=== PATIENT | female | born 1940 | race Caucasian/White ===

== ENCOUNTER → 2024-01-29 15:19 | Outpatient (REF) | payer MEDICARE, SELFPAY | LOC: HWRAD 15:19 | PROVIDERS: ATTENDING PHYSICIAN Anesthesiology; FAMILY PHYSICIAN Internal Medicine Geriatric Medicine | DX: M54.16 Radiculopathy, lumbar region (principal) | CPT/HCPCS: 70450 ==

== ENCOUNTER 2024-08-30 11:01 | Inpatient (IN) | payer MEDICARE, SELFPAY ==
[2024-08-30] VITALS (10 sets, daily range): BP systolic 101–123; BP diastolic 50–87; BMI 29.8
--- NOTE | 2024-08-30 07:22 | ED.GENMED ---
History of Present Illness
General
Chief Complaint: Musculo-Skeletal Complaint
Source: patient
Exam Limitations: none
Time Seen by Provider: 08/30/24 07:06
Nursing documentation reviewed up to this point in time: agreed with
History of Present Illness
History of Present Illness:
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
reactive airway disease presents to the ER for leg spasms. Patient reports she has chronic leg spasms for years however has not had a diagnosis and normally takes baclofen. Last night she forgot to take baclofen and woke up this morning had
severe leg spasms in her bilateral thighs. She reports she has vomited from the pain and even passed out before because the pain. This morning she called EMS because she had difficulty standing up and when she got to the bathroom she did vomit.
Patient reports EMS noted that emesis was very dark. She reports pain has subsided she only feels mildly sore in her thighs. This is the same type of pain that she has had for years. She denies any trauma fever chills redness. She does feel
mildly nauseous still.
Patient has complained of reflux over the past several days and has taken Pepcid and Pepto-Bismol. She also has had several days of dark stool.
She is not on blood thinners.
Review of Systems
Review of Systems
Allergies reviewed?: Yes
All Other Systems: ROS reviewed and negative except as documented in HPI and ROS
Constitutional: Reports no symptoms; Denies fever, fatigue or chills
EENT: Reports no symptoms
Respiratory: Reports no symptoms
Cardiac: Reports no symptoms
ABD/GI: Reports nausea, vomiting, black stools and other (dark stools ); Denies abdominal pain
: Reports no symptoms
Musculoskeletal: Reports other (leg cramps )
Skin: Reports no symptoms
Neurological: Reports no symptoms
Psychiatric: Reports no symptoms
Phy Exam
General Physical Exam
General Presentation: no apparent distress
General age: appears stated age
General Skin: warm and dry
General Habitus: normal
General Mental: alert
General Hydration: appears well hydrated
Cardiovascular Exam
Cardiovascular Exam: regular rate/rhythm, no murmur and normal peripheral pulses
Pulmonary Exam
Pulmonary Exam: lungs clear and no respiratory distress
Gastrointestinal Exam
Gastrointestinal Exam: soft and other (abd soft heme positive brown stools )
Neurological Exam
Neurological Exam: alert and oriented x3
Musculoskeletal Exam
Musculoskeletal Exam: full ROM
Skin Exam
Skin Exam: normal color and warm/dry
Psychiatric Exam
Psychiatric Exam: normal mood/affect
Course
Orders/Labs/Results
Orders:
Orders
08/30/24 07:23
IV Insert/Care/Rem.- Treatment PRN
0.9% Sodium Chloride 1000 ml [Nss] 1,000 ml IV BOLUS
Ondansetron Injectable [Zofran] 4 mg IV NOW STA
08/30/24 08:16
Complete Blood Count/With Diff Urgent
Comprehensive Metabolic Panel Urgent
08/30/24 10:04
Pantoprazole [Protonix IV] 80 mg IV NOW STA
08/30/24 10:15
Pantoprazole 80 mg/100 ml Nss [Protonix] 80 mg in 100 ml IV Q10H
08/30/24 10:35
Admit/Transfer Patient As Directed
Co-Sign Provider:
Level of Care: Inpatient admission
Assign to:: Medical/Surgical
Physician / Group: Hospitalist
Diagnosis: GI bleeding
Reason for Hospitalization: .
Expected length of stay greater than two midnights?: Yes
ELOS- Estimated Length of Stay in days: 3
I certify the patient meets the requirements for IP care: Yes
08/30/24 10:36
PRN Pain Medication Management As Directed
May give lesser potent ordered pain med per pt: Yes
preference::
Protocol:: Medication orders for pain may be administered in a
manner that supports deferring to patient preference
when the pt is:
- Requesting an ordered lesser potent pain medication.
Least to most potent pain medications are defined
as: acetaminophen < NSAID < tramadol < opioids
(morphine, oxycodone, hydromorphone).
- Requesting a lesser dose of the same medication IF
ORDERED.
- Requesting a less intrusive route of administration
if both routes are prescribed by the provider (PO <
IV).
Abnormal Lab Results
08/30/24
08:16
RBC 3.51 L 10^6/uL
(4.20-5.40)
Hgb 10.2 L g/dL
(12.0-16.0)
Hct 30.2 L %
(37.0-47.0)
Absolute Lymphs (auto) 0.5 L 10^3/uL
(1.2-3.4)
Neutrophils % 81.9 H %
(42.2-75.2)
Lymphocytes % 9.0 L %
(20.5-51.1)
BUN 38 H mg/dl
(7-17)
Glucose 140 H mg/dl
(70-99)
Total Protein 5.7 L g/dl
(6.3-8.2)
08/30/24 08:16
08/30/24 08:16
Vital Signs
Initial and Last Documented VS:
Initial Vital Signs
Temp Pulse Resp BP Pulse Ox
98.5 F 99 18 119/80 98
08/30/24 07:02 08/30/24 07:02 08/30/24 07:02 08/30/24 07:02 08/30/24 07:02
Last Documented Vital Signs
Temp Pulse Resp BP Pulse Ox
98.5 F 99 18 117/61 96
08/30/24 07:02 08/30/24 07:02 08/30/24 07:02 08/30/24 10:00 08/30/24 10:45
Garment Patternmaker consulted with Physician
Garment Patternmaker consulted with physician?: Yes
Name of Physician Consulted: DR Moreno
MDM/Problems Addressed
Differential Diagnosis Includes:
Not limited to chronic muscle spasms, dehydration, electrolyte abnormality, anemia, GI bleed
MDM/Problems Addressed:
Patient is an 83-year-old female who presented for chronic muscle spasms worse today patient did vomit because of the pain and muscle spasms. EMS noted that vomit was dark in color. She reports she has had reflux for the past several days and has
been attempting Pepto-Bismol. Patient reports that she has had black stools recently. On exam there is no active bleeding her stools are brown in color but heme positive. Hemoglobin is 10.2 with no prior comparison. BUN is also elevated at 38.
Given the history of dark emesis with black stools and heme positive stools with hemoglobin of 10.2 and a BUN of 38 will met for possible GI bleed. Case discussed with ED physician. IV protonix ordered.
*Critical Care Note
Total Time (30-74mins, 75-104mins- exclusive of procedures): Not Applicable
ED Attending Note
-
Portions of this chart may have been created with voice recognition software.� Occasional wrong word or��sound alike� substitutions may have occurred due to the inherent limitations of voice recognition software.
Discharge Plan
Departure
Patient Disposition: Admit
Date of Disposition: 08/30/24
Time of Disposition: 10:04
Admit to: Med/Surg
Admit to doctor: hospitaist
Presentation/result/management discussed w/ accepting MD/DO: Hospitalist
Patient with high blood pressure during this ER visit?: No
Condition: Fair
Covid-19: Not Applicable
Discharge Problem:
possible gi bleed, Muscle spasm
Interventions
Interventions:
*Risk Screen - Suicide Last Done: 08/30/24 07:02
*General Assessment Last Done: 08/30/24 07:02
*Neglect/Abuse Screening Last Done: 08/30/24 07:02
ED- Fall Risk Assessment Last Done: 08/30/24 07:02
*ED COVID-19 Vaccine History Last Done: 08/30/24 07:02
ED-Musculoskeletal Assessment Last Done: 08/30/24 07:02
[2024-08-30] MEDS: NSS 1000 IV (08:19)
[2024-08-30] MEDS: ZOFRAN 4 MG IV ×3 (08:20→20:15)
[2024-08-30 08:34] LABS: % Basophils 0.6 % (0-2); % Eosinophils 1.6 % (0-6); % Immature Granulocytes 0.2 % (0-0.5); % Monocytes 6.7 % (1.7-9.3); % Neutrophils 81.9 % (42.2-75.2); Absolute Eosinophils 0.1 10^3/uL (0-0.7); Absolute Lymphocytes 0.5 10^3/uL (1.2-3.4); Absolute Monocytes 0.3 10^3/uL (0.1-0.6); Absolute Neutrophils 4.2 10^3/uL (1.4-6.5); Hematocrit 30.2 % (37.0-47.0); Hemoglobin 10.2 g/dL (12.0-16.0); Mean Corp Hgb Conc. 33.8 g/dL (33.0-37.0); Mean Corpuscular Hgb 29.1 pg (27.0-31.0); Mean Platelet Volume 10.2 fL (7.4-10.4); Nucleated Red Blood Cells % 0 %; Platelet Count 195 10^3/uL (130-400); Red Blood Cell Count 3.51 10^6/uL (4.20-5.40); Red Cell Dist. Width 14.5 % (11.5-14.5); White Blood Cell Count 5.1 10^3/uL (4.8-10.8)
[2024-08-30 08:43] LABS: ALT (SGPT) 18 U/L (0-35); AST (SGOT) 24 U/L (14-36); Albumin 3.5 g/dl (3.5-5.0); Alkaline Phosphatase 46 U/L (38-126); Blood Urea Nitrogen 38 mg/dl (7-17); Calcium 8.8 mg/dl (8.4-10.2); Carbon Dioxide 24 mmol/L (22-30); Chloride 105 mmol/L (98-107); Estimated Creatinine Clearance 50 ml/min; Glucose 140 mg/dl (70-99); Potassium 4.7 mmol/L (3.5-5.1); Sodium 137 mmol/L (135-145); Total Bilirubin 0.9 mg/dl (0.2-1.3); Total Protein 5.7 g/dl (6.3-8.2); eGFR > 60.00
--- NOTE | 2024-08-30 10:34 | HPS.HSE ---
Family Physician
-
Family Physician: Shreya Murguia
Chief Complaint
-
One-time vomiting with syncopal episode
History of Present Illness
83 years old female who lives in independent living at [facility] presented after passing out. Patient has a chronic muscle spasm that she suffers from for many years. She has had evaluation at different facilities and seen by multiple
neurologists over the years. She was given baclofen for muscle spasm. Possibly related to cervical spine stenosis. Patient gets the spasms they can happen in her upper or lower extremity and sometimes painful that she passes out. Per family, son
at the bedside it is not unusual for her to pass out. Sometimes she throws up because of the painful episode. She reported dark vomitus but denies nausea or previous vomiting. Per son, she was noted to have some indigestion/gastric discomfort in
the last 2 months. She has had colonoscopy with Dr. Gordon in the last 2 years and was told normal. She tested positive for heme in the ER
Medical History
Past Medical History
Past Medical History: Reports Other (Muscle spasm, history of right lower lobe cancer status post lobectomy, history of stage I ovarian cancer s/p surgery, density on the left lower lung under surveillance)
Past Surgical History: Reports Other (No recent major surgery)
Social History
Tobacco: Non-smoker
Alcohol: Occasional
Drug: None
Personal:
Living: Assisted Living
Employment: Retired
Family History
Family History: Other (History of multiple cancers in the family including GI/lung cancer)
Allergies / Home Medications
Allergies reflects when Allergies were last updated in [employer].
Home Medications with original date entered in [employer]
Allergy/Medication List:
Allergies
Allergy/AdvReac Type Severity Reaction Status Date / Time
covid vaccine Allergy Unknown Uncoded 08/30/24 07:14
Medications on admission
Baclofen 20 mg at night oral
Review of Systems
-
History Source: Patient
A 12 point ROS was completed and negative except as noted: Yes
Constitutional: Denies Fever or Chills
EENT: Denies Sore Throat
Respiratory: Denies Cough
Cardiac: Denies Chest Pain
Abdomen/GI: Denies Abdominal Pain, Nausea, Vomiting, Diarrhea or Bloody Stools
: Denies Dysuria
Musculoskeletal: Reports Other (Muscle spasm at times); Denies Joint Pain
Skin: Denies Itching
Neurological: Denies Dizzy, Headache or Numbness
Endocrine: Denies Temp Intolerance
Hematologic/Lymphatic: Denies Bruising
Psych: Denies Panic Disorder
Physical Exam
Vital Signs
Vital Signs
Temp Pulse Resp BP Pulse Ox
98.5 F 99 18 119/80 98
08/30/24 07:02 08/30/24 07:02 08/30/24 07:02 08/30/24 07:02 08/30/24 07:02
Physical Exam
General: No Apparent Distress, Comfortable and Conversant
HEENT: Moist mucous membranes and Atraumatic
Respiratory: Clear
Cardiac: S1/S2 and Murmur
GI: Soft, Non Tender and Non Distended
Genito-urinary: No Pringle
Musculoskeletal: No Clubbing, No Cyanosis and No Edema
Skin: Warm; No Jaundice
Neuro: AO x 3
Psych: Calm and Intact Judgment/Insight
Laboratory Results
-
08/30/24 08:16
08/30/24 08:16
Laboratory Results
Total Bilirubin 0.9 mg/dl (0.2-1.3) 08/30/24 08:16
AST 24 U/L (14-36) 08/30/24 08:16
ALT 18 U/L (0-35) 08/30/24 08:16
Alkaline Phosphatase 46 U/L (38-126) 08/30/24 08:16
Impression/Plan
-
83 years old female presented after an episode with spasm associated with syncopal episode and vomiting, tested positive for Hemoccult in the ER
#History of vomiting. Hemoccult positive test in the ER
Patient denies history of chronic nausea or vomiting. No melena. She reports last colonoscopy in last [address] Gordon, was told normal.
No abdominal pain or tenderness
She has history of vomiting at times with her muscle spasm
Hemoglobin on admission 10.2
Patient and her son reported history of indigestion that she was taking Prevacid from her son and magnesium pills in the last 2 months. She denies regular intake of nonsteroidal anti-inflammatory drugs or aspirin.
Consulted gastroenterology. Appreciate input
Continue with IV PPI and changed to oral
Monitor hemoglobin.
# Chronic muscle spasm. According to the patient and her son, possibly related to cervical pathology. Patient has had these muscle spasms described as short interval and infrequent could be every few weeks or months. Painful spasm and sometimes
associated with passing out/vomiting due to severe pain. No confusion.
Patient was evaluated by multiple neurologist over the years. She takes baclofen at night.
Will add as needed IV lorazepam for muscle spasm
No history of sensory loss. No history of confusion or altered mentation or seizure activities.
# history of stage I ovarian cancer, history of right pleural lung cancer s/p resection. Currently cancer free. Has density on the left lower lung and under surveillance/monitoring by her doctors at [place].
No shortness of breath. No cough. No hypoxia.
Total time spent to see the patient, examine the patient, review data and lab results, discuss treatment plan with patient, her son, GI doctor, ER doctor and nursing staff around 75 minutes
[2024-08-30] MEDS: PROTONIX 100 IV (11:08)
[2024-08-30] MEDS: PROTONIX IV 80 MG IV (11:08)
--- NOTE | 2024-08-30 13:33 | CON.GI ---
Consultation
-
Date/Time Consultation Requested: 08/30/2024, 11:50
Date/Time Consultation Performed: 08/30/2024, 1:33 PM
Requesting Provider: Dr. Mariela Robertson
Performing Provider: Dr. Jesse Gutierrez
Reason for Consultation: GI Bleeding
Medical History
Chief Complaint / HPI
Chief Complaint: One-time vomiting with syncopal episode
History of Present Illness:
Ms Hoover is a 83 y.o female with past medical history of stage I ovarian cancer (dx in 2013, s/p LITO/BSO), R lung cancer, cervical lumbar stenosis, hx of TIA, Sheriff's palsy, CKD, and chronic muscle spasms who initially presented to the ED due to
concern for leg spasms. Concern for an episode of dark emesis and heme (+) stool along with a Hgb 10s for which GI has been consulted for further evaluation and management.
Patient reports worsening dyspepsia over the past week along with darker black stools as well during this time. She suffers from chronic muscle spasms for which she takes baclofen but denies any NSAIDs. She didn't know at first what to make of her
darker black stools and denies any oral iron supplementation. She did take some stool softeners at her independent living facility ([facility]) but is unable to recall. Regardless, while using the bathroom last evening she had an episode of dark
lack vomit. Her nursing aid also reported some concern for possible blood. She denies any prior similar symptoms or prior episodes of GI bleeding in the past. Notes a prior EGD several (> 10 ) years ago and notes a previous dilation in the past (no
records of this). She does note following closely with [facility] as she has a personal history of colon polyps (with Dr. Gordon) where her last colonoscopy was performed about 2-3 years ago and only notable for one small colon polyp. Otherwise, she denies
any changes in bowel habits, constipation/diarrhea or bloody stools. She does endorse chronic reflux as well and was previously supposed to be on Omeprazole in the past but stopped as she felt this made her muscle spasms worse. No other dysphagia,
odynophagia, globus or other upper GI symptoms. No other abdominal pain or discomfort. No other significant alcohol use. She does note an unintentional 10-12 lb weight loss as well. She follows closely with her Oncologist for surveillance of her
lung cancer and has upcoming imaging in the next 1-2 weeks at [facility] where she is followed closely for all of her care. Given her nausea and coffee ground emesis, she came to the ED for further evaluation.
In the ED, patient was afebrile and HD-stable. Labs notable for BUN 38 and Electromechanical Assembly Technician 0.8. LFTs wnl. CBC with Hgb 10.2 with MCV 86.0 and plts 195. Heme (+) brown stool in the ED and started on IV PPI.
Past Medical History
Past Medical History: Other (Muscle spasm, history of right lower lobe cancer status post lobectomy, history of stage I ovarian cancer s/p surgery, density on the left lower lung under surveillance)
Past Surgical History: Other (No recent major surgery)
Social History
Tobacco: Non-Smoker
Alcohol: Occasional
Drug: None
Family History
Family History: Other (Family history of colon polyps and CRC along with lung cancer)
Allergies / Home Medications
Allergy/AdvReac Type Severity Reaction Status Date / Time
covid vaccine Allergy Unknown Uncoded 08/30/24 07:14
Review of Systems
-
All other systems: A 12 pt ROS was Negative except as stated above in HPI
Vital Signs
Temp Pulse Resp BP Pulse Ox
98.4 F 90 18 109/54 99
08/30/24 12:00 08/30/24 12:00 08/30/24 12:00 08/30/24 12:00 08/30/24 12:00
Physical Exam
Exam
General: Well Developed, Well Nourished, No Apparent Distress and Comfortable
HEENT: Anicteric and Moist Mucous Membranes
Respiratory: Clear
Cardiac: Other (RR on tele)
GI: Soft, Non Tender and Non Distended
Skin: Warm
Neuro: AO x 3 and Nonfocal/Grossly Intact
Psych: Calm
Results
WBC 5.1 10^3/uL (4.8-10.8) 08/30/24 08:16
Hgb 10.2 g/dL (12.0-16.0) L 08/30/24 08:16
Hct 30.2 % (37.0-47.0) L 08/30/24 08:16
MCV 86.0 fL (81.0-99.0) 08/30/24 08:16
Plt Count 195 10^3/uL (130-400) 08/30/24 08:16
Absolute Neuts (auto) 4.2 10^3/uL (1.4-6.5) 08/30/24 08:16
Sodium 137 mmol/L (135-145) 08/30/24 08:16
Potassium 4.7 mmol/L (3.5-5.1) 08/30/24 08:16
Chloride 105 mmol/L (98-107) 08/30/24 08:16
Carbon Dioxide 24 mmol/L (22-30) 08/30/24 08:16
BUN 38 mg/dl (7-17) H 08/30/24 08:16
Creatinine 0.8 mg/dL (0.6-1.0) 08/30/24 08:16
Calcium 8.8 mg/dl (8.4-10.2) 08/30/24 08:16
Total Bilirubin 0.9 mg/dl (0.2-1.3) 08/30/24 08:16
AST 24 U/L (14-36) 08/30/24 08:16
ALT 18 U/L (0-35) 08/30/24 08:16
Alkaline Phosphatase 46 U/L (38-126) 08/30/24 08:16
Diagnostic Image Results:
Prior GI Procedures: No prior endoscopic records available for review. Last EGD reportedly > 10 years ago (previous dilations in past ?), last colonoscopy 2-3 years ago notable for one small polyp
Assessment / Plan
-
Ms Hoover is a 83 y.o female with past medical history of stage I ovarian cancer (dx in 2013, s/p LITO/BSO), R lung cancer, cervical lumbar stenosis, hx of TIA, Sheriff's palsy, CKD, and chronic muscle spasms who initially presented to the ED due to
concern for leg spasms. Concern for an episode of dark emesis and heme (+) stool along with a Hgb 10s for which GI has been consulted for further evaluation and management.
#Coffee Ground Emesis
#Heme (+) Stools c/f #Prior Melena
#Normocytic Anemia
#Dyspepsia
#Chronic GERD
#Hx of Colon Polyps
#Unintentional Weight Loss (10-12 lbs)
#Hx of Ovarian/Lung Cancer (reportedly in remission, in active surveillance at [facility])
Impression: Patient presenting from home with an episode of coffee ground emesis along with darker stools (concerning for melena) and worsening dyspepsia for one week duration found to have a Hgb 10s along with an elevated BUN:Electromechanical Assembly Technician ratio concerning
for an UGIB. Denies any NSAIDs or prior history of GI bleeding in the past. Last EGD > 10 yrs ago (notes prior dilations due to chronic GERD, possibly prior peptic stricture ?) and colonoscopy 2-3 years ago only notable for one small polyp at [facility].
No other Aspirin or other antiplatelets/anticoagulants. Etiology suspicious for erosive esophagitis (given her longstanding history of chronic GERD and self-discontinued her prior PPI) versus gastroduodenal erosions versus PUD. Doubt brisk UGIB
based on her hemodynamics and overall symptomatology. Would benefit from an EGD this admission.
Recommendations:
- Okay for CLD
- Trend Hgb with serial CBC, transfuse as needed
- Send anemia w/u: iron studies, folate, B12, and ferritin
- IV PPI 40 mg BiD
- Plan for EGD next week on 09/01/2024. Will consider sooner EGD if indicated pending clinical course
- If EGD is unremarkable, would consider CT Abd/pelvis given her upper abdominal discomfort which seems most consistent with dyspepsia but concern for unintentional weight loss reported by both patient and patient's family at bedside
- IV anti-emetics PRN
- Strict avoidance of all NSAIDs
- Rest of care per primary team
Discussed with patient's [id number] (Margy) as well at bedside.
GI will continue to follow while inpatient. Discussed with primary internal medicine team.
Data Reviewed
-
Radiology: Report Reviewed by me
-
-
Thank you for consultation and allowing me to participate in the patient's care. Please call the combination welder GI physician during the after hours with any questions or concerns.
--- NOTE | 2024-08-30 15:00 | PTCARENOTE ---
Received patient from ED in wheelchair, stood and pivoted to bed. AAOX3 able to make needs known. Pt ordered Full liquid diet, tolerating it well. Standby assist going to and from bathroom. Family at bedside, oriented to room and use of call dutton.
[2024-08-30 20:08] LABS: Hemoglobin 8.3 g/dL (12.0-16.0)
[2024-08-30] MEDS: LIORESAL 20 MG PO (21:13)
[2024-08-30 22:23] LABS: Glucose - Point of Care 141 mg/dl (70-99)
[2024-08-30 22:45] LABS: % Basophils 0.5 % (0-2); % Eosinophils 2.2 % (0-6); % Immature Granulocytes 0.6 % (0-0.5); % Lymphocytes 31.8 % (20.5-51.1); % Monocytes 7.6 % (1.7-9.3); % Neutrophils 57.3 % (42.2-75.2); Absolute Basophils 0.1 10^3/uL (0-0.2); Absolute Eosinophils 0.2 10^3/uL (0-0.7); Absolute Immature Granulocytes 0.1 10^3/uL (0-0.05); Absolute Lymphocytes 3.4 10^3/uL (1.2-3.4); Absolute Monocytes 0.8 10^3/uL (0.1-0.6); Absolute Neutrophils 6.2 10^3/uL (1.4-6.5); Hematocrit 27.1 % (37.0-47.0); Mean Corp Hgb Conc. 33.2 g/dL (33.0-37.0); Mean Corpuscular Hgb 28.8 pg (27.0-31.0); Mean Corpuscular Volume 86.6 fL (81.0-99.0); Mean Platelet Volume 10.2 fL (7.4-10.4); Nucleated Red Blood Cells % 0.2 %; Platelet Count 256 10^3/uL (130-400); Red Blood Cell Count 3.13 10^6/uL (4.20-5.40); Red Cell Dist. Width 14.8 % (11.5-14.5); White Blood Cell Count 10.8 10^3/uL (4.8-10.8)
[2024-08-30 22:52] LABS: ALT (SGPT) 16 U/L (0-35); AST (SGOT) 21 U/L (14-36); Albumin 3.3 g/dl (3.5-5.0); Alkaline Phosphatase 50 U/L (38-126); Blood Urea Nitrogen 39 mg/dl (7-17); Calcium 8.7 mg/dl (8.4-10.2); Carbon Dioxide 19 mmol/L (22-30); Chloride 107 mmol/L (98-107); Estimated Creatinine Clearance 40 ml/min; Glucose 125 mg/dl (70-99); Potassium 4.4 mmol/L (3.5-5.1); Sodium 137 mmol/L (135-145); Total Bilirubin 0.8 mg/dl (0.2-1.3); Total Protein 5.5 g/dl (6.3-8.2); eGFR 55.21
[2024-08-30] MEDS: LIDOCAINE 4% PATCH 1 PATCH TOPICAL (22:52)
[2024-08-30] MEDS: OFIRMEV 100 IV (22:59)
[2024-08-30 23:04] LABS: Troponin I < 0.012 ng/ml
--- NOTE | 2024-08-30 23:14 | W.PN.UPDATE ---
Update Note
Progress Note Update
2229 SHOW CARD WRITER for post syncopal episode in bathroom
Pt ambulated to bathroom unassisted. Moaning was heard by nurses and pt was found sitting sideways on toilet. Nurses able to get pt into a chair and safely get her back to bed. Vitals signs stable. Pt slightly forgetful (thinks she is at [facility]). Complaining of back pain. Restless and cannot get comfortable. Hard to deceiver if this is her normal back spasms or not. Will add lidocaine patch and one dose ofirmev iv as pt was also nauseous.
[2024-08-31] VITALS (10 sets, daily range): BP systolic 99–125; BP diastolic 44–62
--- NOTE | 2024-08-31 00:18 | RR ---
A Rapid Response was called on this patient, please see Rapid Response form.
This RN heard grunting noises from nurses station. Entered room where patient was found in the bathroom, passed out, laying across the toilet. A rapid response was called. Patient was placed in chair by staff and placed into bed. VSS. Patient with
no recollection of event. Bed alarm placed. Patient with c/o back pain. See MAR for administration.
[2024-08-31 02:48] LABS: Hematocrit 28.4 % (37.0-47.0); Hemoglobin 9.4 g/dL (12.0-16.0)
--- NOTE | 2024-08-31 06:19 | W.PN.GI.CBS2 ---
Today's Communication / Plan
-
F/u post-transfusion CBC, transfuse as needed. Monitor for signs of overt GI blood loss while inpatient. Plan for EGD tomorrow, 09/01/2024. Keep NPO at PR. See rest of care as outlined below.
Assessment / Plan
-
Ms Hoover is a 83 y.o female with past medical history of stage I ovarian cancer (dx in 2013, s/p LITO/BSO), R lung cancer, cervical lumbar stenosis, hx of TIA, Sheriff's palsy, CKD, and chronic muscle spasms who initially presented to the ED due to
concern for leg spasms. Concern for an episode of dark emesis and heme (+) stool along with a Hgb 10s for which GI has been consulted for further evaluation and management.
#Coffee Ground Emesis #C/f UGIB
#Heme (+) Stools #Prior Melena
#Dyspepsia
#Acute Blood Loss Anemia
#Normocytic Anemia
#Chronic GERD
#Hx of Colon Polyps
#Unintentional Weight Loss (10-12 lbs)
#Hx of Ovarian/Lung Cancer (reportedly in remission, in active surveillance at [place])
Impression: Patient presenting from home with an episode of coffee ground emesis along with darker stools (concerning for melena) and worsening dyspepsia for one week duration found to have a Hgb 10s along with an elevated BUN:Instrument Sterilizer ratio concerning
for an UGIB. Denies any NSAIDs or prior history of GI bleeding in the past. Last EGD > 10 yrs ago (notes prior dilations due to chronic GERD, possibly prior peptic stricture ?) and colonoscopy 2-3 years ago only notable for one small polyp at [facility].
No other Aspirin or other antiplatelets/anticoagulants. Etiology suspicious for erosive esophagitis (given her longstanding history of chronic GERD and self-discontinued her prior PPI) versus gastroduodenal erosions versus PUD. Doubt brisk UGIB
based on her hemodynamics and overall symptomatology. Would benefit from an EGD this admission.
Hgb 10.2 -> 9.0 -> 7.6 and with BUN 38 -> 39 concerning for UGIB. Still without any melena or maroon colored stools, however given recent CLAM SHOVEL OPERATOR and drop in Hgb would benefit from 1 uPRBC.
Recommendations:
- CLD only, keep NPO at MN
- Ordered 1 uPRBC this AM, f/u post-transfusion CBC
- Trend Hgb with CBC q 12 hrs, transfuse as needed
- Anemia w/u: Folate 4.0, B12 267, iron sat 14% and ferritin 73.8
- Would benefit from IV iron as well, start IV iron
- IV PPI 40 mg BiD
- Plan for EGD tomorrow, 09/01/2024, for further evaluation of prior melena, coffee ground emesis and acute blood loss anemia
- Discussed risks and benefits of EGD with patient this AM, amenable to proceeding with procedure
- IV anti-emetics PRN
- Strict avoidance of all NSAIDs
- Rest of care per primary team
GI will continue to follow while inpatient. Discussed with primary internal medicine team this AM.
Subjective
Subjective
Date of Service: August 31, 2024
- CLAM SHOVEL OPERATOR called overnight for post-syncopal episode in bathroom, no reported melena or bloody stools
- Complaining of back pain and nausea
- Hgb 10.2 -> 9.0 -> 7.6 and with BUN 38 -> 39
Resting comfortably, still without any recent bowel movement since admission. No abdominal pain/discomfort, nausea/vomiting or further episodes of coffee ground emesis since admission. Discussed risks and benefits with patient this AM about pursuing
EGD, amenable to pursuing her procedure tomorrow. Discussed with patient's family as well yesterday in ED.
Objective
Data Reviewed
Laboratory Data:
Laboratory Results
08/30/24 22:36
Laboratory Results
Total Bilirubin 0.8 mg/dl (0.2-1.3) 08/30/24 22:36
AST 21 U/L (14-36) 08/30/24 22:36
ALT 16 U/L (0-35) 08/30/24 22:36
Alkaline Phosphatase 50 U/L (38-126) 08/30/24 22:36
Vital Signs and I&O:
Vital Signs
Temp Pulse Resp BP Pulse Ox
97.5 F 84 18 114/53 97
08/31/24 03:30 08/31/24 03:30 08/31/24 03:30 08/31/24 03:30 08/31/24 03:30
I&O
08/29/24 08/30/24 08/31/24
06:59 06:59 06:59
Intake Total 780 / 780
Balance 780 / 780
Physical Exam
Physical Exam
HEENT: Anicteric and Moist mucous membranes
Pulmonary: Other (Normal WOB on room air)
GI: Soft, Distended (Protuberant) and Non Tender
Neuro: Non Focal
[2024-08-31 06:36] LABS: Iron 45 ug/dl (37-170)
[2024-08-31 06:38] LABS: Hematocrit 22.2 % (37.0-47.0); Hemoglobin 7.6 g/dL (12.0-16.0); Mean Corp Hgb Conc. 34.2 g/dL (33.0-37.0); Mean Corpuscular Hgb 29.3 pg (27.0-31.0); Mean Corpuscular Volume 85.7 fL (81.0-99.0); Mean Platelet Volume 11.1 fL (7.4-10.4); Platelet Count 164 10^3/uL (130-400); Red Blood Cell Count 2.59 10^6/uL (4.20-5.40); Red Cell Dist. Width 14.6 % (11.5-14.5); White Blood Cell Count 8.3 10^3/uL (4.8-10.8)
[2024-08-31 06:46] LABS: Percent Saturation 14 % (20-50); Total Iron Binding Capacity 310 ug/dl (265-497)
[2024-08-31 07:08] LABS: Ferritin 73.8 ng/ml (11.1-264.0)
[2024-08-31 07:40] LABS: Vitamin B12 267 pg/ml (239-931)
[2024-08-31] MEDS: PROTONIX IV 40 MG IV ×2 (08:13→20:06)
[2024-08-31] MEDS: NSS 500 IV (08:13)
[2024-08-31] MEDS: NSS (PRESERVATIVE FREE) 10 ML IV ×2 (08:14→20:06)
[2024-08-31] MEDS: OFIRMEV 100 IV (08:30)
--- NOTE | 2024-08-31 08:37 | W.PN.HOSP.TC ---
Addendum entered and electronically signed by Chanda Robertson MD 08/31/24 14:54:
Addendum
Patient is doing better, receiving blood transfusion
Discussed with patient and family at bedside. Patient had Dilaudid in the past for neck surgery without reaction. She is complaining of back pain, will try low-dose Dilaudid
End
Original Note:
Today's Communication/Plan
-
Give blood transfusion
telemetry monitoring
Assessment / Plan
Assessment / Plan
Physical Exam
General: No Apparent Distress, Comfortable and Conversant
HEENT: Moist mucous membranes and Atraumatic
Respiratory: Clear
Cardiac: S1/S2 and Murmur
GI: Soft, Non Tender and Non Distended
Genito-urinary: No Pringle
Musculoskeletal: No Clubbing, No Cyanosis and No Edema
Skin: Warm; No Jaundice
Neuro: AO x 3
Psych: Calm and Intact Judgment/Insight
83 years old female presented after an episode with spasm associated with syncopal episode and vomiting, tested positive for Hemoccult in the ER
#Acute blood loss anemia
History of Coffee Ground Emesis, dyspepsia over last few weeks, hx of GERD, unintentional weight loss. Hemoccult positive test in the ER
HGB dropped to 7.6. Hemoglobin on admission 10.2, we do not know baseline.
Will give two units of RBCs 08/31
Type and cross, consent signed Patient
She reports last colonoscopy in last 2-[address] Gordon in [place], was told normal except for polyp.
No abdominal pain or tenderness
She has history of vomiting at times with her muscle spasm. She denied regular intake of nonsteroidal anti-inflammatory drugs or aspirin.
Consulted gastroenterology. Appreciate input
Continue with IV PPI BID, plan for EGD 09/01
Monitor hemoglobin post transfusion.
# Vasovagal syncopes
Noted while passing urine?BM in hospital
Given IVF
She is getting blood transfusion, will do telemetry monitoring.
No chest pain or confusion.
# Chronic muscle spasm. According to the patient and her son, possibly related to cervical pathology/ back issues. Patient has had these muscle spasms described as short interval and infrequent could be every few weeks or months. Painful spasm
and sometimes associated with passing out/vomiting due to severe pain. No confusion.
Patient was evaluated by multiple neurologists over the years. She takes baclofen at night.
Added as needed IV lorazepam for muscle spasm
No history of sensory loss. No history of confusion or altered mentation or seizure activities.
# history of stage I ovarian cancer, history of right pleural lung cancer s/p resection. Currently cancer free. Has density on the left lower lung and under surveillance/monitoring by her doctors at [place].
No shortness of breath. No cough. No hypoxia.
Total time spent to see the patient, examine the patient, review data and lab results, discuss treatment plan with patient, GI doctor, and nursing staff around 59 minutes
Anticipated Discharge: > 48 hours
Subjective/Interval History
-
Date of Service: August 31, 2024
No chest pain or sob
Had fainting episode while on toilet
Objective Data
-
Labs:
Laboratory Results
08/30/24 08/31/24 08/31/24
22:36 02:21 05:50
WBC 10.8 8.3
Hgb 9.0 L 9.4 L 7.6 L
Hct 27.1 L 28.4 L 22.2 L
Plt Count 256 D 164 D
Sodium 137
Potassium 4.4
Chloride 107
Carbon Dioxide 19 L
BUN 39 H
Creatinine 1.0
Glucose 125 H
Calcium 8.7
Total Bilirubin 0.8
AST 21
ALT 16
Alkaline Phosphatase 50
Vital Signs:
Vital Signs
Temp Pulse Resp BP Pulse Ox
98.9 F 87 18 125/59 98
08/31/24 07:00 08/31/24 07:00 08/31/24 07:00 08/31/24 07:00 08/31/24 07:00
I&O
08/30/24 08/31/24 09/01/24
06:59 06:59 06:59
Intake Total 1020 / 1020
Balance 1020 / 1020
[2024-08-31] MEDS: FERRLECIT 110 MG IV (14:52)
[2024-08-31] MEDS: DILAUDID 0.5 MG IV (14:53)
--- NOTE | 2024-08-31 15:22 | CM ---
Initial assessment completed with pt at bedside.
Pt is an 83yr old female admitted with GI Bleed and vasovagel syncope.
At baseline, pt lives alone at [facility] in [place]. Pt is indep at baseline and drives.
Pt goes to the dining room for most of her meals, but does do some of her own meal prep.
There is no current/hx of use of VN/SNF/DME
PCP; Shreya Murguia
Pharm; [facility]
PLAN; Watch for possible needs.
--- NOTE | 2024-08-31 18:05 | PTCARENOTE ---
Received in morning report that patient was a rapid response over night after a syncopal episode on the toilet. During med rounds, Pt insisted on going to the toilet to urinate. Bedpan was offered instead, and Pt unsuccessful in voiding in bedpan.
Bedside commode brought in and Pt was a heavy assist x2 to commode. While sitting on commode Pt had a fainting episode, Dr. Robertson who was outside of Pt's room, came in and assessed patient. Pt assisted back to bed with assist x3. Vitals stable and
NSR on tele monitor. IV bolus and 2 units of PRBC ordered and administered during shift. Tolerating blood transfusion well, with vitals signs stable throughout. Pt with complaints of lower back pain since med rounds, and Ofirmev ordered and
administered with +effects. Daughter Margy at bedside during shift. Margy asked for stronger pain medication for patient's lower back, daughter stated that Codine allergy is not an anaphylaxis reaction, but because of occasional hypotensive effects.
Communicated with Livier from pharmacy and information adjusted in chart. Pt ordered Dilaudid during shift for lower back pain, administered and no adverse effects noted. Pt did have mild temporary pain relief. Purewick placed on Pt during shift.
Pt unable to void on bedpan due to back and L leg pain, unable to safely transfer Pt to bedside commode due to fainting episodes, Pt voiding with purewick in place. Continues on tele monitor, bed alarm, call dutton within reach.
[2024-08-31 20:10] LABS: Hemoglobin 9.5 g/dL (12.0-16.0)
[2024-08-31] MEDS: LIORESAL 20 MG PO (21:20)
[2024-08-31] MEDS: TYLENOL 1000 MG PO (23:49)
[2024-09-01 03:34] VITALS: BP 114/60
[2024-09-01] MEDS: ATIVAN 0.5 MG IV ×2 (04:31→13:53)
[2024-09-01] MEDS: NSS (PRESERVATIVE FREE) 0.5 ML IV ×2 (04:32→13:54)
[2024-09-01 06:50] LABS: Hematocrit 29.1 % (37.0-47.0); Hemoglobin 9.6 g/dL (12.0-16.0); Mean Corpuscular Hgb 28.2 pg (27.0-31.0); Mean Corpuscular Volume 85.3 fL (81.0-99.0); Mean Platelet Volume 10.5 fL (7.4-10.4); Platelet Count 157 10^3/uL (130-400); Red Blood Cell Count 3.41 10^6/uL (4.20-5.40); Red Cell Dist. Width 15.7 % (11.5-14.5); White Blood Cell Count 5.4 10^3/uL (4.8-10.8)
[2024-09-01 07:09] LABS: Blood Urea Nitrogen 21 mg/dl (7-17); Calcium 8.3 mg/dl (8.4-10.2); Carbon Dioxide 20 mmol/L (22-30); Chloride 110 mmol/L (98-107); Estimated Creatinine Clearance 45 ml/min; Glucose 116 mg/dl (70-99); Potassium 3.7 mmol/L (3.5-5.1); Sodium 137 mmol/L (135-145); eGFR > 60.00
[2024-09-01 07:30] VITALS: BP 146/66
--- NOTE | 2024-09-01 08:40 | W.PN.HOSP.TC ---
Today's Communication/Plan
-
see bold
Assessment / Plan
Assessment / Plan
83 years old female presented after an episode with spasm associated with syncopal episode and vomiting, tested positive for Hemoccult in the ER
#Acute tiny right upper lobe PE with minimal clot burden
Discussed with GI, okay for heparin drip, no bolus
Check echo
#Acute blood loss anemia
History of Coffee Ground Emesis, dyspepsia over last few weeks, hx of GERD, unintentional weight loss. Hemoccult positive test in the ER
Hemoglobin 9.6 today, status post 2 units packed red blood cells 08/31, hemoglobin was 7.6
Appreciate GI input, EGD deferred
Clear liquid diet, PPI IV twice daily, trend hemoglobin
#Vasovagal syncope 08/31
Noted while passing urine/stool in hospital
#Chronic muscle spasm
#Acute intractable back pain
According to the patient and her son, possibly related to cervical pathology/ back issues.
Patient has had these muscle spasms described as short interval and infrequent could be every few weeks or months.
Painful spasm and sometimes associated with passing out/vomiting due to severe pain. No confusion.
Patient was evaluated by multiple neurologists over the years. She takes baclofen at night.
Patient's back pain worsened after passing out on 08/[address] lumbar spine to rule out fracture
Increase baclofen to 20 mg 3 times daily
#Right lower lobe consolidation concerning for developing pneumonia
Start Rocephin/doxycycline day 1
#Constipation
Start laxatives
#History of stage I ovarian cancer, history of right pleural lung cancer s/p resection
Currently cancer free. Has density on the left lower lung and under surveillance/monitoring by her doctors at [place].
DVT prophylaxis�IV heparin drip
Full code
Updated son on phone and at bedside 09/01
Total time spent to see the patient on the floor, examine the patient, review data and lab results, discuss treatment plan with patient, nursing staff around 60 minutes.
Physical Exam
General: Appears to be in pain, no acute distress
HEENT: Normocephalic, Atraumatic, EOMI, MMM
Respiratory: Clear to Auscultation bilaterally
Cardiac: Normal S1/S2, Regular Rate and Rhythm
GI: Soft, Nontender, Nondistended, Normal Bowel Sounds
Extremities: No Clubbing, Cyanosis, or Edema
Neuro: Nonfocal/Grossly Intact
Anticipated Discharge: > 48 hours
Subjective/Interval History
-
Date of Service: September 01, 2024
Patient seen twice today. In the morning, she complained of severe mid lower back pain, which occurred after fainting in the bathroom yesterday. She was seen again after a rapid response was called for shortness of breath, severe back pain. She
is nauseous, no vomiting. No black or bloody stools. No fever.
Objective Data
-
Labs:
Laboratory Results
09/01/24
06:27
WBC 5.4
Hgb 9.6 L
Hct 29.1 L
Plt Count 157
Sodium 137
Potassium 3.7
Chloride 110 H
Carbon Dioxide 20 L
BUN 21 H
Creatinine 0.9
Glucose 116 H
Calcium 8.3 L
Vital Signs:
Vital Signs
Temp Pulse Resp BP Pulse Ox
97.6 F 74 18 114/60 98
09/01/24 03:34 09/01/24 03:34 09/01/24 03:34 09/01/24 03:34 09/01/24 03:34
I&O
08/31/24 09/01/24 09/02/24
06:59 06:59 06:59
Intake Total 1020 / 1020 2940 / 2940
Output Total 1100 / 1100
Balance 1020 / 1020 1840 / 1840
[2024-09-01] MEDS: NSS (PRESERVATIVE FREE) 10 ML IV ×2 (08:51→20:10)
[2024-09-01] MEDS: DILAUDID 0.25 MG IV (08:51)
[2024-09-01] MEDS: PROTONIX IV 40 MG IV ×2 (08:52→20:10)
--- NOTE | 2024-09-01 10:22 | PTCARENOTE ---
Pt c/o unrelieved 05/15 lower back pain. MD made aware, new order provided, see MAR.
[2024-09-01] MEDS: FLUSH (NSS) 1 FLUSH IV ×2 (10:23→13:28)
[2024-09-01] MEDS: DILAUDID 0.5 MG IV ×4 (10:23→20:09)
[2024-09-01 11:32] VITALS: BP 137/70
[2024-09-01] MEDS: FERRLECIT 110 MG IV (13:26)
[2024-09-01 13:35] LABS: Glucose - Point of Care 108 mg/dl (70-99)
--- NOTE | 2024-09-01 13:57 | RR ---
A Rapid Response was called on this patient, please see Rapid Response form.
Pain medication provided and IV Ferrlecit connected to IV and infusing. This RN walking out to hallway, son at bedside stated, 'She's not breathing'. Pt gasping for air, stridor audible and flailing arms in air. After approximately 30 seconds, pt
tachypneic and stated, 'Oh, my back, it hurts so bad'. Pale. Rapid response called. Rapid response team at bedside. ECG, vitals, and glucose obtained. New orders provided by . Will initiate transport for testing.
--- NOTE | 2024-09-01 16:10 | W.PN.GI.CBS2 ---
Today's Communication / Plan
-
Recent syncopal episode this afternoon and found to have a new, acute RUL PE on recent imaging. No overt GI bleeding since admission and appropriate correction after 2 uPRBCs. Will defer plans for EGD and monitor for now while starting a/c. See rest
of care as outlined below.
Assessment / Plan
-
Ms Hoover is a 83 y.o female with past medical history of stage I ovarian cancer (dx in 2013, s/p LITO/BSO), R lung cancer, cervical lumbar stenosis, hx of TIA, Sheriff's palsy, CKD, and chronic muscle spasms who initially presented to the ED due to
concern for leg spasms. Concern for an episode of dark emesis and heme (+) stool along with a Hgb 10s for which GI has been consulted for further evaluation and management.
#Coffee Ground Emesis #C/f UGIB
#Heme (+) Stools
#Dyspepsia
#New, Acute RUL PE w/out R Heart Strain
#Acute Blood Loss Anemia #Normocytic Anemia
#Chronic GERD
#Hx of Colon Polyps
#Unintentional Weight Loss (10-12 lbs)
#Hx of Ovarian/Lung Cancer (reportedly in remission, in active surveillance at [place])
Impression: Patient presenting from home with an episode of coffee ground emesis along with darker stools (concerning for melena) found to have heme (+) brown stool in ED. Notes worsening dyspepsia as well for one week duration found to have a Hgb
10s along with an elevated BUN:Inventory Worker ratio concerning for an UGIB. Denies any NSAIDs or prior history of GI bleeding in the past. Last EGD > 10 yrs ago (notes prior dilations due to chronic GERD, possibly prior peptic stricture ?) and colonoscopy 2-3
years ago only notable for one small polyp at [facility]. No other Aspirin or other antiplatelets/anticoagulants. Etiology suspicious for erosive esophagitis (given her longstanding history of chronic GERD and self-discontinued her prior PPI) versus
gastroduodenal erosions versus PUD. Doubt brisk UGIB based on her hemodynamics and overall symptomatology.
Hgb 10.2 -> 9.0 -> 7.6 and with BUN 38 -> 39. Still without any melena or maroon colored stools, only heme (+) brown stool in ED. Since admission with drop in Hgb 9s -> 7s s/p 2 upRBCs with appropriate correction without any overt GI bleeding.
Course complicated by acute SOB, severe back pain and syncopal episode on 09/01 without any bloody stools. Found to have a new, acute PE on 09/01 in the RUL.
Recommendations:
- CLD only
- Trend Hgb with serial CBC, transfuse for goal Hgb > 8.0. S/p 2 uPRBCs on 08/31
- Okay to start IV heparin gtt given stable H/h and without any melena or overt GI bleeding since admission
- Defer plans for EGD at this time as without any overt GI bleeding and heme (+) stools
- Will reconsider pending clinical course if patient has overt GI bleeding, but given recent PE prefer to hold off at this time
- No evidence of R heart strain, pending TTE as ordered by primary team
- IV PPI 40 mg BiD
- IV iron x 5 days while inpatient
- Monitor for signs of recurrent GI bleeding
- IV anti-emetics PRN
- Strict avoidance of all NSAIDs
- Rest of care per primary team
GI will continue to follow while inpatient. Discussed with primary internal medicine team this afternoon along with patient's family.
Subjective
Subjective
Date of Service: September 01, 2024
- No acute events overnight
- S/p 2 uPRBCs for Hgb 7.6 -> 9.5 -> 9.6
Resting comfortable, no signs of melena or maroon colored stools since admission. Patient's son, David, at bedside. Given her recent fall, her EGD was postponed pending repeat cross-sectional imaging. Found to have a RUL PE without right heart strain.
Objective
Data Reviewed
Laboratory Data:
Laboratory Results
09/01/24 06:27
09/01/24 06:27
Laboratory Results
Total Bilirubin 0.8 mg/dl (0.2-1.3) 08/30/24 22:36
AST 21 U/L (14-36) 08/30/24 22:36
ALT 16 U/L (0-35) 08/30/24 22:36
Alkaline Phosphatase 50 U/L (38-126) 08/30/24 22:36
Vital Signs and I&O:
Vital Signs
Temp Pulse Resp BP Pulse Ox
97.2 F 84 20 137/70 96
09/01/24 11:32 09/01/24 11:32 09/01/24 11:32 09/01/24 11:32 09/01/24 11:32
I&O
08/31/24 09/01/24 09/02/24
06:59 06:59 06:59
Intake Total 1020 / 1020 2940 / 2940 110 / 110
Output Total 1100 / 1100
Balance 1020 / 1020 1840 / 1840 110 / 110
Physical Exam
Physical Exam
HEENT: Anicteric and Moist mucous membranes
Pulmonary: Other (Normal WOB on room air)
GI: Soft, Non Distended and Non Tender
Neuro: Non Focal
[2024-09-01] MEDS: VIBRAMYCIN 100 MG PO (16:34)
[2024-09-01] MEDS: MIRALAX 17 GRAMS PO ×2 (16:34→20:13)
[2024-09-01] MEDS: STERILE WATER FOR INJECTION 10 ML IV (16:34)
[2024-09-01] MEDS: ROCEPHIN 1000 MG IV (16:34)
[2024-09-01 16:55] VITALS: BP 143/75
[2024-09-01 17:18] LABS: APTT 39.2 Sec (23.4-35.0)
[2024-09-01] MEDS: HEPARIN 25000 UNITS/250 ML IV (17:37)
[2024-09-01 20:04] VITALS: BP 160/76
[2024-09-01] MEDS: SENOKOT-S 2 TABLET PO (20:13)
[2024-09-01 23:17] LABS: Glucose - Point of Care 125 mg/dl (70-99)
--- NOTE | 2024-09-01 23:45 | RR ---
This RN was in pt's rm while tech was getting vitals, VSS. Pt anxious and stating 'what is wrong with me?' 'why does my back hurt?'. This RN pulled PRN IV ativan for pt for her back spasm. This RN walked into pt's room to administer medication, pt
yelled 'I am going to throw up'. Pt threw up a large amount of bright red blood. heparin gtt stopped. BP 127/65, HR 90, 88% RA. Pt placed on 2L, sating 98%.
A Rapid Response was called on this patient, please see Rapid Response form.
--- NOTE | 2024-09-01 23:50 | W.PN.UPDATE ---
Addendum entered and electronically signed by PIETRO Hughes 09/01/24 23:59:
called son for update. No answer. message left
Original Note:
Update Note
Progress Note Update
2345 LPN RN for vomiting bright red blood
Per nurse, pt was getting ready to be medicated for pain/anxiety when she complained about nausea and vomited bright red blood. Pt mentating good. vital signs 127/65 hr 95 88% room air o2 2 L 98% initially. BP did drop to 99/63 just prior to
transfer.
Pt was started on heparin gtt today at approx 1730 for new found PE. Heparin gtt immediately stopped. NSS bolus 500ml ordered.
GI Dr Gutierrez notified immediately via TT. Strict NPO, Stop heparin gtt (already done), protonix gtt.
STAT labs: cbc ptt, pt/inr, bmp
Transfer initiated to ICU. Brazing Machine Operator Dr dumont made aware of situation.
[2024-09-01 23:56] VITALS: BP 112/69
[2024-09-02] VITALS (22 sets, daily range): BP systolic 89–125; BP diastolic 48–72; PULSE 90–117; BMI 29.3
[2024-09-02] MEDS: NSS 500 IV
--- NOTE | 2024-09-02 | PTCARENOTE ---
pt tx to ICU s/p Rapid Response, aaox3, SR-ST HR [id number], Sat 96% on 2LNC. LA IV x 2 WNL. CHG cloths, assisted with repositioning. mouth care. care ongoing, POC discussed w/pt.
[2024-09-02] MEDS: PROTONIX IV 80 MG IV (00:36)
[2024-09-02] MEDS: NSS (PRESERVATIVE FREE) 20 ML IV (00:36)
[2024-09-02] MEDS: PROTONIX 100 IV ×2 (00:37→11:05)
[2024-09-02 00:41] LABS: Hematocrit 27.7 % (37.0-47.0); Hemoglobin 9.3 g/dL (12.0-16.0); Mean Corp Hgb Conc. 33.6 g/dL (33.0-37.0); Mean Corpuscular Hgb 28.7 pg (27.0-31.0); Mean Corpuscular Volume 85.5 fL (81.0-99.0); Mean Platelet Volume 10.4 fL (7.4-10.4); Platelet Count 168 10^3/uL (130-400); Red Blood Cell Count 3.24 10^6/uL (4.20-5.40); Red Cell Dist. Width 15.9 % (11.5-14.5); White Blood Cell Count 7.8 10^3/uL (4.8-10.8)
[2024-09-02 00:49] LABS: INR 1.31; PT 16.6 Sec (11.4-14.6)
[2024-09-02 00:56] LABS: APTT 157.1 Sec (23.4-35.0)
[2024-09-02 01:07] LABS: Blood Urea Nitrogen 18 mg/dl (7-17); Calcium 7.4 mg/dl (8.4-10.2); Carbon Dioxide 20 mmol/L (22-30); Chloride 108 mmol/L (98-107); Estimated Creatinine Clearance 50 ml/min; Glucose 150 mg/dl (70-99); Potassium 3.8 mmol/L (3.5-5.1); Sodium 135 mmol/L (135-145); eGFR > 60.00
[2024-09-02] MEDS: DILAUDID 0.5 MG IV ×2 (02:16→11:13)
[2024-09-02] MEDS: NSS IV (03:00)
[2024-09-02 05:06] LABS: Hematocrit 26.7 % (37.0-47.0); Hemoglobin 8.9 g/dL (12.0-16.0); Mean Corp Hgb Conc. 33.3 g/dL (33.0-37.0); Mean Corpuscular Hgb 28.7 pg (27.0-31.0); Mean Corpuscular Volume 86.1 fL (81.0-99.0); Mean Platelet Volume 10.9 fL (7.4-10.4); Platelet Count 185 10^3/uL (130-400); White Blood Cell Count 8.4 10^3/uL (4.8-10.8)
[2024-09-02 05:45] LABS: Blood Urea Nitrogen 22 mg/dl (7-17); Calcium 7.9 mg/dl (8.4-10.2); Carbon Dioxide 21 mmol/L (22-30); Chloride 109 mmol/L (98-107); Estimated Creatinine Clearance 50 ml/min; Glucose 133 mg/dl (70-99); Sodium 136 mmol/L (135-145); eGFR > 60.00
--- NOTE | 2024-09-02 05:51 | W.PN.GI.CBS2 ---
Today's Communication / Plan
-
Episode of hematemesis overnight while started on IV heparin gtt. Plan for EGD today, 09/02/24, for further evaluation. See rest of care as outlined below.
Assessment / Plan
-
Ms Hoover is a 83 y.o female with past medical history of stage I ovarian cancer (dx in 2013, s/p LITO/BSO), R lung cancer, cervical lumbar stenosis, hx of TIA, Sheriff's palsy, CKD, and chronic muscle spasms who initially presented to the ED due to
concern for leg spasms. Concern for an episode of dark emesis and heme (+) stool along with a Hgb 10s for which GI has been consulted for further evaluation and management.
#Hematemesis #UGIB
#Prior Coffee Ground Emesis
#Heme (+) Stools #Dyspepsia
#New, Acute RUL PE w/out R Heart Strain
#Acute Blood Loss Anemia #Normocytic Anemia
#Chronic GERD
#Hx of Colon Polyps
#Unintentional Weight Loss (10-12 lbs)
#Hx of Ovarian/Lung Cancer (reportedly in remission, in active surveillance at [place])
Impression: Patient presenting from home with an episode of coffee ground emesis along with darker stools (concerning for melena) found to have heme (+) brown stool in ED. Notes worsening dyspepsia as well for one week duration found to have a Hgb
10s along with an elevated BUN:Translational Specialist ratio concerning for an UGIB. Denies any NSAIDs or prior history of GI bleeding in the past. Last EGD > 10 yrs ago (notes prior dilations due to chronic GERD, possibly prior peptic stricture ?) and colonoscopy 2-3
years ago only notable for one small polyp at [facility]. No other Aspirin or other antiplatelets/anticoagulants. Etiology suspicious for erosive esophagitis (given her longstanding history of chronic GERD and self-discontinued her prior PPI) versus
gastroduodenal erosions versus PUD. Doubt brisk UGIB based on her hemodynamics and overall symptomatology.
Hgb 10.2 -> 9.0 -> 7.6 and with BUN 38 -> 39. Still without any melena or maroon colored stools, only heme (+) brown stool in ED. Since admission with drop in Hgb 9s -> 7s s/p 2 upRBCs with appropriate correction without any overt GI bleeding.
Course complicated by acute SOB, severe back pain and syncopal episode on 09/01 without any bloody stools. Found to have a new, acute PE on 09/01 in the RUL.
Course complicated by one episode of hematemesis around 2345 on 09/01 while on IV heparin gtt. HD-stable with slight drift in Hgb 9.6 -> 8.9 this AM. No further episodes of hematemesis or other melena/maroon colored stools.
Recommendations:
- Keep strict NPO
- Ensure two large bore IVs at all times (18 gauge)
- Trend Hgb with CBC q 8 hrs, transfuse for goal Hgb > 8.0. S/p 2 uPRBCs on 08/31
- IV PPI gtt x 72 hrs
- Plan for EGD today, 09/02/24, given recent hematemesis and acute blood loss anemia
- Hold IV heparin gtt (09/01- )
- Monitor for signs of recurrent GI bleeding while in ICU
- IV anti-emetics PRN
- Strict avoidance of all NSAIDs
- Rest of care per primary team
GI will continue to follow.
Subjective
Subjective
Date of Service: September 02, 2024
- DIESEL POWER SHOVEL OPERATOR called around 1145 on 09/01 for one episode of hematemesis while on IV heparin gtt
- Given IVF bolus, IV heparin gtt stopped, and started on IV PPI gtt. Stepped up to ICU overnight
- Hgb 9.6 -> 9.3 ->8.9
No further episodes of hematemesis this AM. No melena or maroon colored stools. Still without any BM since admission. Denies any abdominal pain but notes significant lower back pain without any lower extremity paresthesias. Found to have a subacute
L1 fracture on recent Lumbar Spine 09/01/24.
Objective
Data Reviewed
Laboratory Data:
Laboratory Results
09/02/24 04:46
09/02/24 04:46
Laboratory Results
PT 16.6 Sec (11.4-14.6) H 09/02/24 00:31
INR 1.31 09/02/24 00:31
APTT 157.1 Sec (23.4-35.0) H* 09/02/24 00:31
Total Bilirubin 0.8 mg/dl (0.2-1.3) 08/30/24 22:36
AST 21 U/L (14-36) 08/30/24 22:36
ALT 16 U/L (0-35) 08/30/24 22:36
Alkaline Phosphatase 50 U/L (38-126) 08/30/24 22:36
Vital Signs and I&O:
Vital Signs
Temp Pulse Resp BP Pulse Ox
98 F 87 12 99/57 97
09/02/24 00:00 09/02/24 03:30 09/02/24 03:30 09/02/24 03:00 09/02/24 03:30
I&O
08/31/24 09/01/24 09/02/24
06:59 06:59 06:59
Intake Total 1020 / 1020 2940 / 2940 650 / 650
Output Total 1100 / 1100 400 / 400
Balance 1020 / 1020 1840 / 1840 250 / 250
Physical Exam
Physical Exam
HEENT: Anicteric and Moist mucous membranes
Cardiology: Other (RR on tele)
Pulmonary: Other (Normal WOB on room air)
GI: Soft, Non Distended and Non Tender
Extremities: No Edema
Neuro: Non Focal
--- NOTE | 2024-09-02 06:40 | PTCARENOTE ---
bladder scanned per work list. attempted to straight cath, unable to insert due to anatomy, pt attempting to void using purewick.
--- NOTE | 2024-09-02 08:26 | CON.INTV ---
Addendum entered and electronically signed by Rachel Wheeler MD 09/02/24 13:15:
Pulmonary will follow briefly regarding decision of anticoagulation versus IVC filter
Addendum entered and electronically signed by Rachel Wheeler MD 09/02/24 12:14:
Endoscopy results noted
Plan to hold heparin and reassess for reinitiation 09/03
Check lower extremity Dopplers in the interim
Given small subsegmental clot without hypoxia, lets follow-up for 24 hours
With any worsening respiratory status, may require IVC filter
Original Note:
Consultation
Consultation Request
Date/Time Consultation Requested: 09/02
Date/Time Consultation Performed: 09/02
Reason for Consultation: Critical care
Medical History
-
History of Present Illness:
History obtained from the patient, hospital records, and also from the son. 83-year-old female with history of chronic lower extremity muscle spasms, lung cancer, ovarian cancer who presents on 08/30/2024 for possible syncopal event. According to
the patient, she got up to go to the bathroom, but had leg spasms and pain. She apparently fell down, had a syncopal event. She then developed emesis with dark vomitus. Patient apparently does see GI in the past at [place]. She was heme
positive in the ER. She had a CT chest which confirmed small right upper lobe subsegmental clot was started on heparin therapy. On 09/01 she developed episode of hematemesis, transferred to the ICU for further management with marginal blood
pressure. We are asked to help from critical care standpoint
Presently, she is without complaints. She denies shortness of breath, chest pain, abdominal pain, nausea, back pain, diarrhea
.
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
Past Medical History
Past Medical History: None (See above)
Past Surgical History: None (See above)
Social History
Tobacco: Non-smoker
Alcohol: Occasional
Drug: None
Personal: Single
Living: Assisted Living ([facility])
Employment: Retired
Family History
Family History: Other (Family history of multiple cancers including GI and lung cancer)
Allergies / Home Medications
Allergies
Allergy/AdvReac Type Severity Reaction Status Date / Time
bacitracin Allergy Mild Hives Verified 08/30/24 23:23
[From Neosporin
([id number])]
codeine Allergy Mild hypotensive Verified 08/31/24 16:31
neomycin Allergy Mild Hives Verified 08/30/24 23:23
[From Neosporin
([id number])]
nitrofurantoin Allergy Mild Hives Verified 08/30/24 23:23
[From Macrobid]
polymyxin B Allergy Mild Hives Verified 08/30/24 23:23
[From Neosporin
([id number])]
COVID-19 (SARS-CoV-2) Allergy HARVEY'S Verified 09/01/24 16:19
vaccine, ilana PALSY
Home Medications
�Medication �Instructions �Recorded �Confirmed �Last Taken �Type
baclofen 10 mg tablet 10 mg PO DAILY Neurological 08/30/24 08/30/24 Unknown History
Condition
lansoprazole 15 mg capsule,delayed 15 mg PO DAILY Gastrointestinal 08/30/24 08/30/24 Unknown History
release Issue
Review of Systems
-
All other systems: Negative unless noted
Vitals / Labs / Diagnostic Testing
Vital Signs
Temp Pulse Resp BP Pulse Ox
98.6 F 93 20 116/56 96
09/02/24 07:30 09/02/24 07:15 09/02/24 07:15 09/02/24 07:00 09/02/24 07:30
Lab Data
09/02/24 04:46
09/02/24 04:46
Laboratory Results
09/01/24 09/01/24 09/02/24
16:56 23:30 00:31
PT 16.6 H
INR 1.31
APTT 39.2 H Cancelled 157.1 H*
Diagnostic Testing:
Physical Exam
-
HEENT: Normocephalic and Anicteric
Cardiovascular: S1/S2, Regular Rhythm, Murmur (n) and Rub (n)
Respiratory: Wheeze (n), Rales (n), Rhonchi (n) and Non-Labored Respirations
GI: Soft, Non Distended and Non Tender
Neurology: Awake, Alert and No Motor Deficits (Moves all extremities)
Skin: Good Color
General: Comfortable
Assessment
-
83-year-old female with history of chronic lower extremity muscle spasms, history of ovarian cancer stage I and right lung cancer status post lobectomy/radiation, no chemotherapy with pulmonary nodule being followed at [facility], presents with
hematemesis and found to have acute right upper lobe PE. Transferred to ICU with worsening hematemesis. We are asked to help from critical care standpoint 09/02/2024
Acute hematemesis
Marginal blood pressure
Acute right upper lobe subsegmental PE
Started on heparin therapy 08/30/2024
Chronic indigestion, gastric discomfort
Syncope, fall preadmission
Anemia, requiring transfusion
Right lower lobe pneumonia, versus chronic changes from radiation
Conditions present prior to admission
History of stage I ovarian cancer status post oophorectomy
Right lower lobe lung cancer, lobectomy/radiation (no chemo)
Following left lower lobe nodules
Family history of cancer (GI/Lung)
Plan/recommendations
At this time, patient appears to be comfortable
Marginal blood pressure noted
Heparin therapy stopped
Patient with episode of hematemesis while on heparin therapy for acute PE
Echocardiogram with normal biventricular function
Moving forward
Remains off heparin therapy at this time
Patient required 2 units of blood, had recurrent hematemesis
Plan for upper endoscopy
Depending on findings, will need to determine whether patient is an appropriate candidate for IVC filter, conservative management, or reinitiation of anticoagulation
Suspect blood clot is secondary to ongoing treatment for lung cancer, nodules which are being followed by [facility])
Continue to follow hemoglobin
Remains on IV Protonix for now
Reviewed at length with critical care nursing, respiratory care, pharmacy
Updated son at bedside
Will follow
TCCT 31 min
--- NOTE | 2024-09-02 09:00 | PTCARENOTE ---
Patient laying in bed, answers all orientation questions correctly but is quite forgetful of rapid response/events overnight. RN explained to patient that she was now in the ICU, and was moved from the floor last night for bloody emesis episode
while on a heparin gtt. 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 Pt educated on tentative plan of care for the day, npo status, and medications ordered. See MAR/flowsheets for further care details.
--- NOTE | 2024-09-02 09:28 | PTCARENOTE ---
Patient transported to GI lab on 2L oxygen, tele monitor, and protonix gtt by RN and PCT
--- NOTE | 2024-09-02 10:14 | W.PN.HOSP.TC ---
Today's Communication/Plan
-
Stable for telemetry
Assessment / Plan
Assessment / Plan
83 years old female presented after an episode with spasm associated with syncopal episode and vomiting, tested positive for Hemoccult in the ER
#Acute tiny right upper lobe PE with minimal clot burden
Lower extremity Dopplers negative for DVT
Intolerant of heparin drip�she started having hematemesis
Since PE is 'tiny', recommend observing off of anticoagulation
#Acute blood loss anemia
History of Coffee Ground Emesis, dyspepsia over last few weeks, hx of GERD, unintentional weight loss. Hemoccult positive test in the ER
Hemoglobin 9.6 today, status post 2 units packed red blood cells 08/31, hemoglobin was 7.6
Appreciate GI input, EGD 09/01 negative for cause of her bleeding, does show gastritis, gastric polyps
Clear liquid diet, PPI IV twice daily, trend hemoglobin
#Vasovagal syncope 08/31
Noted while passing urine/stool in hospital
#Chronic muscle spasm
#Acute intractable back pain
#Subacute L 1 fracture
According to the patient and her son, possibly related to cervical pathology/ back issues.
Patient has had these muscle spasms described as short interval and infrequent could be every few weeks or months.
Painful spasm and sometimes associated with passing out/vomiting due to severe pain. No confusion.
Patient was evaluated by multiple neurologists over the years. She takes baclofen at night.
Patient's back pain worsened after passing out on 08/31
CT lumbar spine shows subacute lumbar fracture
Increased but home baclofen to 10 mg 3 times daily, give IV steroids x 1 today, prednisone 40 mg p.o. daily for 4 days starting tomorrow
PT/OT
#Right lower lobe consolidation concerning for developing pneumonia
Rocephin/doxycycline day 2
#Constipation
Continue laxatives
#History of stage I ovarian cancer, history of right pleural lung cancer s/p resection
Currently cancer free. Has density on the left lower lung and under surveillance/monitoring by her doctors at [facility].
DVT prophylaxis�IV heparin drip
Full code
Updated son on phone and at bedside 09/02
Total time spent to see the patient on the floor, examine the patient, review data and lab results, discuss treatment plan with patient, nursing staff around 52 minutes.
Physical Exam
General: No acute distress
HEENT: Normocephalic, Atraumatic, EOMI, MMM
Respiratory: Clear to Auscultation bilaterally
Cardiac: Normal S1/S2, Regular Rate and Rhythm
GI: Soft, Nontender, Nondistended, Normal Bowel Sounds
Extremities: No Clubbing, Cyanosis, or Edema
Neuro: Nonfocal/Grossly Intact
Anticipated Discharge: 24 - 48 hours
Subjective/Interval History
-
Date of Service: September 02, 2024
Overnight events noted. Patient had an episode of hematemesis, transferred to ICU. She had an endoscopy today, no active source of bleeding. Her back pain is improved. No fever, no vomiting.
Objective Data
-
Labs:
Laboratory Results
09/01/24 09/02/24 09/02/24
23:30 00:31 04:46
WBC 7.8 8.4
Hgb 9.3 L 8.9 L
Hct 27.7 L 26.7 L
Plt Count 168 185
PT 16.6 H
INR 1.31
APTT Cancelled 157.1 H*
Sodium 135 136
Potassium 3.8 4.0
Chloride 108 H 109 H
Carbon Dioxide 20 L 21 L
BUN 18 H 22 H
Creatinine 0.8 0.8
Glucose 150 H 133 H
Calcium 7.4 L 7.9 L
Vital Signs:
Vital Signs
Temp Pulse Resp BP Pulse Ox
98.6 F 86 22 103/60 98
09/02/24 07:30 09/02/24 08:45 09/02/24 08:45 09/02/24 08:09 09/02/24 08:45
I&O
09/01/24 09/02/24 09/03/24
06:59 06:59 06:59
Intake Total 2940 / 2940 660 / 670
Output Total 1100 / 1100 400 / 400
Balance 1840 / 1840 260 / 270
[2024-09-02] MEDS: MIRALAX PO (10:29)
[2024-09-02] MEDS: NSS (PRESERVATIVE FREE) IV (10:30)
[2024-09-02] MEDS: PROTONIX IV IV (10:31)
[2024-09-02] MEDS: SENOKOT-S PO (10:31)
[2024-09-02] MEDS: VIBRAMYCIN PO (11:07)
--- NOTE | 2024-09-02 11:10 | PTCARENOTE ---
Patient received back into ICU room from GI Lab. MD hancock and Laundry Washer updated pt's son at bedside regarding EGD findings and plan of care
[2024-09-02] MEDS: FERRLECIT 110 MG IV (13:40)
[2024-09-02] MEDS: DECADRON 6 MG IV (13:45)
--- NOTE | 2024-09-02 14:01 | PTCARENOTE ---
Patient downgraded to telemetry, protonix gtt d/c per order, pt placed on steroids and higher dose Tylenol for pain. Will need pt/ot consult for possible d/c to rehab for lumbar fx/back pain. BLE ultrasound completed at bedside
[2024-09-02] MEDS: TYLENOL 1000 MG PO ×2 (15:48→22:02)
[2024-09-02] MEDS: LIORESAL 10 MG PO ×2 (15:48→22:02)
[2024-09-02] MEDS: ROCEPHIN 1000 MG IV (16:06)
[2024-09-02] MEDS: STERILE WATER FOR INJECTION 10 ML IV (16:06)
--- NOTE | 2024-09-02 17:06 | PTCARENOTE ---
Called report to receiving 4 east nurse.
[2024-09-02] MEDS: ROXICODONE 5 MG PO (17:12)
[2024-09-02] MEDS: PROTONIX IV 40 MG IV (20:13)
[2024-09-02] MEDS: NSS (PRESERVATIVE FREE) 10 ML IV (20:15)
[2024-09-02] MEDS: SENOKOT-S 2 TABLET PO (20:16)
[2024-09-02] MEDS: VIBRAMYCIN 100 MG PO (20:16)
[2024-09-02] MEDS: MIRALAX 17 GRAMS PO (20:16)
[2024-09-03] VITALS (8 sets, daily range): BP systolic 100–146; BP diastolic 52–71; PULSE 92–107; O2SAT 99
[2024-09-03] MEDS: ROXICODONE 5 MG PO ×2 (05:46→21:02)
[2024-09-03 07:45] LABS: Hematocrit 25.1 % (37.0-47.0); Hemoglobin 8.4 g/dL (12.0-16.0); Mean Corp Hgb Conc. 33.5 g/dL (33.0-37.0); Mean Corpuscular Hgb 28.5 pg (27.0-31.0); Mean Corpuscular Volume 85.1 fL (81.0-99.0); Mean Platelet Volume 10.9 fL (7.4-10.4); Platelet Count 223 10^3/uL (130-400); Red Blood Cell Count 2.95 10^6/uL (4.20-5.40)
[2024-09-03 07:51] LABS: Blood Urea Nitrogen 26 mg/dl (7-17); Calcium 8.2 mg/dl (8.4-10.2); Carbon Dioxide 19 mmol/L (22-30); Chloride 108 mmol/L (98-107); Estimated Creatinine Clearance 50 ml/min; Glucose 129 mg/dl (70-99); Potassium 3.9 mmol/L (3.5-5.1); Sodium 137 mmol/L (135-145); eGFR > 60.00
[2024-09-03] MEDS: DELTASONE 40 MG PO (08:08)
[2024-09-03] MEDS: LIORESAL 10 MG PO ×3 (08:08→21:07)
[2024-09-03] MEDS: SENOKOT-S 2 TABLET PO ×2 (08:08→19:59)
[2024-09-03] MEDS: TYLENOL 1000 MG PO ×3 (08:08→21:07)
[2024-09-03] MEDS: MIRALAX 17 GRAMS PO ×2 (08:08→19:59)
[2024-09-03] MEDS: VIBRAMYCIN 100 MG PO ×2 (08:08→19:59)
[2024-09-03] MEDS: NSS (PRESERVATIVE FREE) 10 ML IV ×2 (08:09→19:59)
[2024-09-03] MEDS: PROTONIX IV 40 MG IV ×2 (08:09→19:58)
--- NOTE | 2024-09-03 08:25 | W.PN.HOSP.TC ---
Today's Communication/Plan
-
see bold
Assessment / Plan
Assessment / Plan
83 years old female presented after an episode with spasm associated with syncopal episode and vomiting, tested positive for Hemoccult in the ER
#Acute tiny right upper lobe PE with minimal clot burden
Lower extremity Dopplers negative for DVT
Intolerant of heparin drip�she started having hematemesis
Since PE is 'tiny', recommend observing off of anticoagulation
Seen by pulmonology, who agrees with the above
#Acute blood loss anemia
#Hematemesis exacerbated by IV heparin drip
History of Coffee Ground Emesis, dyspepsia over last few weeks, hx of GERD, unintentional weight loss. Hemoccult positive test in the ER
Hemoglobin 8.4 today, was 8.9, was 9.6, status post 2 units packed red blood cells 08/31, hemoglobin was 7.6
Appreciate GI input, EGD 09/01 negative for cause of her bleeding, does show gastritis, gastric polyps
PPI IV twice daily, trend hemoglobin
GI signed off, recommend outpatient follow-up with her usual GI team at [facility]
#Vasovagal syncope 08/31
Noted while passing urine/stool in hospital
#Chronic muscle spasm
#Acute intractable back pain
#Subacute L 1 fracture
According to the patient and her son, possibly related to cervical pathology/ back issues.
Patient has had these muscle spasms described as short interval and infrequent could be every few weeks or months.
Painful spasm and sometimes associated with passing out/vomiting due to severe pain. No confusion.
Patient was evaluated by multiple neurologists over the years. She takes baclofen at night.
Patient's back pain worsened after passing out on 08/31
CT lumbar spine shows subacute lumbar fracture
Increased home baclofen to 10 mg 3 times daily, give IV steroids on 09/02, continue prednisone 40 mg p.o. daily D1/4
PT/OT - rec SNF
#Confusion
#Cognitive impairment at baseline
Confusion likely exacerbated by opioids/benzos
Monitor for now
#Right lower lobe consolidation concerning for developing pneumonia
Rocephin/doxycycline day 3
#Constipation
Continue laxatives
#History of stage I ovarian cancer, history of right pleural lung cancer s/p resection
Currently cancer free. Has density on the left lower lung and under surveillance/monitoring by her doctors at [facility].
DVT prophylaxis�SCDs due to hematemesis
Full code
Updated son on phone and at bedside 09/02
Total time spent to see the patient on the floor, examine the patient, review data and lab results, discuss treatment plan with patient, nursing staff around 50 minutes.
Physical Exam
General: No acute distress
HEENT: Normocephalic, Atraumatic, EOMI, MMM
Respiratory: Clear to Auscultation bilaterally
Cardiac: Normal S1/S2, Regular Rate and Rhythm
GI: Soft, Nontender, Nondistended, Normal Bowel Sounds
Extremities: No Clubbing, Cyanosis, or Edema
Neuro: Nonfocal/Grossly Intact
Anticipated Discharge: 24 - 48 hours
Subjective/Interval History
-
Date of Service: September 03, 2024
Patient's back pain has improved dramatically. No more episodes of hematemesis. No fever, no vomiting. No shortness of breath.
Objective Data
-
Labs:
Laboratory Results
09/03/24
06:12
WBC 10.0
Hgb 8.4 L
Hct 25.1 L
Plt Count 223 D
Sodium 137
Potassium 3.9
Chloride 108 H
Carbon Dioxide 19 L
BUN 26 H
Creatinine 0.8
Glucose 129 H
Calcium 8.2 L
Vital Signs:
Vital Signs
Temp Pulse Resp BP Pulse Ox
97.6 F 85 18 115/60 97
09/03/24 03:17 09/03/24 03:17 09/03/24 03:17 09/03/24 03:17 09/03/24 03:17
I&O
09/02/24 09/03/24 09/04/24
06:59 06:59 06:59
Intake Total 660 / 670 850 / 850
Output Total 400 / 400
Balance 260 / 270 850 / 850
--- NOTE | 2024-09-03 09:28 | PN.CDI ---
CDI
- -
CDI:
Physician Documentation Request
Admit Date: 08/30/24 11:01
Dear Doctor Do,
Clinical Indicators:
Patient admitted syncope.
09/02 PN, 'Intolerant of heparin drip�she started having hematemesis'
Please clarify the likely relationship between the hematemesis and heparin gtt:
Yes, hematemesis is related to/associated with/exacerbated by heparin.
No, hematemesis is not related to/associated with/exacerbated by heparin but it is due to ___. (Please specify)
Unable to determine
Use of terms such as suspected, likely, concern for, or probable (associated with a specific diagnosis that is being evaluated, monitored, or treated as if it exists) are acceptable and can be coded in the inpatient setting, when documented at the
time of discharge.
Thank you,
Kala Mcclellan RN BSN
CDI Specialist
available via [employer]
Please use your independent medical judgment in providing your response.
--- NOTE | 2024-09-03 10:54 | CM ---
PT indicated need for SNF at [place]
Pt lives at [facility] .
Spoke with Tierra at [facility] .Tierra said dil and son Temo would like her to go to [facility] [place]
Referral placed for [facility] .
Will need an auth at [place].
[facility] [facility] [place]
--- NOTE | 2024-09-03 12:18 | W.PN.PUL3 ---
Today's Communication / Plan
-
Observe off heparin, this could be readdressed in the outpatient setting by oncology.
Discussed with daughter at the bedside. She is a nurse practitioner. She agreed.
No additional recommendation from the pulmonary perspective.
Sign off
Assessment
-
83-year-old female with history of chronic lower extremity muscle spasms, history of ovarian cancer stage I and right lung cancer status post lobectomy/radiation, no chemotherapy with pulmonary nodule being followed at [facility], presents with
hematemesis and found to have acute right upper lobe PE. Transferred to ICU with worsening hematemesis. We are asked to help from critical care standpoint 09/02/2024
Pulmonary following 09/03/2024
Acute hematemesis
Acute right upper lobe subsegmental PE
Started on heparin therapy 08/30/2024
Chronic indigestion, gastric discomfort
Syncope, fall preadmission
Anemia, requiring transfusion
Right lower lobe pneumonia, versus chronic changes from radiation
Conditions present prior to admission
History of stage I ovarian cancer status post oophorectomy
Right lower lobe lung cancer, lobectomy/radiation (no chemo)
Following left lower lobe nodules
Family history of cancer (GI/Lung)
Plan/recommendations
Hemodynamically stable
Denies any respiratory complaint
Heparin therapy stopped due to hematemesis.
Patient with episode of hematemesis while on heparin therapy for acute PE
Lower extremity Dopplers: Negative for DVT bilaterally.
Echocardiogram with normal biventricular function
CT chest: Tiny right upper lobe suspected pulmonary embolism. Minimal clot burden. No evidence for RV strain.
-
Remains off heparin therapy at this time
Patient required 2 units of blood, had recurrent hematemesis
EGD: Noted no findings to account for patient clinical presentation.
-
With negative lower extremity Dopplers-no indication for IVC filter at this point.
Patient burden is very small, tiny right upper lobe filling defect-conservative management probably will be advisable given this patient's clinical presentation.
If more aggressive intervention needed-GI has cleared her to start heparin in 24 hours. Would start without bolus.
I favor more conservative management with close observation after discharge, high risk of rebleeding in my opinion as well as patient already has anemia with poor reserve. Can be reevaluated in the outpatient setting for possible either repeat CT
angiogram versus symptomatic follow-up. High risk of recurrence of thromboembolic event with ongoing cancer therapy.
She has been followed at [facility].
-
Suspect blood clot is secondary to ongoing treatment for lung cancer, nodules which are being followed by [facility] ([facility])
Continue to follow hemoglobin
Remains on IV Protonix for now
Subjective Data
-
Date of Service:
Date of Service: September 03, 2024
Objective Data
Data Reviewed
Vital Signs / I&O / Oxygen:
Vital Signs
Temp Pulse Resp BP Pulse Ox
98.0 F 93 18 107/56 97
09/03/24 11:28 09/03/24 11:28 09/03/24 11:28 09/03/24 11:28 09/03/24 11:28
Intake and Output
09/02/24 09/03/24 09/04/24
06:59 06:59 06:59
Intake Total 660 / 670 850 / 850
Output Total 400 / 400
Balance 260 / 270 850 / 850
SaO2 97
Nasal Cannula flow liters per 2
minute
Labs/Micro/Reports
Lab Data
09/03/24 06:12
09/03/24 06:12
--- NOTE | 2024-09-03 12:44 | W.PN.GI.CBS2 ---
Today's Communication / Plan
-
No signs of rebleeding since off a/c without plans to restart a/c given hematemesis. Hgb remains stable. May ADAT and monitor for signs of rebleeding as no source found during prior EGD on 09/02. See rest of care as outlined below. GI will sign-off,
please recontact with any questions or concerns.
Assessment / Plan
-
Ms Hoover is a 83 y.o female with past medical history of stage I ovarian cancer (dx in 2013, s/p LITO/BSO), R lung cancer, cervical lumbar stenosis, hx of TIA, Sheriff's palsy, CKD, and chronic muscle spasms who initially presented to the ED due to
concern for leg spasms. Concern for an episode of dark emesis and heme (+) stool along with a Hgb 10s for which GI has been consulted for further evaluation and management.
#Hematemesis #UGIB
#Prior Coffee Ground Emesis
#Heme (+) Stools #Dyspepsia
#New, Acute RUL PE w/out R Heart Strain
#Acute Blood Loss Anemia #Normocytic Anemia
#Chronic GERD
#Hx of Colon Polyps
#Unintentional Weight Loss (10-12 lbs)
#Hx of Ovarian/Lung Cancer (reportedly in remission, in active surveillance at [facility])
Impression: Patient presenting from home with an episode of coffee ground emesis along with darker stools (concerning for melena) found to have heme (+) brown stool in ED. Notes worsening dyspepsia as well for one week duration found to have a Hgb
10s along with an elevated BUN:Bottler Helper ratio concerning for an UGIB. Denies any NSAIDs or prior history of GI bleeding in the past. Last EGD > 10 yrs ago (notes prior dilations due to chronic GERD, possibly prior peptic stricture ?) and colonoscopy 2-3
years ago only notable for one small polyp at [facility]. No other Aspirin or other antiplatelets/anticoagulants. Etiology suspicious for erosive esophagitis (given her longstanding history of chronic GERD and self-discontinued her prior PPI) versus
gastroduodenal erosions versus PUD. Doubt brisk UGIB based on her hemodynamics and overall symptomatology.
Hgb 10.2 -> 9.0 -> 7.6 and with BUN 38 -> 39. Still without any melena or maroon colored stools, only heme (+) brown stool in ED. Since admission with drop in Hgb 9s -> 7s s/p 2 upRBCs with appropriate correction without any overt GI bleeding.
Course complicated by acute SOB, severe back pain and syncopal episode on 09/01 without any bloody stools. Found to have a new, acute PE on 09/01 in the RUL.
Course complicated by one episode of hematemesis around 2345 on 09/01 while on IV heparin gtt. HD-stable with slight drift in Hgb 9.6 -> 8.9 this AM. No further episodes of hematemesis or other melena/maroon colored stools.
S/p EGD on 09/02 without any significant findings throughout the upper examined GI tract to explain prior episode of hematemesis. No stigmata of any potentia Dieulafoy's lesion or other stigmata of bleeding. Possible superficial Cecile-Shepherd tear
(MWT) that subsequently healed prior to EGD(?). Regardless, fortunately she is without any further episodes of overt GI bleeding since EGD and grossly stable Hgb while off a/c.
Recommendations:
- Tolerating CLD, may advance diet as tolerated
- Trend Hgb with serial CBC, transfuse as needed
- Continue IV PPI gtt x 72 hrs, then empiric PPI 40 mg BiD for 4 weeks then once daily indefinitely
- IV heparin gtt (09/01- ) remains on hold, Pulmonary favoring holding a/c given her hematemesis and small PE. Advised to f/u with Oncology as outpatient
- Monitor for signs of recurrent GI bleeding while inpatient as still without any melena or maroon colored stools
- IV anti-emetics PRN
- Strict avoidance of all NSAIDs
- Recommend close outpatient f/u with her primary Acetylene Plant Operator at [facility]
- Rest of care per primary team
Discussed with primary internal medicine team. GI will sign-off, please recontact with any questions or concerns.
Subjective
Subjective
Date of Service: September 03, 2024
- S/p EGD on 09/02 without any significant findings throughout the upper examined GI tract to explain prior episode of hematemesis
- No further episodes since off IV heparin
Resting comfortably, denies any further episodes of coffee ground emesis or hematemesis. No melena or bloody stools. Remains off of anticoagulation as of this AM. Still with ongoing lower back pain but denies any lower extremity weakness or
paresthesias.
Objective
Data Reviewed
Laboratory Data:
Laboratory Results
09/03/24 06:12
09/03/24 06:12
Laboratory Results
PT 16.6 Sec (11.4-14.6) H 09/02/24 00:31
INR 1.31 09/02/24 00:31
APTT 157.1 Sec (23.4-35.0) H* 09/02/24 00:31
Total Bilirubin 0.8 mg/dl (0.2-1.3) 08/30/24 22:36
AST 21 U/L (14-36) 08/30/24 22:36
ALT 16 U/L (0-35) 08/30/24 22:36
Alkaline Phosphatase 50 U/L (38-126) 08/30/24 22:36
Vital Signs and I&O:
Vital Signs
Temp Pulse Resp BP Pulse Ox
98.0 F 93 18 107/56 97
09/03/24 11:28 09/03/24 11:28 09/03/24 11:28 09/03/24 11:28 09/03/24 11:28
I&O
09/02/24 09/03/24 09/04/24
06:59 06:59 06:59
Intake Total 660 / 670 850 / 850
Output Total 400 / 400
Balance 260 / 270 850 / 850
Physical Exam
Physical Exam
HEENT: Anicteric and Moist mucous membranes
Pulmonary: Other (Normal WOB on room air)
GI: Soft, Non Distended and Non Tender
Extremities: No Edema
Neuro: Non Focal
[2024-09-03] MEDS: FERRLECIT 110 MG IV (13:12)
[2024-09-03] MEDS: ROCEPHIN 1000 MG IV (15:52)
[2024-09-03] MEDS: STERILE WATER FOR INJECTION 10 ML IV (15:54)
[2024-09-03] MEDS: ATIVAN 0.5 MG IV (22:13)
[2024-09-03] MEDS: NSS (PRESERVATIVE FREE) 0.5 ML IV (22:14)
[2024-09-04 03:59] VITALS: BP 127/61
[2024-09-04] MEDS: ROXICODONE 10 MG PO ×2 (04:14→20:31)
[2024-09-04] MEDS: DILAUDID 0.5 MG IV ×2 (05:00→08:30)
[2024-09-04 06:56] LABS: Hematocrit 24.9 % (37.0-47.0); Hemoglobin 8.6 g/dL (12.0-16.0); Mean Corp Hgb Conc. 34.5 g/dL (33.0-37.0); Mean Corpuscular Hgb 29.7 pg (27.0-31.0); Mean Corpuscular Volume 85.9 fL (81.0-99.0); Mean Platelet Volume 10.5 fL (7.4-10.4); Platelet Count 220 10^3/uL (130-400); Red Cell Dist. Width 16.8 % (11.5-14.5); White Blood Cell Count 10.7 10^3/uL (4.8-10.8)
[2024-09-04 06:59] VITALS: BP 144/65
[2024-09-04 07:21] LABS: Blood Urea Nitrogen 26 mg/dl (7-17); Calcium 8.5 mg/dl (8.4-10.2); Carbon Dioxide 22 mmol/L (22-30); Chloride 108 mmol/L (98-107); Estimated Creatinine Clearance 44 ml/min; Glucose 108 mg/dl (70-99); Potassium 3.9 mmol/L (3.5-5.1); Sodium 139 mmol/L (135-145); eGFR > 60.00
[2024-09-04] MEDS: NSS (PRESERVATIVE FREE) 10 ML IV (08:16)
[2024-09-04] MEDS: TYLENOL 1000 MG PO ×3 (08:17→23:00)
[2024-09-04] MEDS: PROTONIX IV 40 MG IV (08:17)
[2024-09-04] MEDS: VIBRAMYCIN 100 MG PO ×2 (08:17→20:13)
[2024-09-04] MEDS: LIORESAL 10 MG PO ×3 (08:17→20:13)
[2024-09-04] MEDS: DELTASONE 40 MG PO (08:17)
[2024-09-04] MEDS: MIRALAX 17 GRAMS PO ×2 (08:17→20:13)
[2024-09-04] MEDS: SENOKOT-S 2 TABLET PO ×2 (08:38→20:13)
--- NOTE | 2024-09-04 09:39 | W.PN.HOSP.TC ---
Today's Communication/Plan
-
Discharge tomorrow if hemoglobin continues to remain stable
Assessment / Plan
Assessment / Plan
83 years old female presented after an episode with spasm associated with syncopal episode and vomiting, tested positive for Hemoccult in the ER
#Acute tiny right upper lobe PE with minimal clot burden
Lower extremity Dopplers negative for DVT
Intolerant of heparin drip�she started having hematemesis
Since PE is 'tiny', recommend observing off of anticoagulation
Seen by pulmonology, who agrees with the above
#Acute blood loss anemia
#Hematemesis exacerbated by IV heparin drip
History of Coffee Ground Emesis, dyspepsia over last few weeks, hx of GERD, unintentional weight loss. Hemoccult positive test in the ER
Hemoglobin 8.4 today, was 8.9, was 9.6, status post 2 units packed red blood cells 08/31, hemoglobin was 7.6
Appreciate GI input, EGD 09/01 negative for cause of her bleeding, does show gastritis, gastric polyps
PPI twice daily, trend hemoglobin
GI signed off, recommend outpatient follow-up with her usual GI team at [facility]
#Vasovagal syncope 08/31
Noted while passing urine/stool in hospital
#Chronic muscle spasm
#Acute intractable back pain
#Subacute L 1 fracture
According to the patient and her son, possibly related to cervical pathology/ back issues.
Patient has had these muscle spasms described as short interval and infrequent could be every few weeks or months.
Painful spasm and sometimes associated with passing out/vomiting due to severe pain. No confusion.
Patient was evaluated by multiple neurologists over the years. She takes baclofen at night.
Patient's back pain worsened after passing out on 08/31
CT lumbar spine shows subacute lumbar fracture
Increased home baclofen to 10 mg 3 times daily, give IV steroids on 09/02, continue prednisone 40 mg p.o. daily D1/4
PT/OT - rec SNF
#Confusion
#Cognitive impairment at baseline
Confusion likely exacerbated by opioids/benzos
Monitor for now
#Right lower lobe consolidation concerning for developing pneumonia
Rocephin/doxycycline day 4
#Cognitive impairment suspicious for dementia
Confusion exacerbated while in the hospital
Check TSH/free T4
B12 low normal, start supplementation
Recommend neuropsychiatric testing outpatient
#Constipation
Continue laxatives
#History of stage I ovarian cancer, history of right pleural lung cancer s/p resection
Currently cancer free. Has density on the left lower lung and under surveillance/monitoring by her doctors at [facility].
DVT prophylaxis�SCDs due to hematemesis
Full code
Updated son on phone 09/04
Total time spent to see the patient on the floor, examine the patient, review data and lab results, discuss treatment plan with patient, nursing staff around 51 minutes.
Physical Exam
General: No acute distress
HEENT: Normocephalic, Atraumatic, EOMI, MMM
Respiratory: Clear to Auscultation bilaterally
Cardiac: Normal S1/S2, Regular Rate and Rhythm
GI: Soft, Nontender, Nondistended, Normal Bowel Sounds
Extremities: No Clubbing, Cyanosis, or Edema
Neuro: Nonfocal/Grossly Intact
Anticipated Discharge: Within 24 hours
Subjective/Interval History
-
Date of Service: September 04, 2024
No hematemesis, no black/bloody stools. No CP/SOB/palp. No fever, no vomiting.
Objective Data
-
Labs:
Laboratory Results
09/04/24
06:21
WBC 10.7
Hgb 8.6 L
Hct 24.9 L
Plt Count 220
Sodium 139
Potassium 3.9
Chloride 108 H
Carbon Dioxide 22
BUN 26 H
Creatinine 0.9
Glucose 108 H
Calcium 8.5
Vital Signs:
Vital Signs
Temp Pulse Resp BP Pulse Ox
97.5 F 84 18 144/65 99
09/04/24 06:59 09/04/24 06:59 09/04/24 06:59 09/04/24 06:59 09/04/24 06:59
I&O
09/03/24 09/04/24 09/05/24
06:59 06:59 06:59
Intake Total 850 / 850 950 / 950
Balance 850 / 850 950 / 950
[2024-09-04 11:52] VITALS: BP 112/63
[2024-09-04] MEDS: CITROMA 300 ML PO (12:37)
[2024-09-04] MEDS: FERRLECIT 110 MG IV (12:41)
[2024-09-04] MEDS: ROCEPHIN 1000 MG IV (14:58)
[2024-09-04] MEDS: STERILE WATER FOR INJECTION 10 ML IV (14:59)
[2024-09-04 15:13] VITALS: BP 137/54
--- NOTE | 2024-09-04 16:39 | CM ---
Addendum entered by Pia Epps RN 09/04/24 16:57:
MD indicated pt ready for dc tomorrow.
Spoke with Tierra at [facility]. Bed available tomorrow.
Pt will need auth (see below) and a Covid test MD notified.
Auth started see below.
LM with demetrius Ji [phone].
[facility]
report [phone]
fax [phone]
PLAN To [facility] after Covid test and auth
Original Note:
Patient accepted at the [facility]
Authorization initiated with [employer] at [phone], spoke with Bimal
Pended authorization # [id number]
clinicals faxed to [phone]
await authorization
--- NOTE | 2024-09-04 18:23 | PTCARENOTE ---
Patient with complaints of constipation today. Given Mag citrate as ordered. Patient incontinent large amount of burgandy/bloody stool. MD made aware.
[2024-09-04 19:58] VITALS: BP 120/56
[2024-09-04] MEDS: PROTONIX 40 MG PO (20:13)
[2024-09-04 23:46] VITALS: BP 118/68
[2024-09-05] VITALS (14 sets, daily range): BP systolic 84–147; BP diastolic 49–67
[2024-09-05] MEDS: ROXICODONE 10 MG PO (02:26)
[2024-09-05] MEDS: DILAUDID 0.5 MG IV ×2 (03:59→20:21)
[2024-09-05 07:35] LABS: Hematocrit 26.1 % (37.0-47.0); Hemoglobin 8.7 g/dL (12.0-16.0); Mean Corp Hgb Conc. 33.3 g/dL (33.0-37.0); Mean Corpuscular Hgb 28.9 pg (27.0-31.0); Mean Corpuscular Volume 86.7 fL (81.0-99.0); Mean Platelet Volume 10.5 fL (7.4-10.4); Platelet Count 222 10^3/uL (130-400); Red Blood Cell Count 3.01 10^6/uL (4.20-5.40); Red Cell Dist. Width 17.4 % (11.5-14.5); White Blood Cell Count 10.5 10^3/uL (4.8-10.8)
[2024-09-05 07:57] LABS: Blood Urea Nitrogen 25 mg/dl (7-17); Calcium 8.3 mg/dl (8.4-10.2); Carbon Dioxide 24 mmol/L (22-30); Chloride 105 mmol/L (98-107); Estimated Creatinine Clearance 50 ml/min; Glucose 93 mg/dl (70-99); Sodium 137 mmol/L (135-145); eGFR > 60.00
--- NOTE | 2024-09-05 08:40 | W.PN.HOSP.TC ---
Today's Communication/Plan
-
see bold
Assessment / Plan
Assessment / Plan
83 years old female presented after an episode with spasm associated with syncopal episode and vomiting, tested positive for Hemoccult in the ER
#Acute tiny right upper lobe PE with minimal clot burden
Lower extremity Dopplers negative for DVT
Intolerant of heparin drip�she started having hematemesis
Since PE is 'tiny', recommend observing off of anticoagulation
Seen by pulmonology, who agrees with the above
#Acute blood loss anemia
#Hematemesis exacerbated by IV heparin drip
History of Coffee Ground Emesis, dyspepsia over last few weeks, hx of GERD, unintentional weight loss. Hemoccult positive test in the ER
Hemoglobin 8.2 today, was 8.7, 8.9, was 9.6, status post 2 units packed red blood cells 08/31, hemoglobin was 7.6
Appreciate GI input, EGD 09/01 negative for cause of her bleeding, does show gastritis, gastric polyps
09/05 -recurrence of hematemesis with maroon-colored stool and vasovagal syncope while on the commode
GI reconsulted, IV Protonix twice daily resumed, clear liq diet
#Vasovagal syncope x 2 on 08/31, 09/05
Noted while passing urine/stool in hospital
#Chronic muscle spasm
#Acute intractable back pain
#Subacute L 1 fracture
According to the patient and her son, possibly related to cervical pathology/ back issues.
Patient has had these muscle spasms described as short interval and infrequent could be every few weeks or months.
Painful spasm and sometimes associated with passing out/vomiting due to severe pain. No confusion.
Patient was evaluated by multiple neurologists over the years. She takes baclofen at night.
Patient's back pain worsened after passing out on 08/31
CT lumbar spine shows subacute lumbar fracture
Increased home baclofen to 10 mg 3 times daily, give IV steroids on 09/02, continue prednisone 40 mg p.o. daily D3/4
PT/OT - rec SNF
#Confusion
#Cognitive impairment at baseline
Confusion likely exacerbated by opioids/benzos
Monitor for now
#Right lower lobe consolidation concerning for developing pneumonia
Rocephin/doxycycline day 5
#Cognitive impairment suspicious for dementia
Confusion exacerbated while in the hospital
TSH normal, B12 low normal, start supplementation
Recommend neuropsychiatric testing outpatient
#Constipation
Continue laxatives
#History of stage I ovarian cancer, history of right pleural lung cancer s/p resection
Currently cancer free. Has density on the left lower lung and under surveillance/monitoring by her doctors at [facility].
DVT prophylaxis�SCDs due to hematemesis
Full code
Updated son on phone 09/05
Total time spent to see the patient on the floor, examine the patient, review data and lab results, discuss treatment plan with patient, nursing staff around 55 minutes.
Physical Exam
General: No acute distress
HEENT: Normocephalic, Atraumatic, EOMI, MMM
Respiratory: Clear to Auscultation bilaterally
Cardiac: Normal S1/S2, Regular Rate and Rhythm
GI: Soft, Nontender, Nondistended, Normal Bowel Sounds
Extremities: No Clubbing, Cyanosis, or Edema
Neuro: Nonfocal/Grossly Intact
Anticipated Discharge: 24 - 48 hours
Subjective/Interval History
-
Date of Service: September 05, 2024
Patient seen and examined twice. She had a rapid response for hematemesis and maroon stools. She also had a vasovagal episode while on the toilet. Continues to have back pain.
Objective Data
-
Labs:
Laboratory Results
09/05/24
06:31
WBC 10.5
Hgb 8.7 L
Hct 26.1 L
Plt Count 222
Sodium 137
Potassium 4.0
Chloride 105
Carbon Dioxide 24
BUN 25 H
Creatinine 0.8
Glucose 93
Calcium 8.3 L
Vital Signs:
Vital Signs
Temp Pulse Resp BP Pulse Ox
97.3 F 79 18 128/66 98
09/05/24 07:21 09/05/24 07:21 09/05/24 07:21 09/05/24 07:21 09/05/24 07:21
I&O
09/04/24 09/05/24 09/06/24
06:59 06:59 06:59
Intake Total 950 / 950 840 / 840
Balance 950 / 950 840 / 840
[2024-09-05] MEDS: TYLENOL 1000 MG PO ×3 (09:10→21:53)
[2024-09-05] MEDS: DELTASONE 40 MG PO (09:10)
[2024-09-05] MEDS: LIORESAL 10 MG PO ×3 (09:10→21:53)
[2024-09-05] MEDS: VIBRAMYCIN 100 MG PO ×2 (09:10→20:16)
[2024-09-05] MEDS: PROTONIX 40 MG PO (09:10)
[2024-09-05] MEDS: MIRALAX PO (09:10)
[2024-09-05] MEDS: SENOKOT-S PO ×2 (09:11→21:53)
[2024-09-05 09:17] LABS: COVID-19 Antigen Negative (Negative)
--- NOTE | 2024-09-05 10:23 | CM ---
Addendum entered by Pia Epps RN 09/05/24 11:47:
Reviewed auth information with Tierra at [facility] .
Covid negative.
Spoke with Temo [phone] he agrees with [facility] and dc.
Son requested ambulance [facility] form completed.
[facility]
report [phone]
fax [phone]
PLAN To [facility] today
Original Note:
Patient accepted at the [facility]
TC from [facility], spoke with Lesly
Authorization # [id number]
Approved 09/05/24 with [employer] 09/09/23
Updates to Queta Acosta at faxed to [phone]
--- NOTE | 2024-09-05 11:15 | PN.CDI ---
CDI
- -
CDI:
Physician Documentation Request
Admit Date: 08/30/24 11:01
Dear Doctor Do,
Clinical Indicators:
Patient admitted syncope.
Ativan 0.5 mg IV x 3 doses.
09/03 PN, 'Cognitive impairment at baseline Confusion likely exacerbated by opioids/benzos'
09/04 PN, 'Confusion exacerbated while in the hospital'
Based on the above, which, if any of the following, is the most likely etiology of the confusion/altered mental status.
Acute delirium, multifactorial, due to opioids/benzodiazepines/hospitalization
Confusion only
Other
Use of terms such as suspected, likely, concern for, or probable (associated with a specific diagnosis that is being evaluated, monitored, or treated as if it exists) are acceptable and can be coded in the inpatient setting, when documented at the
time of discharge.
Thank you,
Kala Mcclellan RN BSN
CDI Specialist
available via tiger text
Please use your independent medical judgment in providing your response.
[2024-09-05 12:29] LABS: Glucose - Point of Care 221 mg/dl (70-99)
--- NOTE | 2024-09-05 12:34 | W.PN.GI.CBS2 ---
Addendum entered and electronically signed by Saray Bowen DO 09/05/24 20:01:
Patient seen and examined independently of [employer]. I agree with her note with my additions below
After discussion with the patient and family at bedside and review of the chart it appears Ghislaine has a history of stage I ovarian cancer s/p resection, right lung cancer, history of TIAs, dementia, GERD on PPI and prior esophageal dilations who came
to the emergency room on 08/30/2024 with complaints of muscle spasm which eventually led to some imaging then concern for a small pulmonary embolus placed on IV heparin then had an episode of dark emesis with a mild drop in hemoglobin. Her hemoglobin
went as low as 7.6 and she was given 2 units of blood with good response. She underwent an endoscopy on September 02 with no significant findings and no explanation for any GI bleeding. GI signed off but then was called back today on the .
Patient apparently was eating then went to the bathroom had a vasovagal episode while on the toilet with vomitus with specks of blood and maroon stools. She had not had a bowel movement in days and we were giving her a bowel regimen. She was
mildly hypotensive during the episode around noon today and her blood pressures now are back to normotensive. She has not had any further bleeding from her mouth or rectum. She is currently eating a clear liquid diet with mostly reds.
Her daughter and granddaughter are at the bedside and her history is somewhat limited from her dementia. It sounds like for the past 6 months she has had postprandial nausea and vomiting intermittently. Takes rare NSAIDs. Generally takes a PPI
but stopped it about a week ago after thinking it was contributing to her muscle cramps. Denies any significant constipation or diarrhea at home.
I reviewed her labs throughout the hospitalization as well as her CT scan that was done on 09/01/2024 without IV contrast moderate fecal material throughout the colon, moderate right lower lobe consolidation of the lung otherwise no significant
findings.
Currently on exam she has good bowel sounds, no significant tenderness with palpation and she is hemodynamically stable
PLAN:
-- ppi, NON red clear diet, monitor hgb q8 or more frequently if has any clinical signs of bleeding (tachycardia, hypotension, vasovagal symptoms or overt bleeding)
-- discussed with family at bedside
Addendum entered and electronically signed by PIETRO Mccauley 09/05/24 17:19:
updated family -- hbg 8.7 then 8.2 and repeat later today --reviewed events occasional NSAID use
noted with decline with memory recently and new small PE
also orthostatic with OOB last few days
hx colon 2-3 years ago at [facility]
stable last few hours
will allow clear diet no reds
bedrest til am
if recurrent bleeding will need to review with family again with memory issue if want to proceed with further testing with colon or capsule
noted lung lesion being follow OP by oncology
Addendum entered and electronically signed by PIETRO Mccauley 09/05/24 15:33:
I decreased bowel regiment to Miralax in Am and senna 1 tab at HS
Original Note:
Today's Communication / Plan
-
noted with recurrent episode with vomiting and dark burgundy stool
reviewed with nursing Pt has been given laxative with Miralax and senna BID for several day and finally stools today-- may be rebleed vs old blood but noted with syncope/hypotension
monitor for any further stools
if recurrent bleeding consider repeat EGD with enteroscopy vs need for colonoscopy
bedrest for today
await labs for repeat hbg and BUN
cont PPI BID
change to NPO for now if signs of further bleeding consider change back to gtt
agree with IVF as appears dry
cont off anticoagulation
- Strict avoidance of all NSAIDs
- Recommend close outpatient f/u with her primary Linux Vmware Administrator at [facility]
Assessment / Plan
-
Ms Hoover is a 83 y.o female with past medical history of stage I ovarian cancer (dx in 2014, s/p LITO/BSO), R lung cancer, cervical lumbar stenosis, hx of TIA, Sheriff's palsy, CKD, and chronic muscle spasms, prior esophageal dilations, GERD, who
initially presented to the ED due to concern for leg spasms. Concern for an episode of dark emesis and heme (+) stool after IV heparin along with a Hgb 10s for which GI has been consulted for further evaluation and management. s/p completed EGD
09/02 without finding for UGI bleeding ? MW tear vs other and pt was improved. GI signed off but asked to see 09/05 with syncopal episode with vomiting some food and ? blood and large burgundy stool. hx colonoscopy 2-3 years ago only notable for one
small polyp at [facility].
EGD on 09/02 without any significant findings throughout the upper examined GI tract to explain prior episode of hematemesis. No stigmata of any potentia Dieulafoy's lesion or other stigmata of bleeding. Possible superficial Cecile-Shepherd tear (MWT)
that subsequently healed prior to EGD(?)
#Hematemesis #UGIB with prior CGE and recurrent bleeding during admission
#melena/burgundy stool
#Dyspepsia
#New, Acute RUL PE w/out R Heart Strain anticoagulation now off
#Acute Blood Loss Anemia #Normocytic Anemia
#Chronic GERD
#Hx of Colon Polyps
#Unintentional Weight Loss (10-12 lbs)
# prior esophageal dilatation in past
-hx colon polyps
#Hx of Ovarian/Lung Cancer (reportedly in remission, in active surveillance at [facility])
Recommendations:
noted with recurrent episode with vomiting and dark burgundy stool
reviewed with nursing Pt has been given laxative with Miralax and senna BID for several day and finally stools today-- may be rebleed vs old blood but noted with syncope/hypotension
monitor for any further stools
if recurrent bleeding consider repeat EGD with enteroscopy vs need for colonoscopy
bedrest for today
await labs for repeat hbg and BUN
cont PPI BID
change to NPO for now if signs of further bleeding consider change back to gtt
agree with IVF as appears dry
cont off anticoagulation
- Strict avoidance of all NSAIDs
- Recommend close outpatient f/u with her primary Linux Vmware Administrator at [facility])
Subjective
Subjective
Date of Service: September 05, 2024
09/05 black/burgundy stool, on regular diet
Objective
Data Reviewed
Laboratory Data:
Laboratory Results
09/05/24 06:31
09/05/24 06:31
Laboratory Results
PT 16.6 Sec (11.4-14.6) H 09/02/24 00:31
INR 1.31 09/02/24 00:31
APTT 157.1 Sec (23.4-35.0) H* 09/02/24 00:31
Total Bilirubin 0.8 mg/dl (0.2-1.3) 08/30/24 22:36
AST 21 U/L (14-36) 08/30/24 22:36
ALT 16 U/L (0-35) 08/30/24 22:36
Alkaline Phosphatase 50 U/L (38-126) 08/30/24 22:36
Vital Signs and I&O:
Vital Signs
Temp Pulse Resp BP Pulse Ox
98.1 F 84 16 111/50 96
09/05/24 11:15 09/05/24 11:15 09/05/24 11:15 09/05/24 11:15 09/05/24 11:15
I&O
09/04/24 09/05/24 09/06/24
06:59 06:59 06:59
Intake Total 950 / 950 840 / 840
Balance 950 / 950 840 / 840
Physical Exam
Physical Exam
HEENT: Anicteric and Moist mucous membranes
Cardiology: Normal Sinus Rhythm
Pulmonary: Clear
GI: Soft, Non Distended and Non Tender
Rectal: Other (large burbundy stool per nursing staff emesis with food and some red ? blood )
Extremities: No Edema
Neuro: Other (forgetful)
[2024-09-05] MEDS: NSS 1000 IV ×2 (12:43→21:54)
[2024-09-05] MEDS: FLUSH (NSS) 1 FLUSH IV (12:44)
[2024-09-05] MEDS: PROTONIX IV 80 MG IV (12:44)
[2024-09-05] MEDS: NSS (PRESERVATIVE FREE) 20 ML IV (12:44)
[2024-09-05 13:04] LABS: INR 1.14; PT 14.9 Sec (11.4-14.6)
[2024-09-05 13:06] LABS: ALT (SGPT) 20 U/L (0-35); AST (SGOT) 28 U/L (14-36); Albumin 2.9 g/dl (3.5-5.0); Alkaline Phosphatase 59 U/L (38-126); Blood Urea Nitrogen 28 mg/dl (7-17); Calcium 7.7 mg/dl (8.4-10.2); Carbon Dioxide 23 mmol/L (22-30); Chloride 103 mmol/L (98-107); Estimated Creatinine Clearance 44 ml/min; Glucose 205 mg/dl (70-99); Hematocrit 25.1 % (37.0-47.0); Hemoglobin 8.2 g/dL (12.0-16.0); Mean Corp Hgb Conc. 32.7 g/dL (33.0-37.0); Mean Corpuscular Hgb 29.1 pg (27.0-31.0); Mean Platelet Volume 10.3 fL (7.4-10.4); Platelet Count 290 10^3/uL (130-400); Red Blood Cell Count 2.82 10^6/uL (4.20-5.40); Sodium 135 mmol/L (135-145); Total Bilirubin 0.7 mg/dl (0.2-1.3); White Blood Cell Count 12.7 10^3/uL (4.8-10.8); eGFR > 60.00
[2024-09-05 13:18] LABS: Troponin I < 0.012 ng/ml
--- NOTE | 2024-09-05 13:21 | CM ---
Dc cancelled for today.
MD notified son.
Tierra at [facility] aware of dc cancelled . Pt can return this weekend if medically stable Call Tierra.
Acute care ambulance aware dc cancelled.
PLAn To [facility] when medically ready . Check auth
--- NOTE | 2024-09-05 14:30 | PTCARENOTE ---
Addendum entered by Princess Coombs RN 09/05/24 14:36:
Of note, patient with constipation and was given laxatives yesterday.
Original Note:
Patient stated that she needed to go to the bathroom. Patient care techs assisted patient [facility]. Patient vomited undigested food upon initial transfer to [facility]. Patient then vomited again with food and some maroon colored liquid. Patient stated that
she felt like she was going to pass out and she was diaphoretic/pale. Patient's BP at that time was 84/50. Patient with maroon colored liquid stool - 900 mls. Patient assisted back to bed but remained hypotensive with diaphoresis/paleness. Rapid
response called as patient kept closing eyes and was near syncopal in addition to large volume of stool. IVF started - NSS at 100 mls/hour. Protonix IV given as ordered. Patient's BP up to 119/60. Patient's color returned. NPO. Bedrest. Awaiting IMU
bed as per hospitalist.
[2024-09-05] MEDS: STERILE WATER FOR INJECTION 10 ML IV (16:45)
[2024-09-05] MEDS: ROCEPHIN 1000 MG IV (16:45)
[2024-09-05] MEDS: ROXICODONE 5 MG PO (17:48)
--- NOTE | 2024-09-05 17:54 | PTCARENOTE ---
Patient transferred to IMU room 3341.
--- NOTE | 2024-09-05 18:18 | PTCARENOTE ---
Received patient on bed from 4th floor. Patient confused, complaining of middle back pain upon arrival, moderate level. Ice applied, Oxycodone 5mg administered. Patient complained of dizziness when turning side to side in bed. Family at bedside.
[2024-09-05 20:16] LABS: Hematocrit 24.2 % (37.0-47.0); Hemoglobin 8.1 g/dL (12.0-16.0)
[2024-09-05] MEDS: PROTONIX IV 40 MG IV (20:17)
[2024-09-05] MEDS: NSS (PRESERVATIVE FREE) 10 ML IV (20:18)
[2024-09-05] MEDS: FLUSH (NSS) 2 FLUSH IV (20:21)
[2024-09-05] MEDS: FOLTX 1 TABLET PO (21:53)
[2024-09-06] VITALS (10 sets, daily range): BP systolic 101–153; BP diastolic 47–119
--- NOTE | 2024-09-06 00:12 | PTCARENOTE ---
Pt received at beginning of shift resting in bed. Family at bedside. AAOx3. Confused forgetful anxious at times. Family helps pt with recall. Denies any pain or discomfort to abdomen. No BM/bleeding since arriving to IMU as transfer. VSS. Afebrile.
SR/PVC/Bigeminy on CM rate 84-104. Occasional dizziness when turning in bed. Bedrest. Grossly incontinent urine. Changed and cleansed. IVF's infusing as ordered. Skin slightly diaphoretic on face at beginning of shift better as night progressed.
Admits 10/10 pain to 'center of back.' Pain described as 'sharp.' Received one dose prn Dilaudid as ordered with good relief. Clear liquid dinner at bedside with reds on tray, removed from room. 1999 Hgb 8.1. Will obtained am labs at 0400.
Maintained on Q2hr turns. Rest of assessment as documented. Call dutton within reach and using appropriately.
[2024-09-06] MEDS: DILAUDID 0.5 MG IV ×2 (02:09→14:01)
[2024-09-06 04:52] LABS: Hematocrit 22.7 % (37.0-47.0); Hemoglobin 7.8 g/dL (12.0-16.0); Mean Corp Hgb Conc. 34.4 g/dL (33.0-37.0); Mean Corpuscular Volume 87.3 fL (81.0-99.0); Mean Platelet Volume 10.3 fL (7.4-10.4); Platelet Count 239 10^3/uL (130-400); Red Cell Dist. Width 18.2 % (11.5-14.5); White Blood Cell Count 12.7 10^3/uL (4.8-10.8)
[2024-09-06 05:12] LABS: Blood Urea Nitrogen 30 mg/dl (7-17); Calcium 7.8 mg/dl (8.4-10.2); Carbon Dioxide 21 mmol/L (22-30); Chloride 107 mmol/L (98-107); Estimated Creatinine Clearance 57 ml/min; Glucose 125 mg/dl (70-99); Sodium 136 mmol/L (135-145); eGFR > 60.00
[2024-09-06] MEDS: PROTONIX IV 40 MG IV ×2 (07:36→20:32)
[2024-09-06] MEDS: NSS (PRESERVATIVE FREE) 10 ML IV ×2 (07:37→20:32)
[2024-09-06] MEDS: MIRALAX 17 GRAMS PO (07:37)
[2024-09-06] MEDS: TYLENOL 1000 MG PO ×3 (07:38→20:31)
[2024-09-06] MEDS: VIBRAMYCIN 100 MG PO (07:38)
[2024-09-06] MEDS: LIORESAL 10 MG PO ×3 (07:38→20:31)
[2024-09-06] MEDS: FOLTX 1 TABLET PO (07:38)
[2024-09-06] MEDS: DELTASONE 40 MG PO (07:39)
[2024-09-06] MEDS: ROXICODONE 5 MG PO ×2 (07:43→20:31)
--- NOTE | 2024-09-06 08:04 | W.PN.GI.CBS2 ---
Addendum entered and electronically signed by Saray Bowen DO 09/06/24 09:02:
1 conversation with her son, Temo over the phone. I updated him on our plan and he is agreeable. I also asked him to see if he could find a baseline hemoglobin from the primary care and he will reach out
Addendum entered and electronically signed by Saray Bowen DO 09/06/24 08:53:
Just got off the phone with the hospitalist and got more of an update of how her admission has gone:
-- Apparently she came in with hematemesis/dark vomitus and syncopal episode--> required transfusion on 08/31--> significant back pain led to imaging which found a compression fracture and eventually a small PE and since she had no further bleeding
was placed on IV heparin without a bolus --> then had another episode of dark emesis and underwent an EGD with no findings on 09/02/2024. Then because of opiates was constipated and had no bowel movements. The first bowel movement she had yesterday
after eating she had vomit with a small amount of blood and burgundy/dark stools which potentially was old blood.
She has been off heparin for days. Her hemoglobin is slowly trending down.
She has not had a bowel movement since yesterday and is getting MiraLAX
She has had chronic issues with postprandial syncope abdominal pain and vomiting but the blood is new
I would like to get a CT enterography to look at her small bowel. Depending on those results highly consider a push enteroscopy on Sunday
Patient will not be able to tolerate an MR enterography because of her back pain and the length of that image study
Highly appreciate the communication with Dr. Velarde
Original Note:
Today's Communication / Plan
-
Advance diet
Assessment / Plan
-
Ms Hoover is a 83 y.o female with past medical history of stage I ovarian cancer (dx in 2013, s/p LITO/BSO), R lung cancer, cervical lumbar stenosis, hx of TIA, Sheriff's palsy, CKD, and chronic muscle spasms, prior esophageal dilations, GERD, who
initially presented to the ED due to concern for leg spasms. Concern for an episode of dark emesis and heme (+) stool after IV heparin along with a Hgb 10s for which GI has been consulted for further evaluation and management. s/p completed EGD
09/02 without finding for UGI bleeding ? MW tear vs other and pt was improved. GI signed off but asked to see 09/05 with syncopal episode with vomiting some food and ? blood and large burgundy stool. hx colonoscopy 2-3 years ago only notable for one
small polyp at [facility].
EGD on 09/02 without any significant findings throughout the upper examined GI tract to explain prior episode of hematemesis. No stigmata of any potentia Dieulafoy's lesion or other stigmata of bleeding. Possible superficial Cecile-Shepherd tear (MWT)
that subsequently healed prior to EGD(?)
#Hematemesis #UGIB with prior CGE and recurrent bleeding during admission
#melena/burgundy stool
#Dyspepsia
#New, Acute RUL PE w/out R Heart Strain anticoagulation now off
#Acute Blood Loss Anemia #Normocytic Anemia
#Chronic GERD
#Hx of Colon Polyps
#Unintentional Weight Loss (10-12 lbs)
# prior esophageal dilatation in past
-hx colon polyps
#Hx of Ovarian/Lung Cancer (reportedly in remission, in active surveillance at [facility] [place])
Recommendations:
noted with recurrent episode with vomiting and dark burgundy stool -the vomiting has been an issue for months now but the bleeding is new last episode was on 09/05/2024
reviewed with nursing Pt has been given laxative with Miralax and senna BID for several day and finally stools today-- may be rebleed vs old blood but noted with syncope/hypotension
monitor for any further stools
if recurrent bleeding consider repeat EGD with enteroscopy vs need for colonoscopy
BUN around 30 with normal creatinine, hemoglobin 7.8 roughly stable. Normal platelet count
cont PPI BID
1 more day of scheduled bowel regimen, then go back to as needed
cont off anticoagulation
- Strict avoidance of all NSAIDs
- Recommend close outpatient f/u with her primary Medication Administration Professional at [facility] ([facility]) -known to Dr. Gordon -patient has had chronic intermittent postprandial abdominal pain and vomiting with no etiology based on her
inpatient workup with CT without oral contrast and EGD without biopsies
Today, 09/06/2024: Advance diet as tolerated, last day of scheduled bowel regimen, no need to check hemoglobin today unless she has a clinical episode of bleeding or hypotension
Subjective
Subjective
Date of Service: September 06, 2024
Complains only of back pain. No nausea vomiting. According to the RN no overt bleeding and no nausea vomiting
Objective
Data Reviewed
Laboratory Data:
Laboratory Results
09/06/24 04:27
09/06/24 04:27
Laboratory Results
PT 14.9 Sec (11.4-14.6) H 09/05/24 12:41
INR 1.14 09/05/24 12:41
APTT 157.1 Sec (23.4-35.0) H* 09/02/24 00:31
Total Bilirubin 0.7 mg/dl (0.2-1.3) 09/05/24 12:37
AST 28 U/L (14-36) 09/05/24 12:37
ALT 20 U/L (0-35) 09/05/24 12:37
Alkaline Phosphatase 59 U/L (38-126) 09/05/24 12:37
Vital Signs and I&O:
Vital Signs
Temp Pulse Resp BP Pulse Ox
98.0 F 80 11 101/52 96
09/06/24 03:06 09/06/24 06:00 09/06/24 06:00 09/06/24 06:00 09/06/24 06:00
I&O
09/05/24 09/06/24 09/07/24
06:59 06:59 06:59
Intake Total 840 / 840 2740 / 2740
Output Total 1700 / 1700
Balance 840 / 840 1040 / 1040
Physical Exam
Physical Exam
HEENT: Anicteric
GI: Soft, Non Distended and Non Tender
[2024-09-06] MEDS: NSS 1000 IV (08:05)
--- NOTE | 2024-09-06 08:43 | W.PN.HOSP.TC ---
Today's Communication/Plan
-
stable for tele
Assessment / Plan
Assessment / Plan
83 years old female presented after an episode with spasm associated with syncopal episode and vomiting, tested positive for Hemoccult in the ER
#Acute tiny right upper lobe PE with minimal clot burden
Lower extremity Dopplers negative for DVT
Intolerant of heparin drip�she started having hematemesis
Since PE is 'tiny', recommend observing off of anticoagulation
Seen by pulmonology, who agrees with the above
#Acute blood loss anemia
#Hematemesis exacerbated by IV heparin drip
History of Coffee Ground Emesis, dyspepsia over last few weeks, hx of GERD, unintentional weight loss. Hemoccult positive test in the ER
Hemoglobin 7.8, was 8.7, 8.9, was 9.6, status post 2 units packed red blood cells 08/31, hemoglobin was 7.6
Appreciate GI input, EGD 09/01 negative for cause of her bleeding, does show gastritis, gastric polyps
09/05 -recurrence of hematemesis with maroon-colored stool and vasovagal syncope while on the commode
GI reconsulted, IV Protonix twice daily resumed, GI recommends CT enterography possible push enteroscopy on Sunday
Trend hemoglobin
#Vasovagal syncope x 2 on 08/31, 09/05
Noted while passing urine/stool in hospital
#Chronic muscle spasm
#Acute intractable back pain
#Subacute L 1 fracture
According to the patient and her son, possibly related to cervical pathology/ back issues.
Patient has had these muscle spasms described as short interval and infrequent could be every few weeks or months.
Painful spasm and sometimes associated with passing out/vomiting due to severe pain. No confusion.
Patient was evaluated by multiple neurologists over the years. She takes baclofen at night.
Patient's back pain worsened after passing out on 08/31
CT lumbar spine shows subacute lumbar fracture
Increased home baclofen to 10 mg 3 times daily, give IV steroids on 09/02, continue prednisone 40 mg p.o. daily D4/6
PT/OT - rec SNF
#Right lower lobe consolidation concerning for developing pneumonia
Rocephin/doxycycline x 5 days, will stop
#Cognitive impairment suspicious for dementia
Confusion exacerbated while in the hospital
TSH normal, B12 low normal, started supplementation 09/05
Recommend neuropsychiatric testing outpatient
#Constipation
Continue laxatives
#History of stage I ovarian cancer, history of right pleural lung cancer s/p resection
Currently cancer free. Has density on the left lower lung and under surveillance/monitoring by her doctors at [place].
DVT prophylaxis�SCDs due to hematemesis
Full code
Updated son on phone 09/05
Total time spent to see the patient on the floor, examine the patient, review data and lab results, discuss treatment plan with patient, nursing staff around 50 minutes.
Physical Exam
General: No acute distress
HEENT: Normocephalic, Atraumatic, EOMI, MMM
Respiratory: Clear to Auscultation bilaterally
Cardiac: Normal S1/S2, Regular Rate and Rhythm
GI: Soft, Nontender, Nondistended, Normal Bowel Sounds
Extremities: No Clubbing, Cyanosis, or Edema
Neuro: Nonfocal/Grossly Intact
Anticipated Discharge: > 48 hours
Subjective/Interval History
-
Date of Service: September 06, 2024
Patient continues to complain of back pain. No more hematemesis, no more black or bloody stools. No fever, no vomiting.
Objective Data
-
Labs:
Laboratory Results
09/06/24
04:27
WBC 12.7 H
Hgb 7.8 L
Hct 22.7 L
Plt Count 239
Sodium 136
Potassium 4.0
Chloride 107
Carbon Dioxide 21 L
BUN 30 H
Creatinine 0.7
Glucose 125 H
Calcium 7.8 L
Vital Signs:
Vital Signs
Temp Pulse Resp BP Pulse Ox
97.8 F 80 11 101/52 96
09/06/24 07:05 09/06/24 06:00 09/06/24 06:00 09/06/24 06:00 09/06/24 06:00
I&O
09/05/24 09/06/24 09/07/24
06:59 06:59 06:59
Intake Total 840 / 840 2740 / 2740
Output Total 1700 / 1700
Balance 840 / 840 1040 / 1040
[2024-09-06] MEDS: STERILE WATER FOR INJECTION IV (15:39)
[2024-09-06] MEDS: SENOKOT-S PO (20:32)
[2024-09-07] VITALS (10 sets, daily range): BP systolic 91–132; BP diastolic 40–79
[2024-09-07] MEDS: ROXICODONE 10 MG PO (02:09)
[2024-09-07 07:33] LABS: Hematocrit 19.7 % (37.0-47.0); Hemoglobin 6.8 g/dL (12.0-16.0); Mean Corp Hgb Conc. 34.5 g/dL (33.0-37.0); Mean Corpuscular Hgb 30.9 pg (27.0-31.0); Mean Corpuscular Volume 89.5 fL (81.0-99.0); Mean Platelet Volume 10.6 fL (7.4-10.4); Platelet Count 262 10^3/uL (130-400); Red Cell Dist. Width 19.2 % (11.5-14.5); White Blood Cell Count 12.4 10^3/uL (4.8-10.8)
[2024-09-07 07:49] LABS: Blood Urea Nitrogen 33 mg/dl (7-17); Carbon Dioxide 21 mmol/L (22-30); Chloride 106 mmol/L (98-107); Estimated Creatinine Clearance 50 ml/min; Glucose 111 mg/dl (70-99); Potassium 4.1 mmol/L (3.5-5.1); Sodium 135 mmol/L (135-145); eGFR > 60.00
--- NOTE | 2024-09-07 08:17 | W.PN.HOSP.TC ---
Today's Communication/Plan
-
see bold
Assessment / Plan
Assessment / Plan
83 years old female presented after an episode with spasm associated with syncopal episode and vomiting, tested positive for Hemoccult in the ER
#Acute tiny right upper lobe PE with minimal clot burden
Lower extremity Dopplers negative for DVT
Intolerant of heparin drip�she started having hematemesis
Since PE is 'tiny', recommend observing off of anticoagulation
Seen by pulmonology, who agrees with the above
#Acute blood loss anemia
#Hematemesis exacerbated by IV heparin drip
History of Coffee Ground Emesis, dyspepsia over last few weeks, hx of GERD, unintentional weight loss. Hemoccult positive test in the ER
Appreciate GI input, EGD 09/01 negative for cause of her bleeding, does show gastritis, gastric polyps
09/05 -recurrence of hematemesis with maroon-colored stool and vasovagal syncope while on the commode
GI reconsulted, IV Protonix twice daily resumed, GI recommends CT enterography possible push enteroscopy on Sunday
Hemoglobin 6.8, was 7.8, was 8.7, 8.9, was 9.6, status post 2 units packed red blood cells 08/31, hemoglobin was 7.6
Transfuse another unit of packed red blood cells today, trend hemoglobin
#Vasovagal syncope x 2 on 08/31, 09/05
Noted while passing urine/stool in hospital
#Chronic muscle spasm
#Acute intractable back pain
#Subacute L 1 fracture
According to the patient and her son, possibly related to cervical pathology/ back issues.
Patient has had these muscle spasms described as short interval and infrequent could be every few weeks or months.
Painful spasm and sometimes associated with passing out/vomiting due to severe pain. No confusion.
Patient was evaluated by multiple neurologists over the years. She takes baclofen at night.
Patient's back pain worsened after passing out on 08/31
CT lumbar spine shows subacute lumbar fracture
Increased home baclofen to 10 mg 3 times daily, give IV steroids on 09/02, continue prednisone 40 mg p.o. daily D5/6
PT/OT - rec SNF
#Right lower lobe consolidation concerning for developing pneumonia
Status post Rocephin/doxycycline x 5 days
#Cognitive impairment suspicious for dementia (Drug-induced encephalopathy ruled out)
Confusion exacerbated while in the hospital
TSH normal, B12 low normal, started supplementation 09/05
Recommend neuropsychiatric testing outpatient
#Constipation
Continue laxatives
#History of stage I ovarian cancer, history of right pleural lung cancer s/p resection
Currently cancer free. Has density on the left lower lung and under surveillance/monitoring by her doctors at [place].
DVT prophylaxis�SCDs due to hematemesis
Full code
Updated son on phone 09/05
Total time spent to see the patient on the floor, examine the patient, review data and lab results, discuss treatment plan with patient, nursing staff around 40 minutes.
Physical Exam
General: No acute distress
HEENT: Normocephalic, Atraumatic, EOMI, MMM
Respiratory: Clear to Auscultation bilaterally
Cardiac: Normal S1/S2, Regular Rate and Rhythm
GI: Soft, Nontender, Nondistended, Normal Bowel Sounds
Extremities: No Clubbing, Cyanosis, or Edema
Neuro: Nonfocal/Grossly Intact
Anticipated Discharge: 24 - 48 hours
Subjective/Interval History
-
Date of Service: September 06, 2024
No black or bloody stools. No hematemesis. Patient complains of black pain. No fever, no vomiting.
Objective Data
-
Labs:
Laboratory Results
09/06/24
04:27
WBC 12.7 H
Hgb 7.8 L
Hct 22.7 L
Plt Count 239
Sodium 136
Potassium 4.0
Chloride 107
Carbon Dioxide 21 L
BUN 30 H
Creatinine 0.7
Glucose 125 H
Calcium 7.8 L
Vital Signs:
Vital Signs
Temp Pulse Resp BP Pulse Ox
98.2 F 97 16 153/86 97
09/06/24 14:30 09/06/24 14:30 09/06/24 14:30 09/06/24 14:30 09/06/24 14:30
I&O
09/05/24 09/06/24 09/07/24
06:59 06:59 06:59
Intake Total 840 / 840 2740 / 2740
Output Total 1700 / 1700
Balance 840 / 840 1040 / 1040
[2024-09-07] MEDS: LIORESAL 10 MG PO ×3 (08:25→21:30)
[2024-09-07] MEDS: FOLTX 1 TABLET PO (08:25)
[2024-09-07] MEDS: TYLENOL 1000 MG PO ×3 (08:26→21:30)
[2024-09-07] MEDS: ROXICODONE 5 MG PO ×2 (08:26→15:11)
[2024-09-07] MEDS: DELTASONE 40 MG PO (08:26)
[2024-09-07] MEDS: NSS (PRESERVATIVE FREE) 10 ML IV ×2 (08:28→21:29)
[2024-09-07] MEDS: PROTONIX IV 40 MG IV ×2 (08:28→21:29)
[2024-09-07] MEDS: MIRALAX 17 GRAMS PO (08:29)
--- NOTE | 2024-09-07 10:18 | PTCARENOTE ---
Pt is prepping for a CT study. She is ordered a unit of PRBC for a hgb of 6.8. She is tolerating the prep well.
--- NOTE | 2024-09-07 12:30 | W.PN.GI.CBS2 ---
Today's Communication / Plan
-
-- CTE today and 1 U of blood
Assessment / Plan
-
Ms Hoover is a 83 y.o female with past medical history of stage I ovarian cancer (dx in 2014, s/p LITO/BSO), R lung cancer, cervical lumbar stenosis, hx of TIA, Sheriff's palsy, CKD, and chronic muscle spasms, prior esophageal dilations, GERD, who
initially presented to the ED due to concern for leg spasms. Concern for an episode of dark emesis and heme (+) stool after IV heparin along with a Hgb 10s for which GI has been consulted for further evaluation and management. s/p completed EGD
09/02 without finding for UGI bleeding ? MW tear vs other and pt was improved. GI signed off but asked to see 09/05 with syncopal episode with vomiting some food and ? blood and large burgundy stool. hx colonoscopy 2-3 years ago only notable for one
small polyp at [facility].
EGD on 09/02 without any significant findings throughout the upper examined GI tract to explain prior episode of hematemesis. No stigmata of any potentia Dieulafoy's lesion or other stigmata of bleeding. Possible superficial Cecile-Shepherd tear (MWT)
that subsequently healed prior to EGD(?)
#Hematemesis #UGIB with prior CGE and recurrent bleeding during admission
#melena/burgundy stool
#Dyspepsia
#New, Acute RUL PE w/out R Heart Strain anticoagulation now off
#Acute Blood Loss Anemia #Normocytic Anemia
#Chronic GERD
#Hx of Colon Polyps
#Unintentional Weight Loss (10-12 lbs)
# prior esophageal dilatation in past
-hx colon polyps
#Hx of Ovarian/Lung Cancer (reportedly in remission, in active surveillance at [facility])
Recommendations:
noted with recurrent episode with vomiting and dark burgundy stool -the vomiting has been an issue for months now but the bleeding is new last episode was on 09/05/2024
reviewed with nursing Pt has been given laxative with Miralax and senna BID for several day and finally stools today-- may be rebleed vs old blood but noted with syncope/hypotension
monitor for any further stools
- Recommend close outpatient f/u with her primary Geology Faculty Member at [facility] ([facility]) -known to Dr. Gordon -patient has had chronic intermittent postprandial abdominal pain and vomiting with no etiology based on her
inpatient workup with CT without oral contrast and EGD without biopsies
, 09/06/2024: Advance diet as tolerated, last day of scheduled bowel regimen, no need to check hemoglobin today unless she has a clinical episode of bleeding or hypotension
My conversation with Dr. Velarde on 09/06: -- Apparently she came in with hematemesis/dark vomitus and syncopal episode--> required transfusion on 08/31--> significant back pain led to imaging which found a compression fracture and eventually a small PE and
since she had no further bleeding was placed on IV heparin without a bolus --> then had another episode of dark emesis and underwent an EGD with no findings on 09/02/2024. Then because of opiates was constipated and had no bowel movements. The
first bowel movement she had yesterday after eating she had vomit with a small amount of blood and burgundy/dark stools which potentially was old blood.
She has been off heparin for days. Her hemoglobin is slowly trending down.
She has not had a bowel movement since yesterday and is getting MiraLAX
She has had chronic issues with postprandial syncope abdominal pain and vomiting but the blood is new
09/07/24: no overt bleeding despite drop in hgb from 7.8--> 6.8
-- getting 1 U today and going for CTenterography now
-- likely push enteroscopy tomorrow
-- diet pending imaging results
-- discussed with RN, Dr. Velarde
Subjective
Subjective
Date of Service: September 07, 2024
Patient denies any symptoms and according to nursing had no overt bleeding overnight despite drop in hemoglobin. Tolerated her increased diet yesterday with no problem. No nausea or vomiting. Going for CT enterography this morning
Objective
Data Reviewed
Laboratory Data:
Laboratory Results
09/07/24 06:32
09/07/24 06:32
Laboratory Results
PT 14.9 Sec (11.4-14.6) H 09/05/24 12:41
INR 1.14 09/05/24 12:41
APTT 157.1 Sec (23.4-35.0) H* 09/02/24 00:31
Total Bilirubin 0.7 mg/dl (0.2-1.3) 09/05/24 12:37
AST 28 U/L (14-36) 09/05/24 12:37
ALT 20 U/L (0-35) 09/05/24 12:37
Alkaline Phosphatase 59 U/L (38-126) 09/05/24 12:37
Vital Signs and I&O:
Vital Signs
Temp Pulse Resp BP Pulse Ox
97.8 F 87 20 109/64 98
09/07/24 11:55 09/07/24 11:55 09/07/24 11:55 09/07/24 11:55 09/07/24 11:55
I&O
09/06/24 09/07/24 09/08/24
06:59 06:59 06:59
Intake Total 2740 / 2740
Output Total 1700 / 1700
Balance 1040 / 1040
Physical Exam
Physical Exam
HEENT: Anicteric
Pulmonary: Clear
GI: Soft, Non Distended and Non Tender
Neuro: Other (History is not reliable but she is alert and oriented)
[2024-09-07] MEDS: STERILE WATER FOR INJECTION IV (15:17)
[2024-09-07] MEDS: SENOKOT-S 1 TABLET PO (21:30)
[2024-09-08] MEDS: ROXICODONE 5 MG PO ×2 (00:22→06:09)
[2024-09-08 03:30] VITALS: BP 139/74
[2024-09-08 07:27] LABS: Hematocrit 22.8 % (37.0-47.0); Hemoglobin 7.6 g/dL (12.0-16.0); Mean Corp Hgb Conc. 33.3 g/dL (33.0-37.0); Mean Corpuscular Volume 90.1 fL (81.0-99.0); Platelet Count 234 10^3/uL (130-400); Red Blood Cell Count 2.53 10^6/uL (4.20-5.40); Red Cell Dist. Width 19.5 % (11.5-14.5); White Blood Cell Count 9.3 10^3/uL (4.8-10.8)
[2024-09-08 07:40] VITALS: BP 111/58
[2024-09-08 07:49] LABS: Blood Urea Nitrogen 24 mg/dl (7-17); Calcium 8.1 mg/dl (8.4-10.2); Carbon Dioxide 22 mmol/L (22-30); Chloride 106 mmol/L (98-107); Estimated Creatinine Clearance 50 ml/min; Glucose 102 mg/dl (70-99); Potassium 3.9 mmol/L (3.5-5.1); Sodium 134 mmol/L (135-145); eGFR > 60.00
[2024-09-08] MEDS: TYLENOL 1000 MG PO ×3 (07:52→21:23)
[2024-09-08] MEDS: MIRALAX 17 GRAMS PO (07:52)
[2024-09-08] MEDS: FOLTX 1 TABLET PO (07:53)
[2024-09-08] MEDS: NSS (PRESERVATIVE FREE) 10 ML IV ×2 (07:53→19:42)
[2024-09-08] MEDS: DELTASONE 40 MG PO (07:53)
[2024-09-08] MEDS: PROTONIX IV 40 MG IV ×2 (07:53→19:42)
[2024-09-08] MEDS: LIORESAL 10 MG PO ×3 (07:53→19:43)
--- NOTE | 2024-09-08 10:01 | W.PN.HOSP.TC ---
Addendum entered and electronically signed by Chanda Robertson MD 09/08/24 13:52:
Hyponatremia, mild
Original Note:
Today's Communication/Plan
-
f/w GI recommendations
Assessment / Plan
Assessment / Plan
83 years old female presented after an episode with spasm associated with syncopal episode and vomiting, tested positive for Hemoccult in the ER
#Acute tiny right upper lobe PE with minimal clot burden
Lower extremity Dopplers negative for DVT
Intolerant of heparin drip�she started having hematemesis
Since PE is 'tiny', recommend observing off of anticoagulation
Seen by pulmonology, who agrees with the above
#Acute blood loss anemia
#Hematemesis exacerbated by IV heparin drip
History of Coffee Ground Emesis, dyspepsia over last few weeks, hx of GERD, unintentional weight loss. Hemoccult positive test in the ER
Appreciate GI input, EGD 09/01 negative for cause of her bleeding, does show gastritis, gastric polyps
09/05 -recurrence of hematemesis with maroon-colored stool and vasovagal syncope while on the commode
GI reconsulted, IV Protonix twice daily resumed, GI recommends CT enterography possible push enteroscopy on Sunday
Hemoglobin 6.8, was 7.8, was 8.7, 8.9, was 9.6, status post 2 units packed red blood cells 08/31, hemoglobin was 7.6
s/p 3 units as total.
#Vasovagal syncope x 2 on 08/31, 09/05
Noted while passing urine/stool in hospital
#Chronic muscle spasm
#Acute intractable back pain
#Subacute L 1 fracture
According to the patient and her son, possibly related to cervical pathology/ back issues.
Patient has had these muscle spasms described as short interval and infrequent could be every few weeks or months.
Painful spasm and sometimes associated with passing out/vomiting due to severe pain. No confusion.
Patient was evaluated by multiple neurologists over the years. She takes baclofen at night.
Patient's back pain worsened after passing out on 08/31
CT lumbar spine shows subacute lumbar fracture
Increased home baclofen to 10 mg 3 times daily, given IV steroids on 09/02, s/p prednisone
PT/OT - rec SNF
#Right lower lobe consolidation concerning for developing pneumonia
Status post Rocephin/doxycycline x 5 days
#Cognitive impairment suspicious for dementia (Drug-induced encephalopathy ruled out)
Confusion exacerbated while in the hospital
TSH normal, B12 low normal, started supplementation 09/05
Recommend neuropsychiatric testing outpatient
#Constipation
Continue laxatives
#History of stage I ovarian cancer, history of right pleural lung cancer s/p resection
Currently cancer free. Has density on the left lower lung and under surveillance/monitoring by her doctors at [place].
DVT prophylaxis�SCDs due to hematemesis
Full code
Updated son on phone 09/05
Total time spent to see the patient on the floor, examine the patient, review data and lab results, discuss treatment plan with patient, nursing staff around 55 minutes.
Physical Exam
General: No acute distress
HEENT: Normocephalic, Atraumatic, EOMI, MMM
Respiratory: Clear to Auscultation bilaterally
Cardiac: Normal S1/S2, Regular Rate and Rhythm
GI: Soft, Nontender, Nondistended, Normal Bowel Sounds
Extremities: No Clubbing, Cyanosis, or Edema
Neuro: Nonfocal/Grossly Intact, she gets confused at times
Psych: calm.
Anticipated Discharge: 24 - 48 hours
Subjective/Interval History
-
Date of Service: September 08, 2024
No chest pain
No abdominal pain
Objective Data
-
Labs:
Laboratory Results
09/08/24
07:13
WBC 9.3
Hgb 7.6 L
Hct 22.8 L
Plt Count 234
Sodium 134 L
Potassium 3.9
Chloride 106
Carbon Dioxide 22
BUN 24 H
Creatinine 0.8
Glucose 102 H
Calcium 8.1 L
Vital Signs:
Vital Signs
Temp Pulse Resp BP Pulse Ox
97.6 F 79 20 111/58 96
09/08/24 07:40 09/08/24 07:40 09/08/24 07:40 09/08/24 07:40 09/08/24 07:45
I&O
09/07/24 09/08/24 09/09/24
06:59 06:59 06:59
Intake Total 490 / 490
Balance 490 / 490
--- NOTE | 2024-09-08 11:03 | W.PN.GI.CBS2 ---
Addendum entered and electronically signed by Saray Bowen DO 09/08/24 17:05:
Patient seen and examined independently of PIETRO. I agree with her note with my additions below
Ghislaine has no complaints. According to nursing and her son she has had no bowel movements, no nausea or vomiting and no complaints.
The plan was for her to get her enteroscopy today but unfortunately due to multiple more emergent procedures she is getting bumped until tomorrow. Her hemoglobin has been stable since her unit of blood yesterday. Yesterday she was 6.9 and today
7.6. Her BUN remains elevated with a normal creatinine.
Her CT enterography was done yesterday and read today. She has some mild distention of the small bowel and colon and significant right-sided stool but otherwise no significant pathology that would explain intermittent postprandial vomiting or
intermittent obstructing lesion.
I did speak with the daughter in law at length sunday, Son at length on Sunday with the plan. I unfortunately didn't receive any messages from [employer] that he was trying to get in touch with me on Sunday. Sounds like the voicemails were sent to
the office clinical line and not to me.
Regardless, I spoke to both the patient and the son at bedside.
According to the son patient's baseline hemoglobin is 13.
Her admission summary:
-- Apparently she came in with hematemesis/dark vomitus and syncopal episode--> required transfusion on 08/31--> significant back pain led to imaging which found a compression fracture and eventually a small PE and since she had no further bleeding
was placed on IV heparin without a bolus --> then had another episode of dark emesis and underwent an EGD with no findings on 09/02/2024. Then because of opiates was constipated and had no bowel movements. The first bowel movement she had yesterday
after eating she had vomit with a small amount of blood and burgundy/dark stools which potentially was old blood.
She has been off heparin for days. Her hemoglobin is slowly trending down requiring a total of 3U during admission.
She has not had a bowel movement since yesterday and is getting MiraLAX
She has had chronic issues with postprandial syncope abdominal pain and vomiting but the blood is new
Plan: ok for low residue tonight and NPO after midnight for EGD/Enteroscopy
Addendum entered and electronically signed by PIETRO Mccauley 09/08/24 11:39:
updated son on CTE imaging. Plan for enteroscopy today-- reviewed with son there is possibility may get moved to tomorrow with other emergent cases but cont NPO for now in case can complete later today.
Addendum entered and electronically signed by PIETRO Mccauley 09/08/24 11:12:
09/07/24 CTE
Small likely loculated right pleural effusion with accompanying right lower lobe subsegmental atelectasis and/or pneumonia without significant change in comparison to recent prior study.
1.4 cm nonspecific hyperenhancing left lobe hepatic lesion possibly a small hemangioma.
Tiny left pleural effusion, decreased.
Findings suggesting small left-sided splenorenal shunt.
No intestinal obstruction or free air. Fluid-filled loops of small bowel seen correlating with enterography technique without gross findings to suggest obstructing lesion. Large volume stool in the right colon. Cannot exclude some subtle overall
intestinal ileus.
CTE as noted large volume stool right colon -- will review with Dr. Bowen
Original Note:
Today's Communication / Plan
-
await CTE results as unable to Do MRE
for possible enteroscopy later today
NPO
cont to follow up hbg total 3 units transfused during admission hbg 7.6 today
cont PPI
cont miralax daily and senna BID
son upset with need for update and unable reach Dr. Bowen over weekend-- I updated as waiting for CTE and will review plan with Dr. Bowen if proceeding with enteroscopy
also discussed capsule-- usually OP testing and need to ensure no obstructive issue prior to proceeding
reviewed with nursing
outpatient f/u with her primary Washery Engineer at [facility] ([facility]) -known to Dr. Gordon
Assessment / Plan
-
Ms Hoover is a 83 y.o female with past medical history of stage I ovarian cancer (dx in 2013, s/p LITO/BSO), R lung cancer, cervical lumbar stenosis, hx of TIA, Sheriff's palsy, CKD, and chronic muscle spasms, prior esophageal dilations, GERD, who
initially presented to the ED due to concern for leg spasms. Concern for an episode of dark emesis and heme (+) stool after IV heparin along with a Hgb 10s for which GI has been consulted for further evaluation and management. s/p completed EGD
09/02 without finding for UGI bleeding ? MW tear vs other and pt was improved. GI signed off but asked to see 09/05 with syncopal episode with vomiting some food and ? blood and large burgundy stool. hx colonoscopy 2-3 years ago only notable for one
small polyp at [facility].
EGD on 09/02 without any significant findings throughout the upper examined GI tract to explain prior episode of hematemesis. No stigmata of any potentia Dieulafoy's lesion or other stigmata of bleeding. Possible superficial Cecile-Shepherd tear (MWT)
that subsequently healed prior to EGD(?)
#Hematemesis #UGIB with prior CGE and recurrent bleeding during admission
# issues with post prandial symptoms vomiting for months prior to admission
#melena/burgundy stool
#Dyspepsia
#New, Acute RUL PE w/out R Heart Strain anticoagulation now off
#Acute Blood Loss Anemia #Normocytic Anemia requiring transfusion
#Chronic GERD
#Hx of Colon Polyps
#Unintentional Weight Loss (10-12 lbs)
# prior esophageal dilatation in past
#Hx of Ovarian/Lung Cancer (reportedly in remission, in active surveillance at [facility])
Recommendations:
await CTE results as unable to Do MRE
for possible enteroscopy later today
NPO
cont to follow up hbg total 3 units transfused during admission hbg 7.6 today
cont PPI
cont miralax daily and senna BID
son upset with need for update and unable reach Dr. Bowen over weekend-- I updated as waiting for CTE and will review plan with Dr. Bowen if proceeding with enteroscopy
also discussed capsule-- usually OP testing and need to ensure no obstructive issue prior to proceeding
reviewed with nursing
outpatient f/u with her primary Washery Engineer at [facility] ([facility]) -known to Dr. Gordon
Subjective
Subjective
Date of Service: September 08, 2024
NPO 2/2 brown stool
Objective
Data Reviewed
Laboratory Data:
Laboratory Results
09/08/24 07:13
09/08/24 07:13
Laboratory Results
PT 14.9 Sec (11.4-14.6) H 09/05/24 12:41
INR 1.14 09/05/24 12:41
APTT 157.1 Sec (23.4-35.0) H* 09/02/24 00:31
Total Bilirubin 0.7 mg/dl (0.2-1.3) 09/05/24 12:37
AST 28 U/L (14-36) 09/05/24 12:37
ALT 20 U/L (0-35) 09/05/24 12:37
Alkaline Phosphatase 59 U/L (38-126) 09/05/24 12:37
Vital Signs and I&O:
Vital Signs
Temp Pulse Resp BP Pulse Ox
97.6 F 79 20 111/58 96
09/08/24 07:40 09/08/24 07:40 09/08/24 07:40 09/08/24 07:40 09/08/24 07:45
I&O
09/07/24 09/08/24 09/09/24
06:59 06:59 06:59
Intake Total 490 / 490
Balance 490 / 490
Physical Exam
Physical Exam
HEENT: Anicteric and Moist mucous membranes
Cardiology: Normal Sinus Rhythm
Pulmonary: Clear
GI: Soft, Non Distended and Non Tender
Extremities: No Edema
Neuro: Other (forgetful )
[2024-09-08 11:20] VITALS: BP 143/89
[2024-09-08 12:14] VITALS: BMI 29.3
[2024-09-08 15:30] VITALS: BP 119/60
--- NOTE | 2024-09-08 15:57 | CM ---
CM reviewed chart- not ready for dc
Will need PT/OT orders due to IMU transfer
Dr Robertson aware
Anticipate plan for [facility] pending bed availability
Will need new auth as prior auth no longer valid
Discharge Disposition- [facility] pending auth
[2024-09-08] MEDS: STERILE WATER FOR INJECTION IV (17:10)
[2024-09-08] MEDS: SENOKOT-S 1 TABLET PO (19:42)
[2024-09-08 19:44] VITALS: BP 103/51
[2024-09-08 23:56] VITALS: BP 97/51
[2024-09-09] VITALS (15 sets, daily range): BP systolic 12–143; BP diastolic 41–90
--- NOTE | 2024-09-09 00:14 | PTCARENOTE ---
pt with BP of 97/51, HR of 89. no complaints of SOB, chest pain, or dizziness at rest. SPONGE BUFFER made aware, no new orders at this time. will continue to encourage PO intake, keep pt in bed, and monitor closely.
[2024-09-09] MEDS: ROXICODONE 5 MG PO (02:44)
--- NOTE | 2024-09-09 06:28 | PTCARENOTE ---
pt hall monitor showing ventricular bigeminy, review confirms this. pt asymptomatic. strip placed in chart, will continue to monitor.
[2024-09-09] MEDS: FOLTX 1 TABLET PO (07:16)
[2024-09-09] MEDS: PROTONIX IV 40 MG IV ×2 (07:16→20:37)
[2024-09-09] MEDS: TYLENOL 1000 MG PO ×3 (07:16→20:38)
[2024-09-09] MEDS: MIRALAX 17 GRAMS PO (07:16)
[2024-09-09] MEDS: LIORESAL 10 MG PO ×4 (07:20→22:40)
[2024-09-09] MEDS: NSS (PRESERVATIVE FREE) 10 ML IV ×2 (07:20→20:37)
[2024-09-09 07:47] LABS: Hematocrit 21.1 % (37.0-47.0); Hemoglobin 6.9 g/dL (12.0-16.0); Mean Corp Hgb Conc. 32.7 g/dL (33.0-37.0); Mean Corpuscular Hgb 30.5 pg (27.0-31.0); Mean Corpuscular Volume 93.4 fL (81.0-99.0); Mean Platelet Volume 9.9 fL (7.4-10.4); Platelet Count 233 10^3/uL (130-400); Red Blood Cell Count 2.26 10^6/uL (4.20-5.40); Red Cell Dist. Width 20.3 % (11.5-14.5)
--- NOTE | 2024-09-09 09:24 | PTCARENOTE ---
Addendum entered by Princess Coombs RN 09/09/24 14:13:
One unit of packed red blood cells transfused without incident.
Addendum entered by Princess Coombs RN 09/09/24 11:21:
Vital signs stable. Packed RBCs hung. No signs/symptoms of reaction noted. Patient with complaints of continued dizziness. Patient transported via stretcher to GI lab accompanied by RN. Son at bedside.
Original Note:
Patient awaiting enteroscopy today. Hgb 6.9. Hospitalist and GI team made aware. Patient to be transfused prior to procedure. Type and screen redrawn as per blood bank guidelines. Awaiting blood products. Son and patient aware.
--- NOTE | 2024-09-09 12:11 | W.PN.HOSP.TC ---
Today's Communication/Plan
-
2 units of blood transfusion today. Monitor closely.
Started antifungal treatment for esophagitis
Follow-up with GI recommendations
Assessment / Plan
Assessment / Plan
83 years old female presented after an episode with spasm associated with syncopal episode and vomiting, tested positive for Hemoccult in the ER
#Acute tiny right upper lobe PE with minimal clot burden
Lower extremity Dopplers negative for DVT
Intolerant of heparin drip�she started having hematemesis
Since PE is 'tiny', recommend observing off of anticoagulation
Seen by pulmonology, who agrees with the above
#Acute blood loss anemia
#Hematemesis exacerbated by IV heparin drip
History of Coffee Ground Emesis, dyspepsia over last few weeks, hx of GERD, unintentional weight loss. Hemoccult positive test in the ER
Appreciate GI input, EGD 09/01 negative for cause of her bleeding, does show gastritis, gastric polyps
09/05 -recurrence of hematemesis with maroon-colored stool and vasovagal syncope while on the commode
GI reconsulted, IV Protonix twice daily resumed, GI recommends CT enterography possible push enteroscopy on Sunday
s/p EGD/Enteroscopy on 09/09 that showed white nummular lesions in esophageal mucosa. Mild Schatzki ring. Multiple gastric polyps. Blood in the second portion of the duodenum, though no obvious source or recurrent bleeding after irrigation and
extensive observation. 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
s/p 3 units as total. Will give another two units on 09/09
# Yvonne esophagitis, started on antifungal treatment.
#Vasovagal syncope x 2 on 08/31, 09/05
Noted while passing urine/stool in hospital
#Chronic muscle spasm
#Acute intractable back pain
#Subacute L 1 fracture
According to the patient and her son, possibly related to cervical pathology/ back issues.
Patient has had these muscle spasms described as short interval and infrequent could be every few weeks or months.
Painful spasm and sometimes associated with passing out/vomiting due to severe pain. No confusion.
Patient was evaluated by multiple neurologists over the years. She takes baclofen at night.
Patient's back pain worsened after passing out on 08/31
CT lumbar spine shows subacute lumbar fracture
Increased home baclofen to 10 mg 3 times daily, given IV steroids on 09/02, s/p prednisone
PT/OT - rec SNF
#Right lower lobe consolidation concerning for developing pneumonia
Status post Rocephin/doxycycline x 5 days
#Cognitive impairment suspicious for dementia (Drug-induced encephalopathy ruled out)
Confusion exacerbated while in the hospital
TSH normal, B12 low normal, started supplementation 09/05
#Constipation
Continue laxatives
#History of stage I ovarian cancer, history of right pleural lung cancer s/p resection
Currently cancer free. Has density on the left lower lung and under surveillance/monitoring by her doctors at [facility].
DVT prophylaxis�SCDs due to hematemesis
Full code
d/w son at bed side 09/09
Total time spent to see the patient on the floor, examine the patient, review data and lab results, discuss treatment plan with patient, nursing staff around 55 minutes.
Physical Exam
General: No acute distress
HEENT: Normocephalic, Atraumatic, EOMI, MMM
Respiratory: Clear to Auscultation bilaterally
Cardiac: Normal S1/S2, Regular Rate and Rhythm
GI: Soft, Nontender, Nondistended, Normal Bowel Sounds
Extremities: No Clubbing, Cyanosis, or Edema
Neuro: Nonfocal/Grossly Intact, she gets confused at times
Psych: calm.
Anticipated Discharge: 24 - 48 hours
Subjective/Interval History
-
Date of Service: September 09, 2024
No chest pain
No abd pain
No sob
Objective Data
-
Labs:
Laboratory Results
09/09/24 09/09/24 09/09/24
06:31 12:00 20:00
WBC 8.0 Pending Pending
Hgb 6.9 L* Pending Pending
Hct 21.1 L Pending Pending
Plt Count 233 Pending Pending
Vital Signs:
Vital Signs
Temp Pulse Resp BP Pulse Ox
98.0 F 86 18 128/50 99
09/09/24 10:51 09/09/24 10:51 09/09/24 10:51 09/09/24 10:51 09/09/24 07:40
I&O
09/08/24 09/09/24 09/10/24
06:59 06:59 06:59
Intake Total 490 / 490 480 / 480 0 / 0
Balance 490 / 490 480 / 480 0 / 0
[2024-09-09] MEDS: MYCOSTATIN ORAL SUSPENSION 5 ML PO ×3 (14:17→20:37)
--- NOTE | 2024-09-09 14:44 | PTCARENOTE ---
Addendum entered by Princess Coombs RN 09/09/24 19:14:
Second unit of packed RBCs completed without incident. CBC to be drawn at 1999.
Original Note:
Second unit of packed RBCs started. Vital signs stable. Denies signs/symptoms of transfusion reaction at this time. Patient educated and understands to ring [facility] for any symptom of reaction.
[2024-09-09] MEDS: STERILE WATER FOR INJECTION IV (17:36)
[2024-09-09] MEDS: SENOKOT-S 1 TABLET PO (20:38)
[2024-09-09 21:29] LABS: Hematocrit 30.2 % (37.0-47.0); Mean Corp Hgb Conc. 33.1 g/dL (33.0-37.0); Mean Corpuscular Hgb 31.2 pg (27.0-31.0); Mean Corpuscular Volume 94.1 fL (81.0-99.0); Mean Platelet Volume 9.7 fL (7.4-10.4); Platelet Count 198 10^3/uL (130-400); Red Blood Cell Count 3.21 10^6/uL (4.20-5.40); Red Cell Dist. Width 18.9 % (11.5-14.5); White Blood Cell Count 6.7 10^3/uL (4.8-10.8)
[2024-09-10 03:24] VITALS: BP 112/64
--- NOTE | 2024-09-10 06:43 | W.PN.GI.CBS2 ---
Today's Communication / Plan
-
Please see assessment and plan for details.
Assessment / Plan
-
1. 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 Her hemoglobin responded appropriately, no
bowel movements overnight, no signs of further active bleeding. At this point will await morning hemoglobin. If stable and still no bleeding then will advance diet and continue observation.
Subjective
Subjective
Date of Service: September 10, 2024
Patient feeling okay, no bowel movements overnight, tolerated liquids without difficulty. Responded more than appropriately to transfusion yesterday.
Objective
Data Reviewed
Laboratory Data:
Laboratory Results
PT 14.9 Sec (11.4-14.6) H 09/05/24 12:41
INR 1.14 09/05/24 12:41
APTT 157.1 Sec (23.4-35.0) H* 09/02/24 00:31
Total Bilirubin 0.7 mg/dl (0.2-1.3) 09/05/24 12:37
AST 28 U/L (14-36) 09/05/24 12:37
ALT 20 U/L (0-35) 09/05/24 12:37
Alkaline Phosphatase 59 U/L (38-126) 09/05/24 12:37
Vital Signs and I&O:
Vital Signs
Temp Pulse Resp BP Pulse Ox
97.6 F 85 20 112/64 97
09/10/24 03:24 09/10/24 03:24 09/10/24 03:24 09/10/24 03:24 09/10/24 03:24
I&O
09/08/24 09/09/24 09/10/24
06:59 06:59 06:59
Intake Total 490 / 490 480 / 480 1959
Balance 490 / 490 480 / 480 1959
Physical Exam
Physical Exam
General: NAD
Abdomen: normal bowel sounds, soft, no tenderness, no masses or bruits, no ascites
[2024-09-10 07:33] LABS: Hematocrit 30.1 % (37.0-47.0); Hemoglobin 10.2 g/dL (12.0-16.0); Mean Corp Hgb Conc. 33.9 g/dL (33.0-37.0); Mean Corpuscular Hgb 31.1 pg (27.0-31.0); Mean Corpuscular Volume 91.8 fL (81.0-99.0); Mean Platelet Volume 9.7 fL (7.4-10.4); Platelet Count 192 10^3/uL (130-400); Red Blood Cell Count 3.28 10^6/uL (4.20-5.40); Red Cell Dist. Width 19.1 % (11.5-14.5); White Blood Cell Count 5.8 10^3/uL (4.8-10.8)
[2024-09-10 07:40] VITALS: BP 119/66
[2024-09-10 07:58] LABS: Blood Urea Nitrogen 15 mg/dl (7-17); Calcium 7.8 mg/dl (8.4-10.2); Carbon Dioxide 23 mmol/L (22-30); Chloride 108 mmol/L (98-107); Estimated Creatinine Clearance 50 ml/min; Glucose 91 mg/dl (70-99); Potassium 3.6 mmol/L (3.5-5.1); Sodium 136 mmol/L (135-145); eGFR > 60.00
[2024-09-10] MEDS: FOLTX 1 TABLET PO (08:57)
[2024-09-10] MEDS: MEPHYTON 2.5 MG PO (08:57)
[2024-09-10] MEDS: LIORESAL 10 MG PO ×3 (08:57→20:34)
[2024-09-10] MEDS: TYLENOL 1000 MG PO ×3 (08:57→20:19)
[2024-09-10] MEDS: MIRALAX 17 GRAMS PO (08:58)
[2024-09-10] MEDS: MYCOSTATIN ORAL SUSPENSION 5 ML PO ×4 (08:58→20:34)
[2024-09-10] MEDS: PROTONIX IV 40 MG IV ×2 (08:59→20:19)
[2024-09-10] MEDS: NSS (PRESERVATIVE FREE) 10 ML IV ×2 (08:59→20:21)
--- NOTE | 2024-09-10 09:26 | W.PN.HOSP.TC ---
Today's Communication/Plan
-
Trial to advance diet
c/w anti-fungal [place]
One dose Vitamin K
Assessment / Plan
Assessment / Plan
83 years old female presented after an episode with spasm associated with syncopal episode and vomiting, tested positive for Hemoccult in the ER
#Acute tiny right upper lobe PE with minimal clot burden
Lower extremity Dopplers negative for DVT
Intolerant of heparin drip�she started having hematemesis
Since PE is 'tiny', recommend observing off of anticoagulation
Seen by pulmonology, who agrees with the above
#Acute blood loss anemia
#Hematemesis exacerbated by IV heparin drip
History of Coffee Ground Emesis, dyspepsia over last few weeks, hx of GERD, unintentional weight loss. Hemoccult positive test in the ER
EGD 09/01 negative for cause of her bleeding, does show gastritis, gastric polyps
09/05 -recurrence of hematemesis with maroon-colored stool and vasovagal syncope while on the commode
IV Protonix twice daily resumed, GI recommended CT enterography done on 09/08, showed no obstruction, + large volume stool in right colon.
s/p EGD/Enteroscopy on 09/09 that showed white nummular lesions in esophageal mucosa. Mild Schatzki ring. Multiple gastric polyps. Blood in the second portion of the duodenum, though no obvious source or recurrent bleeding after irrigation and
extensive observation. 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
s/p 5 units as total.
Given one dose oral vitamin K. '
Appreciate GI input
# Yvonne esophagitis, started on antifungal treatment.
#Vasovagal syncope x 2 on 08/31, 09/05
Noted while passing urine/stool in hospital
#Chronic muscle spasm
#Acute intractable back pain
#Subacute L 1 fracture
According to the patient and her son, possibly related to cervical pathology/ back issues.
Patient has had these muscle spasms described as short interval and infrequent could be every few weeks or months.
Painful spasm and sometimes associated with passing out/vomiting due to severe pain. No confusion.
Patient was evaluated by multiple neurologists over the years. She takes baclofen at night.
Patient's back pain worsened after passing out on 08/31
CT lumbar spine shows subacute lumbar fracture
Increased home baclofen to 10 mg 3 times daily, given IV steroids on 09/02, s/p prednisone
PT/OT - rec SNF
#Right lower lobe consolidation concerning for developing pneumonia
Status post Rocephin/doxycycline x 5 days
#Cognitive impairment suspicious for dementia (Drug-induced encephalopathy ruled out)
Confusion exacerbated while in the hospital
TSH normal, B12 low normal, started supplementation 09/05
# Chronic muscle spasm. According to the patient and her son, possibly related to cervical pathology/ back issues. Patient has had these muscle spasms described as short interval and infrequent could be every few weeks or months. Painful spasm
and sometimes associated with passing out/vomiting due to severe pain. No confusion.
Patient was evaluated by multiple neurologists over the years. She takes baclofen at night.
Added as needed IV lorazepam for muscle spasm
No history of sensory loss. No history of confusion or altered mentation or seizure activities.
#Constipation
Continue laxatives
#History of stage I ovarian cancer, history of right pleural lung cancer s/p resection
Currently cancer free. Has density on the left lower lung and under surveillance/monitoring by her doctors at [facility].
DVT prophylaxis�SCDs due to hematemesis
Full code
Total time spent to see the patient on the floor, examine the patient, review data and lab results, discuss treatment plan with patient, nursing staff around 57 minutes.
Physical Exam
General: No acute distress
HEENT: Normocephalic, Atraumatic, EOMI, MMM
Respiratory: Clear to Auscultation bilaterally
Cardiac: Normal S1/S2, Regular Rate and Rhythm
GI: Soft, Nontender, Nondistended, Normal Bowel Sounds
Extremities: No Clubbing, Cyanosis, or Edema
Neuro: Nonfocal/Grossly Intact, she gets confused at times
Psych: calm.
Anticipated Discharge: Within 24 hours
Subjective/Interval History
-
Date of Service: September 10, 2024
No chest pain
No sob
NO fevers
No rectal bleeding or vomiting
Objective Data
-
Labs:
Laboratory Results
09/09/24 09/09/24 09/10/24
12:00 21:12 06:56
WBC Cancelled 6.7
Hgb Cancelled 10.0 L D
Hct Cancelled 30.2 L
Plt Count Cancelled 198
Sodium 136
Potassium 3.6
Chloride 108 H
Carbon Dioxide 23
BUN 15
Creatinine 0.8
Glucose 91
Calcium 7.8 L
09/10/24
06:57
WBC 5.8
Hgb 10.2 L
Hct 30.1 L
Plt Count 192
Sodium
Potassium
Chloride
Carbon Dioxide
BUN
Creatinine
Glucose
Calcium
Vital Signs:
Vital Signs
Temp Pulse Resp BP Pulse Ox
98.4 F 80 18 119/66 98
09/10/24 07:40 09/10/24 07:40 09/10/24 07:40 09/10/24 07:40 09/10/24 07:40
I&O
09/09/24 09/10/24 09/11/24
06:59 06:59 06:59
Intake Total 480 / 480 1959 / 1959 480 / 480
Balance 480 / 480 1959 / 1959 480 / 480
[2024-09-10 11:41] VITALS: BP 97/58
[2024-09-10 15:46] VITALS: BP 130/53
[2024-09-10 19:44] VITALS: BP 107/51
[2024-09-10] MEDS: SENOKOT-S 1 TABLET PO (20:34)
[2024-09-10 23:39] VITALS: BP 104/56
[2024-09-11] VITALS (10 sets, daily range): BP systolic 83–130; BP diastolic 50–71
[2024-09-11 05:50] LABS: Hemoglobin 9.7 g/dL (12.0-16.0); Mean Corp Hgb Conc. 33.4 g/dL (33.0-37.0); Mean Corpuscular Hgb 31.2 pg (27.0-31.0); Mean Corpuscular Volume 93.2 fL (81.0-99.0); Mean Platelet Volume 9.9 fL (7.4-10.4); Platelet Count 181 10^3/uL (130-400); Red Blood Cell Count 3.11 10^6/uL (4.20-5.40); Red Cell Dist. Width 18.9 % (11.5-14.5); White Blood Cell Count 5.3 10^3/uL (4.8-10.8)
--- NOTE | 2024-09-11 06:08 | W.PN.GI.CBS2 ---
Today's Communication / Plan
-
Please see assessment and plan for details.
Assessment / Plan
-
1. 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 Her hemoglobin responded appropriately,
and has remained stable. No gross signs of bleeding, tolerating diet without difficulty. Her morning hemoglobin is also stable. At this point she is okay to DC from GI standpoint. Will trend CBC and observation per PCP. Will discuss with son
later today.
Subjective
Subjective
Date of Service: September 11, 2024
Patient doing okay, denies any pain. No vomiting, bowel movements per nursing, tolerating diet without difficulty.
Objective
Data Reviewed
Laboratory Data:
Laboratory Results
09/11/24 05:33
09/10/24 06:56
Laboratory Results
PT 14.9 Sec (11.4-14.6) H 09/05/24 12:41
INR 1.14 09/05/24 12:41
APTT 157.1 Sec (23.4-35.0) H* 09/02/24 00:31
Total Bilirubin 0.7 mg/dl (0.2-1.3) 09/05/24 12:37
AST 28 U/L (14-36) 09/05/24 12:37
ALT 20 U/L (0-35) 09/05/24 12:37
Alkaline Phosphatase 59 U/L (38-126) 09/05/24 12:37
Vital Signs and I&O:
Vital Signs
Temp Pulse Resp BP Pulse Ox
98.4 F 80 16 115/70 98
09/11/24 03:50 09/11/24 03:50 09/11/24 03:50 09/11/24 03:50 09/11/24 03:50
I&O
0209/10/24 09/11/24
06:59 06:59 06:59
Intake Total 480 / 480 1959 1140 / 1140
Balance 480 / 480 1959 1140 / 1140
Physical Exam
Physical Exam
General: NAD
Abdomen: normal bowel sounds, soft, no tenderness, no masses or bruits, no ascites
[2024-09-11] MEDS: TYLENOL 1000 MG PO ×3 (08:47→22:27)
[2024-09-11] MEDS: FOLTX 1 TABLET PO (08:47)
[2024-09-11] MEDS: MYCOSTATIN ORAL SUSPENSION 5 ML PO ×4 (08:47→22:27)
[2024-09-11] MEDS: NSS (PRESERVATIVE FREE) 10 ML IV ×2 (08:47→20:49)
[2024-09-11] MEDS: PROTONIX IV 40 MG IV ×2 (08:48→20:49)
[2024-09-11] MEDS: LIORESAL 10 MG PO ×3 (08:48→22:27)
[2024-09-11] MEDS: MIRALAX 17 GRAMS PO (08:48)
--- NOTE | 2024-09-11 09:09 | W.PN.HOSP.TC ---
Addendum entered and electronically signed by Chanda Robertson MD 09/11/24 14:41:
Addendum
Patient had a black bowel movement. Patient has not had bowel movement since 2 days ago and was given laxatives. Could be from previous GI bleed. Will recheck hemoglobin. Will check vital signs. Will reach out to GI if further recommendations
are needed, discussed with nursing staff
End
Original Note:
Today's Communication/Plan
-
dc planning
Assessment / Plan
Assessment / Plan
83 years old female presented after an episode with spasm associated with syncopal episode and vomiting, tested positive for Hemoccult in the ER
#Acute tiny right upper lobe PE with minimal clot burden
Lower extremity Dopplers negative for DVT
Intolerant of heparin drip�she started having hematemesis
Since PE is 'tiny', recommend observing off of anticoagulation
Seen by pulmonology, who agrees with the above
#Acute blood loss anemia
#Hematemesis exacerbated by IV heparin drip
History of Coffee Ground Emesis, dyspepsia over last few weeks, hx of GERD, unintentional weight loss. Hemoccult positive test in the ER
EGD 09/01 negative for cause of her bleeding, does show gastritis, gastric polyps
09/05 -recurrence of hematemesis with maroon-colored stool and vasovagal syncope while on the commode
IV Protonix twice daily resumed, GI recommended CT enterography done on 09/08, showed no obstruction, + large volume stool in right colon.
s/p EGD/Enteroscopy on 09/09 that showed white nummular lesions in esophageal mucosa. Mild Schatzki ring. Multiple gastric polyps. Blood in the second portion of the duodenum, though no obvious source or recurrent bleeding after irrigation and
extensive observation. 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
s/p 5 units as total.
Given one dose oral vitamin K. '
Appreciate GI input
# Yvonne esophagitis, started on antifungal treatment.
#Vasovagal syncope x 2 on 08/31, 09/05
Noted while passing urine/stool in hospital
#Chronic muscle spasm
#Acute intractable back pain
#Subacute L 1 fracture
According to the patient and her son, possibly related to cervical pathology/ back issues.
Patient has had these muscle spasms described as short interval and infrequent could be every few weeks or months.
Painful spasm and sometimes associated with passing out/vomiting due to severe pain. No confusion.
Patient was evaluated by multiple neurologists over the years. She takes baclofen at night.
Patient's back pain worsened after passing out on 08/31
CT lumbar spine shows subacute lumbar fracture
Increased home baclofen to 10 mg 3 times daily, given IV steroids on 09/02, s/p prednisone
PT/OT - rec SNF
#Right lower lobe consolidation concerning for developing pneumonia
Status post Rocephin/doxycycline x 5 days
#Cognitive impairment suspicious for dementia (Drug-induced encephalopathy ruled out)
Confusion exacerbated while in the hospital
TSH normal, B12 low normal, started supplementation 09/05
# Chronic muscle spasm. According to the patient and her son, possibly related to cervical pathology/ back issues. Patient has had these muscle spasms described as short interval and infrequent could be every few weeks or months. Painful spasm
and sometimes associated with passing out/vomiting due to severe pain. No confusion.
Patient was evaluated by multiple neurologists over the years. She takes baclofen at night.
Added as needed IV lorazepam for muscle spasm
No history of sensory loss. No history of confusion or altered mentation or seizure activities.
#Constipation
Continue laxatives
#History of stage I ovarian cancer, history of right pleural lung cancer s/p resection
Currently cancer free. Has density on the left lower lung and under surveillance/monitoring by her doctors at [place].
DVT prophylaxis�SCDs due to hematemesis
Full code
Total time spent to see the patient on the floor, examine the patient, review data and lab results, discuss treatment plan with patient, nursing staff around 57 minutes.
Physical Exam
General: No acute distress
HEENT: Normocephalic, Atraumatic, EOMI, MMM
Respiratory: Clear to Auscultation bilaterally
Cardiac: Normal S1/S2, Regular Rate and Rhythm
GI: Soft, Nontender, Nondistended, Normal Bowel Sounds
Extremities: No Clubbing, Cyanosis, or Edema
Neuro: Nonfocal/Grossly Intact, she gets confused at times
Psych: calm.
Anticipated Discharge: Within 24 hours
Subjective/Interval History
-
Date of Service: September 11, 2024
Objective Data
-
Labs:
Laboratory Results
09/11/24
05:33
WBC 5.3
Hgb 9.7 L
Hct 29.0 L
Plt Count 181
Vital Signs:
Vital Signs
Temp Pulse Resp BP Pulse Ox
98.5 F 80 12 125/64 98
09/11/24 07:40 09/11/24 07:40 09/11/24 07:40 09/11/24 07:40 09/11/24 07:40
I&O
09/10/24 09/11/24 09/12/24
06:59 06:59 06:59
Intake Total 1959 1140 / 1140 240 / 240
Balance 1959 1140 / 1140 240 / 240
[2024-09-11 14:40] LABS: Hemoglobin 10.3 g/dL (12.0-16.0)
[2024-09-11] MEDS: NSS 500 IV (15:00)
--- NOTE | 2024-09-11 15:05 | W.PN.UPDATE ---
Update Note
Progress Note Update
Events noted, patient with large melenic stool, with relative hypotension and tachycardia. Will decrease to clear liquid diet, plan repeat EGD tomorrow as did have site of active bleeding in the duodenum without obvious source. I discussed with
the patient's son at length.
[2024-09-11] MEDS: SENOKOT-S 1 TABLET PO (22:27)
[2024-09-12] VITALS (13 sets, daily range): BP systolic 20–158; BP diastolic 59–78; PULSE 79–89; O2SAT 98
[2024-09-12 07:30] LABS: Hematocrit 33.5 % (37.0-47.0); Hemoglobin 11.6 g/dL (12.0-16.0); Mean Corp Hgb Conc. 34.6 g/dL (33.0-37.0); Mean Corpuscular Hgb 31.7 pg (27.0-31.0); Mean Corpuscular Volume 91.5 fL (81.0-99.0); Mean Platelet Volume 9.8 fL (7.4-10.4); Platelet Count 158 10^3/uL (130-400); Red Blood Cell Count 3.66 10^6/uL (4.20-5.40); Red Cell Dist. Width 18.6 % (11.5-14.5); White Blood Cell Count 4.8 10^3/uL (4.8-10.8)
[2024-09-12] MEDS: NSS (PRESERVATIVE FREE) 10 ML IV (08:30)
[2024-09-12] MEDS: FLUSH (NSS) 2 FLUSH IV (08:30)
[2024-09-12] MEDS: PROTONIX IV 40 MG IV (08:30)
--- NOTE | 2024-09-12 08:50 | PTCARENOTE ---
Report provided to GI lab. Pt transported at this time to GI lab, dentures removed prior to transport.
--- NOTE | 2024-09-12 09:28 | W.PN.HOSP.TC ---
Today's Communication/Plan
-
f/w GI recommendations
Assessment / Plan
Assessment / Plan
83 years old female presented after an episode with spasm associated with syncopal episode and vomiting, tested positive for Hemoccult in the ER
#Acute tiny right upper lobe PE with minimal clot burden
Lower extremity Dopplers negative for DVT
Intolerant of heparin drip�she started having hematemesis
Since PE is 'tiny', recommend observing off of anticoagulation
Seen by pulmonology, who agrees with the above
#Acute blood loss anemia
#Hematemesis exacerbated by IV heparin drip
History of Coffee Ground Emesis, dyspepsia over last few weeks, hx of GERD, unintentional weight loss. Hemoccult positive test in the ER
EGD 09/01 negative for cause of her bleeding, does show gastritis, gastric polyps
09/05 -recurrence of hematemesis with maroon-colored stool and vasovagal syncope while on the commode
IV Protonix twice daily resumed, GI recommended CT enterography done on 09/08, showed no obstruction, + large volume stool in right colon.
s/p EGD/Enteroscopy on 09/09 that showed white nummular lesions in esophageal mucosa. Mild Schatzki ring. Multiple gastric polyps. Blood in the second portion of the duodenum, though no obvious source or recurrent bleeding after irrigation and
extensive observation. 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
She had large black stool on 09/11 with hypotension/tachycardia, d/w GI, plan for repeat EGD today 09/12
s/p 6 units as total.
Given one dose oral vitamin K.
Appreciate GI input
# Yvonne esophagitis, started on antifungal treatment.
#Vasovagal syncope x 2 on 08/31, 09/05
Noted while passing urine/stool in hospital
#Chronic muscle spasm
#Acute intractable back pain
#Subacute L 1 fracture
According to the patient and her son, possibly related to cervical pathology/ back issues.
Patient has had these muscle spasms described as short interval and infrequent could be every few weeks or months.
Painful spasm and sometimes associated with passing out/vomiting due to severe pain. No confusion.
Patient was evaluated by multiple neurologists over the years. She takes baclofen at night.
Patient's back pain worsened after passing out on 08/31
CT lumbar spine shows subacute lumbar fracture
Increased home baclofen to 10 mg 3 times daily, given IV steroids on 09/02, s/p prednisone
PT/OT - rec SNF
#Right lower lobe consolidation concerning for developing pneumonia
Status post Rocephin/doxycycline x 5 days
#Cognitive impairment suspicious for dementia (Drug-induced encephalopathy ruled out)
Confusion exacerbated while in the hospital
TSH normal, B12 low normal, started supplementation 09/05
# Chronic muscle spasm. According to the patient and her son, possibly related to cervical pathology/ back issues. Patient has had these muscle spasms described as short interval and infrequent could be every few weeks or months. Painful spasm
and sometimes associated with passing out/vomiting due to severe pain. No confusion.
Patient was evaluated by multiple neurologists over the years. She takes baclofen at night.
Added as needed IV lorazepam for muscle spasm
No history of sensory loss. No history of confusion or altered mentation or seizure activities.
#Constipation
Continue laxatives
#History of stage I ovarian cancer, history of right pleural lung cancer s/p resection
Currently cancer free. Has density on the left lower lung and under surveillance/monitoring by her doctors at [place].
DVT prophylaxis�SCDs due to hematemesis
Full code
Total time spent to see the patient on the floor, examine the patient, review data and lab results, discuss treatment plan with patient, nursing staff around 57 minutes.
Physical Exam
General: No acute distress
HEENT: Normocephalic, Atraumatic, EOMI, MMM
Respiratory: Clear to Auscultation bilaterally
Cardiac: Normal S1/S2, Regular Rate and Rhythm
GI: Soft, Nontender, Nondistended, Normal Bowel Sounds
Extremities: No Clubbing, Cyanosis, or Edema
Neuro: Nonfocal/Grossly Intact, she gets confused at times
Psych: calm.
Anticipated Discharge: Within 24 hours
Subjective/Interval History
-
Date of Service: September 12, 2024
No chest pain
No abd pain
Objective Data
-
Labs:
Laboratory Results
09/12/24
07:11
WBC 4.8
Hgb 11.6 L
Hct 33.5 L
Plt Count 158
Vital Signs:
Vital Signs
Temp Pulse Resp BP Pulse Ox
97.9 F 75 18 142/76 97
09/12/24 07:00 09/12/24 07:00 09/12/24 07:00 09/12/24 07:00 09/12/24 07:00
I&O
09/11/24 09/12/24 09/13/24
06:59 06:59 06:59
Intake Total 1140 / 1140 730 / 730
Balance 1140 / 1140 730 / 730
--- NOTE | 2024-09-12 09:48 | W.PN.UPDATE ---
Update Note
Progress Note Update
EGD with possible very small dieulafoy seen but not bleeding, injected with epinephrine and regressed
would
- monitor hgb, clinically
- change PPI bid to ggt for at least 24 hours
--- NOTE | 2024-09-12 10:10 | PTCARENOTE ---
Addendum entered by Vy Peres 09/12/24 15:24:
Pt has no pain of abdomen after Tylenol. Pt tolerating low residue diet without difficulty. Pt up to the chair for 2 hours. Physical therapy got pt up to the chair, no hypotension noted. Slight noted dizziness with standing, gone once sitting in
chair.
Original Note:
Received report from [facility] in PACU. Pt arrived back to rm [id number] at this time. Pt AAOx3, lungs are CTA but diminished. No SOB. Pt stating that she has some discomfort of right lower quadrant that pt is unable to rate on pain scale. Administered
ordered scheduled Tylenol 1,000mg po. Pt denying any nausea. Discussed abdominal pain with Dr. Gonsalves, no change in orders. Will continue to monitor pain. Low residue diet being ordered.
[2024-09-12] MEDS: PROTONIX 100 IV ×2 (10:34→20:11)
[2024-09-12] MEDS: TYLENOL 1000 MG PO ×3 (10:34→22:07)
[2024-09-12] MEDS: LIORESAL 10 MG PO ×3 (10:34→22:07)
[2024-09-12] MEDS: MYCOSTATIN ORAL SUSPENSION 5 ML PO ×4 (10:34→22:08)
[2024-09-12] MEDS: FOLTX 1 TABLET PO (10:34)
[2024-09-12] MEDS: MIRALAX PO (11:31)
--- NOTE | 2024-09-12 11:42 | CM ---
CM following for discharge to [facility]. Request for authorization faxed to [facility] for SNF approval.
Plan: CM to coordinate transfer to [facility] pending insurance authorization.
[2024-09-12] MEDS: SENOKOT-S 1 TABLET PO (22:08)
[2024-09-13] VITALS (7 sets, daily range): BP systolic 123–174; BP diastolic 51–87
[2024-09-13] MEDS: ROXICODONE 5 MG PO (03:13)
[2024-09-13] MEDS: PROTONIX 100 IV (04:10)
[2024-09-13 07:56] LABS: Hematocrit 33.6 % (37.0-47.0); Mean Corp Hgb Conc. 32.7 g/dL (33.0-37.0); Mean Corpuscular Hgb 31.5 pg (27.0-31.0); Mean Corpuscular Volume 96.3 fL (81.0-99.0); Mean Platelet Volume 9.9 fL (7.4-10.4); Platelet Count 160 10^3/uL (130-400); Red Blood Cell Count 3.49 10^6/uL (4.20-5.40)
[2024-09-13 08:08] LABS: Blood Urea Nitrogen 11 mg/dl (7-17); Calcium 8.2 mg/dl (8.4-10.2); Carbon Dioxide 26 mmol/L (22-30); Chloride 107 mmol/L (98-107); Estimated Creatinine Clearance 44 ml/min; Glucose 98 mg/dl (70-99); Potassium 4.2 mmol/L (3.5-5.1); Sodium 135 mmol/L (135-145); eGFR > 60.00
[2024-09-13] MEDS: TYLENOL 1000 MG PO ×3 (08:50→21:52)
[2024-09-13] MEDS: FOLTX 1 TABLET PO (08:50)
[2024-09-13] MEDS: MYCOSTATIN ORAL SUSPENSION 5 ML PO ×4 (08:50→21:52)
[2024-09-13] MEDS: MIRALAX PO (08:50)
[2024-09-13] MEDS: LIORESAL 10 MG PO ×3 (08:50→21:52)
--- NOTE | 2024-09-13 09:11 | W.PN.HOSP.TC ---
Today's Communication/Plan
-
dc planning
Assessment / Plan
Assessment / Plan
83 years old female presented after an episode with spasm associated with syncopal episode and vomiting, tested positive for Hemoccult in the ER
#Acute tiny right upper lobe PE with minimal clot burden
Lower extremity Dopplers negative for DVT
Intolerant of heparin drip�she started having hematemesis
Since PE is 'tiny', recommend observing off of anticoagulation
Seen by pulmonology, who agrees with the above
#Acute blood loss anemia
#Hematemesis exacerbated by IV heparin drip
History of Coffee Ground Emesis, dyspepsia over last few weeks, hx of GERD, unintentional weight loss. Hemoccult positive test in the ER
EGD 09/01 negative for cause of her bleeding, does show gastritis, gastric polyps
09/05 -recurrence of hematemesis with maroon-colored stool and vasovagal syncope while on the commode
IV Protonix twice daily resumed, GI recommended CT enterography done on 09/08, showed no obstruction, + large volume stool in right colon.
s/p EGD/Enteroscopy on 09/09 that showed white nummular lesions in esophageal mucosa. Mild Schatzki ring. Multiple gastric polyps. Blood in the second portion of the duodenum, though no obvious source or recurrent bleeding after irrigation and
extensive observation. 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
She had large black stool on 09/11 with hypotension/tachycardia, repeat EGD 09/12 showed possible very small Dieulafoy seen but not bleeding, injected with epinephrine and regressed, changed PPI bid to gtt for at least 24 hours
s/p 6 units as total.
Given one dose oral vitamin K.
Appreciate GI input
# Yvonne esophagitis, started on antifungal treatment.
#Vasovagal syncope x 2 on 08/31, 09/05
Noted while passing urine/stool in hospital
#Chronic muscle spasm
#Acute intractable back pain
#Subacute L 1 fracture
According to the patient and her son, possibly related to cervical pathology/ back issues.
Patient has had these muscle spasms described as short interval and infrequent could be every few weeks or months.
Painful spasm and sometimes associated with passing out/vomiting due to severe pain. No confusion.
Patient was evaluated by multiple neurologists over the years. She takes baclofen at night.
Patient's back pain worsened after passing out on 08/31
CT lumbar spine shows subacute lumbar fracture
Increased home baclofen to 10 mg 3 times daily, given IV steroids on 09/02, s/p prednisone
PT/OT - rec SNF
#Right lower lobe consolidation concerning for developing pneumonia
Status post Rocephin/doxycycline x 5 days
#Cognitive impairment suspicious for dementia (Drug-induced encephalopathy ruled out)
Confusion exacerbated while in the hospital
TSH normal, B12 low normal, started supplementation 09/05
# Chronic muscle spasm. According to the patient and her son, possibly related to cervical pathology/ back issues. Patient has had these muscle spasms described as short interval and infrequent could be every few weeks or months. Painful spasm
and sometimes associated with passing out/vomiting due to severe pain. No confusion.
Patient was evaluated by multiple neurologists over the years. She takes baclofen at night.
Added as needed IV lorazepam for muscle spasm
No history of sensory loss. No history of confusion or altered mentation or seizure activities.
#Constipation
Continue laxatives
#History of stage I ovarian cancer, history of right pleural lung cancer s/p resection
Currently cancer free. Has density on the left lower lung and under surveillance/monitoring by her doctors at [place].
DVT prophylaxis�SCDs due to hematemesis
Full code
Total time spent to see the patient on the floor, examine the patient, review data and lab results, discuss treatment plan with patient, nursing staff around 57 minutes.
Physical Exam
General: No acute distress
HEENT: Normocephalic, Atraumatic, EOMI, MMM
Respiratory: Clear to Auscultation bilaterally
Cardiac: Normal S1/S2, Regular Rate and Rhythm
GI: Soft, Nontender, Nondistended, Normal Bowel Sounds
Extremities: No Clubbing, Cyanosis, or Edema
Neuro: Nonfocal/Grossly Intact, she gets confused at times
Psych: calm.
Anticipated Discharge: Within 24 hours
Subjective/Interval History
-
Date of Service: September 13, 2024
Objective Data
-
Labs:
Laboratory Results
09/13/24
07:20
WBC 5.0
Hgb 11.0 L
Hct 33.6 L
Plt Count 160
Sodium 135
Potassium 4.2
Chloride 107
Carbon Dioxide 26
BUN 11
Creatinine 0.9
Glucose 98
Calcium 8.2 L
Vital Signs:
Vital Signs
Temp Pulse Resp BP Pulse Ox
97.9 F 76 18 138/71 98
09/13/24 07:05 09/13/24 07:05 09/13/24 07:05 09/13/24 07:05 09/13/24 07:05
I&O
09/12/24 09/13/24 09/14/24
06:59 06:59 06:59
Intake Total 730 / 730 930 / 930
Balance 730 / 730 930 / 930
--- NOTE | 2024-09-13 09:36 | CM ---
Patient with Dx pulmonary embolus, anemia, concern for PNA. Room air. Receiving IV Fe Na Gluconate. PT/OT recommend skilled rehab.
Received phone call from [facility] (ph [phone] option 5); the case is pended and requires a Peer to Peer review, which needs to be completed by 09/15 at 12noon. Reference # [id number]. He clarified that the case is not denied, just pended.
He did not provide clinical reason why case is pended, he only stated that their [employer] wants to discuss further with our MD. Informed him Physician Advisor would be available/informed on 09/15. Phone # for P2P [phone] [address]
Message to Dr Robertson; informed MD that SNF auth is pended until P2P is done, she agrees with Physician Advisor doing P2P call on 09/15.
Spoke with Kala, [facility]; provided update that auth is pended until Sunday.
Spoke with patient's son Temo; provided update that decision by [facility] is pended until our MD does P2P on Sunday. Son says he is comfortable with that so that patient's anemia can be observed further over the weekend.
PLAN CONTACT PHYSICIAN ADVISOR EARLY 09/15 WITH P2P REQUEST.
Plan [facility] once insurance approves.
--- NOTE | 2024-09-13 11:26 | W.PN.GI.CBS2 ---
Today's Communication / Plan
-
ppi bid
Assessment / Plan
-
Pt s/p UGIB ?small dieulafoy, treated yesterday
- ok for PPI bid
- ok to continue po
will sign off call with questions
Subjective
Subjective
Date of Service: September 13, 2024
Pt w/o any bleeding or vomiting. tolerated po per nurse
Objective
Data Reviewed
Laboratory Data:
Laboratory Results
09/13/24 07:20
09/13/24 07:20
Laboratory Results
PT 14.9 Sec (11.4-14.6) H 09/05/24 12:41
INR 1.14 09/05/24 12:41
APTT 157.1 Sec (23.4-35.0) H* 09/02/24 00:31
Total Bilirubin 0.7 mg/dl (0.2-1.3) 09/05/24 12:37
AST 28 U/L (14-36) 09/05/24 12:37
ALT 20 U/L (0-35) 09/05/24 12:37
Alkaline Phosphatase 59 U/L (38-126) 09/05/24 12:37
Vital Signs and I&O:
Vital Signs
Temp Pulse Resp BP Pulse Ox
97.9 F 76 18 138/71 98
09/13/24 07:05 09/13/24 07:05 09/13/24 07:05 09/13/24 07:05 09/13/24 08:50
I&O
09/12/24 09/13/24 09/14/24
06:59 06:59 06:59
Intake Total 730 / 730 930 / 930 750 / 750
Balance 730 / 730 930 / 930 750 / 750
Physical Exam
Physical Exam
GI: Soft, Non Distended and Non Tender
[2024-09-13] MEDS: FERRLECIT 110 MG IV (12:38)
[2024-09-13] MEDS: NSS (PRESERVATIVE FREE) 10 ML IV (16:26)
[2024-09-13] MEDS: PROTONIX IV 40 MG IV (16:26)
[2024-09-13 19:40] LABS: Glucose - Point of Care 251 mg/dl (70-99)
--- NOTE | 2024-09-13 19:40 | RR ---
1940: Pt noted with R eye droop and R facial droop. BP 156/78 HR 70-80s 96 RA. NIH completed, stroke alert called.
A Rapid Response was called on this patient, please see Rapid Response form.
--- NOTE | 2024-09-13 20:30 | W.PN.UPDATE ---
Update Note
Progress Note Update
Rapid response called due to patient presentation of right facial droop. Stroke alert called. Able to ROSARIO, is NIH of 2. 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 BP 170s systolic but is gradually dropping back down
to her baseline. Reviewed with nursing and neurologist Dr. Rothman. CT head done showing no acute findings. Her bps do fluctuate between 90s systolic to 170s. Hx of orthostasis noted.
[2024-09-13] MEDS: SENOKOT-S 1 TABLET PO (21:52)
[2024-09-14] MEDS: NSS (PRESERVATIVE FREE) 10 ML IV ×2 (05:03→17:13)
[2024-09-14] MEDS: PROTONIX IV 40 MG IV ×2 (05:03→17:13)
[2024-09-14 07:25] LABS: Hemoglobin 11.3 g/dL (12.0-16.0); Mean Corp Hgb Conc. 34.2 g/dL (33.0-37.0); Mean Corpuscular Hgb 31.7 pg (27.0-31.0); Mean Corpuscular Volume 92.4 fL (81.0-99.0); Mean Platelet Volume 10.1 fL (7.4-10.4); Platelet Count 166 10^3/uL (130-400); Red Blood Cell Count 3.57 10^6/uL (4.20-5.40); Red Cell Dist. Width 18.2 % (11.5-14.5); White Blood Cell Count 4.8 10^3/uL (4.8-10.8)
[2024-09-14 08:57] VITALS: BP 125/64
[2024-09-14] MEDS: TYLENOL 1000 MG PO ×3 (09:01→23:04)
[2024-09-14] MEDS: FOLTX 1 TABLET PO (09:01)
[2024-09-14] MEDS: MYCOSTATIN ORAL SUSPENSION 5 ML PO ×4 (09:02→23:05)
[2024-09-14] MEDS: MIRALAX 17 GRAMS PO (09:02)
[2024-09-14] MEDS: LIORESAL 10 MG PO ×3 (09:02→23:04)
--- NOTE | 2024-09-14 09:14 | CON.NEURO ---
Neuro Assessment/Plan
Assessment
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
Plan
Supportive care
Not clear patient would benefit from initiation of antiplatelet agents as the diagnosis of possible TIA is unlikely
No clear indication for additional neuroimaging at this time
Concern regarding the patient's new candidiasis and reported unexplained weight loss may require further evaluation as outpatient
Obtain old records regarding the patient's muscle spasm history, continue baclofen
Will follow as needed
Consultation
Order
Date of Consultation: 09/14/24
Requesting Provider: Hospitalist
Reason for Consult: Right-sided facial weakness
Subjective/Objective
Subjective Data
Date of Service: September 14, 2024
Patient presented to this [facility]'s emergency department on August 30, 2024 with an episode of syncope.
By medical records, the patient has a longstanding history of muscle spasms leading to syncope for which she has had numerous evaluations.
Following the patient's presentation, she was found to have a pulmonary embolus for which heparin IV was initiated. This is unfortunately followed by hematemesis leading to discontinuance of heparin IV. The patient redeveloped hematemesis while
off the heparin and had a recurrent event of vasovagal syncope while hospitalized. EGD was performed due to her upper GI bleed which was suggestive of possible angioectasia. On September 11 the patient had significant hypotension. Patient was also
found to have Yvonne esophagitis
Also while hospitalized, the patient was described as having increasing confusion leading to discovery of B12 deficiency for which replacement was initiated.
Yesterday evening, the patient was in her usual state of health until development of a right facial droop leading to a stroke alert initiation. The patient does have a prior distant history of Harvey's palsy involving that side.
Objective Data
Vital Signs
Temp Pulse Resp BP Pulse Ox
36.6 C 80 16 125/64 96
09/14/24 08:57 09/14/24 08:57 09/14/24 08:57 09/14/24 08:57 09/14/24 08:57
Lab Results
09/14/24 06:41
09/13/24 07:20
PT 14.9 Sec (11.4-14.6) H 09/05/24 12:41
INR 1.14 09/05/24 12:41
APTT 157.1 Sec (23.4-35.0) H* 09/02/24 00:31
Sodium 135 mmol/L (135-145) 09/13/24 07:20
Potassium 4.2 mmol/L (3.5-5.1) 09/13/24 07:20
BUN 11 mg/dl (7-17) 09/13/24 07:20
Glucose 98 mg/dl (70-99) 09/13/24 07:20
Calcium 8.2 mg/dl (8.4-10.2) L 09/13/24 07:20
Vitamin B12 267 pg/ml (239-931) 08/31/24 05:50
Patient Allergies
bacitracin [From Neosporin ([id number])] Allergy (Verified 09/05/24 15:35)
Hives
codeine Allergy (Verified 09/05/24 15:35)
hypotensive
COVID-19 (SARS-CoV-2) vaccine, ilana Allergy (Verified 09/01/24 16:19)
HARVEY'S PALSY
neomycin [From Neosporin ([id number])] Allergy (Verified 09/05/24 15:35)
Hives
nitrofurantoin [From Macrobid] Allergy (Verified 09/05/24 15:35)
Hives
polymyxin B [From Neosporin ([id number])] Allergy (Verified 09/05/24 15:35)
Hives
Review of Systems
-
Unable to obtain full review of systems at this time due to: Dementia
History Source: Patient
All other systems: Reviewed and negative
Musculoskeletal: Negative Back Pain or Neck Pain
Neuro: Negative Dizzy or Headache
Physical Exam
-
General: No Apparent Distress and Appears Stated Age
Eyes: OU Absent Papilledema, Round OU, [place] Conjunctivae and No Ptosis
HEENT: Anicteric and Moist Mucous Membranes
Neck: Full Range of Motion
Respiratory: No Dyspnea
Cardiac: No JVD
GI: Non-distended
Skin: Unremarkable
Extremities: No Clubbing, No Cyanosis and No Edema
Psych: Negative Intact Judgement/Insight
Extended Neurological Exam
Mood & Affect: Mood Unremarkable and Affect Unremarkable
Attention Span & Concentration: Awake, Alert, Interactive and Mild Difficulty with 2 Step Request
Memory: Reduced (for month, year, location) and Unable to Recall Personal History; Negative Recalls Short Term
Tremor: Hand Tremor Absent and Head Tremor Absent
Speech: Quality Unremarkable and Quantity Unremarkable
Cranial Nerve II: Left Eye: Pupillary Reactivity Unremarkable, Pupillary Size Unremarkable and Visual Castañeda Intact
Cranial Nerve II: Right Eye: Pupillary Reactivity Unremarkable, Pupillary Size Unremarkable and Visual Castañeda Intact
Cranial Nerves III, IV, : Extraocular Movement: Extraocular Movement Full in all Directions
Cranial Nerve VII: Facial Symmetry: Reduced (on the right with forehead relatively spared)
Cranial Nerve VIII: Hearing: Unremarkable Hearing to Normal Conversational Volume
Cranial Nerves IX, X: Palate Movement: Palate Elevation Symmetric
Cranial Nerve XI: Shoulder Shrug: Unremarkable
Cranial Nerve XII: Tongue Protusion: Midline
Muscle Strength, Overall: Full Throughout
Muscle Bulk & Tone: Bulk Unremarkable and Tone Unremarkable
Pronator Drift: No Drift in Upper Extremities
Deep Tendon Reflexes: Trace Throughout
Touch Sensation: Unremarkable
Coordination: [id number] Testing Unremarkable
Babinski Sign: Absent Bilaterally
Data Reviewed
-
CT Head: Report Reviewed
Labs: Report Reviewed
Reviewed with: Nurse Practioner and Patient
Old Records: Summarized
Medications
-
Active Medications
Generic Name Dose Route Start Last Admin
Trade Name Freq PRN Reason Stop Dose Admin
Acetaminophen 1,000 mg 09/02/24 16:00 09/14/24 09:01
Acetaminophen 500 Mg Tablet PO 09/30/24 15:59 1,000 mg
TID APRYL Administration
Baclofen 10 mg 09/02/24 16:00 09/14/24 09:02
Baclofen 10 Mg Tablet PO 09/30/24 15:59 10 mg
TID APRYL Administration
Folic Acid 1 tablet 09/05/24 18:00 09/14/24 09:01
Folbic (Same As Foltx) PO 10/03/24 17:59 1 tablet
DAILY APRYL Administration
Hydromorphone HCl 0.5 mg 09/02/24 13:50 09/06/24 14:01
Hydromorphone 0.5 Mg/0.5 Ml Syringe IV 09/15/24 10:15 0.5 mg
Q3HPRN PRN Administration
breakthrough pain
Ferric Sodium Gluconate 110 mls @ 110 mls/hr 09/13/24 14:00 09/13/24 12:38
Complex 125 mg/ Sodium IV 09/17/24 14:59 110 mls
Chloride DAILY@1400 APRYL Administration
Lorazepam 0.5 mg 08/30/24 22:37 09/03/24 22:13
Lorazepam 2 Mg/Ml Vial IV 09/27/24 12:29 0.5 mg
Q8HPRN PRN Administration
Muscle spasm
Nystatin 5 ml 09/09/24 13:00 09/14/24 09:02
Nystatin Oral Suspension 500,000 Units/5 Ml PO 10/07/24 12:59 5 ml
QID APRYL Administration
Ondansetron HCl 4 mg 08/30/24 12:30 08/30/24 20:15
Ondansetron 4 Mg/2 Ml Vial IV 09/27/24 12:29 4 mg
Q6HPRN PRN Administration
NAUSEA/VOMITING
Oxycodone HCl 5 mg 09/02/24 13:49 09/13/24 03:13
Oxycodone 5 Mg Regular Release Tablet PO 09/16/24 13:48 5 mg
Q4HPRN PRN Administration
moderate pain
Oxycodone HCl 10 mg 09/02/24 13:49 09/07/24 02:09
Oxycodone 10 Mg Regular Release Tablet PO 09/16/24 13:48 10 mg
Q4HPRN PRN Administration
severe pain
Pantoprazole Sodium 40 mg 09/13/24 18:00 09/14/24 05:03
Pantoprazole Sodium 40 Mg/10 Ml Vial IV 10/11/24 17:59 40 mg
BID@0600,1800 APRYL Administration
Polyethylene Glycol 17 grams 09/06/24 08:00 09/14/24 09:02
Polyethylene Glycol Powder 17 Grams Packet PO 10/04/24 07:59 17 grams
DAILY APRYL Administration
Senna/Docusate Sodium 1 tablet 09/05/24 22:00 09/13/24 21:52
Docusate W/Senna (Jess-Colace) Tablet PO 10/03/24 21:59 1 tablet
HS APRYL Administration
Sodium Chloride 0 flush 08/30/24 13:00 09/12/24 08:30
Sodium Chloride 0.9% (Flush) Syringe IV 09/27/24 12:59 2 flush
PER PROTOCOL APRYL Administration
Sodium Chloride 0.5 ml 08/30/24 12:40 09/03/24 22:14
Nss (Pf) 10 Ml Vial For Ativan 1 Mg Dose IV 09/27/24 12:39 0.5 ml
Q8HPRN PRN Administration
DILUTION
Sodium Chloride 10 ml 09/13/24 18:00 09/14/24 05:03
Sodium Chloride 0.9% (Preservative Free) 10 Ml Vial IV 10/11/24 17:59 10 ml
BID@0600,1800 APRYL Administration
Home Medications
�Medication �Instructions �Recorded
baclofen 10 mg tablet 10 mg PO DAILY Neurological 08/30/24
Condition
lansoprazole 15 mg capsule,delayed 15 mg PO DAILY Gastrointestinal 08/30/24
release Issue
Past History
Past History
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
ED Past Surgical History: Other (Reviewed and noncontributory)
Social History
Tobacco: Non-smoker
Alcohol: Occasional
Drug: None
Personal:
Living: assisted living
Employment: Retired
Family History
Family History: Other (Reviewed and noncontributory)
--- NOTE | 2024-09-14 10:39 | W.PN.HOSP.TC ---
Today's Communication/Plan
-
dc planning
Assessment / Plan
Assessment / Plan
83 years old female presented after an episode with spasm associated with syncopal episode and vomiting, tested positive for Hemoccult in the ER
# Code stroke over night, reportedly right facial droop
Prior distant history of Sheriff's palsy involving that side.
No new neurological deficits from previous deficits that patient has had over prolonged duration and noted in hospital including facial changes.
Known declining cognitive decline, exacerbated by hospitalization ( see below)
She is at baseline this morning
D/w nursing staff ( see below about muscle spasms)
d/w neurology.
#Acute tiny right upper lobe PE with minimal clot burden
Lower extremity Dopplers negative for DVT
Intolerant of heparin drip�she started having hematemesis
Since PE is 'tiny', recommend observing off of anticoagulation
Seen by pulmonology, who agrees with the above
#Acute blood loss anemia
#Hematemesis exacerbated by IV heparin drip
History of Coffee [place] Emesis, dyspepsia over last few weeks, hx of GERD, unintentional weight loss. Hemoccult positive test in the ER
EGD 09/01 negative for cause of her bleeding, does show gastritis, gastric polyps
09/05 -recurrence of hematemesis with maroon-colored stool and vasovagal syncope while on the commode
IV Protonix twice daily resumed, GI recommended CT enterography done on 09/08, showed no obstruction, + large volume stool in right colon.
s/p EGD/Enteroscopy on 09/09 that showed white nummular lesions in esophageal mucosa. Mild Schatzki ring. Multiple gastric polyps. Blood in the second portion of the duodenum, though no obvious source or recurrent bleeding after irrigation and
extensive observation. 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
She had large black stool on 09/11 with hypotension/tachycardia, repeat EGD 09/12 showed possible very small Dieulafoy seen but not bleeding, injected with epinephrine and regressed, changed PPI bid to gtt for at least 24 hours
s/p 6 units as total.
Given one dose oral vitamin K.
Appreciate GI input
# Yvonne esophagitis, started on antifungal treatment.
#Vasovagal syncope x 2 on 08/31, 09/05
Noted while passing urine/stool in hospital
#Chronic muscle spasm > 20 years
#Acute intractable back pain at times
#Subacute L 1 fracture
According to the patient and her son, possibly related to cervical pathology/ back issues.
Patient has had these muscle spasms described as short interval and infrequent could be every few weeks or months.
Painful spasm and sometimes associated with passing out/vomiting due to severe pain. No confusion.
Patient was evaluated by multiple neurologists over the years. She takes baclofen at night.
CT lumbar spine showed subacute lumbar fracture
Increased home baclofen to 10 mg 3 times daily, given IV steroids on 09/02, s/p prednisone
PT/OT - rec SNF
#Right lower lobe consolidation concerning for developing pneumonia
Status post Rocephin/doxycycline x 5 days
#Cognitive impairment suspicious for dementia (Drug-induced encephalopathy ruled out)
Confusion exacerbated while in the hospital
TSH normal, B12 low normal, started supplementation 09/05
#Constipation
Continue laxatives
#History of stage I ovarian cancer, history of right pleural lung cancer s/p resection
Currently cancer free. Has density on the left lower lung and under surveillance/monitoring by her doctors at [facility].
DVT prophylaxis�SCDs due to hematemesis
Full code
Total time spent to see the patient on the floor, examine the patient, review data and lab results, discuss treatment plan with patient, nursing staff around 55 minutes.
Physical Exam
General: No acute distress
HEENT: Normocephalic, Atraumatic, EOMI, MMM
Respiratory: Clear to Auscultation bilaterally
Cardiac: Normal S1/S2, Regular Rate and Rhythm
GI: Soft, Nontender, Nondistended, Normal Bowel Sounds
Extremities: No Clubbing, Cyanosis, or Edema
Neuro: Nonfocal/Grossly Intact, confusion, forgetful.
Psych: calm, apparent dementia.
Anticipated Discharge: Today
Subjective/Interval History
-
Date of Service: September 14, 2024
No chest pain
No abdominal pain
Objective Data
-
Labs:
Laboratory Results
09/14/24
06:41
WBC 4.8
Hgb 11.3 L
Hct 33.0 L
Plt Count 166
Vital Signs:
Vital Signs
Temp Pulse Resp BP Pulse Ox
97.9 F 80 16 125/64 96
09/14/24 08:57 09/14/24 08:57 09/14/24 08:57 09/14/24 08:57 09/14/24 08:57
I&O
09/13/24 09/14/24 09/15/24
06:59 06:59 06:59
Intake Total 930 / 930 1550 / 1550
Balance 930 / 930 1550 / 1550
[2024-09-14] MEDS: FERRLECIT 110 MG IV (13:30)
[2024-09-14 15:35] VITALS: BP 95/59
[2024-09-14] MEDS: SENOKOT-S 1 TABLET PO (23:04)
[2024-09-14 23:32] VITALS: BP 135/74
[2024-09-15] MEDS: PROTONIX IV 40 MG IV ×2 (05:52→17:22)
[2024-09-15] MEDS: NSS (PRESERVATIVE FREE) 10 ML IV ×2 (05:52→17:22)
[2024-09-15 05:57] VITALS: BP 139/75; BP 150/75; PULSE 67; PULSE 85
[2024-09-15 06:57] VITALS: BP 141/66
[2024-09-15 08:01] LABS: Hematocrit 34.2 % (37.0-47.0); Hemoglobin 11.2 g/dL (12.0-16.0); Mean Corp Hgb Conc. 32.7 g/dL (33.0-37.0); Mean Corpuscular Hgb 31.1 pg (27.0-31.0); Mean Platelet Volume 10.2 fL (7.4-10.4); Platelet Count 176 10^3/uL (130-400); Red Cell Dist. Width 18.4 % (11.5-14.5); White Blood Cell Count 4.6 10^3/uL (4.8-10.8)
[2024-09-15] MEDS: LIORESAL 10 MG PO ×3 (08:11→20:56)
[2024-09-15] MEDS: TYLENOL 1000 MG PO ×3 (08:11→20:57)
[2024-09-15] MEDS: MYCOSTATIN ORAL SUSPENSION 5 ML PO ×4 (08:11→20:56)
[2024-09-15] MEDS: FOLTX 1 TABLET PO (08:12)
[2024-09-15] MEDS: MIRALAX 17 GRAMS PO (08:12)
[2024-09-15 08:34] LABS: Blood Urea Nitrogen 12 mg/dl (7-17); Calcium 8.3 mg/dl (8.4-10.2); Carbon Dioxide 26 mmol/L (22-30); Chloride 109 mmol/L (98-107); Estimated Creatinine Clearance 44 ml/min; Glucose 112 mg/dl (70-99); Potassium 3.6 mmol/L (3.5-5.1); Sodium 138 mmol/L (135-145); eGFR > 60.00
--- NOTE | 2024-09-15 08:35 | W.PN.HOSP.TC ---
Today's Communication/Plan
-
Discharge to short-term rehab when bed available
Assessment / Plan
Assessment / Plan
83 years old female presented after an episode with spasm associated with syncopal episode and vomiting, tested positive for Hemoccult in the ER
# Code stroke over night, reportedly right facial droop
No new neurological deficits from previous deficits that patient has had over prolonged duration and noted in hospital including facial changes
Known declining cognitive decline, exacerbated by hospitalization ( see below)
Appreciate neurology input, not likely to be a stroke or TIA as patient has a history of Sheriff's palsy involving that side
Patient is at baseline, monitor
#Acute tiny right upper lobe PE with minimal clot burden
Lower extremity Dopplers negative for DVT
Intolerant of heparin drip�she started having hematemesis
Since PE is 'tiny', recommend observing off of anticoagulation
Seen by pulmonology, who agrees with the above
#Acute blood loss anemia
#Hematemesis exacerbated by IV heparin drip
History of Coffee Ground Emesis, dyspepsia over last few weeks, hx of GERD, unintentional weight loss. Hemoccult positive test in the ER
EGD 09/01 negative for cause of her bleeding, does show gastritis, gastric polyps
09/05 -recurrence of hematemesis with maroon-colored stool and vasovagal syncope while on the commode
IV Protonix twice daily resumed, GI recommended CT enterography done on 09/08, showed no obstruction, + large volume stool in right colon.
S/p EGD/Enteroscopy on 09/09 that showed white nummular lesions in esophageal mucosa. Mild Schatzki ring. Multiple gastric polyps. Blood in the second portion of the duodenum, though no obvious source or recurrent bleeding after irrigation and
extensive observation. 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
She had large black stool on 09/11 with hypotension/tachycardia, repeat EGD 09/12 showed possible very small Dieulafoy seen but not bleeding, injected with epinephrine and regressed, changed PPI bid to gtt for at least 24 hours
S/p 6 units as total.
Given one dose oral vitamin K.
Appreciate GI input
# Yvonne esophagitis
Continue on antifungal treatment.
#Vasovagal syncope x 2 on 08/31, 09/05
Noted while passing urine/stool in hospital
#Chronic muscle spasm > 20 years
#Acute intractable back pain at times
#Subacute L 1 fracture
According to the patient and her son, possibly related to cervical pathology/ back issues.
Patient has had these muscle spasms described as short interval and infrequent could be every few weeks or months.
Painful spasm and sometimes associated with passing out/vomiting due to severe pain. No confusion.
Patient was evaluated by multiple neurologists over the years. She takes baclofen at night.
CT lumbar spine showed subacute lumbar fracture
Increased home baclofen to 10 mg 3 times daily, given IV steroids on 09/02, s/p prednisone
PT/OT - rec SNF
#Right lower lobe consolidation concerning for developing pneumonia
Status post Rocephin/doxycycline x 5 days
#Cognitive impairment suspicious for dementia (Drug-induced encephalopathy ruled out)
Confusion exacerbated while in the hospital
TSH normal, B12 low normal, started supplementation 09/05
#Constipation
Continue laxatives
#History of stage I ovarian cancer, history of right pleural lung cancer s/p resection
Currently cancer free. Has density on the left lower lung and under surveillance/monitoring by her doctors at [facility].
DVT prophylaxis�SCDs due to hematemesis
Full code
Total time spent to see the patient on the floor, examine the patient, review data and lab results, discuss treatment plan with patient, nursing staff around 45 minutes.
Physical Exam
General: No acute distress
HEENT: Normocephalic, Atraumatic, EOMI, MMM
Respiratory: Clear to Auscultation bilaterally
Cardiac: Normal S1/S2, Regular Rate and Rhythm
GI: Soft, Nontender, Nondistended, Normal Bowel Sounds
Extremities: No Clubbing, Cyanosis, or Edema
Neuro: Nonfocal/Grossly Intact, confusion, forgetful.
Psych: calm, apparent dementia.
Anticipated Discharge: Within 24 hours
Subjective/Interval History
-
Date of Service: September 15, 2024
No acute events. No back pain. No fever, no vomiting.
Objective Data
-
Labs:
Laboratory Results
09/15/24
07:32
WBC 4.6 L
Hgb 11.2 L
Hct 34.2 L
Plt Count 176
Sodium 138
Potassium 3.6
Chloride 109 H
Carbon Dioxide 26
BUN 12
Creatinine 0.9
Glucose 112 H
Calcium 8.3 L
Vital Signs:
Vital Signs
Temp Pulse Resp BP Pulse Ox
98.5 F 89 18 135/74 97
09/14/24 23:32 09/14/24 23:32 09/14/24 23:32 09/14/24 23:32 09/14/24 23:32
I&O
09/14/24 09/15/24 09/16/24
06:59 06:59 06:59
Intake Total 1550 / 1550 950 / 950
Output Total 400 / 400
Balance 1550 / 1550 550 / 550
--- NOTE | 2024-09-15 09:27 | CM ---
TT sent to Dr. Laura re: need for Peer 2 Peer with [facility] Materials Coordinator by noon today for transfer to SNF. PT notes need to be updated for this review. CM requested updated PT notes for today to support need for SNF.
CM will continue to follow for transfer to SNF pending approval of same.
[2024-09-15 11:29] VITALS: BP 135/65; BP 137/71; BP 138/68; BP 146/73; PULSE 76; PULSE 83; PULSE 91; O2SAT 98
[2024-09-15 11:30] VITALS: BP 135/65; BP 137/71; BP 146/73; PULSE 85; O2SAT 97
[2024-09-15 12:15] LABS: COVID-19 Antigen Negative (Negative)
[2024-09-15] MEDS: FERRLECIT 110 MG IV (13:02)
[2024-09-15] MEDS: DESENEX/MITRAZOL/ZEASORB 1 APPLIC TOPICAL ×2 (14:20→20:56)
[2024-09-15 15:54] VITALS: BP 102/63
[2024-09-15] MEDS: SENOKOT-S 1 TABLET PO (20:57)
[2024-09-15 23:00] VITALS: BP 119/63
[2024-09-16] MEDS: NSS (PRESERVATIVE FREE) 10 ML IV (06:05)
[2024-09-16] MEDS: PROTONIX IV 40 MG IV (06:05)
--- NOTE | 2024-09-16 07:43 | W.PN.HOSP.TC ---
Today's Communication/Plan
-
Discharge to short-term rehab today
Assessment / Plan
Assessment / Plan
83 years old female presented after an episode with spasm associated with syncopal episode and vomiting, tested positive for Hemoccult in the ER
# Code stroke over night, reportedly right facial droop
No new neurological deficits from previous deficits that patient has had over prolonged duration and noted in hospital including facial changes
Known declining cognitive decline, exacerbated by hospitalization ( see below)
Appreciate neurology input, not likely to be a stroke or TIA as patient has a history of Sheriff's palsy involving that side
Patient is at baseline, monitor
#Acute tiny right upper lobe PE with minimal clot burden
Lower extremity Dopplers negative for DVT
Intolerant of heparin drip�she started having hematemesis
Since PE is 'tiny', recommend observing off of anticoagulation
Seen by pulmonology, who agrees with the above
#Acute blood loss anemia
#Hematemesis exacerbated by IV heparin drip
History of Coffee Ground Emesis, dyspepsia over last few weeks, hx of GERD, unintentional weight loss. Hemoccult positive test in the ER
EGD 09/01 negative for cause of her bleeding, does show gastritis, gastric polyps
09/05 -recurrence of hematemesis with maroon-colored stool and vasovagal syncope while on the commode
IV Protonix twice daily resumed, GI recommended CT enterography done on 09/08, showed no obstruction, + large volume stool in right colon.
S/p EGD/Enteroscopy on 09/09 that showed white nummular lesions in esophageal mucosa. Mild Schatzki ring. Multiple gastric polyps. Blood in the second portion of the duodenum, though no obvious source or recurrent bleeding after irrigation and
extensive observation. 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
She had large black stool on 09/11 with hypotension/tachycardia, repeat EGD 09/12 showed possible very small Dieulafoy seen but not bleeding, injected with epinephrine and regressed, changed PPI bid to gtt for at least 24 hours
S/p 6 units as total. Given one dose oral vitamin K.
Appreciate GI input, will discharge on Protonix 40 mg twice daily
#Yvonne esophagitis
Continue on antifungal treatment.
#Vasovagal syncope x 2 on 08/31, 09/05
Noted while passing urine/stool in hospital
#Chronic muscle spasm > 20 years
#Acute intractable back pain at times
#Subacute L 1 fracture
According to the patient and her son, possibly related to cervical pathology/ back issues.
Patient has had these muscle spasms described as short interval and infrequent could be every few weeks or months.
Painful spasm and sometimes associated with passing out/vomiting due to severe pain. No confusion.
Patient was evaluated by multiple neurologists over the years. She takes baclofen at night.
CT lumbar spine showed subacute lumbar fracture
Resolved status post IV steroids on 09/02, s/p prednisone
PT/OT - rec SNF
Continue home baclofen
#Right lower lobe consolidation concerning for developing pneumonia
Status post Rocephin/doxycycline x 5 days
#Cognitive impairment suspicious for dementia (Drug-induced encephalopathy ruled out)
Confusion exacerbated while in the hospital
TSH normal, B12 low normal, started supplementation 09/05
#Constipation
Continue laxatives
#History of stage I ovarian cancer, history of right pleural lung cancer s/p resection
Currently cancer free. Has density on the left lower lung and under surveillance/monitoring by her doctors at [facility].
DVT prophylaxis�SCDs due to hematemesis
Full code
Physical Exam
General: No acute distress
HEENT: Normocephalic, Atraumatic, EOMI, MMM
Respiratory: Clear to Auscultation bilaterally
Cardiac: Normal S1/S2, Regular Rate and Rhythm
GI: Soft, Nontender, Nondistended, Normal Bowel Sounds
Extremities: No Clubbing, Cyanosis, or Edema
Neuro: Nonfocal/Grossly Intact, confusion, forgetful.
Psych: calm, apparent dementia.
Anticipated Discharge: Today
Subjective/Interval History
-
Date of Service: September 16, 2024
No hematemesis. No fever. Denies back pain.
Objective Data
-
Vital Signs:
Vital Signs
Temp Pulse Resp BP Pulse Ox
97.8 F 77 18 119/63 97
09/15/24 23:00 09/15/24 23:00 09/15/24 23:00 09/15/24 23:00 09/15/24 23:00
I&O
09/15/24 09/16/24 09/17/24
06:59 06:59 06:59
Intake Total 950 / 950 330 / 330
Output Total 400 / 400
Balance 550 / 550 330 / 330
[2024-09-16 07:55] VITALS: BP 124/58
[2024-09-16] MEDS: MYCOSTATIN ORAL SUSPENSION 5 ML PO (08:26)
[2024-09-16] MEDS: TYLENOL 1000 MG PO (08:26)
[2024-09-16] MEDS: LIORESAL 10 MG PO (08:26)
[2024-09-16] MEDS: FOLTX 1 TABLET PO (08:26)
[2024-09-16] MEDS: MIRALAX 17 GRAMS PO (08:26)
[2024-09-16] MEDS: DESENEX/MITRAZOL/ZEASORB 1 APPLIC TOPICAL (08:32)
--- NOTE | 2024-09-16 10:36 | W.DCSUMMARY ---
Discharge Summary
Discharge Data
Date of Admission: 08/30/24
Date of Discharge: 09/16/24
-
Pending Results: No
Hospital Course
Discharge diagnosis:
Hematemesis exacerbated by intravenous heparin drip
Acute blood loss anemia
Possible very small Dieulafoy lesion
Candidal esophagitis
Vasovagal syncope
Acute tiny right upper lobe pulmonary embolism with minimal clot burden
Chronic muscle spasm
Acute intractable back pain
Subacute lumbar compression fracture
Mild transient right facial droop
Right lower lobe consolidation concerning for developing pneumonia
Spiculated right upper lobe nodule
Severe cognitive impairment suspicious for dementia
Constipation
History of stage I ovarian cancer
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
Consults: GI, pulmonology, neurology
Chest CT:
Tiny right upper lobe pulmonary embolus. Minimal clot burden. No evidence of right heart strain.
Moderate left upper lobe and right lower lobe, consolidation concerning for developing pneumonia versus atelectasis. Clinical laboratory correlation recommended.
Small bilateral pleural effusions, right larger left.
Mild bibasilar consolidation probably atelectasis.
Spiculated right upper lobe pulmonary nodule. PET imaging recommended.
09/12/24 EGD
Impression: - Benign-appearing esophageal stenosis.
- Multiple gastric polyps.
- Friable duodenal mucosa when scope touched mucosa
but no baseline inflammation.
- A single spot ? small dieulafoy with no bleeding in
the duodenum. Injected.
- No specimens collected.
09/09/24 EGD
Impression: - White nummular lesions in esophageal mucosa.
- Mild Schatzki ring.
- Multiple gastric polyps.
- Blood in the second portion of the duodenum, though
no obvious source or recurrent bleeding after
irrigation and extensive observation. Likely
angioectasia.
- No specimens collected.
09/02/24 EGD
Impression: - Extrinsic compression in the proximal esophagus at
20 cms.
- Normal mid esophagus, distal esophagus and
gastroesophageal junction.
- Z-line regular, 40 cm from the incisors.
- Multiple, benign appearing gastric polyps. Left
intact as not to obscure clinical picture given
concern for bleeding.
- Minimal amount of erythematous mucosa in the antrum.
- Otherwise, normal stomach on direct and retroflexion
views.
- Scant amount of dark bile versus old blood found in
the third and fourth portion of the duodenum. No AVMs
or vascular lesions were visualized within the small
bowel.
- The exam was otherwise without abnormality. No
significant findings throughout the examined upper GI
tract to account for patient's presentation. There was
no significant old or fresh blood, ulcerations,
vascular lesions/AVMs, esophagitis, or other potential
bleeding lesions during a careful exam.
- No specimens collected.
Hospital course:
83-year-old female with a past medical history of chronic back muscle spasm, right lower lobe lung cancer status post lobectomy, ovarian cancer status post surgery, and gastroesophageal reflux disease was admitted for hematemesis. Patient was seen
in conjunction with GI. She was treated with IV Protonix. She had multiple endoscopies. First endoscopy was unrevealing for the cause of her hematemesis. Her hematemesis resolved.
Patient's hospital course was complicated by several episodes of vasovagal syncope. She then had acute back pain. CT of the lumbar spine shows a subacute lumbar compression fracture. She was treated with IV steroids, then transitioned to
prednisone to complete a 7-day course.
She complained of shortness of breath as well. CT of the chest does show acute tiny right upper lobe pulmonary embolism with minimal clot burden. GI cleared her to start IV heparin. She then had recurrence of her hematemesis. Her IV heparin was
discontinued. 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 She was treated with nystatin ointment for her
candidal esophagitis.
Patient's chest CT also showed possible developing pneumonia. She received a 5-day course of IV Rocephin and doxycycline. Her shortness of breath resolved.
Patient's chest CT showed spiculated right upper lobe nodule. She was seen in conjunction with pulmonology, who recommends outpatient PET scan.
Patient had acute blood loss anemia, and received a total of 6 units of packed red blood cells. She also received IV iron. Her hemoglobin improved, was stable.
Patient was noted to be severely confused in the hospital. She likely has undiagnosed dementia. Recommend neuropsychiatric testing outpatient.
Patient also had transient right facial droop. She was seen in conjunction with neurology. 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 Head CT was negative. Neurology recommends
supportive care. She would not be able to tolerate aspirin and Plavix secondary to her recurrent hematemesis.
Patient had another recurrence of hematemesis. The third endoscopy shows friable duodenal mucosa, with a single lesion that could be a small dieulafoy with no bleeding in the duodenum. This was injected and treated with epinephrine. Patient was
monitored for several more days. She did not have any recurrence of hematemesis. She has been cleared by GI for discharge on Protonix 40 mg twice a day.
Patient has multiple medical conditions have been optimized. She is discharged to short-term rehab. She needs to follow-up with her primary care doctor 1 week after she leaves rehab, and GI/pulmonology in the office in 2-3 weeks.
Disposition: Short-term rehab
Discharge planning: Required 55 minutes
Discharge Plan
-
Patient Disposition: Alf/SNF
Discharge Diagnosis/Procedures: Hematemesis, acute blood loss anemia, subacute lumbar fracture, back pain, cognitive impairment suspicious for dementia, right upper lobe lung nodule
Condition: Fair
Diet: Low Fat and Low Cholesterol
Activity: As tolerated
Activity Restrictions/Additional Instructions:
Please follow-up with Dr. Epifanio Haywood for neuropsychiatric testing for dementia.
Please follow-up with pulmonology in the office for right upper lobe lung nodule.
Referrals:
Epifanio Haywood PSY [Specified Professional Personl] - in two to three weeks
Richard Foley MD [Active] - in two to three weeks
Shreya Murguia MD [Family Provider] - in one week
Jesse Gutierrez DO [Active] - in two to three weeks
Prescriptions:
New
miconazole nitrate [Miconazorb AF] 2 % Powder
1 applic topical BID Qty: 0 0RF
WesTab Max 2.5-25-2 mg Tablet
1 tab PO DAILY Qty: 0 0RF
polyethylene glycol 3350 17 gram Powder In Packet
17 g PO DAILY Qty: 0 0RF
nystatin 100,000 unit/mL Suspension
5 ml PO QID 7 Days Qty: 0 0RF
acetaminophen [Tylenol Extra Strength] 500 mg Tablet
1,000 mg PO TID PRN (Reason: fever or pain) Qty: 180 0RF
sennosides-docusate sodium 8.6-50 mg Tablet
2 tab PO HS Qty: 0 0RF
pantoprazole 40 mg tablet,delayed release (DR/EC)
40 mg PO BID Qty: 60 0RF
Continued
baclofen 10 mg Tablet
10 mg PO DAILY
Discontinued
lansoprazole [Prevacid] 15 mg Capsule,Delayed Release(Dr/Ec)
15 mg PO DAILY
Discharge Orders:
Discharge Patient (As Directed); Ordered 09/16/24
Ordered By: Pradeep Velarde
Discharge Date and Time
Discharge Date/Time: 09/16/24 12:55
Print Language: BANGLADESHI
--- NOTE | 2024-09-16 11:19 | CM ---
Ghislaine is cleared for discharge today to the [facility] at [facility]. 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 Pt notified of same. IMM reviewed and signed; pt provided with copy. Signed form placed on chart.
Tierra at [facility] aware of transport time.
[facility]
Report: [phone]
[2024-09-16 11:30] VITALS: BP 115/56
== END 2024-09-16 12:55 | DRG 377 ==
LOC: 4 EAST ACU 11:01
PROVIDERS: Internal Medicine; Internal Medicine Gastroenterology; Nurse Practitioner; Nurse Practitioner Adult Health; Nurse Practitioner Family; ADMITTING PHYSICIAN Internal Medicine; ATTENDING PHYSICIAN Family Medicine; CONSULT PHYSICIAN Internal Medicine Critical Care Medicine; CONSULT PHYSICIAN Student in an Organized Health Care Education/Training Program; EMERGENCY PHYSICIAN Emergency Medicine; FAMILY PHYSICIAN Internal Medicine Geriatric Medicine; OTHER PHYSICIAN Psychiatry & Neurology Neurology
PROC: 30233N1 Transfusion of Nonautologous Red Blood Cells into Peripheral Vein, Percutaneous Approach (ICD-10-PCS; 2024-08-31)
PROC: 0DJ08ZZ Inspection of Upper Intestinal Tract, Via Natural or Artificial Opening Endoscopic (ICD-10-PCS; 2024-09-02)
DX: K31.82 Dieulafoy lesion (hemorrhagic) of stomach and duodenum (principal); I26.93 Single subsegmental thrombotic pulmonary embolism without acute cor pulmonale; J18.9 Pneumonia, unspecified organism; K92.0 Hematemesis; K92.1 Melena; D62 Acute posthemorrhagic anemia; E87.1 Hypo-osmolality and hyponatremia; B37.81 Candidal esophagitis; D68.32 Hemorrhagic disorder due to extrinsic circulating anticoagulants; M48.56XA Collapsed vertebra, not elsewhere classified, lumbar region, initial encounter for fracture; J98.11 Atelectasis; M62.838 Other muscle spasm; N18.2 Chronic kidney disease, stage 2 (mild); M48.061 Spinal stenosis, lumbar region without neurogenic claudication; J45.909 Unspecified asthma, uncomplicated; R63.4 Abnormal weight loss; K30 Functional dyspepsia; K21.9 Gastro-esophageal reflux disease without esophagitis; K22.2 Esophageal obstruction; K59.00 Constipation, unspecified; R41.89 Other symptoms and signs involving cognitive functions and awareness; K31.7 Polyp of stomach and duodenum; K31.89 Other diseases of stomach and duodenum; K22.89 Other specified disease of esophagus; G51.0 Bell's palsy; R55 Syncope and collapse; R41.0 Disorientation, unspecified; M54.9 Dorsalgia, unspecified; E53.8 Deficiency of other specified B group vitamins; Z85.43 Personal history of malignant neoplasm of ovary; Z86.73 Personal history of transient ischemic attack (TIA), and cerebral infarction without residual deficits; Z90.710 Acquired absence of both cervix and uterus; Z90.722 Acquired absence of ovaries, bilateral; Z85.118 Personal history of other malignant neoplasm of bronchus and lung; Z80.1 Family history of malignant neoplasm of trachea, bronchus and lung; Z80.0 Family history of malignant neoplasm of digestive organs; Z88.7 Allergy status to serum and vaccine; Z86.0100 Personal history of colon polyps, unspecified; Z11.52 Encounter for screening for COVID-19; Z88.5 Allergy status to narcotic agent; Z88.1 Allergy status to other antibiotic agents; Z88.3 Allergy status to other anti-infective agents; Z83.719 Family history of colon polyps, unspecified
CPT/HCPCS: 70450; 71046; 71275; 72131; 74176; 74177; 80048; 80053; 82607; 82728; 82746; 82962; 83540; 83550; 84443; 84484; 85014; 85018; 85025; 85027; 85610; 85730; 86850; 86900; 86901; 86920; 87811; 93005; 93306; 93970; 96361; 96374; 96375; 97110; 97129; 97163; 97164; 97167; 97168; 97530; 97535; 99285; J2916; P9016; Q9967

== ENCOUNTER 2024-12-05 20:38 | Emergency (ER) | payer MEDICARE, SELFPAY ==
[2024-12-05 20:44] VITALS: BP 161/97
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
[2024-12-06] MEDS: ZOFRAN ODT (ORALLY DISINTEGRATING) 4 MG PO (00:08)
== END 2024-12-06 00:28 | disposition home or self-care (01) ==
LOC: EMR 20:38
PROVIDERS: EMERGENCY PHYSICIAN Emergency Medicine; FAMILY PHYSICIAN Internal Medicine Geriatric Medicine
DX: S09.90XA Unspecified injury of head, initial encounter (principal); W19.XXXA Unspecified fall, initial encounter; E53.8 Deficiency of other specified B group vitamins; M62.838 Other muscle spasm; G51.0 Bell's palsy; Z85.43 Personal history of malignant neoplasm of ovary
CPT/HCPCS: 99284; 70450; 72125

== ENCOUNTER 2025-05-14 07:37 | Inpatient (IN) | payer MEDICARE, SELFPAY ==
[2025-05-14] VITALS (9 sets, daily range): BP systolic 102–157; BP diastolic 43–90; BMI 29.3; BMI 28.2
[2025-05-14 04:30] LABS: Hematocrit 43.7 % (37.0-47.0); Hemoglobin 14.7 g/dL (12.0-16.0); Mean Corp Hgb Conc. 33.6 g/dL (33.0-37.0); Mean Corpuscular Volume 86.4 fL (81.0-99.0); Nucleated Red Blood Cells % 0 %; Platelet Count 232 10^3/uL (130-400); Red Cell Dist. Width 13.2 % (11.5-14.5)
[2025-05-14 04:51] LABS: ALT (SGPT) 24 U/L (0-35); AST (SGOT) 39 U/L (14-36); Albumin 4.6 g/dl (3.5-5.0); Alkaline Phosphatase 59 U/L (38-126); Blood Urea Nitrogen 20 mg/dl (7-17); Calcium 10.3 mg/dl (8.4-10.2); Carbon Dioxide 28 mmol/L (22-30); Chloride 101 mmol/L (98-107); Estimated Creatinine Clearance 42 ml/min; Glucose 169 mg/dl (70-99); Lipase 130 U/L (23-300); Potassium 4.0 mmol/L (3.5-5.1); Sodium 137 mmol/L (135-145); Total Protein 7.3 g/dl (6.3-8.2); eGFR > 60.00
[2025-05-14] MEDS: TORADOL 15 MG IV (05:37)
[2025-05-14] MEDS: ZOFRAN 4 MG IV ×3 (05:38→15:35)
--- NOTE | 2025-05-14 06:19 | ED.GENMED ---
History of Present Illness
<PAMELA Taylor Jr. Last Filed: 05/14/25 06:22>
General
Chief Complaint: Abdominal Symptoms
Source: patient
Exam Limitations: none
Time Seen by Provider: 05/14/25 04:17
Nursing documentation reviewed up to this point in time: agreed with
History of Present Illness
History of Present Illness:
84-year-old female past ministry of previous lung cancer presenting to the emergency department today with concerns of mainly upper abdominal pain with associated nausea and vomiting over the past few hours. Denies changes in bowel movements no
fevers
Past History
<PAMELA Taylor Jr. Last Filed: 05/14/25 06:22>
Past History
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
ED Past Surgical History: Other (Reviewed and noncontributory)
Social History
Tobacco: Non-smoker
Alcohol: Occasional
Drug: None
Personal:
Living: assisted living
Employment: Retired
Family History
Family History: Other (Reviewed and noncontributory)
Review of Systems
<PAMELA Taylor Jr. Last Filed: 05/14/25 06:22>
Review of Systems
Allergies reviewed?: Yes
All Other Systems: ROS reviewed and negative except as documented in HPI and ROS
Phy Exam
<PAMELA Taylor Jr. Last Filed: 05/14/25 06:22>
Physical Exam
Physical Exam:
GENERAL: Alert , in no apparent distress
EYE: pupils equal and reactive
NECK: Supple, no significant adenopathy.
ENT: o/p clr, mmm.
CARDIAC: Regular rate and rhythm .
LUNGS: Clear breath sounds bilaterally, no acute respiratory distress, no wheezes/rales/rhonchi
ABDOMEN: Vague diffuse abdominal pain
NEUROLOGICAL: Alert and oriented, no focal neuro deficits
SKIN: Warm and dry, skin intact.
MUSCULOSKELETAL: No edema, well perfused.
PSYCH: Normal and appropriate interaction.
Course
<Lyle Lerma Jr., PAMELA - Last Filed: 05/14/25 06:22>
Orders/Labs/Results
Orders:
Orders
05/14/25 04:18
Complete Blood Count/With Diff Urgent
Comprehensive Metabolic Panel Urgent
Lipase Urgent
Comment: ADD ON
05/14/25 04:29
Add On- LAB Urgent
Tests Added?: lipase
05/14/25 05:14
CT Abd/Pel (IV only)-DH only Urgent
Comment:
Reason For Exam: diffuse abd pain, vomiting
Urinalysis Reflex To Culture Urgent
05/14/25 05:21
Ondansetron Injectable [Zofran] 4 mg .ROUTE .STK-MED ONE
05/14/25 05:29
Ketorolac [Toradol] 15 mg IV NOW STA
05/14/25 05:37
Ondansetron Injectable [Zofran] 4 mg IV NOW STA
05/14/25 06:20
0.9% Sodium Chloride 500 ml [Nss] 500 ml IV BOLUS
Abnormal Lab Results
05/14/25
04:18
Absolute Neuts (auto) 6.7 H 10^3/uL
(1.4-6.5)
Absolute Lymphs (auto) 0.7 L 10^3/uL
(1.2-3.4)
Neutrophils % 85.3 H %
(42.2-75.2)
Lymphocytes % 8.3 L %
(20.5-51.1)
BUN 20 H mg/dl
(7-17)
Glucose 169 H mg/dl
(70-99)
Calcium 10.3 H mg/dl
(8.4-10.2)
Total Bilirubin 2.2 H mg/dl
(0.2-1.3)
AST 39 H U/L
(14-36)
05/14/25 04:18
05/14/25 04:18
Vital Signs
Initial and Last Documented VS:
Initial Vital Signs
Temp Pulse Resp BP Pulse Ox
36.4 C 91 24 156/78 96
05/14/25 03:57 05/14/25 03:57 05/14/25 03:57 05/14/25 03:57 05/14/25 03:57
Last Documented Vital Signs
Temp Pulse Resp BP Pulse Ox
36.4 C 85 17 141/72 96
05/14/25 03:57 05/14/25 05:36 05/14/25 05:36 05/14/25 05:00 05/14/25 06:20
<Ej Moreno, - Last Filed: 05/14/25 06:30>
Orders/Labs/Results
Orders:
Orders
05/14/25 04:18
Complete Blood Count/With Diff Urgent
Comprehensive Metabolic Panel Urgent
Lipase Urgent
Comment: ADD ON
05/14/25 04:29
Add On- LAB Urgent
Tests Added?: lipase
05/14/25 05:14
CT Abd/Pel (IV only)-DH only Urgent
Comment:
Reason For Exam: diffuse abd pain, vomiting
Urinalysis Reflex To Culture Urgent
05/14/25 05:21
Ondansetron Injectable [Zofran] 4 mg .ROUTE .STK-MED ONE
05/14/25 05:29
Ketorolac [Toradol] 15 mg IV NOW STA
05/14/25 05:37
Ondansetron Injectable [Zofran] 4 mg IV NOW STA
05/14/25 06:20
0.9% Sodium Chloride 500 ml [Nss] 500 ml IV BOLUS
Abnormal Lab Results
05/14/25
04:18
Absolute Neuts (auto) 6.7 H 10^3/uL
(1.4-6.5)
Absolute Lymphs (auto) 0.7 L 10^3/uL
(1.2-3.4)
Neutrophils % 85.3 H %
(42.2-75.2)
Lymphocytes % 8.3 L %
(20.5-51.1)
BUN 20 H mg/dl
(7-17)
Glucose 169 H mg/dl
(70-99)
Calcium 10.3 H mg/dl
(8.4-10.2)
Total Bilirubin 2.2 H mg/dl
(0.2-1.3)
AST 39 H U/L
(14-36)
05/14/25 04:18
05/14/25 04:18
Vital Signs
Initial and Last Documented VS:
Initial Vital Signs
Temp Pulse Resp BP Pulse Ox
36.4 C 91 24 156/78 96
05/14/25 03:57 05/14/25 03:57 05/14/25 03:57 05/14/25 03:57 05/14/25 03:57
Last Documented Vital Signs
Temp Pulse Resp BP Pulse Ox
36.4 C 85 17 141/72 96
05/14/25 03:57 05/14/25 05:36 05/14/25 05:36 05/14/25 05:00 05/14/25 06:20
<Lyle Lerma Jr., PAMELA - Last Filed: 05/14/25 06:22>
MDM/Problems Addressed
MDM/Problems Addressed:
84-year-old female presenting to the emergency department with concerns of vague diffuse abdominal pain nausea vomiting over the past few hours. On arrival mildly hypertensive otherwise vital signs are normal. Labs unremarkable. CT scan showing
closed-loop bowel obstruction. Case discussed with general surgery who will come see the patient otherwise admitted to medicine for further monitoring and treatment.
<Lyle Lerma Jr., PA-C - Last Filed: 05/14/25 06:22>
*Pulse Oximetry
SaO2: 96
Oxygen Mode of Delivery: Room air
Patient hypoxic: no (99)
*Critical Care Note
Total Time (30-74mins, 75-104mins- exclusive of procedures): Not Applicable
ED Attending Note
<Lyle Lerma Jr., PA-C - Last Filed: 05/14/25 06:22>
-
Portions of this chart may have been created with voice recognition software.� Occasional wrong word or��sound alike� substitutions may have occurred due to the inherent limitations of voice recognition software.
<Ej Moreno DO - Last Filed: 05/14/25 06:30>
ED Attending Note
Patient seen and examined by attending physician: Yes
I performed the substantive portion of visit, reviewed & personally made and approve the management plan that is documented in note by myself or STEVEN.: Yes
ED Attending Note:
I evaluated patient at bedside. White count normal, total bili newly elevated 2.2 but otherwise normal LFTs, evidence of SBO on CT abdomen. General surgery has been notified. The patient does not have any current nausea or vomiting but still has
some milder symptoms.
Discharge Plan
Departure
Patient Disposition: Admit
Date of Disposition: 05/14/25
Time of Disposition: 06:22
Admit to: Med/Surg
Admit to doctor: Lacy
Presentation/result/management discussed w/ accepting MD/DO: Hospitalist
Patient with high blood pressure during this ER visit?: No
Condition: Fair
Covid-19: Not Applicable
Discharge Problem:
SBO (small bowel obstruction)
Prescriptions:
No Action
baclofen 10 mg Tablet
10 mg PO DAILY
miconazole nitrate [Miconazorb AF] 2 % Powder
1 applic topical BID Qty: 0 0RF
WesTab Max 2.5-25-2 mg Tablet
1 tab PO DAILY Qty: 0 0RF
polyethylene glycol 3350 17 gram Powder In Packet
17 g PO DAILY Qty: 0 0RF
nystatin 100,000 unit/mL Suspension
5 ml PO QID 7 Days Qty: 0 0RF
acetaminophen [Tylenol Extra Strength] 500 mg Tablet
1,000 mg PO TID PRN (Reason: fever or pain) Qty: 180 0RF
sennosides-docusate sodium 8.6-50 mg Tablet
2 tab PO HS Qty: 0 0RF
pantoprazole 40 mg tablet,delayed release (DR/EC)
40 mg PO BID Qty: 60 0RF
Referrals:
Shreya Murguia MD [Family Provider, Internal Medicine]
Interventions
Interventions:
*Risk Screen - Suicide Last Done: 05/14/25 03:57
*General Assessment Last Done: 05/14/25 03:57
*Neglect/Abuse Screening Last Done: 05/14/25 03:57
*ED- Fall Risk Assessment Last Done: 05/14/25 04:09
*ED COVID-19 Vaccine History Last Done: 05/14/25 04:09
*ED Influenza Vaccine History Last Done: 05/14/25 04:09
XC-Hhjmcn-Jjdlizjeqy Assessment Last Done: 05/14/25 04:09
Discharge Date and Time
Print Language: SERBIAN
[2025-05-14] MEDS: NSS 500 IV (06:33)
--- NOTE | 2025-05-14 07:06 | HPS.HSE ---
Family Physician
-
Family Physician: Shreya Murguia
Chief Complaint
-
Abdominal pain
History of Present Illness
SIMA is a 4-year-old female with past medical history significant for ovarian cancer status post hysterectomy and oophorectomy, history history of prior TIA, GERD, lung cancer status post right lower lobe lobectomy, prior history of upper GI bleed,
CKD stage II, chronic back pain with muscle spasms presenting to the emergency department with acute episode of nausea vomiting and abdominal pain.
Patient reports onset of abdominal pain about 3 days ago. She reports periumbilical abdominal pain without any radiation. She reports that is intermittently severe. She has continued to have p.o. intake up until yesterday. She reports that she
had a last bowel movement about 2 days ago. She has not passed much gas recently. She denies any nausea vomiting or until earlier this morning when she woke up with severe vomiting. It was nonbloody and nonbilious. She called EMS and was
immediately brought to the emergency department. She has not had 4 emesis since she has been in the emergency department. She currently is without any nausea. She denies any jaundice, dysuria hematuria frequency urgency or incontinence. She
denies any fevers or chills.
In the emergency department, patient was afebrile, blood pressure was 140/70 with a pulse of 85 and satting 96% on room air. CBC was unremarkable. Electrolyte BUN/creatinine were in the normal range. She had slight elevation in total bili. 2.2
and AST to 35.
CT of the abdomen pelvis showed acute small bowel obstruction with transition point in the right quadrants awaiting appears to be a closed-loop obstruction in this area with a mildly distended stomach.
Chronic appearing right pleural effusion.
Medical History
Past Medical History
Past Medical History: Reports Other (Muscle spasm, history of right lower lobe cancer status post lobectomy, history of stage I ovarian cancer s/p surgery, density on the left lower lung under surveillance)
Past Surgical History: Reports Appendectomy, Cholecystectomy, Gynocological (Per abdominal hysterectomy) and Other
Social History
Tobacco: Non-smoker
Alcohol: Occasional
Drug: None
Personal:
Living: Assisted Living
Employment: Retired
Family History
Family History: Other (History of multiple cancers in the family including GI/lung cancer)
Allergies / Home Medications
Allergies reflects when Allergies were last updated in [facility].
Home Medications with original date entered in [facility]
Allergy/Medication List:
Allergies
Allergy/AdvReac Type Severity Reaction Status Date / Time
bacitracin (From Neosporin Allergy Hives Verified 05/14/25 03:56
([id number]))
codeine Allergy hypotensive Verified 05/14/25 03:56
COVID-19 (SARS-CoV-2) Allergy HARVEY'S Verified 05/14/25 03:56
vaccine, ilana PALSY
neomycin (From Neosporin Allergy Hives Verified 05/14/25 03:56
([id number]))
nitrofurantoin (From Allergy Hives Verified 05/14/25 03:56
Macrobid)
polymyxin B (From Neosporin Allergy Hives Verified 05/14/25 03:56
([id number]))
Home Medications
baclofen 10 mg tablet 10 mg PO DAILY Neurological Condition 08/30/24
acetaminophen 500 mg tablet (Tylenol Extra Strength) 1,000 mg (2 x 500 mg) PO TID PRN fever or pain #180 tabs 09/16/24
folic acid-vit B6-vit B12 2.5 mg-25 mg-2 mg tablet (WesTab Max) 1 tab PO DAILY #0 tabs 09/16/24
miconazole nitrate 2 % topical powder (Miconazorb AF) 1 applic topical BID #0 grams 09/16/24
nystatin 100,000 unit/mL oral suspension 5 ml PO QID 7 days #0 mL 09/16/24
pantoprazole 40 mg tablet,delayed release 40 mg PO BID #60 tabs 09/16/24
polyethylene glycol 3350 17 gram oral powder packet 17 g PO DAILY #0 ea 09/16/24
sennosides 8.6 mg-docusate sodium 50 mg tablet 2 tab PO HS #0 tabs 09/16/24
Review of Systems
-
History Source: Patient
Constitutional: Reports No Symptoms
EENT: Reports No Symptoms
Respiratory: Reports No Symptoms
Cardiac: Reports No Symptoms
Abdomen/GI: Reports Abdominal Pain, Nausea and Vomiting
: Reports No Symptoms
Musculoskeletal: Reports No Symptoms
Skin: Reports No Symptoms
Neurological: Reports No Symptoms
Endocrine: Reports No Symptoms
Hematologic/Lymphatic: Reports No Symptoms
Psych: Reports No Symptoms
Physical Exam
Vital Signs
Vital Signs
Temp Pulse Resp BP Pulse Ox
97.5 F 82 18 130/71 96
05/14/25 03:57 05/14/25 06:45 05/14/25 06:45 05/14/25 06:00 05/14/25 06:45
Physical Exam
General: No Apparent Distress, Comfortable and Conversant
HEENT: Moist mucous membranes and Atraumatic
Respiratory: Clear
Cardiac: S1/S2, Regular Rhythm and Murmur
GI: Soft, Non Distended, Normal Bowel Sounds and Tender; No Distended
Genito-urinary: No Pringle
Musculoskeletal: No Clubbing, No Cyanosis and No Edema
Skin: Warm; No Jaundice
Neuro: AO x 3
Psych: Calm and Intact Judgment/Insight
Laboratory Results
-
05/14/25 04:18
05/14/25 04:18
Laboratory Results
Total Bilirubin 2.2 mg/dl (0.2-1.3) H 05/14/25 04:18
AST 39 U/L (14-36) H 05/14/25 04:18
ALT 24 U/L (0-35) 05/14/25 04:18
Alkaline Phosphatase 59 U/L (38-126) 05/14/25 04:18
Lipase 130 U/L (23-300) 05/14/25 04:18
Data Reviewed
-
CT Scan: Report Reviewed by me
Lab Data: Labs Reviewed by me
Old Records: Reviewed
Impression/Plan
-
IMPRESSION:
84-year-old female with past medical history of ovarian cancer status post LITO/BSO, history of right lung cancer status post lobectomy, history of appendectomy, cholecystectomy presenting to the emergency department with abdominal pain nausea
vomiting and found to have small bowel obstruction with a transition point noted. No evidence of acute ischemic process. Patient is afebrile, hemodynamically stable with no leukocytosis. She is currently nontoxic appearing. She is no longer
vomiting.
PLAN:
Small bowel obstruction likely on the basis of adhesions
-Admit to [facility]
-N.p.o.
-Maintenance fluid with lactated Ringer's
-Antiemetics, pain control
- IV PPI daily for now
- NG tube as needed for uncontrolled pain, due to record of hypotension to opioids may need NG for pain control. Or vomiting as per surgical recommendation
- Surgery aware and will see patient this a.m.
DVT prophylaxis�Lovenox subcu
CODE STATUS�DNR
[2025-05-14] MEDS: NSS (PRESERVATIVE FREE) 10 ML IV (08:51)
[2025-05-14] MEDS: PROTONIX IV 40 MG IV (08:51)
[2025-05-14] MEDS: LR 1000 IV ×2 (08:52→18:00)
--- NOTE | 2025-05-14 09:15 | CON.GS ---
Addendum entered and electronically signed by Richy Mcclendon MD 05/14/25 11:45:
I was physically present and personally performed the garcia portions of the surgical evaluation and/or procedure with the resident. I discussed the findings, reviewed the resident�s note, and confirmed the medical decision-making. I provided direct
supervision as required and agree with the assessment and plan as documented with the following additions/corrections:
HPI: 84-year-old female with past abdominal surgical history notable for open appendectomy, open cholecystectomy, laparotomy for LITO/BSO which was reportedly complicated by bladder injury. Medical history notable for right lower lobe lung cancer
status post lobectomy/radiation, stage I ovarian CA, GERD, dementia.
She presents with a few day history of worsening abdominal pain/tense distention which acutely increased in severity overnight with resultant nausea and vomiting. Last recognized bowel movement 3 to 4 days ago. She is uncertain if she continues to
pass gas. She got some relief after being administered Toradol in the earlier morning but her symptoms are now returning with nausea.
AFVSS
AAO x 3 -but pleasantly confused at times; NAD but a bit uncomfortable appearing
ABD: Softly distended, generalized tenderness on palpation with voluntary guarding in the left upper quadrant.
Right paramedian vertical surgical scar, lower midline surgical scar. No detectable hernias
CT abdomen/pelvis IV contrast only. Images personally reviewed as well as radiologist report. Numerous dilated and distended fluid-filled loops of small bowel with a transition point in the right lower quadrant. There are multiple loops of small
bowel adjacent to this transition point no small bowel feces sign. No free fluid, no wall thickening, no pneumatosis no abrupt swirling of the mesentery. No portal venous or mesenteric venous gas.
Assessment: 84-year-old female presenting with probable high-grade small bowel obstruction secondary to adhesions given past abdominal surgical history including open cholecystectomy, appendectomy and ex lap LITO/BSO for ovarian CA.
Transition point seen but no immediate signs of bowel threat or compromise. Vital signs are stable. White blood cell count with neutrophil shift but no bandemia. Chemistry panel without metabolic acidosis.
Plan: Although suspecting high-grade obstruction patient appears clinically stable for initial nonoperative management but strongly recommended NG tube decompression which after discussions with the patient's son at bedside and patient she is
agreeable to.
Advised nursing and they will assist with NG tube placement
Continue n.p.o., IV fluid hydration and supportive care
Noncontrast imaging was obtained initially we will follow her clinical course to determine potential for future GI contrast imaging studies.
Original Note:
Consultation
-
Date/Time Consultation Requested: 05/14/2025 06:48
Date/Time Consultation Performed: 05/14/2025 9:30
Requesting Provider: Carlos House MD
Performing Provider: Richy Mcclendon MD; Shawna Mccarthy MD
Reason for Consultation: SBO
Medical History
-
Chief Complaint: Abdominal pain
History of Present Illness:
84 year old female with past medical history of Right lower lobe lung cancer s/p lobectomy and radiation, stage 1 ovarian cancer s/p open TAHBSO, Sheriff's Palsy, GERD; with past surgical history of open appendectomy, and open cholecystectomy
presenting with abdominal pain. 2 days prior to evaluation, the patient had abdominal pain described as mainly in the right upper quadrant, but some pain also noted in suprapubic area, described as constant and severe, associated with nausea,
anorexia and 2 episodes of vomiting She denies fever, chills, urinary symptoms, and diarrhea. She claims that she usually has regular stool output. Last bowel movement was on Sunday, not entirely sure if she's passing gas. Claims that she didn't eat
anything unusual prior to symptom onset. Denies having abdominal pain of same quality. To note, the patient has been having problems with tongue swelling and dry mouth, but says that she's been chewing her food well.
CT shows: Multiple dilated loops of small bowel are appreciated. There is decompression of the distal small bowel loops. Transition zone appears to be located in the right lower quadrant of the abdomen. No pneumatosis intestinalis or extraluminal
air. Small hiatal hernia without evidence of incarceration. Compression fracture of the L1 vertebral body.
WBC 7.9, Total Bilirubin 2.2, AST 39
Past Medical History
Past Medical History: Cancer (Sheriff's palsy) and GERD
Past Surgical History: Appendectomy, Cholecystectomy, Gynecological (Open TAHBSO, Lobectomy) and Other
Social History
Tobacco: Former Smoker
Alcohol: Occasional
Personal: Single
Living: Assisted Living ([facility])
Employment: Retired
Family History
Family History: Reviewed & Not Pertinent
Allergies / Home Medications
Allergy/AdvReac Type Severity Reaction Status Date / Time
bacitracin (From Neosporin Allergy Hives Verified 05/14/25 03:56
([id number]))
codeine Allergy hypotensive Verified 05/14/25 03:56
COVID-19 (SARS-CoV-2) Allergy SHERIFF'S Verified 05/14/25 03:56
vaccine, ilana PALSY
neomycin (From Neosporin Allergy Hives Verified 05/14/25 03:56
([id number]))
nitrofurantoin (From Allergy Hives Verified 05/14/25 03:56
Macrobid)
polymyxin B (From Neosporin Allergy Hives Verified 05/14/25 03:56
([id number]))
�Medication �Instructions �Recorded �Confirmed �Type
baclofen 10 mg tablet 10 mg PO DAILY Neurological 08/30/24 05/14/25 History
Condition
acetaminophen 500 mg tablet 1,000 mg PO TIDPRN PRN mild pain 05/14/25 05/14/25 History
(Tylenol Extra Strength)
carboxymethylcellulose 0.5 1 drp BOTH EYES BID 05/14/25 05/14/25 History
%-glycerin 0.9 % eye drops
(Refresh Optive)
lidocaine 4 % topical patch 1 patch topical DAILYPRN PRN lower 05/14/25 05/14/25 History
back pain
pantoprazole 40 mg tablet,delayed 40 mg PO DAILY 05/14/25 05/14/25 History
release
trazodone 50 mg tablet 50 mg PO HS 05/14/25 05/14/25 History
Review of Systems
-
All other systems: Negative unless noted
A 10 point review of systems was completed, and was negative except as per HPI.
Physical Exam
Vital Signs
Temp Pulse Resp BP Pulse Ox
97.7 F 86 22 139/80 99
05/14/25 08:30 05/14/25 08:30 05/14/25 08:30 05/14/25 08:01 05/14/25 08:30
05/13/25 05/14/25 05/15/25
06:59 06:59 06:59
Actual Weight 72.6 kg
Body Mass Index (BMI) 29.3
Lab Results
05/14/25 04:18
05/14/25 04:18
WBC 7.9 10^3/uL (4.8-10.8) 05/14/25 04:18
Hgb 14.7 g/dL (12.0-16.0) 05/14/25 04:18
Hct 43.7 % (37.0-47.0) 05/14/25 04:18
Plt Count 232 10^3/uL (130-400) 05/14/25 04:18
Abs Immat Gran (auto) 0.0 10^3/uL (0-0.05) 05/14/25 04:18
Neutrophils % 85.3 % (42.2-75.2) H 05/14/25 04:18
Physical Exam
General: No Apparent Distress
Respiratory: Non Labored Respirations
GI: Soft, Tender (Generalized, but mostly in the Right Upper Quadrant), Distended and Incisions
Skin: Warm
Neuro: AO x 3
Psych: Calm
Data Reviewed
-
CT Scan: Image Personally Visualized and interpreted (by attending surgeon), Report Reviewed by me (and by attending surgeon), Discussed with Patient (by attending surgeon ) and Discussed with Family (by attending surgeon)
Assessment / Plan
-
84 year old female with past medical history of multiple abdominal surgery, presenting with abdominal pain, nausea, vomiting, and anorexia. LBM sunday.
CT shows: Multiple dilated loops of small bowel are appreciated. There is decompression of the distal small bowel loops. Transition zone appears to be located in the right lower quadrant of the abdomen. No pneumatosis intestinalis or extraluminal
air. Small hiatal hernia without evidence of incarceration. Compression fracture of the L1 vertebral body.
WBC 7.9, Total Bilirubin 2.2, AST 39
#Small Bowel Obstruction
-trial of NGT decompression
-NPO and bowel rest
-on IV fluid
-PPI
-Pain management and anti-emetics
-DVT prophylaxis
-Medical management per primary team
--- NOTE | 2025-05-14 10:15 | W.PN.HOSP.TC ---
Addendum entered and electronically signed by Krystal Ya MD 05/14/25 12:10:
son also relates pt has dementia
Original Note:
Today's Communication/Plan
-
await surgery input
NPO/IVF/pain control/antiemetics
refusing NGT currently
Assessment / Plan
Assessment / Plan
pt is an 84 year old female
Small bowel obstruction-- likely due to adhesions--pt nauseous but refusing NGT at this time--NPO/IVF--await surgery input--pain control/antiemetics
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
DVT proph�Lovenox subcu
CODE STATUS�DNR
Anticipated Discharge: > 48 hours
Subjective/Interval History
-
Date of Service: May 14, 2025
pt has some pain and nausea--not amenable to NGT at this time
Objective Data
-
Labs:
Laboratory Results
05/14/25
04:18
WBC 7.9
Hgb 14.7
Hct 43.7
Plt Count 232
Sodium 137
Potassium 4.0
Chloride 101
Carbon Dioxide 28
BUN 20 H
Creatinine 0.9
Glucose 169 H
Calcium 10.3 H
Total Bilirubin 2.2 H
AST 39 H
ALT 24
Alkaline Phosphatase 59
Vital Signs:
max temp for 24 hours
05/14/25
03:57
Temp 97.5 F
Vital Signs
Temp Pulse Resp BP Pulse Ox
97.7 F 86 22 139/80 99
05/14/25 08:30 05/14/25 08:30 05/14/25 08:30 05/14/25 08:01 05/14/25 08:30
Review of Systems
-
All other systems: Reviewed and negative
EENT: Reports Other (dry lips, tongue soreness)
Abdomen/GI: Reports Abdominal Pain, Nausea and Vomiting
Physical Exam
-
General: Well Developed, Well Nourished and No Apparent Distress
HEENT: Normocephalic, Atraumatic and Other (right facial droop, swollen right side of tongue); Negative Oxygen
Respiratory: Clear to Auscultation; Negative Wheezes or Rales
Cardiac: Regular Rhythm and S1/S2; Negative Murmur
GI: Soft, Nontender and Nondistended; Negative Normal Bowel Sounds (hypoactive bowel sounds)
Musculoskeletal: No Clubbing, No Cyanosis and No Edema
Skin: Warm
Neuro: Awake
Psych: Apparent Dementia
[2025-05-14 10:40] LABS: Urine Character Clear (Clear)
[2025-05-14 10:58] LABS: Urine White Cell 0-2 /HPF (0-5)
[2025-05-14] MEDS: MORPHINE SULFATE 0.5 MG IV (11:51)
[2025-05-14] MEDS: TORADOL 10 MG IV ×2 (15:34→22:10)
--- NOTE | 2025-05-14 16:10 | PTCARENOTE ---
Patient admitted to 2N from ED into room 2129. Patient AAOX3, ambulatory in room with x1 assist, patient states independent at baseline with no assistive devices. LR infusing at 120ml/hr through L hand, NGT in R nare hooked up to low intermittent
suction, draining green output, q4hr tap water flushes per MD order. Patient nauseous, dry heaving, and c/o 10/10 abd pain on admission, medicated with PRN IV Zofran and Toradol - see OCT. Patient oriented to room and call dutton, bed and chair alarms
in place for safety.
[2025-05-14] MEDS: LIDOCAINE 4% PATCH 1 PATCH TOPICAL (17:20)
[2025-05-14] MEDS: LOVENOX 40 MG SC (17:21)
[2025-05-14] MEDS: ANESTHETIC LOZENGE 1 LOZENGE PO (17:21)
[2025-05-14] MEDS: COMPAZINE 10 MG IV (18:01)
[2025-05-14] MEDS: REMOVE LIDOCAINE PATCH 1 PATCH REMOVE (21:12)
--- NOTE | 2025-05-15 00:15 | PTCARENOTE ---
Pt w/very little NGT output. Placement verified via auscultation and flushed per order w/no return of flush contents. Suction canister changed, NGT valve changed, and tube pulled back 4 cm from R nare. Placement verified and flushed again
w/immediate return of pink clear contents (pt had red lozenge). UNDERCUTTER covering contacted w/findings and concerns, instructed to continue monitor. Mantained on LIWS. Pt appears to be resting w/eyes closed at this time. Call marija w/in reach.
[2025-05-15] MEDS: LR 1000 IV ×3 (02:09→21:54)
[2025-05-15] MEDS: ZOFRAN 4 MG IV ×2 (02:25→16:32)
[2025-05-15 07:15] VITALS: BP 138/77
[2025-05-15 07:36] LABS: Hematocrit 45.8 % (37.0-47.0); Hemoglobin 15.1 g/dL (12.0-16.0); Mean Corp Hgb Conc. 33.0 g/dL (33.0-37.0); Mean Corpuscular Volume 88.9 fL (81.0-99.0); Platelet Count 241 10^3/uL (130-400); Red Cell Dist. Width 13.4 % (11.5-14.5)
[2025-05-15 08:09] LABS: Blood Urea Nitrogen 25 mg/dl (7-17); Calcium 9.7 mg/dl (8.4-10.2); Carbon Dioxide 22 mmol/L (22-30); Chloride 104 mmol/L (98-107); Estimated Creatinine Clearance 34 ml/min; Glucose 151 mg/dl (70-99); Magnesium 1.9 mg/dl (1.6-2.3); Potassium 4.3 mmol/L (3.5-5.1); Sodium 136 mmol/L (135-145); eGFR 48.94
[2025-05-15] MEDS: LIDOCAINE 4% PATCH 1 PATCH TOPICAL (08:19)
[2025-05-15] MEDS: COMPAZINE 10 MG IV ×2 (08:19→17:58)
[2025-05-15] MEDS: PROTONIX IV 40 MG IV (08:19)
[2025-05-15] MEDS: NSS (PRESERVATIVE FREE) 10 ML IV (08:19)
--- NOTE | 2025-05-15 10:15 | CM ---
Patient seen at bedside with son present in [address] [place] [address]. Patient resting with NG tube. Patient lives in independent apartment at [facility] and has dementia per son. Patient has no DME at home and no VN or aides. Patient PCP is Dr. Shreya Forte and
uses the [facility] on [facility]. Patient son requested that he be called with updates, Physician updated. CM will continue to follow for discharge planning needs.
Plan; home with VN vs SNF pending medical treatment plan
--- NOTE | 2025-05-15 11:48 | W.PN.GS2 ---
Addendum entered and electronically signed by Jesus Alberto Gonzalez MD 05/15/25 12:58:
Patient seen and examined.
No major complaints, feels slightly improved. Less abdominal pain. No flatus or BM since admission. No nausea or vomiting. Afebrile.
Gen: NAD
HEENT: NGT with light bilious to gastric outputs, increased output over the past few hrs
Abd: soft, mild/moderate tenderness diffusely, distended, tympanitic, non-peritoneal, prior incisions well healed
Patient is a 84 yo F presenting with SBO secondary to adhesions; PSH notable for open cholecystectomy, appendectomy and ex lap LITO/BSO for ovarian CA.
AFVSS
No leukocytosis
Clinically stable with improvement in pain
NGT in place for decompression but no flatus or BM
Options for management reviewed. No clinical evidence of worsening bowel obstruction or ischemia/perforation. Given advanced age and general medical condition, plan for a trial of nonoperative management in the hopes that this will resolve without
need for surgical intervention. Plan for a SBFT today for diagnostic and potentially therapeutic purposes.
Plan:
-- SBFT study
-- Continue NGT decompression, NPO, IV fluid hydration and supportive care
-- Will continue to follow for improvement with nonoperative management at this time
-- Medical management as per primary team
Son at bedside, updated on her course of stay and questions addressed
Original Note:
Today's Communication / Plan
-
SBFT
Assessment / Plan
-
84 yo female presenting with probable high-grade small bowel obstruction secondary to adhesions given past abdominal surgical history including open cholecystectomy, appendectomy and ex lap LITO/BSO for ovarian CA.
AFVSS
No leukocytosis
Clinically stable with improvement in pain
NGT in place for decompression but no flatus/bm as of yet
Plan:
Check SBFT study
Continue NGT decompression, n.p.o., IV fluid hydration and supportive care
Will continue to follow for improvement with nonoperative management at this time
Medical management as per primary team
Son at bedside, updated on her course of stay and questions addressed
Subjective Data
-
Date of Service: May 15, 2025
Pt seen and examined at bedside with Dr. Gonzalez. Denies vomiting, some nausea overnight. Not passing flatus/stools. Discomfort in abdomen easing.
Objective Data
-
Intake and Output
05/14/25 05/15/25 05/16/25
06:59 06:59 06:59
Intake Total 1980 / 1980 230 / 230
Output Total 175 / 175 1025 / 1025
Balance 1805 / 1805 -795 / -795
Intake:
Oral fluids 120 / 120
IV fluids (Total) 1800 / 1800
Amount instilled into GI Tube ( 60 / 60 230 / 230
Total)
[place] Sump 60 / 60 230 / 230
Output:
Gastrointestinal tube output ( 175 / 175 600 / 600
Total)
[place] Sump 175 / 175 600 / 600
Straight cath output 425 / 425
Other:
Number of approximated MODERATE 1
amounts of urine
Vital Signs
Temp Pulse Resp BP Pulse Ox
98.5 F 99 16 138/77 95
05/15/25 07:15 05/15/25 07:15 05/15/25 07:15 05/15/25 07:15 05/15/25 10:00
Lab Results
05/15/25 06:46
05/15/25 06:46
Calcium 9.7 mg/dl (8.4-10.2) 05/15/25 06:46
Magnesium 1.9 mg/dl (1.6-2.3) 05/15/25 06:46
Total Bilirubin 2.2 mg/dl (0.2-1.3) H 05/14/25 04:18
AST 39 U/L (14-36) H 05/14/25 04:18
ALT 24 U/L (0-35) 05/14/25 04:18
Alkaline Phosphatase 59 U/L (38-126) 05/14/25 04:18
Total Protein 7.3 g/dl (6.3-8.2) 05/14/25 04:18
Albumin 4.6 g/dl (3.5-5.0) 05/14/25 04:18
Physical Exam
-
NAD
ABD softly distended, mild generalized tenderness, nd
Brown outputs from NGT 800ml out since marking from 0700
--- NOTE | 2025-05-15 14:20 | PTCARENOTE ---
Patient had SBRf. Per Majo Larson advised to hold suction for her NG tube until her abd cr is done later. Plan of care ongoing. Zofran administered as ordered.
--- NOTE | 2025-05-15 16:09 | W.PN.HOSP.TC ---
Today's Communication/Plan
-
Assessment / Plan
Assessment / Plan
General: No Apparent Distress, Comfortable
HEENT: NormoCephalic, NGT in place to LIWS
Respiratory: Clear and Non Labored Respirations
Cardiac: Regular rhythm, heart rate controlled
GI: Soft, mildly distended, decreased bowel sounds
Musculoskeletal: No Edema, no deformity
: NO Pringle
Neuro: Somnolent, no tremor
Psych: Calm
pt is an 84 year old female
Small bowel obstruction-- likely due to adhesions--pt nauseous initially refusing NGT --NPO/IVF--pain control/antiemetics
- Eventually allowed NGT placement which is now too low intermittent wall suction with brown output
- Continue bowel rest
- Small bowel follow-through
- Further recommendations per general surgery
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
DVT proph�Lovenox subcu
CODE STATUS�DNR
Anticipated Discharge: > 48 hours
Subjective/Interval History
-
Date of Service: May 15, 2025
Patient was seen and examined at bedside this morning. Allowed NG tube placement yesterday which is now on low intermittent wall suction with dark brown output.
Objective Data
-
Labs:
Laboratory Results
05/15/25
06:46
WBC 6.6
Hgb 15.1
Hct 45.8
Plt Count 241
Sodium 136
Potassium 4.3
Chloride 104
Carbon Dioxide 22
BUN 25 H
Creatinine 1.1 H
Glucose 151 H
Calcium 9.7
Vital Signs:
Vital Signs
Temp Pulse Resp BP Pulse Ox
98.5 F 99 16 138/77 95
05/15/25 07:15 05/15/25 07:15 05/15/25 07:15 05/15/25 07:15 05/15/25 10:00
I&O
05/14/25 05/15/25 05/16/25
06:59 06:59 06:59
Intake Total 1979 260 / 260
Output Total 175 / 175 1025 / 1025
Balance 1805 / 1805 -765 / -765
Review of Systems
-
Unable to obtain full review of systems at this time due to: Dementia
Physical Exam
-
General: No Apparent Distress
[2025-05-15] MEDS: LOVENOX SC (18:14)
--- NOTE | 2025-05-15 20:01 | PTCARENOTE ---
During shift report, PCT reports pt pulled out NGT. AAOx1 (thinks she is in her apt/[facility]). Small bowel Xray performed at bedside. NGT replaced to L nare, pt vomited large amount during procedure. Placement checked via auscultation.
Reconnected to suction, immediately filled suction canister --> brown/green contents. Pt verbalizes relief of abdominal symptoms, now complains of sore throat. PUBLIC TRANSPORTATION INSPECTOR covering house contacted w/situation. Request for restraints at this time as pt's
confusion is worse per family/assessment. Awaiting orders. Family at bedside.
[2025-05-15] MEDS: REMOVE LIDOCAINE PATCH 1 PATCH REMOVE (21:38)
[2025-05-15 23:18] VITALS: BP 171/87
[2025-05-16 03:33] LABS: Hematocrit 43.6 % (37.0-47.0); Hemoglobin 15.0 g/dL (12.0-16.0); Mean Corp Hgb Conc. 34.4 g/dL (33.0-37.0); Mean Corpuscular Volume 87.9 fL (81.0-99.0); Platelet Count 220 10^3/uL (130-400); Red Cell Dist. Width 13.4 % (11.5-14.5)
[2025-05-16 03:56] LABS: Blood Urea Nitrogen 29 mg/dl (7-17); Calcium 9.7 mg/dl (8.4-10.2); Carbon Dioxide 29 mmol/L (22-30); Chloride 102 mmol/L (98-107); Estimated Creatinine Clearance 34 ml/min; Glucose 125 mg/dl (70-99); Magnesium 2.0 mg/dl (1.6-2.3); Potassium 3.9 mmol/L (3.5-5.1); Sodium 140 mmol/L (135-145); eGFR 48.94
[2025-05-16] MEDS: LR 1000 IV ×3 (06:11→23:48)
[2025-05-16 07:30] VITALS: BP 164/90
--- NOTE | 2025-05-16 09:26 | W.PN.HOSP.TC ---
Today's Communication/Plan
-
await surgery input
Assessment / Plan
Assessment / Plan
pt is an 84 year old female
Small bowel obstruction-- likely due to adhesions--pt nauseous initially refusing NGT, subsequently agreed--pulled out overnight and replaced--restraints added (can take off while family in the room) --NPO/IVF--pain control/antiemetics--x-rays still
show obstruction--await next steps from surgery
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
DVT proph�Lovenox subcu
CODE STATUS�DNR
Anticipated Discharge: > 48 hours
Subjective/Interval History
-
Date of Service: May 16, 2025
pt pulled NGT out overnight--replaced
Objective Data
-
Labs:
Laboratory Results
05/16/25
03:15
WBC 4.0 L
Hgb 15.0
Hct 43.6
Plt Count 220
Sodium 140
Potassium 3.9
Chloride 102
Carbon Dioxide 29
BUN 29 H
Creatinine 1.1 H
Glucose 125 H
Calcium 9.7
Vital Signs:
max temp for 24 hours
05/16/25
07:30
Temp 98.3 F
Vital Signs
Temp Pulse Resp BP Pulse Ox
98.3 F 97 16 164/90 94
05/16/25 07:30 05/16/25 07:30 05/16/25 07:30 05/16/25 07:30 05/16/25 07:30
I&O
05/15/25 05/16/25 05/17/25
06:59 06:59 06:59
Intake Total 1979 / 1979 1590 / 1590
Output Total 175 / 175 3525 / 3525
Balance 1805 / 1805 -193 / -1934
Review of Systems
-
All other systems: Reviewed and negative
Abdomen/GI: Reports Abdominal Pain
Physical Exam
-
General: Well Developed, Well Nourished and No Apparent Distress
HEENT: Normocephalic, Atraumatic and Other (NGT with brown liquid)
Respiratory: Clear to Auscultation
Cardiac: Regular Rhythm and S1/S2; Negative Murmur
GI: Soft, Nondistended and Tender (lower abdomen bilaterally); Negative Normal Bowel Sounds (no bowel sounds)
Musculoskeletal: No Clubbing, No Cyanosis and No Edema
Skin: Warm
Neuro: Awake
Psych: Apparent Dementia
[2025-05-16] MEDS: LIDOCAINE 4% PATCH 1 PATCH TOPICAL (10:54)
[2025-05-16] MEDS: NSS (PRESERVATIVE FREE) 10 ML IV (10:55)
[2025-05-16] MEDS: PROTONIX IV 40 MG IV (10:56)
--- NOTE | 2025-05-16 11:52 | W.PN.GS2 ---
Today's Communication / Plan
-
Continue NGT and hydration.
Out of bed.
Possible surgery 05/18 if no improvement, sooner if she worsens.
Assessment / Plan
-
84 yo female presenting with probable high-grade small bowel obstruction secondary to adhesions given past abdominal surgical history including open cholecystectomy, appendectomy and ex lap LITO/BSO for ovarian CA (stage I).
AFVSS
No leukocytosis
Clinically stable with improvement in pain
NGT in place for decompression but no flatus/bm as of yet. Still with relatively high output (2300 bilious)
Plan:
SBFT this am with some contrast in the colon and decompressed stomach and proximal small bowel, but distention of the small bowel still persists.study
Continue NGT decompression, n.p.o., IV fluid hydration and supportive care. Creatinine the same at 1.1
Will continue to follow for improvement with nonoperative management at this time
Medical management as per primary team.
Consider surgery 05/18, sooner if needed.
[id number] at bedside, updated and all questions addressed
Subjective Data
-
Date of Service: May 16, 2025
No flatus or bowel movements. Minimal abdominal discomfort.
Objective Data
-
Intake and Output
05/15/25 05/16/25 05/17/25
06:59 06:59 06:59
Intake Total 1979 / 1979 1590 / 1590
Output Total 175 / 175 3525 / 3525
Balance 1805 / 1805 -1934 / -1934
Intake:
Oral fluids 120 / 120 0 / 0
IV fluids (Total) 1800 / 1800 1440 / 1440
Amount instilled into GI Tube ( 60 / 60 150 / 150
Total)
[place] Sump 60 / 60 150 / 150
Output:
Gastrointestinal tube output ( 175 / 175 3100 / 3100
Total)
[place] Sump 175 / 175 3100 / 3100
Straight cath output 425 / 425
Other:
Number of approximated SMALL 1
amounts of urine
Number of approximated MODERATE 1
amounts of urine
Number of immeasurable emeses? 2
Vital Signs
Temp Pulse Resp BP Pulse Ox
98.3 F 97 16 164/90 94
05/16/25 07:30 05/16/25 07:30 05/16/25 07:30 05/16/25 07:30 05/16/25 07:30
Lab Results
05/16/25 03:15
05/16/25 03:15
Calcium 9.7 mg/dl (8.4-10.2) 05/16/25 03:15
Magnesium 2.0 mg/dl (1.6-2.3) 05/16/25 03:15
Total Bilirubin 2.2 mg/dl (0.2-1.3) H 05/14/25 04:18
AST 39 U/L (14-36) H 05/14/25 04:18
ALT 24 U/L (0-35) 05/14/25 04:18
Alkaline Phosphatase 59 U/L (38-126) 05/14/25 04:18
Total Protein 7.3 g/dl (6.3-8.2) 05/14/25 04:18
Albumin 4.6 g/dl (3.5-5.0) 05/14/25 04:18
Physical Exam
-
NAD
Abd: soft, mild distention but no tympany
Patient has a maynard catheter: No
Patient has a central line: No
[2025-05-16 14:25] VITALS: BMI 28.2
[2025-05-16 15:00] VITALS: BP 166/82
[2025-05-16] MEDS: LOVENOX 40 MG SC (17:26)
[2025-05-16] MEDS: REMOVE LIDOCAINE PATCH 1 PATCH REMOVE (20:12)
[2025-05-16 22:19] VITALS: BP 161/86
[2025-05-17] VITALS (7 sets, daily range): BP systolic 152–170; BP diastolic 49–93
[2025-05-17 08:38] LABS: Hematocrit 39.9 % (37.0-47.0); Hemoglobin 13.5 g/dL (12.0-16.0); Mean Corp Hgb Conc. 33.8 g/dL (33.0-37.0); Mean Corpuscular Volume 89.1 fL (81.0-99.0); Platelet Count 187 10^3/uL (130-400); Red Cell Dist. Width 13.1 % (11.5-14.5)
[2025-05-17] MEDS: LR 1000 IV ×2 (08:54→17:45)
[2025-05-17] MEDS: LIDOCAINE 4% PATCH 1 PATCH TOPICAL (08:55)
[2025-05-17] MEDS: ANESTHETIC LOZENGE 1 LOZENGE PO (08:55)
[2025-05-17] MEDS: NSS (PRESERVATIVE FREE) 10 ML IV (08:58)
[2025-05-17] MEDS: PROTONIX IV 40 MG IV (08:58)
[2025-05-17] MEDS: FLUSH (NSS) 2 FLUSH IV ×2 (08:58→17:41)
[2025-05-17 09:05] LABS: ALT (SGPT) 18 U/L (0-35); AST (SGOT) 27 U/L (14-36); Albumin 3.8 g/dl (3.5-5.0); Alkaline Phosphatase 58 U/L (38-126); Blood Urea Nitrogen 18 mg/dl (7-17); Calcium 9.0 mg/dl (8.4-10.2); Carbon Dioxide 26 mmol/L (22-30); Chloride 102 mmol/L (98-107); Estimated Creatinine Clearance 46 ml/min; Glucose 104 mg/dl (70-99); Magnesium 1.8 mg/dl (1.6-2.3); Potassium 3.4 mmol/L (3.5-5.1); Sodium 136 mmol/L (135-145); Total Protein 6.3 g/dl (6.3-8.2); eGFR > 60.00
--- NOTE | 2025-05-17 10:35 | W.PN.HOSP.TC ---
Today's Communication/Plan
-
replete K
NPO/IVF
likely surgery tomorrow
Assessment / Plan
Assessment / Plan
pt is an 84 year old female
Small bowel obstruction-- likely due to adhesions--pt nauseous initially refusing NGT, subsequently agreed--pulled out overnight Sunday to Sunday and replaced--restraints added (can take off while family in the room) --NPO/IVF--pain
control/antiemetics--x-rays still show obstruction--likely surgery Sunday
hypokalemia--replete
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
DVT proph�Lovenox subcu
CODE STATUS�DNR
Anticipated Discharge: > 48 hours
Subjective/Interval History
-
Date of Service: May 17, 2025
pt c/o left abdominal pain
Objective Data
-
Labs:
Laboratory Results
05/17/25
08:09
WBC 6.2
Hgb 13.5
Hct 39.9
Plt Count 187
Sodium 136
Potassium 3.4 L
Chloride 102
Carbon Dioxide 26
BUN 18 H
Creatinine 0.8
Glucose 104 H
Calcium 9.0
Total Bilirubin 3.0 H
AST 27
ALT 18
Alkaline Phosphatase 58
Vital Signs:
max temp for 24 hours
05/16/25
15:00
Temp 98.4 F
Vital Signs
Temp Pulse Resp BP Pulse Ox
98.1 F 99 16 152/81 95
05/17/25 07:35 05/17/25 07:35 05/17/25 07:35 05/17/25 07:35 05/17/25 07:35
I&O
05/16/25 05/17/25 05/18/25
06:59 06:59 06:59
Intake Total 1590 / 1590 810 / 810
Output Total 3525 / 3525 1440 / 1440
Balance -1935 / -1935 -630 / -630
Review of Systems
-
All other systems: Reviewed and negative
Abdomen/GI: Reports Abdominal Pain
Physical Exam
-
General: Well Developed, Well Nourished and No Apparent Distress
HEENT: Normocephalic, Atraumatic and Other (NGT)
Respiratory: Clear to Auscultation; Negative Wheezes or Rhonchi
Cardiac: Regular Rhythm and S1/S2; Negative Murmur
GI: Soft, Nontender, Nondistended and Normal Bowel Sounds
Musculoskeletal: No Clubbing, No Cyanosis and No Edema
Neuro: Awake and Alert
[2025-05-17] MEDS: KCL 270 MEQ IV (11:07)
--- NOTE | 2025-05-17 11:35 | W.PN.GS2 ---
Today's Communication / Plan
-
NGT/NPO
Assessment / Plan
-
84 yo female presenting with probable high-grade small bowel obstruction secondary to adhesions given past abdominal surgical history including open cholecystectomy, appendectomy and ex lap LITO/BSO for ovarian CA (stage I).
AFVSS
No leukocytosis
05/15 SBFT with persistent obstruction noted with 05/16 demonstrating continued obstruction
Clinically stable with improvement in pain
NGT in place for decompression but no flatus/bm as of yet
Plan:
NGT decompression/npo with ice chips for comfort
Will continue to follow for improvement with nonoperative management, tentative OR tomorrow if no improvement
Medical management as per primary team.
son at bedside, updated and all questions addressed
Subjective Data
-
Date of Service: May 17, 2025
Pt seen and examined with Dr. Carvalho. Son present, questions addressed. Denies n/v. Not passing flatus or stools. Intermittent difficulty voiding but this is better this am. Occasional abdominal discomfort across the front of her mid abdomen.
Objective Data
-
Intake and Output
05/16/25 05/17/25 05/18/25
06:59 06:59 06:59
Intake Total 1590 / 1590 810 / 810
Output Total 3525 / 3525 1440 / 1440
Balance -1935 / -1935 -630 / -630
Intake:
Oral fluids 0 / 0 0 / 0
IV fluids (Total) 1440 / 1440 600 / 600
Amount instilled into GI Tube ( 150 / 150 210 / 210
Total)
[place] Sump 150 / 150 210 / 210
Output:
Gastrointestinal tube output ( 3100 / 3100 640 / 640
Total)
[place] Sump 3100 / 3100 640 / 640
Urine, Voided 400 / 400
Straight cath output 425 / 425 400 / 400
Other:
Number of approximated SMALL 1 6
amounts of urine
Number of approximated MODERATE 1
amounts of urine
Number of immeasurable emeses? 2
Vital Signs
Temp Pulse Resp BP Pulse Ox
98.1 F 99 16 152/81 95
05/17/25 07:35 05/17/25 07:35 05/17/25 07:35 05/17/25 07:35 05/17/25 07:35
Lab Results
05/17/25 08:09
05/17/25 08:09
Calcium 9.0 mg/dl (8.4-10.2) 05/17/25 08:09
Magnesium 1.8 mg/dl (1.6-2.3) 05/17/25 08:09
Total Bilirubin 3.0 mg/dl (0.2-1.3) H 05/17/25 08:09
AST 27 U/L (14-36) 05/17/25 08:09
ALT 18 U/L (0-35) 05/17/25 08:09
Alkaline Phosphatase 58 U/L (38-126) 05/17/25 08:09
Total Protein 6.3 g/dl (6.3-8.2) 05/17/25 08:09
Albumin 3.8 g/dl (3.5-5.0) 05/17/25 08:09
Physical Exam
-
NAD
Abd: soft, mild distention but no tympany, not tender
NGT with bilious outputs
Patient has a maynard catheter: No
Patient has a central line: No
[2025-05-17] MEDS: MORPHINE SULFATE 1 MG IV (17:39)
[2025-05-17] MEDS: LOVENOX 40 MG SC (17:41)
[2025-05-17] MEDS: REMOVE LIDOCAINE PATCH 1 PATCH REMOVE (20:31)
[2025-05-18] VITALS (9 sets, daily range): BP systolic 104–164; BP diastolic 54–89; BMI 28.8
[2025-05-18] MEDS: LR 1000 IV ×2 (01:43→22:01)
[2025-05-18 07:43] LABS: Hematocrit 40.7 % (37.0-47.0); Hemoglobin 14.1 g/dL (12.0-16.0); Mean Corp Hgb Conc. 34.6 g/dL (33.0-37.0); Mean Corpuscular Volume 88.1 fL (81.0-99.0); Platelet Count 208 10^3/uL (130-400); Red Cell Dist. Width 12.8 % (11.5-14.5)
[2025-05-18 07:45] LABS: INR 1.15; PT 15.1 Sec (11.4-14.6)
[2025-05-18 07:46] LABS: APTT 35.8 Sec (23.4-35.0)
[2025-05-18 07:57] LABS: Blood Urea Nitrogen 14 mg/dl (7-17); Calcium 8.9 mg/dl (8.4-10.2); Carbon Dioxide 22 mmol/L (22-30); Chloride 102 mmol/L (98-107); Estimated Creatinine Clearance 53 ml/min; Glucose 104 mg/dl (70-99); Magnesium 1.7 mg/dl (1.6-2.3); Potassium 3.6 mmol/L (3.5-5.1); Sodium 134 mmol/L (135-145); eGFR > 60.00
[2025-05-18] MEDS: VENTOLIN NEBULES 2.5 MG INH (08:10)
--- NOTE | 2025-05-18 08:41 | W.PN.HOSP.TC ---
Addendum entered and electronically signed by Keaton Franco DO 05/18/25 12:51:
Still with upper airway wheezing, mild stridor. Pulse ox 94% on RA. CXR without significant change compared to prior.
Protecting airway. Perhaps she aspirated last night with subsequent laryngeal edema/inflammation.
Added racemic epinephrine Nebs, IV steroids. Discussed with respiratory, nursing.
Would prefer to improve resp status prior to OR today.
Original Note:
Today's Communication/Plan
-
Chest x-ray
Nebs
Incentive spirometry
Chest PT
Assessment / Plan
Assessment / Plan
Gen-awake, alert, mild respiratory distress
HEENT-NC, AT, anicteric, clear oral mm
Neck-supple
CV-reg, no M, +S1/S2
Lungs-bilateral wheezing, rhonchi
Abd-soft, NT, ND
Ext-no edema
Musculoskeletal-no cyanosis, clubbing
Skin-warm and dry
Neuro-grossly non-focal
Psych-calm, cooperative
Acute hypoxic respiratory failure -onset early this morning. Associated cough, wheezing. No known history of asthma or COPD.
Differential diagnosis of bronchitis versus aspiration pneumonitis versus CHF. Doubt pneumonia. Afebrile, no leukocytosis.
History of lung cancer noted.
Portable chest x-ray ordered. I reviewed films myself, I see no appreciable change compared to 05/14 film. Awaiting official report.
Nebs, oxygen ordered. Incentive spirometry. Weight is up over 1 kg since admission. Hold further IV fluids. Discussed with nursing.
Small bowel obstruction -currently n.p.o., on scheduled for today for OR. Discussed with general surgery, would prefer to wait 1 more day to improve respiratory status.
hypokalemia -improved.
Hyponatremia -134.
History of lung cancer -diagnosed and treated in 2021 with right lower lobe lobectomy. Subsequently had left lung nodule treated with radiation.
Hx right facial dutton's palsy -from DIANE vaccine in 2021
Hx small right upper lobe pulmonary embolism -August 2024. Decision made not to anticoagulate due to hematemesis on IV heparin.
Hx lumbar vertebral compression fracture
History of cognitive impairment -suspicion of dementia.
Hx stage I ovarian cancer -treated with exploratory lap, LITO/BSO.
DVT proph�Lovenox subcu
DNR
Updated son at the bedside.
Anticipated Discharge: > 48 hours
Subjective/Interval History
-
Date of Service: May 18, 2025
Patient seen and examined. Complaining of mild shortness of breath.
Objective Data
-
Labs:
Laboratory Results
05/18/25
07:09
WBC 9.3
Hgb 14.1
Hct 40.7
Plt Count 208
PT 15.1 H
INR 1.15
APTT 35.8 H
Sodium 134 L
Potassium 3.6
Chloride 102
Carbon Dioxide 22
BUN 14
Creatinine 0.7
Glucose 104 H
Calcium 8.9
Vital Signs:
Vital Signs
Temp Pulse Resp BP Pulse Ox
98.2 F 107 18 159/84 90
05/18/25 07:20 05/18/25 07:20 05/18/25 08:13 05/18/25 07:20 05/18/25 08:13
I&O
05/17/25 05/18/25 05/19/25
06:59 06:59 06:59
Intake Total 810 / 810 1470 / 1470
Output Total 1440 / 1440 360 / 360
Balance -630 / -630 1110 / 1110
Review of Systems
-
History Source: Patient
All other systems: Reviewed and negative
[2025-05-18] MEDS: LIDOCAINE 4% PATCH 1 PATCH TOPICAL (08:55)
[2025-05-18] MEDS: NSS (PRESERVATIVE FREE) 10 ML IV (08:56)
[2025-05-18] MEDS: PROTONIX IV 40 MG IV (08:56)
[2025-05-18] MEDS: LR IV (09:05)
[2025-05-18] MEDS: MORPHINE SULFATE 1 MG IV (11:07)
--- NOTE | 2025-05-18 11:22 | W.SUR.PREOP ---
Pre-Operative Surgical Note
-
I have examined this patient prior to the performance of the scheduled procedure.
The patient's condition is unchanged from the time of the current History and
Physical and the patient is able to undergo the scheduled procedure.
--- NOTE | 2025-05-18 11:22 | W.PN.GS2 ---
Today's Communication / Plan
-
OR today
Assessment / Plan
-
84 yo female presenting with probable high-grade small bowel obstruction secondary to adhesions given past abdominal surgical history including open cholecystectomy, appendectomy and ex lap LITO/BSO for ovarian CA (stage I).
Plan:
Will plan for OR today. Diagnostic laparoscopy, possible open.
Patient and family aware that given her possible aspiration event overnight she is at higher risk of postoperative respiratory insufficiency and other complications. Nevertheless they wish to move forward with surgery.
Patient is also coming up on 1 week without p.o. food. Will plan for nutrition labs in the morning and possibly starting TPN in the next day or so.
Risks/Benefits/Alternatives, expected postoperative course and possible complications (bleeding, infection, injury to surrounding structures, acute/chronic pain) discussed at length. Patient wishes to proceed with surgery. All questions answered.
Consent obtained from both patient and son at bedside.
I spent 60 minutes in total for the care of this patient today including direct patient care and counseling, reviewing labs, imaging, coordination of care, as well as documentation.
Time Spent
Total Time Spent with Patient (in minutes): 20
Subjective Data
-
Date of Service: May 18, 2025
Interval Events:
Worsening shortness of breath overnight, concern for possible aspiration event. Denies Nausea/Vomiting, NG tube working still no bowel function.
Objective Data
-
Intake and Output
05/17/25 05/18/25 05/19/25
06:59 06:59 06:59
Intake Total 810 / 810 1470 / 1470 30 / 30
Output Total 1440 / 1440 360 / 360
Balance -630 / -630 1110 / 1110
Intake:
Oral fluids 0 / 0 0 / 0
IV fluids (Total) 600 / 600 1050 / 1050
IV piggybacks 250 / 250
Amount instilled into GI Tube ( 210 / 210 170 / 170 30 / 30
Total)
[place] Sump 210 / 210 170 / 170 30 / 30
Output:
Gastrointestinal tube output ( 640 / 640 360 / 360
Total)
[place] Sump 640 / 640 360 / 360
Urine, Voided 400 / 400
Straight cath output 400 / 400
Other:
How many times incontinent 1
SATURATED amount urine
Number of approximated SMALL 6
amounts of urine
Number of approximated MODERATE 1 2
amounts of urine
Number of approximated LARGE 1
amounts of urine
Vital Signs
Temp Pulse Resp BP Pulse Ox
98.2 F 107 18 150/80 93
05/18/25 07:20 05/18/25 07:20 05/18/25 08:13 05/18/25 08:00 05/18/25 11:15
Lab Results
05/18/25 07:09
05/18/25 07:09
Calcium 8.9 mg/dl (8.4-10.2) 05/18/25 07:09
Magnesium 1.7 mg/dl (1.6-2.3) 05/18/25 07:09
Total Bilirubin 3.0 mg/dl (0.2-1.3) H 05/17/25 08:09
AST 27 U/L (14-36) 05/17/25 08:09
ALT 18 U/L (0-35) 05/17/25 08:09
Alkaline Phosphatase 58 U/L (38-126) 05/17/25 08:09
Total Protein 6.3 g/dl (6.3-8.2) 05/17/25 08:09
Albumin 3.8 g/dl (3.5-5.0) 05/17/25 08:09
Physical Exam
-
GENERAL/NEURO: Awake, Alert, no distress
CHEST: Unlabored breathing on RA
ABDOMEN: Soft, Non-Tender, distended. NG with bilious output.
Patient has a maynard catheter: No
Patient has a central line: No
--- NOTE | 2025-05-18 12:33 | PTCARENOTE ---
Patient with wheezing upper airway noted,c/o of sob, O2@93% RA. denies pain at this time. dr made aware. Nebs and Iv steroids ordered and administered. Plan of care ongoing. call dutton within reach.
[2025-05-18] MEDS: VAPONEFRIN NEBS 0.5 ML INH (12:45)
[2025-05-18] MEDS: SOLU-MEDROL PF 40 MG IV (12:59)
--- NOTE | 2025-05-18 14:59 | CM ---
CM following re: discharge planning.
Reviewed pt's chart, met with pt.
Per chart review, OR today, continue supportive care.
Per CM note, pt lives alone in an independent apartment at [facility], has Dementia.
PT and OT will evaluate the pt to determine a level of care at discharge.
D/C plan: uncertain at this time and will depend on pt's progress
CM will follow with discharge plan updates as hospitalization progresses
[2025-05-18] MEDS: LOVENOX SC (18:09)
--- NOTE | 2025-05-18 18:40 | W.IMMPOSTOP ---
Surgical Immed Post Op Note
-
Primary Surgeon: Luis Aceves MD
Assisting Surgeon: None
Sixth Grade Teacher: ZULMA Velazco
Pre-op Diagnosis: Small bowel obstruction
Post-op Diagnosis: Same
Procedure Performed:
1. Diagnostic laparoscopy, lysis of adhesions converted to exploratory laparotomy
2. Small bowel resection
Anesthesia Type: General
Specimen / Cultures: Small bowel (ileum)
Estimated Blood Loss: 11 cc
Complications: None
Operative Findings: Safe Veress entry in left upper quadrant Optiview with a 5 mm port. Midline and right upper quadrant adhesions noted. Additional 5 mm ports placed in the left lower quadrant and after lysing the adhesions of the right upper
quadrant and additional port there. The patient had a significantly adherence piece of small bowel to the midline that could not be safely taken down using scissors. In addition the small bowel in the right lower quadrant appeared to be densely
adherent to each other so we elected to convert to an open midline laparotomy. During lysis there was a small enterotomy made in the portion of bowel densely adherent to the midline which could not be avoided and was inherent to the nature of the
operation. There was some spillage of intestinal succus but this was quickly controlled and suctioned out. In the right lower quadrant she had multiple loops of bowel that were densely adherent to each other. Though we began slowly doing a lysis
it was clear that this was chronically dilated and scarred bowel so we elected to do a en bloc small bowel resection. Healthy transection points proximal and distal to the diseased bowel were identified and the bowel divided with 2 fires of an 80
ADOLFO purple load. Intervening mesentery was divided using a LigaSure device. Roughly 60 cm of small bowel was removed. We then performed a [id number], functional end-to-end stapled small bowel anastomosis with 2 fires of the 80 ADOLFO purple load.
The transverse staple line was oversewn with 3-0 silk pops. The mesentery was closed with a running 3-0 silk and 2 crotch stitches were placed. The NG tube was confirmed to be in a good position. After assuring hemostasis and irrigating the
abdomen out with over a liter of warm saline, the abdomen was closed using 0 PDS sutures anchored at each apex and run together towards the middle and tied together. The skin was then loosely approximated using skin miguelito as were the 5 mm port
sites. The incision was then covered with a Mepilex dressing.
POST OP PLAN:
Imaging: None
Labs: Routine AM
Diet: N.p.o., start TPN.
Analgesia: Tylenol 650mg q6 Efrain, Dilaudid 0.5mg q2h PRN
Neuro/vascular checks: Per unit protocol
AC/AP: Hold Therapeutic AC, Ok for DVT PPx
Activity: Ad Delores
Wound/Incisions/Drains: Routine
Abx: Will do 4 days of Zosyn
Dispo: RNF
[2025-05-18] MEDS: REMOVE LIDOCAINE PATCH 1 PATCH REMOVE (20:18)
[2025-05-18 20:32] LABS: Hematocrit 43.5 % (37.0-47.0); Hemoglobin 14.8 g/dL (12.0-16.0); Mean Corp Hgb Conc. 34.0 g/dL (33.0-37.0); Mean Corpuscular Volume 87.3 fL (81.0-99.0); Platelet Count 212 10^3/uL (130-400); Red Cell Dist. Width 13.1 % (11.5-14.5)
[2025-05-18 20:36] LABS: Glucose - Point of Care 133 mg/dl (70-99)
[2025-05-18 20:38] LABS: INR 1.24; PT 15.8 Sec (11.4-14.6)
[2025-05-18 20:39] LABS: APTT 30.2 Sec (23.4-35.0)
[2025-05-18] MEDS: ZOSYN 50 IV (20:45)
[2025-05-18] MEDS: SUBLIMAZE 50 MCG IV ×2 (20:46→23:56)
[2025-05-18 20:57] LABS: ALT (SGPT) 24 U/L (0-35); AST (SGOT) 41 U/L (14-36); Albumin 3.7 g/dl (3.5-5.0); Alkaline Phosphatase 51 U/L (38-126); Blood Urea Nitrogen 16 mg/dl (7-17); Calcium 8.1 mg/dl (8.4-10.2); Carbon Dioxide 16 mmol/L (22-30); Chloride 104 mmol/L (98-107); Estimated Creatinine Clearance 53 ml/min; Glucose 145 mg/dl (70-99); Magnesium 1.9 mg/dl (1.6-2.3); Potassium 4.3 mmol/L (3.5-5.1); Sodium 134 mmol/L (135-145); Total Protein 6.3 g/dl (6.3-8.2); Triglycerides 77 mg/dl (10-149); eGFR > 60.00
[2025-05-18 21:49] LABS: Venous Blood Gas B.E. -7.9 mmol/L (-4 to +4); Venous Blood Gas O2 Sat % 100.0 %
--- NOTE | 2025-05-18 23:21 | PTCARENOTE ---
Rec'd pt post op diagnostic laparoscopy converted to ex-lap SBR remaining intubated overnight. Opens eyes to sound, follows simple commands, shakes head 'yes' to verbal reorientation. Family at bedside to explain baseline dementia. Pt pulled NGT on
floor. Bilateral wrist restraints for safety. Fent PRN pain, Propofol for RASS goal. Afebrile. EKG done, showing NSR with prolonged QT. Palpable pulses, trace edema in lowers. #7.5 ETT 21cm lip, chest xray done for confirmation. AC 40%/14/450/5, RR
14-16. tvol 430. Lungs clear, absent in RLL (h/o RLL lobectomy). NPO status, NGT to LIWS draining brown/green, with order to flush 30ml tap water q4h/PRN. Midline mepilex CDI, post op dressing. 3 different lap sites each approximated with 1 staple
per site. Pringle inserted in OR draining clear yellow urine. Preventative sacral foam. VAT made aware of PICC order for TPN, will place tomorrow. Will monitor.
[2025-05-19] VITALS (31 sets, daily range): BP systolic 89–127; BP diastolic 34–86; BMI 28.5
[2025-05-19] MEDS: ZOSYN 50 IV ×4 (02:58→20:04)
[2025-05-19] MEDS: SUBLIMAZE 50 MCG IV ×2 (02:58→05:13)
[2025-05-19 03:45] LABS: Hematocrit 40.3 % (37.0-47.0); Hemoglobin 13.2 g/dL (12.0-16.0); Mean Corp Hgb Conc. 32.8 g/dL (33.0-37.0); Mean Corpuscular Volume 89.2 fL (81.0-99.0); Nucleated Red Blood Cells % 0 %; Platelet Count 197 10^3/uL (130-400); Red Cell Dist. Width 13.1 % (11.5-14.5)
[2025-05-19 04:01] LABS: Blood Urea Nitrogen 21 mg/dl (7-17); Calcium 7.7 mg/dl (8.4-10.2); Carbon Dioxide 19 mmol/L (22-30); Chloride 103 mmol/L (98-107); Estimated Creatinine Clearance 47 ml/min; Glucose 137 mg/dl (70-99); Magnesium 1.7 mg/dl (1.6-2.3); Potassium 3.6 mmol/L (3.5-5.1); Sodium 134 mmol/L (135-145); Triglycerides 65 mg/dl (10-149); eGFR > 60.00
[2025-05-19 04:07] LABS: Prealbumin (Transthyretin) 7.3 mg/dl (17.6-36.0)
[2025-05-19] MEDS: DIPRIVAN 100 IV (04:29)
[2025-05-19] MEDS: MAGNESIUM SULFATE 102 GRAMS IV (04:46)
--- NOTE | 2025-05-19 04:50 | PTCARENOTE ---
No change in previous assessment. Pt comfortable on propofol infusion and PRN fentanyl pushes. Mag being repleted. Will monitor.
[2025-05-19] MEDS: PROTONIX IV 40 MG IV (07:23)
[2025-05-19] MEDS: NSS (PRESERVATIVE FREE) 10 ML IV (07:23)
[2025-05-19] MEDS: PRECEDEX 100 IV (07:32)
--- NOTE | 2025-05-19 07:49 | W.PN.HOSP.TC ---
Today's Communication/Plan
-
Extubate
Monitor for stridor
Assessment / Plan
Assessment / Plan
Gen-awake, alert, intubated
HEENT-NC, AT, anicteric, clear oral mm
Neck-supple
CV-reg, no M, +S1/S2
Lungs-clear
Abd-soft, NT, ND
Ext-no edema
Musculoskeletal-no cyanosis, clubbing
Skin-warm and dry
Neuro-grossly non-focal
Acute hypoxic respiratory failure -had preoperative stridor suspected to be due to aspiration related to bowel obstruction. Given a dose of steroids and racemic epinephrine preoperatively.
Remains intubated postop. Personal Trainer to see today with plans for extubation.
Chest x-ray from last night showed stable left midlung atelectasis, scarring. Stable right apical scarring. Stable small right pleural effusion with associated consolidation.
If she remains stridorous postextubation, then would monitor in the ICU overnight. Discussed with nursing.
Small bowel obstruction -underwent diagnostic laparoscopy, lysis of adhesions and exploratory laparotomy, small bowel resection for small bowel obstruction 05/18.
Started on empiric Zosyn IV by surgical service 05/18 evening.
Normal anion gap metabolic acidosis -bicarb 19, trending up. Monitor for now.
Hypokalemia -improved.
Hyponatremia -134.
History of lung cancer -diagnosed and treated in 2021 with right lower lobe lobectomy. Subsequently had left lung nodule treated with radiation.
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
Hx small right upper lobe pulmonary embolism -August 2024. Decision made not to anticoagulate due to hematemesis on IV heparin.
Hx lumbar vertebral compression fracture
History of cognitive impairment -suspicion of dementia.
Hx stage I ovarian cancer -treated with exploratory lap, LITO/BSO.
DVT proph�Lovenox subcu
DNR
Anticipated Discharge: > 48 hours
Subjective/Interval History
-
Date of Service: May 19, 2025
Patient seen and examined. Intubated in the ICU. Awake, looks comfortable.
Objective Data
-
Labs:
Laboratory Results
05/18/25 05/18/25 05/19/25
20:22 20:25 03:05
WBC 4.1 L 8.2
Hgb 14.8 13.2
Hct 43.5 40.3
Plt Count 212 197
PT 15.8 H
INR 1.24
APTT 30.2
Sodium 134 L 134 L
Potassium 4.3 3.6
Chloride 104 103
Carbon Dioxide 16 L 19 L
BUN 16 21 H
Creatinine 0.7 0.8
Glucose 145 H 137 H
Calcium 8.1 L 7.7 L
Total Bilirubin 3.5 H
AST 41 H
ALT 24
Alkaline Phosphatase 51
Vital Signs:
Vital Signs
Temp Pulse Resp BP Pulse Ox
98.7 F 93 18 97/55 100
05/19/25 04:10 05/19/25 07:44 05/19/25 07:44 05/19/25 05:45 05/19/25 07:44
I&O
05/18/25 05/19/25 05/20/25
06:59 06:59 06:59
Intake Total 1470 / 1470 688.6 / 822.1 133.5 / 133.5
Output Total 360 / 360 1600 / 1600
Balance 1110 / 1110 -911.4 / -777.9 133.5 / 133.5
Review of Systems
-
Unable to obtain full review of systems at this time due to: Acuity and Patient Intubation
--- NOTE | 2025-05-19 07:53 | PTCARENOTE ---
pt wakes to name. nods head to questions. nods yes to wanting the ett out. no pain in abd or back. pt attempting to pull at ett restraints in place. diprivan gtt stopped per dr order and replaced with precedex. pt began vent wean. ngy placement
checked and flushed as ordered set to liws. ivf running as ordered.
[2025-05-19] MEDS: DILAUDID 0.25 MG IV (08:45)
--- NOTE | 2025-05-19 09:01 | CON.INTV ---
Addendum entered and electronically signed by Marylu Dasilva MD 05/20/25 10:10:
Patient transferring out of ICU
Bed Setter service will sign off, please call as needed
Patient has not seen a [facility] or oncologist in some time. Prior h/o lung cancer, details not clear
Recommend out patient follow up with Pulmonary clinic. Information added to the d/c section. Counselled patient regarding need for ongoing surveillance.
Original Note:
Consultation
Consultation Request
Date/Time Consultation Requested: 05/18/25 19:57
Date/Time Consultation Performed: 05/19/25 08:00
Requesting Provider: Keaton Franco DO
Performing Provider: Gustavo Rollins DO (Resident); Marylu Dasilva MD
Reason for Consultation: Ventilator Management
Medical History
-
Chief Complaint: SBO/Postoperative Lysis of Adhesions
History of Present Illness:
Ghislaine Hoover is a 84F w/ PMHx of ovarian cancer status post hysterectomy and oophorectomy, distant appendectomy, distant cholecystectomy, prior TIA, GERD, lung cancer status post right lower lobe lobectomy, prior history of upper GI bleed, CKD
stage II, chronic back pain who is status post exploratory laparotomy for lysis of adhesions in the setting of small bowel obstruction.
Patient initially presented to the emergency department 3 days ago with abdominal pain, nausea, and vomiting and a CT scan in the emergency department revealed SBO. This was initially managed conservatively with nasogastric suction, however, given
no resolution, patient was taken to the OR yesterday for expiratory laparotomy and lysis of adhesions. In the preoperative period, patient was noted to be stridorous which was thought to be secondary to aspiration related to small bowel
obstruction. She was given a dose of steroids and racemic epinephrine preoperatively. Patient continued be intubated in the postoperative period and was admitted to the ICU for ventilator management.
Patient tolerated SAT and SBT appropriately this morning, and the patient was extubated at approximately 08:20. Patient denies shortness of breath, does endorse some sore throat as well as residual abdominal pain status post surgery. Otherwise no
acute complaints at this time.
Past Medical History
Past Medical History: Other (ovarian cancer status post hysterectomy and oophorectomy, distant appendectomy, distant cholecystectomy, prior TIA, GERD, lung cancer status post right lower lobe lobectomy, prior history of upper GI bleed, CKD stage II,
chronic back pain)
Past Surgical History: Other (as above)
Social History
Tobacco: Non-smoker
Alcohol: Occasional
Personal:
Living: Assisted Living
Family History
Family History: Reviewed & Not Pertinent
Allergies / Home Medications
Allergies
Allergy/AdvReac Type Severity Reaction Status Date / Time
bacitracin (From Neosporin Allergy Hives Verified 05/14/25 03:56
([id number]))
codeine Allergy hypotensive Verified 05/14/25 03:56
COVID-19 (SARS-CoV-2) Allergy HARVEY'S Verified 05/14/25 03:56
vaccine, ilana PALSY
neomycin (From Neosporin Allergy Hives Verified 05/14/25 03:56
([id number]))
nitrofurantoin (From Allergy Hives Verified 05/14/25 03:56
Macrobid)
polymyxin B (From Neosporin Allergy Hives Verified 05/14/25 03:56
([id number]))
Home Medications
�Medication �Instructions �Recorded �Confirmed �Last Taken �Type
baclofen 10 mg tablet 10 mg PO DAILY Neurological 08/30/24 05/14/25 Unknown History
Condition
acetaminophen 500 mg tablet 1,000 mg PO TIDPRN PRN mild pain 05/14/25 05/14/25 Unknown History
(Tylenol Extra Strength)
carboxymethylcellulose 0.5 1 drp BOTH EYES BID Eye Condition 05/14/25 05/14/25 Unknown History
%-glycerin 0.9 % eye drops
(Refresh Optive)
lidocaine 4 % topical patch 1 patch topical DAILYPRN PRN lower 05/14/25 05/14/25 Unknown History
back pain
pantoprazole 40 mg tablet,delayed 40 mg PO DAILY Gastrointestinal 05/14/25 05/14/25 Unknown History
release Issue
trazodone 50 mg tablet 50 mg PO HS Neurological Condition 05/14/25 05/14/25 Unknown History
Review of Systems
-
History Source: Patient
All other systems: Negative unless noted
Vitals / Labs / Diagnostic Testing
Vital Signs
Temp Pulse Resp BP Pulse Ox
98.1 F 98 21 118/54 97
05/19/25 08:29 05/19/25 08:15 05/19/25 08:15 05/19/25 08:00 05/19/25 08:22
Lab Data
05/19/25 03:05
05/19/25 03:05
Laboratory Results
05/18/25
20:22
PT 15.8 H
INR 1.24
APTT 30.2
Diagnostic Testing:
Physical Exam
-
HEENT: Normocephalic and Anicteric
Cardiovascular: S1/S2, Regular Rhythm and Other (No murmur, no peripheral edema)
Respiratory: Non-Labored Respirations and Other (No accessory muscle use, mild occasional wheeze, no stridor in the upper airway; good strong cough)
GI: Soft and Tender (mild)
Neurology: Awake, Alert and Oriented
Skin: Warm
General: Comfortable
Assessment
-
Ghislaine Hoover is a 84F w/ PMHx of multiple abdominal surgeries who presented 3 days ago with small bowel obstruction as seen on CT imaging and was treated conservatively initially, but then went to the OR yesterday for exploratory laporatomy and
lysis of adhesions. In the preoperative period, patient was found to be stridorous (thought to be secondary to aspiration in the setting of SBO) and was initially treated with steroids and racemic epinephrine. Patient was intubated for procedure and
remained intubated in the postoperative period. She was transferred to the ICU for ventilator management. She was extubated this morning following successful SAT and SBT.
1. Suspicion for Upper Airway Obstruction
- Patient was stridorous in the pre-operative period, but no stridor is appreciated post extubation
- Good cuff leak prior to extubation
- Continue to monitor for adventitious breath sounds
- If stridor is appreciated, will need to consider dose of steroids and racemic epinephrine
- Anaesthetic Lozenge for sore throat
2. SBO s/p ex-lap for lysis of ahesions
- Zosyn per surgical team
- Continue NPO/maintenance fluids
- Monitor for return of bowel function
- Postoperative pain control
- PRN Zofran/Compazine for nausea
3. Hypocalcemia
- Supplement 2g Calicum gluconate
DVT: Lovenox 40mg SC
Ulcer PPx: Protonix 40mg IV qd
Data Reviewed
-
Radiology: Image personally visualized and interpreted and Report reviewed by me
Labs: Labs reviewed by me
Critical Care Time (in minutes): 45
[2025-05-19] MEDS: CALCIUM GLUCONATE 100 IV (11:17)
[2025-05-19] MEDS: LIDOCAINE 4% PATCH TOPICAL (11:18)
[2025-05-19] MEDS: TORADOL 5 MG IV ×2 (11:38→18:54)
--- NOTE | 2025-05-19 15:54 | CM ---
POD#1: s/p laparotomy, small bowel resection and re-anastomosis. NGT. IV/Zosyn. Discharge POC: Await therapy eval and rec.
--- NOTE | 2025-05-19 16:57 | W.PN.GS2 ---
Today's Communication / Plan
-
TPN
Assessment / Plan
-
84 yo female presenting with probable high-grade small bowel obstruction secondary to adhesions given past abdominal surgical history including open cholecystectomy, appendectomy and ex lap LITO/BSO for ovarian CA (stage I). POD #1 lap to open
JERZY/SBR. Postoperative respiratory insufficiency likely secondary to preoperative aspiration.
Plan:
Wean to extubate.
N.p.o., keep NG tube to low intermittent wall suction until return of bowel function.
Pain control.
Antibiotics x 4 days.
DC Maynard tomorrow
PICC ordered, start TPN
Surgery will follow
Time Spent
Total Time Spent with Patient (in minutes): 20
Subjective Data
-
Date of Service: May 19, 2025
Interval Events:
No acute events overnight. Patient intubated overnight though appears to be passing her spontaneous breathing trial, plan to extubate later today.
Objective Data
-
Intake and Output
05/18/25 05/19/25 05/20/25
06:59 06:59 06:59
Intake Total 1470 / 1470 688.6 / 822.1 737.0 / 737.0
Output Total 360 / 360 1600 / 1600 220 / 220
Balance 1110 / 1110 -911.4 / -777.9 517.0 / 517.0
Intake:
Oral fluids 0 / 0 0 / 0
IV fluids (Total) 1050 / 1050 478.6 / 532.1 507.0 / 507.0
LR 400 / 450 500 / 500
Propofol 78.6 / 78.6
precedex 7.0 / 7.0
IV piggybacks 250 / 250 150 / 200 200 / 200
Amount instilled into GI Tube ( 170 / 170 60 / 90 30 / 30
Total)
[place] Sump 170 / 170 60 / 90 30 / 30
Output:
Gastrointestinal tube output ( 360 / 360 975 / 975
Total)
[place] Sump 360 / 360 975 / 975
Urine, Maynard 625 / 625 220 / 220
Other:
How many times incontinent 1
SATURATED amount urine
Number of approximated SMALL 2
amounts of urine
Number of approximated MODERATE 2 2
amounts of urine
Number of approximated LARGE 1
amounts of urine
Vital Signs
Temp Pulse Resp BP Pulse Ox
97.4 F 96 14 115/50 99
05/19/25 15:34 05/19/25 16:30 05/19/25 16:30 05/19/25 16:00 05/19/25 16:30
Lab Results
05/19/25 03:05
05/19/25 03:05
Calcium 7.7 mg/dl (8.4-10.2) L 05/19/25 03:05
Phosphorus 3.9 mg/dl (2.5-4.5) 05/19/25 03:05
Magnesium 1.7 mg/dl (1.6-2.3) 05/19/25 03:05
Total Bilirubin 3.5 mg/dl (0.2-1.3) H 05/18/25 20:25
AST 41 U/L (14-36) H 05/18/25 20:25
ALT 24 U/L (0-35) 05/18/25 20:25
Alkaline Phosphatase 51 U/L (38-126) 05/18/25 20:25
Total Protein 6.3 g/dl (6.3-8.2) 05/18/25 20:25
Albumin 3.7 g/dl (3.5-5.0) 05/18/25 20:25
Physical Exam
-
GENERAL/NEURO: Awake, Alert, no distress
CHEST: Unlabored breathing on RA
ABDOMEN: Soft, Non-Tender, Non-Distended, incisional dressing intact with some minimal strikethrough. NG tube still in place with bilious output.
Patient has a maynard catheter: Yes
Patient has a central line: No
[2025-05-19] MEDS: LOVENOX 40 MG SC (18:03)
[2025-05-19] MEDS: LR 1000 IV (18:03)
[2025-05-19 18:07] LABS: ALT (SGPT) 16 U/L (0-35); AST (SGOT) 20 U/L (14-36); Albumin 2.8 g/dl (3.5-5.0); Alkaline Phosphatase 43 U/L (38-126); Blood Urea Nitrogen 28 mg/dl (7-17); Calcium 8.4 mg/dl (8.4-10.2); Carbon Dioxide 27 mmol/L (22-30); Chloride 103 mmol/L (98-107); Estimated Creatinine Clearance 41 ml/min; Glucose 113 mg/dl (70-99); Magnesium 2.2 mg/dl (1.6-2.3); Potassium 3.1 mmol/L (3.5-5.1); Sodium 134 mmol/L (135-145); Total Protein 5.1 g/dl (6.3-8.2); Triglycerides 72 mg/dl (10-149); eGFR > 60.00
[2025-05-19] MEDS: KCL 100 IV (18:54)
--- NOTE | 2025-05-19 20:00 | PTCARENOTE ---
Pt resting comfortably with son at bedside. Toradol given as ordered for pain. Pt calm but forgetful to time/place. Oriented to self and family, ROSARIO. Afebrile. NSR. PICC line in place for TPN tomorrow. Pulses palpable. 2L nasal cannula. 98%. NPO
status maintained. NGT left nare draining clear brown fluid. Midline incision CDI, small amount dry drainage on mepilex. 3Xlap sites with single staple in each. Pringle to gravity.
[2025-05-19] MEDS: REMOVE LIDOCAINE PATCH 1 PATCH REMOVE (20:05)
[2025-05-20] VITALS (22 sets, daily range): BP systolic 97–159; BP diastolic 43–87; PULSE 86; O2SAT 98; BMI 28.9
--- NOTE | 2025-05-20 00:30 | PTCARENOTE ---
No change in previous assessment. Will monitor
[2025-05-20] MEDS: DILAUDID 0.25 MG IV ×5 (01:16→23:59)
[2025-05-20] MEDS: ZOSYN 50 IV ×4 (01:17→19:58)
[2025-05-20 03:47] LABS: Blood Urea Nitrogen 28 mg/dl (7-17); Calcium 8.3 mg/dl (8.4-10.2); Carbon Dioxide 26 mmol/L (22-30); Chloride 104 mmol/L (98-107); Estimated Creatinine Clearance 41 ml/min; Glucose 88 mg/dl (70-99); Magnesium 2.2 mg/dl (1.6-2.3); Potassium 3.5 mmol/L (3.5-5.1); Sodium 136 mmol/L (135-145); eGFR > 60.00
[2025-05-20] MEDS: TORADOL 5 MG IV (04:11)
--- NOTE | 2025-05-20 07:48 | W.PN.HOSP.TC ---
Today's Communication/Plan
-
Potassium phosphate IV
PT/OT
Transfer out of ICU
Monitor electrolytes
Assessment / Plan
Assessment / Plan
Gen-awake, alert, NAD
HEENT-NC, AT, anicteric, clear oral mm
Neck-supple
CV-reg, no M, +S1/S2
Lungs-clear
Abd-soft, midline incision with dressing intact, blood under clear dressing
Ext-no edema
Musculoskeletal-no cyanosis, clubbing
Skin-warm and dry
Neuro-grossly non-focal
Acute hypoxic respiratory failure -had preoperative stridor suspected to be due to aspiration related to bowel obstruction. Given a dose of steroids and racemic epinephrine preoperatively.
Oxygenation stable now on room air.
Stridor resolved.
Small bowel obstruction -underwent diagnostic laparoscopy, lysis of adhesions and exploratory laparotomy, small bowel resection for small bowel obstruction 05/18. 60 cm of small bowel removed.
Started on empiric Zosyn IV by surgical service 05/18 evening.
TPN per general surgery. Prealbumin noted to be 7.3.
Hypophosphatemia -potassium phosphate IV ordered.
Normal anion gap metabolic acidosis -resolved.
Hypokalemia -resolved.
Hyponatremia - resolved.
History of lung cancer -diagnosed and treated in 2021 with right lower lobe lobectomy. Subsequently had left lung nodule treated with radiation.
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
Hx small right upper lobe pulmonary embolism -August 2024. Decision made not to anticoagulate due to hematemesis on IV heparin.
Hx lumbar vertebral compression fracture
History of cognitive impairment -suspicion of dementia.
Hx stage I ovarian cancer -treated with exploratory lap, LITO/BSO.
DVT proph�Lovenox subcu
DNR
Transfer out of ICU.
PT/OT
Anticipated Discharge: > 48 hours
Subjective/Interval History
-
Date of Service: May 20, 2025
Patient seen and examined, no complaints.
Objective Data
-
Labs:
Laboratory Results
05/20/25
03:07
Sodium 136
Potassium 3.5
Chloride 104
Carbon Dioxide 26
BUN 28 H
Creatinine 0.9
Glucose 88
Calcium 8.3 L
Vital Signs:
Vital Signs
Temp Pulse Resp BP Pulse Ox
97.9 F 81 14 102/47 96
05/20/25 07:21 05/20/25 06:45 05/20/25 06:45 05/20/25 06:00 05/20/25 07:21
I&O
05/19/25 05/20/25 05/21/25
06:59 06:59 06:59
Intake Total 688.6 / 822.1 1597.0 / 1597.0
Output Total 1600 / 1600 1220 / 1220
Balance -911.4 / -777.9 377.0 / 377.0
Review of Systems
-
History Source: Patient
All other systems: Reviewed and negative
[2025-05-20] MEDS: NSS (PRESERVATIVE FREE) 10 ML IV (08:33)
[2025-05-20] MEDS: PROTONIX IV 40 MG IV (08:33)
[2025-05-20] MEDS: POTASSIUM PHOSPHATE 259.0909 MEQ IV (09:36)
[2025-05-20] MEDS: LIDOCAINE 4% PATCH TOPICAL (09:45)
--- NOTE | 2025-05-20 11:00 | PTCARENOTE ---
OOB w/ PT/OT. PT tolerated increased activity w/o complication. Medicated for c/o abdominal pain- see MAR. No changes or additional complaints. Pt taking frequent ice chips despite reminders to limit amount and discussion around current
situation/plan of care.
--- NOTE | 2025-05-20 14:48 | W.PN.GS2 ---
Today's Communication / Plan
-
DC maynard
Start TOPN
PT/OT
Assessment / Plan
-
84 yo female presenting with probable high-grade small bowel obstruction secondary to adhesions given past abdominal surgical history including open cholecystectomy, appendectomy and ex lap LITO/BSO for ovarian CA (stage I). POD #2 lap to open
JERZY/SBR. Extubated.
Plan:
N.p.o., keep NG tube to low intermittent wall suction until return of bowel function.
Pain control.
Antibiotics x day 2/4
DC Maynard today, DTV
PICC ordered, TPN ordered
PT/OT
Surgery will follow
Subjective Data
-
Date of Service: May 20, 2025
AFVSS, pain controlled, OOBTC
Objective Data
-
Intake and Output
05/19/25 05/20/25 05/21/25
06:59 06:59 06:59
Intake Total 688.6 / 822.1 1597.0 / 1647.0 465 / 465
Output Total 1600 / 1600 1220 / 1220 150 / 150
Balance -911.4 / -777.9 377.0 / 427.0 315 / 315
Intake:
Oral fluids 0 / 0
IV fluids (Total) 478.6 / 532.1 1207.0 / 1257.0 350 / 350
LR 400 / 450 1200 / 1250 350 / 350
Propofol 78.6 / 78.6
precedex 7.0 / 7.0
IV piggybacks 150 / 200 300 / 300 115 / 115
Amount instilled into GI Tube ( 60 / 90 90 / 90
Total)
[place] Sump 60 / 90 90 / 90
Output:
Gastrointestinal tube output ( 975 / 975 500 / 500
Total)
[place] Sump 975 / 975 500 / 500
Urine, Maynard 625 / 625 720 / 720 150 / 150
Other:
Number of approximated SMALL 2
amounts of urine
Number of approximated MODERATE 2
amounts of urine
Vital Signs
Temp Pulse Resp BP Pulse Ox
97.9 F 81 14 102/47 96
05/20/25 07:21 05/20/25 06:45 05/20/25 06:45 05/20/25 06:00 05/20/25 07:55
Lab Results
05/19/25 03:05
05/20/25 08:47
Calcium Cancelled 05/20/25 08:47
Phosphorus Cancelled 05/20/25 08:47
Magnesium Cancelled 05/20/25 08:47
Total Bilirubin Cancelled 05/20/25 08:47
AST Cancelled 05/20/25 08:47
ALT Cancelled 05/20/25 08:47
Alkaline Phosphatase Cancelled 05/20/25 08:47
Total Protein Cancelled 05/20/25 08:47
Albumin Cancelled 05/20/25 08:47
Physical Exam
-
Gen: NAD
Abd: soft, approp ttp, incisions cdi, mepilex saturated -removed and replaced with abd pad, no active bleeding from incision
Patient has a maynard catheter: Yes
Patient has a central line: Yes
--- NOTE | 2025-05-20 15:49 | CM ---
Transfer out of ICU. TPN, IV/Zosyn, d/c aleyda, monitoring electrolytes. Discharge POC: Therapy rec for SNF. Discusses with patient and son. patient is resident of [facility] and would like [facility]. Referral forwarded. Provided [employer]
list for additional preferences. Requested at least 3 additional.
--- NOTE | 2025-05-20 16:21 | PTCARENOTE ---
Pt OOB in chair visiting w/ son. C/o generalized abdominal pain- requesting and given Dilaudid 0.25mg IV. Pt to transfer to Rm 403-2 via bed. Report called to Lexii HENRY. Pt's son assisting w/ transporting pt's personal belongings- including phone and
battery charger tester.
[2025-05-20] MEDS: LOVENOX 40 MG SC (18:27)
--- NOTE | 2025-05-20 18:30 | PTCARENOTE ---
Received patient from ICU via bed. AAOx2. Forgetful. Assessed and oriented to room. Abdominal dressing with minimal drainage. Left NGT with LIWS. Family at bedside.
[2025-05-20] MEDS: REMOVE LIDOCAINE PATCH REMOVE (20:17)
[2025-05-20] MEDS: Parenteral Nutrition, Central 900 IV (20:35)
[2025-05-20 23:35] LABS: Glucose - Point of Care 106 mg/dl (70-99)
[2025-05-21] MEDS: ZOSYN 50 IV ×4 (01:57→19:32)
[2025-05-21] MEDS: DILAUDID 0.25 MG IV ×5 (05:38→23:40)
[2025-05-21 06:00] LABS: Blood Urea Nitrogen 21 mg/dl (7-17); Calcium 8.3 mg/dl (8.4-10.2); Carbon Dioxide 26 mmol/L (22-30); Chloride 106 mmol/L (98-107); Estimated Creatinine Clearance 62 ml/min; Glucose 163 mg/dl (70-99); Magnesium 2.3 mg/dl (1.6-2.3); Potassium 3.5 mmol/L (3.5-5.1); Sodium 137 mmol/L (135-145); Triglycerides 159 mg/dl (10-149); eGFR > 60.00
[2025-05-21 06:41] LABS: Glucose - Point of Care 149 mg/dl (70-99)
[2025-05-21 07:41] VITALS: BP 172/80
[2025-05-21] MEDS: LIDOCAINE 4% PATCH TOPICAL (08:40)
[2025-05-21] MEDS: PROTONIX IV 40 MG IV (08:41)
[2025-05-21] MEDS: NSS (PRESERVATIVE FREE) 10 ML IV (08:41)
--- NOTE | 2025-05-21 09:42 | W.PN.HOSP.TC ---
Today's Communication/Plan
-
Potassium phosphate IV
TPN
Assessment / Plan
Assessment / Plan
Gen-awake, alert, NAD
HEENT-NC, AT, anicteric, clear oral mm
Neck-supple
CV-reg, no M, +S1/S2
Lungs-clear
Abd-soft, midline incision with dressing intact, blood under clear dressing
Ext-no edema
Musculoskeletal-no cyanosis, clubbing
Skin-warm and dry
Neuro-grossly non-focal
Acute hypoxic respiratory failure -had preoperative stridor suspected to be due to aspiration related to bowel obstruction. Given a dose of steroids and racemic epinephrine preoperatively.
Oxygenation stable now on room air.
Stridor resolved.
Small bowel obstruction -underwent diagnostic laparoscopy, lysis of adhesions and exploratory laparotomy, small bowel resection for small bowel obstruction 05/18. 60 cm of small bowel removed.
Started on empiric Zosyn IV by surgical service 05/18 evening. Plan for 4 days total per surgical service.
TPN per general surgery. Prealbumin noted to be 7.3.
Hypophosphatemia -potassium phosphate IV ordered.
Normal anion gap metabolic acidosis -resolved.
Hypokalemia -resolved.
Hyponatremia - resolved.
History of lung cancer -diagnosed and treated in 2021 with right lower lobe lobectomy. Subsequently had left lung nodule treated with radiation.
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
Hx small right upper lobe pulmonary embolism -August 2024. Decision made not to anticoagulate due to hematemesis on IV heparin.
Hx lumbar vertebral compression fracture
History of cognitive impairment -suspicion of dementia.
Hx stage I ovarian cancer -treated with exploratory lap, LITO/BSO.
DVT proph�Lovenox subcu
DNR
Dispo -SNF when medically stable.
Updated patient's son.
Anticipated Discharge: > 48 hours
Subjective/Interval History
-
Date of Service: May 21, 2025
Patient seen and examined, complaining of abdominal discomfort with movement from bed to commode and back.
Objective Data
-
Labs:
Laboratory Results
05/21/25
05:06
Sodium 137
Potassium 3.5
Chloride 106
Carbon Dioxide 26
BUN 21 H
Creatinine 0.6
Glucose 163 H
Calcium 8.3 L
Vital Signs:
Vital Signs
Temp Pulse Resp BP Pulse Ox
97.7 F 88 18 172/80 96
05/21/25 07:41 05/21/25 07:41 05/21/25 07:41 05/21/25 07:41 05/21/25 07:41
I&O
05/20/25 05/21/25 05/22/25
06:59 06:59 06:59
Intake Total 1597.0 / 1647.0 725 / 725 470 / 470
Output Total 1220 / 1220 750 / 750 600 / 600
Balance 377.0 / 427.0 -25 / -25 -130 / -130
Review of Systems
-
History Source: Patient
All other systems: Reviewed and negative
[2025-05-21] MEDS: POTASSIUM PHOSPHATE 259.0909 MEQ IV (09:53)
[2025-05-21] MEDS: ANESTHETIC LOZENGE 1 LOZENGE PO ×2 (09:53→19:54)
[2025-05-21 11:13] VITALS: BP 168/82
[2025-05-21 11:55] LABS: Glucose - Point of Care 184 mg/dl (70-99)
--- NOTE | 2025-05-21 12:20 | W.PN.GS2 ---
Today's Communication / Plan
-
`
Assessment / Plan
-
84 yo female POD #3 lap to open JERZY/SBR for high grade SBO d/t adhesions
AFVSS
Awaiting signs of postoperative GI function
Plan:
N.p.o., keep NG tube to low intermittent wall suction until return of bowel function.
Pain control.
Antibiotics x day 3/4
Renew TPN
Spoke with patient's son via phone call to update on current course and treatment plan
Subjective Data
-
Date of Service: May 21, 2025
Patient seen and examined. Nursing students at bedside as well.
Patient's chief complaint is postoperative incisional pain. Worse with movement.
No nausea.
Tolerating NG tube
No flatus or bowel movement yet
She has been able to void
Objective Data
-
Intake and Output
05/20/25 05/21/25 05/22/25
06:59 06:59 06:59
Intake Total 1597.0 / 1647.0 725 / 725 470 / 470
Output Total 1220 / 1220 750 / 750 600 / 600
Balance 377.0 / 427.0 -25 / -25 -130 / -130
Intake:
IV fluids (Total) 1207.0 / 1257.0 500 / 500
LR 1200 / 1250 500 / 500
precedex 7.0 / 7.0
IV piggybacks 300 / 300 165 / 165
TPN/PPN 380 / 380
Amount instilled into GI Tube ( 90 / 90 60 / 60 90 / 90
Total)
[place] Sump 90 / 90 60 / 60 90 / 90
Output:
Gastrointestinal tube output ( 500 / 500 600 / 600 600 / 600
Total)
[place] Sump 500 / 500 600 / 600 600 / 600
Urine, Pringle 720 / 720 150 / 150
Other:
Number of approximated MODERATE 1
amounts of urine
Vital Signs
Temp Pulse Resp BP Pulse Ox
97.4 F 89 18 168/82 95
05/21/25 11:13 05/21/25 11:13 05/21/25 11:13 05/21/25 11:13 05/21/25 12:11
Lab Results
05/19/25 03:05
05/21/25 05:06
Calcium 8.3 mg/dl (8.4-10.2) L 05/21/25 05:06
Phosphorus 2.1 mg/dl (2.5-4.5) L 05/21/25 05:06
Magnesium 2.3 mg/dl (1.6-2.3) 05/21/25 05:06
Total Bilirubin Cancelled 05/20/25 08:47
AST Cancelled 05/20/25 08:47
ALT Cancelled 05/20/25 08:47
Alkaline Phosphatase Cancelled 05/20/25 08:47
Total Protein Cancelled 05/20/25 08:47
Albumin Cancelled 05/20/25 08:47
Physical Exam
-
NAD AAO x 3
ABD: Soft, not tensely distended, appropriate tender to palpation around her incision.
Incision with miguelito and slight bloody drainage between areas where skin . No erythema, no purulence. Dressing changed
[2025-05-21 15:44] VITALS: BP 134/61
[2025-05-21 16:35] LABS: Glucose - Point of Care 171 mg/dl (70-99)
[2025-05-21] MEDS: LOVENOX 40 MG SC (18:04)
[2025-05-21 18:08] LABS: Glucose - Point of Care 173 mg/dl (70-99)
[2025-05-21] MEDS: NOVOLOG FLEXPEN-LOW RESISTANCE 1 UNITS SC (18:26)
[2025-05-21] MEDS: REMOVE LIDOCAINE PATCH REMOVE (19:28)
[2025-05-21] MEDS: Parenteral Nutrition, Central 1270 IV (20:28)
[2025-05-21 23:05] VITALS: BP 170/90
[2025-05-21 23:58] LABS: Glucose - Point of Care 245 mg/dl (70-99)
[2025-05-21] MEDS: NOVOLOG FLEXPEN-LOW RESISTANCE 2 UNITS SC (23:59)
[2025-05-22] MEDS: ZOSYN 50 IV ×4 (01:33→20:56)
[2025-05-22] MEDS: DILAUDID 0.25 MG IV ×3 (03:50→17:26)
[2025-05-22 05:17] LABS: Blood Urea Nitrogen 16 mg/dl (7-17); Calcium 8.0 mg/dl (8.4-10.2); Carbon Dioxide 27 mmol/L (22-30); Chloride 104 mmol/L (98-107); Estimated Creatinine Clearance 62 ml/min; Glucose 202 mg/dl (70-99); Magnesium 2.2 mg/dl (1.6-2.3); Potassium 3.5 mmol/L (3.5-5.1); Sodium 136 mmol/L (135-145); eGFR > 60.00
[2025-05-22 05:47] LABS: Glucose - Point of Care 205 mg/dl (70-99)
[2025-05-22 06:00] VITALS: BMI 28.2
[2025-05-22] MEDS: NOVOLOG FLEXPEN-LOW RESISTANCE 2 UNITS SC ×3 (06:15→17:27)
[2025-05-22 07:00] VITALS: BP 164/76
[2025-05-22] MEDS: NSS (PRESERVATIVE FREE) 10 ML IV (07:57)
[2025-05-22] MEDS: PROTONIX IV 40 MG IV (07:58)
[2025-05-22] MEDS: LIDOCAINE 4% PATCH 1 PATCH TOPICAL (07:58)
[2025-05-22] MEDS: KCL 270 MEQ IV (09:50)
[2025-05-22 11:30] LABS: Glucose - Point of Care 203 mg/dl (70-99)
[2025-05-22 11:35] VITALS: BP 131/45
--- NOTE | 2025-05-22 11:55 | W.PN.GS2 ---
Addendum entered and electronically signed by Luke Phillips MD 05/22/25 12:18:
I saw and examined the patient.
The Carrot Grader Inspector's note was reviewed and I agree with the note.
Comment: Improved, passing flatus, pain controlled, minima NGT output, belly soft, incision cdi with miguelito, DC NGT, cont TPN, cont sips and chips for now.
Original Note:
Today's Communication / Plan
-
d/c ngt, sips of clears
continue tpn
Assessment / Plan
-
84 yo female POD #4 lap to open JERZY/SBR for high grade SBO d/t adhesions
AFVSS
Passing flatus
NGT with mostly gastric outputs, decreased overnight
Plan:
D/C NGT
Ok for sips of clears/ice chips
Pain control, will schedule Ofirmev, prn hydromorphone available
Antibiotics x day 11/07
Renew TPN
Spoke with patient's son on floor to discuss plan of care
Subjective Data
-
Date of Service: May 22, 2025
Pt seen and examined at bedside with Dr. Phillips. Son present, questions addressed. Denies n/v. Passing gas. Still with abdominal pain/incisional tenderness but manageable.
Objective Data
-
Intake and Output
05/21/25 05/22/25 05/23/25
06:59 06:59 06:59
Intake Total 725 / 725 660 / 660
Output Total 750 / 750 1150 / 1150
Balance -25 / -25 -490 / -490
Intake:
IV fluids (Total) 500 / 500
LR 500 / 500
IV piggybacks 165 / 165 100 / 100
TPN/PPN 380 / 380
Amount instilled into GI Tube ( 60 / 60 180 / 180
Total)
[place] Sump 60 / 60 180 / 180
Output:
Gastrointestinal tube output ( 600 / 600 1150 / 1150
Total)
[place] Sump 600 / 600 1150 / 1150
Urine, Maynard 150 / 150
Other:
How many times incontinent 3
SMALL amount urine
How many times incontinent 5
MODERATE amount urine
Number of approximated MODERATE 5
amounts of urine
Vital Signs
Temp Pulse Resp BP Pulse Ox
98.1 F 90 15 164/76 98
05/22/25 07:00 05/22/25 07:00 05/22/25 07:00 05/22/25 07:00 05/22/25 07:00
Lab Results
05/19/25 03:05
05/22/25 04:14
Calcium 8.0 mg/dl (8.4-10.2) L 05/22/25 04:14
Phosphorus 2.5 mg/dl (2.5-4.5) 05/22/25 04:14
Magnesium 2.2 mg/dl (1.6-2.3) 05/22/25 04:14
Total Bilirubin Cancelled 05/20/25 08:47
AST Cancelled 05/20/25 08:47
ALT Cancelled 05/20/25 08:47
Alkaline Phosphatase Cancelled 05/20/25 08:47
Total Protein Cancelled 05/20/25 08:47
Albumin Cancelled 05/20/25 08:47
Physical Exam
-
NAD AAO x 3
ABD: Soft, minimally distended, appropriate tender to palpation around her incision.
Incision with miguelito and slight bloody drainage between areas where skin . No erythema, no purulence.
Patient has a maynard catheter: No
Patient has a central line: Yes (picc)
--- NOTE | 2025-05-22 11:59 | W.PN.HOSP.TC ---
Today's Communication/Plan
-
continue current care
Assessment / Plan
Assessment / Plan
Gen-awake, alert, NAD
HEENT-NC, AT, anicteric, clear oral mm
Neck-supple
CV-reg, no M, +S1/S2
Lungs-clear
Abd-soft, midline incision with dressing intact, blood under clear dressing
Ext-no edema
Musculoskeletal-no cyanosis, clubbing
Skin-warm and dry
Neuro-grossly non-focal
Acute hypoxic respiratory failure -resolved.
Had preoperative stridor suspected to be due to aspiration related to bowel obstruction. Given a dose of steroids and racemic epinephrine preoperatively.
Oxygenation stable now on room air.
Stridor resolved.
Small bowel obstruction -underwent diagnostic laparoscopy, lysis of adhesions and exploratory laparotomy, small bowel resection for small bowel obstruction 05/18. 60 cm of small bowel removed.
Started on empiric Zosyn IV by surgical service 05/18 evening. Plan for 4 days total per surgical service, today is day 4.
NPO, TPN per general surgery. Prealbumin noted to be 7.3.
Hypophosphatemia -improved.
Normal anion gap metabolic acidosis -resolved.
Hypokalemia -resolved.
Hyponatremia - resolved.
History of lung cancer -diagnosed and treated in 2021 with right lower lobe lobectomy. Subsequently had left lung nodule treated with radiation.
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
Hx small right upper lobe pulmonary embolism -August 2024. Decision made not to anticoagulate due to hematemesis on IV heparin.
Hx lumbar vertebral compression fracture
History of cognitive impairment -suspicion of dementia.
Hx stage I ovarian cancer -treated with exploratory lap, LITO/BSO.
DVT proph�Lovenox subcu
DNR
Dispo -SNF when medically stable.
Updated patient's son.
Anticipated Discharge: > 48 hours
Subjective/Interval History
-
Date of Service: May 22, 2025
Patient seen/examined, some abdominal pain.
Objective Data
-
Labs:
Laboratory Results
05/22/25
04:14
Sodium 136
Potassium 3.5
Chloride 104
Carbon Dioxide 27
BUN 16
Creatinine 0.5 L
Glucose 202 H
Calcium 8.0 L
Vital Signs:
Vital Signs
Temp Pulse Resp BP Pulse Ox
98.1 F 90 15 164/76 98
05/22/25 07:00 05/22/25 07:00 05/22/25 07:00 05/22/25 07:00 05/22/25 07:00
I&O
05/21/25 05/22/25 05/23/25
06:59 06:59 06:59
Intake Total 725 / 725 660 / 660
Output Total 750 / 750 1150 / 1150
Balance -25 / -25 -490 / -490
Review of Systems
-
History Source: Patient
All other systems: Reviewed and negative
[2025-05-22] MEDS: OFIRMEV 100 IV ×2 (13:01→17:26)
[2025-05-22 15:48] VITALS: BP 159/83; PULSE 81; O2SAT 95
[2025-05-22] MEDS: LOVENOX 40 MG SC (16:24)
--- NOTE | 2025-05-22 16:40 | CM ---
Remains NPO .
NG tube removed.
TPN remains.
Requested [facility].
Will need auth for SNF.
PLAN To [facility] after auth obtained and medically ready .
[2025-05-22 17:29] LABS: Glucose - Point of Care 211 mg/dl (70-99)
[2025-05-22] MEDS: REMOVE LIDOCAINE PATCH REMOVE (20:55)
[2025-05-22] MEDS: Parenteral Nutrition, Central 1270 IV (21:25)
[2025-05-22 23:53] VITALS: BP 166/81
[2025-05-23 01:44] LABS: Glucose - Point of Care 190 mg/dl (70-99)
[2025-05-23] MEDS: OFIRMEV 100 IV ×4 (01:52→17:54)
[2025-05-23] MEDS: NOVOLOG FLEXPEN-LOW RESISTANCE 1 UNITS SC ×4 (01:52→23:56)
[2025-05-23 06:00] VITALS: BMI 27.9
[2025-05-23 06:07] LABS: Glucose - Point of Care 169 mg/dl (70-99)
[2025-05-23 07:14] VITALS: BP 169/86
[2025-05-23 08:02] LABS: Hematocrit 33.4 % (37.0-47.0); Hemoglobin 11.2 g/dL (12.0-16.0); Mean Corp Hgb Conc. 33.5 g/dL (33.0-37.0); Mean Corpuscular Volume 87.7 fL (81.0-99.0); Platelet Count 206 10^3/uL (130-400); Red Cell Dist. Width 13.1 % (11.5-14.5)
[2025-05-23] MEDS: PROTONIX IV 40 MG IV (08:02)
[2025-05-23] MEDS: NSS (PRESERVATIVE FREE) 10 ML IV (08:02)
[2025-05-23] MEDS: LIDOCAINE 4% PATCH 1 PATCH TOPICAL (08:02)
[2025-05-23] MEDS: FLUSH (NSS) 2 FLUSH IV (08:03)
[2025-05-23 08:19] LABS: Blood Urea Nitrogen 17 mg/dl (7-17); Calcium 8.0 mg/dl (8.4-10.2); Carbon Dioxide 26 mmol/L (22-30); Chloride 106 mmol/L (98-107); Estimated Creatinine Clearance 61 ml/min; Glucose 192 mg/dl (70-99); Magnesium 2.2 mg/dl (1.6-2.3); Potassium 4.1 mmol/L (3.5-5.1); Sodium 135 mmol/L (135-145); eGFR > 60.00
--- NOTE | 2025-05-23 09:24 | W.PN.HOSP.TC ---
Today's Communication/Plan
-
Continue current care
Assessment / Plan
Assessment / Plan
Gen-awake, alert, NAD
HEENT-NC, AT, anicteric, clear oral mm
Neck-supple
CV-reg, no M, +S1/S2
Lungs-clear
Abd-soft, midline incision with dressing intact, blood under clear dressing
Ext-no edema
Musculoskeletal-no cyanosis, clubbing
Skin-warm and dry
Neuro-grossly non-focal
Acute hypoxic respiratory failure -resolved.
Had preoperative stridor suspected to be due to aspiration related to bowel obstruction. Given a dose of steroids and racemic epinephrine preoperatively.
Oxygenation stable now on room air.
Stridor resolved.
Small bowel obstruction -underwent diagnostic laparoscopy, lysis of adhesions and exploratory laparotomy, small bowel resection for small bowel obstruction 05/18. 60 cm of small bowel removed.
Completed course of Zosyn.
NG tube removed yesterday.
NPO, TPN per general surgery. Prealbumin noted to be 7.3.
Hypophosphatemia -improved.
Normal anion gap metabolic acidosis -resolved.
Hypokalemia -resolved.
Hyponatremia - resolved.
History of lung cancer -diagnosed and treated in 2021 with right lower lobe lobectomy. Subsequently had left lung nodule treated with radiation.
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
Hx small right upper lobe pulmonary embolism -August 2024. Decision made not to anticoagulate due to hematemesis on IV heparin.
Hx lumbar vertebral compression fracture
History of cognitive impairment -suspicion of dementia.
Hx stage I ovarian cancer -treated with exploratory lap, LITO/BSO.
DVT proph�Lovenox subcu
DNR
Dispo -SNF when medically stable.
Anticipated Discharge: 24 - 48 hours
Subjective/Interval History
-
Date of Service: May 23, 2025
Patient seen and examined, feeling fine, no complaints.
Objective Data
-
Labs:
Laboratory Results
05/23/25
07:46
WBC 6.8
Hgb 11.2 L
Hct 33.4 L
Plt Count 206
Sodium 135
Potassium 4.1
Chloride 106
Carbon Dioxide 26
BUN 17
Creatinine 0.5 L
Glucose 192 H
Calcium 8.0 L
Vital Signs:
Vital Signs
Temp Pulse Resp BP Pulse Ox
97.4 F 81 16 169/86 96
05/23/25 07:14 05/23/25 07:14 05/23/25 07:14 05/23/25 07:14 05/23/25 07:14
I&O
05/22/25 05/23/25 05/24/25
06:59 06:59 06:59
Intake Total 750 / 750 240 / 240
Output Total 1400 / 1400
Balance -650 / -650 240 / 240
Review of Systems
-
History Source: Patient
All other systems: Reviewed and negative
[2025-05-23 12:08] LABS: Glucose - Point of Care 220 mg/dl (70-99)
[2025-05-23] MEDS: NOVOLOG FLEXPEN-LOW RESISTANCE 2 UNITS SC (12:15)
--- NOTE | 2025-05-23 13:14 | W.PN.GS2 ---
Today's Communication / Plan
-
Clears
TPN
Assessment / Plan
-
84 yo female POD #5 lap to open JERZY/SBR for high grade SBO d/t adhesions
AFVSS
Passing flatus
NGT out on 05/22, tolerating sips/ice chips without nausea
Mild acute anemia, suspect secondary to hemodilution vs expected operative blood losses. No active bleeding noted
Plan:
Advance to clear liquids
Pain control, will schedule Ofirmev, prn hydromorphone available
Completed 4 day course of abx post operatively
Renew TPN
OOB/Ambulate. PT/OT following
Lovenox and scds for vte ppx
Subjective Data
-
Date of Service: May 23, 2025
Pt seen and examined at bedside with Dr. Choe. Denies n/v. Not sure if she has passed much flatus. Still notes incisional pain.
Objective Data
-
Intake and Output
05/22/25 05/23/25 05/24/25
06:59 06:59 06:59
Intake Total 750 / 750 240 / 240
Output Total 1400 / 1400
Balance -650 / -650 240 / 240
Intake:
Oral fluids 240 / 240
IV piggybacks 100 / 100
TPN/PPN 380 / 380
Amount instilled into GI Tube ( 270 / 270
Total)
Kiln Sump 270 / 270
Output:
Gastrointestinal tube output ( 1400 / 1400
Total)
Kiln Sump 1400 / 1400
Other:
How many times incontinent 3 3
SMALL amount urine
How many times incontinent 5 2
MODERATE amount urine
Number of approximated SMALL 6
amounts of urine
Number of approximated MODERATE 5
amounts of urine
Vital Signs
Temp Pulse Resp BP Pulse Ox
97.4 F 81 16 169/86 95
05/23/25 07:14 05/23/25 07:14 05/23/25 07:14 05/23/25 07:14 05/23/25 10:45
Lab Results
05/23/25 07:46
05/23/25 07:46
Calcium 8.0 mg/dl (8.4-10.2) L 05/23/25 07:46
Phosphorus 2.5 mg/dl (2.5-4.5) 05/22/25 04:14
Magnesium 2.2 mg/dl (1.6-2.3) 05/23/25 07:46
Total Bilirubin Cancelled 05/20/25 08:47
AST Cancelled 05/20/25 08:47
ALT Cancelled 05/20/25 08:47
Alkaline Phosphatase Cancelled 05/20/25 08:47
Total Protein Cancelled 05/20/25 08:47
Albumin Cancelled 05/20/25 08:47
Physical Exam
-
NAD AAO x 3
ABD: Soft, non distended, appropriate tender to palpation around her incision
Incision with miguelito and minimal bloody drainage between areas where skin . No erythema, no purulence.
Patient has a maynard catheter: No
Patient has a central line: Yes (picc)
[2025-05-23 15:00] VITALS: BP 179/83
[2025-05-23 17:32] VITALS: BP 139/93
[2025-05-23] MEDS: LOVENOX 40 MG SC (17:54)
[2025-05-23 17:59] LABS: Glucose - Point of Care 186 mg/dl (70-99)
[2025-05-23] MEDS: REMOVE LIDOCAINE PATCH REMOVE (21:25)
[2025-05-23] MEDS: Parenteral Nutrition, Central 1450 IV (21:26)
[2025-05-23] MEDS: DILAUDID 0.25 MG IV (21:29)
[2025-05-23 23:40] LABS: Glucose - Point of Care 161 mg/dl (70-99)
[2025-05-23 23:42] VITALS: BP 166/85
[2025-05-24] MEDS: OFIRMEV 100 IV ×3 (01:00→13:00)
[2025-05-24 06:00] VITALS: BMI 27.9
[2025-05-24 06:14] LABS: Glucose - Point of Care 184 mg/dl (70-99)
[2025-05-24] MEDS: NOVOLOG FLEXPEN-LOW RESISTANCE 1 UNITS SC (06:19)
[2025-05-24 07:17] VITALS: BP 158/83
[2025-05-24] MEDS: PROTONIX 40 MG PO (08:03)
[2025-05-24] MEDS: LIDOCAINE 4% PATCH 1 PATCH TOPICAL (08:04)
[2025-05-24 08:28] LABS: Hematocrit 36.1 % (37.0-47.0); Hemoglobin 12.2 g/dL (12.0-16.0); Mean Corp Hgb Conc. 33.8 g/dL (33.0-37.0); Mean Corpuscular Volume 87.6 fL (81.0-99.0); Platelet Count 232 10^3/uL (130-400); Red Cell Dist. Width 13.1 % (11.5-14.5)
[2025-05-24 08:34] LABS: ALT (SGPT) 37 U/L (0-35); AST (SGOT) 49 U/L (14-36); Albumin 3.0 g/dl (3.5-5.0); Alkaline Phosphatase 94 U/L (38-126); Blood Urea Nitrogen 14 mg/dl (7-17); Calcium 8.3 mg/dl (8.4-10.2); Carbon Dioxide 25 mmol/L (22-30); Chloride 104 mmol/L (98-107); Estimated Creatinine Clearance 61 ml/min; Glucose 203 mg/dl (70-99); Magnesium 2.2 mg/dl (1.6-2.3); Potassium 4.1 mmol/L (3.5-5.1); Sodium 132 mmol/L (135-145); Total Protein 5.6 g/dl (6.3-8.2); Triglycerides 209 mg/dl (10-149); eGFR > 60.00
--- NOTE | 2025-05-24 10:16 | W.PN.HOSP.TC ---
Today's Communication/Plan
-
Diet per surgical service
Assessment / Plan
Assessment / Plan
Gen-awake, alert, NAD
HEENT-NC, AT, anicteric, clear oral mm
Neck-supple
CV-reg, no M, +S1/S2
Lungs-clear
Abd-soft, midline incision with dressing intact, blood under clear dressing
Ext-no edema
Musculoskeletal-no cyanosis, clubbing
Skin-warm and dry
Neuro-grossly non-focal
Acute hypoxic respiratory failure -resolved.
Had preoperative stridor suspected to be due to aspiration related to bowel obstruction. Given a dose of steroids and racemic epinephrine preoperatively.
Oxygenation stable now on room air.
Stridor resolved.
Small bowel obstruction -underwent diagnostic laparoscopy, lysis of adhesions and exploratory laparotomy, small bowel resection for small bowel obstruction 05/18. 60 cm of small bowel removed.
Completed course of Zosyn.
NG tube removed. Now on full liquids.
TPN per general surgery. Prealbumin noted to be 7.3.
Hypophosphatemia -improved.
Normal anion gap metabolic acidosis -resolved.
Hypokalemia -resolved.
Hyponatremia - 132, monitor for now.
History of lung cancer -diagnosed and treated in 2021 with right lower lobe lobectomy. Subsequently had left lung nodule treated with radiation.
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
Hx small right upper lobe pulmonary embolism -August 2024. Decision made not to anticoagulate due to hematemesis on IV heparin.
Hx lumbar vertebral compression fracture
History of cognitive impairment -suspicion of dementia.
Hx stage I ovarian cancer -treated with exploratory lap, LITO/BSO.
DVT proph�Lovenox subcu
DNR
Dispo -SNF when medically stable.
Anticipated Discharge: > 48 hours
Subjective/Interval History
-
Date of Service: May 24, 2025
Patient seen and examined. No new complaints.
Objective Data
-
Labs:
Laboratory Results
05/24/25
08:06
WBC 9.4
Hgb 12.2
Hct 36.1 L
Plt Count 232
Sodium 132 L
Potassium 4.1
Chloride 104
Carbon Dioxide 25
BUN 14
Creatinine 0.5 L
Glucose 203 H
Calcium 8.3 L
Total Bilirubin 0.9
AST 49 H
ALT 37 H
Alkaline Phosphatase 94
Vital Signs:
Vital Signs
Temp Pulse Resp BP Pulse Ox
98 F 81 16 158/83 98
05/24/25 07:17 05/24/25 07:17 05/24/25 07:17 05/24/25 07:17 05/24/25 07:17
I&O
05/23/25 05/24/25 05/25/25
06:59 06:59 06:59
Intake Total 240 / 240 1160 / 1160
Output Total 580 / 580
Balance 240 / 240 1160 / 1160 -580 / -580
Review of Systems
-
History Source: Patient
All other systems: Reviewed and negative
--- NOTE | 2025-05-24 12:17 | W.PN.GS2 ---
Today's Communication / Plan
-
Advance diet, no further TPN after this bag
Assessment / Plan
-
84 yo female POD #6 lap to open JERZY/SBR for high grade SBO d/t adhesions
AFVSS
Passing flatus and multiple loose stools (expected)
NGT out on 05/22, tolerating clears
Labs stable
No leukocytosis
Mild hyponatremia present
Plan:
Advance to FLD with supplements
Pain control with scheduled tylenol prn narcotics available
Complete this bag of TPN then d/c
OOB/Ambulate. PT/OT following. anticipate rehab on d/c, CM following
Lovenox and scds for vte ppx
Updated patient's son via telephone
Subjective Data
-
Date of Service: May 24, 2025
Pt seen and examined at bedside with Dr. Choe. Denies n/v. Passing multiple loose stools and flatus. Incision still with discomfort but otherwise not in pain.
Objective Data
-
Intake and Output
05/23/25 05/24/25 05/25/25
06:59 06:59 06:59
Intake Total 240 / 240 1160 / 1160
Output Total 580 / 580
Balance 240 / 240 1160 / 1160 -580 / -580
Intake:
Oral fluids 240 / 240 240 / 240
IV piggybacks 200 / 200
TPN/PPN 720 / 720
Output:
Urine, Voided 580 / 580
Other:
How many times incontinent 3
SMALL amount urine
How many times incontinent 2
MODERATE amount urine
Number of approximated SMALL 6 4 6
amounts of urine
Number of approximated MODERATE 4 1
amounts of urine
Number of unmeasured liquid
stools
Rectum 4
Vital Signs
Temp Pulse Resp BP Pulse Ox
98 F 81 16 158/83 98
05/24/25 07:17 05/24/25 07:17 05/24/25 07:17 05/24/25 07:17 05/24/25 07:17
Lab Results
05/24/25 08:06
05/24/25 08:06
Calcium 8.3 mg/dl (8.4-10.2) L 05/24/25 08:06
Phosphorus 3.1 mg/dl (2.5-4.5) 05/24/25 08:06
Magnesium 2.2 mg/dl (1.6-2.3) 05/24/25 08:06
Total Bilirubin 0.9 mg/dl (0.2-1.3) 05/24/25 08:06
AST 49 U/L (14-36) H 05/24/25 08:06
ALT 37 U/L (0-35) H 05/24/25 08:06
Alkaline Phosphatase 94 U/L (38-126) 05/24/25 08:06
Total Protein 5.6 g/dl (6.3-8.2) L 05/24/25 08:06
Albumin 3.0 g/dl (3.5-5.0) L 05/24/25 08:06
Physical Exam
-
NAD AAO x 3
ABD: Soft, non distended, appropriate tender to palpation around her incision
Incision with miguelito and minimal bloody drainage between areas where skin . No erythema, no purulence.
Patient has a maynard catheter: No
Patient has a central line: Yes (picc)
[2025-05-24 12:57] LABS: Glucose - Point of Care 209 mg/dl (70-99)
[2025-05-24] MEDS: NOVOLOG FLEXPEN-LOW RESISTANCE 2 UNITS SC ×2 (13:00→18:22)
[2025-05-24 15:07] VITALS: BP 157/94
[2025-05-24 18:16] LABS: Glucose - Point of Care 209 mg/dl (70-99)
[2025-05-24] MEDS: LOVENOX 40 MG SC (18:21)
[2025-05-24] MEDS: TYLENOL 650 MG PO (20:15)
[2025-05-24] MEDS: REMOVE LIDOCAINE PATCH 1 PATCH REMOVE (20:16)
[2025-05-24 21:42] LABS: Glucose - Point of Care 159 mg/dl (70-99)
[2025-05-24 23:28] VITALS: BP 112/73
[2025-05-25] MEDS: MELATONIN 3 MG PO (00:14)
[2025-05-25] MEDS: TYLENOL 650 MG PO ×6 (00:14→20:19)
[2025-05-25 05:08] VITALS: BMI 27.8
--- NOTE | 2025-05-25 05:53 | VATNOTE ---
05/25 3408
Patients PICC line flushes but unable to get a blood return from both lumens. PCN Brandy aware, VAT reached out to [facility] for order for cath dillan. PCN to call when the medication has arrived.
[2025-05-25 07:20] VITALS: BP 134/72
[2025-05-25 08:36] LABS: Glucose - Point of Care 145 mg/dl (70-99)
--- NOTE | 2025-05-25 08:40 | W.PN.HOSP.TC ---
Addendum entered and electronically signed by Krystal Ya MD 05/25/25 19:06:
I saw and evaluated the patient independently. I reviewed the resident�s note and agree with findings and plan as documented by Dr. Ivory.
GENERAL: well developed, well nourished, female in no apparent distress
HEENT: NC/AT
HEART: regular rate and rhythm, +S1, +S2
LUNGS : clear to auscultation bilaterally
ABDOM: soft, nontender, nondistended, + bowel sounds
EXT: no cyanosis, clubbing, or edema
NEUROLOGIC: apparent dementia--grossly intact
Small bowel obstruction -underwent diagnostic laparoscopy, lysis of adhesions and exploratory laparotomy, small bowel resection for small bowel obstruction 05/18. 60 cm of small bowel removed. s/p full course zosyn--s/p TPN with diet
advancement-�Prealbumin noted to be 7.3 low� Diet advanced to low residue 05/25/2025 and patient tolerated it� Diarrhea likely due to diet advancement and bowels recovering from abdominal surgery--hold on stool studies for now
Urinary frequency--Symptoms started 05/24/2025--UA 05/25/2025 with 3+ leukocyte esterase, negative nitrites, 21�25 WBC, 3-5 squamous cells, few bacteria, 4+ occult blood� Ceftriaxone until cultures return--if having loose BMs could very well have UTI
Mild hyponatremia - monitor for now.
Hypophosphatemia -resolved.
Normal anion gap metabolic acidosis -resolved.
Hypokalemia -resolved.
Acute hypoxic respiratory failure -resolved-�Had preoperative stridor suspected to be due to aspiration related to bowel obstruction. Given a dose of steroids and racemic epinephrine preoperatively�Oxygenation stable now on room air.
Hx lung cancer -diagnosed and treated in 2021 with right lower lobe lobectomy. Subsequently had left lung nodule treated with radiation.
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
Hx small right upper lobe pulmonary embolism -August 2024. Decision made not to anticoagulate due to hematemesis on IV heparin.
Hx lumbar vertebral compression fracture
Hx cognitive impairment -suspicion of dementia.
Hx stage I ovarian cancer -treated with exploratory lap, LITO/BSO.
DVT proph�Lovenox subcu
code status--DNR
Original Note:
Today's Communication/Plan
-
Overnight, patient developed more watery bowel movements. She had a liquid brown bowel movement after having her first meal with solid foods today. Diarrhea likely due to diet advancement and bowels recovering from abdominal surgery. Diet
advancement deferred to surgery
Urinary frequency
Symptoms started 05/24/2025.
UA 05/25/2025 with 3+ leukocyte esterase, negative nitrites, 21�25 WBC, 3-5 squamous cells, few bacteria, 4+ occult blood scratch
� Ceftriaxone 1 g IV every 24 hours.
� Pending urine culture and sensitivities.
Assessment / Plan
Assessment / Plan
84 yo female with past medical history significant for ovarian cancer status post hysterectomy and oophorectomy, history history of prior TIA, GERD, lung cancer status post right lower lobe lobectomy, prior history of upper GI bleed, CKD stage II,
chronic back pain with muscle spasms, who is POD #7 laparoscopic to open JERZY/SBR for high grade SBO d/t adhesions.
Small bowel obstruction -underwent diagnostic laparoscopy, lysis of adhesions and exploratory laparotomy, small bowel resection for small bowel obstruction 05/18. 60 cm of small bowel removed.
�Completed course of Zosyn.
�Prealbumin noted to be 7.3 low
�TPN 05/23/2022 to 05/24/2025. NG tube removed.
� Diet advanced to low residue 05/25/2025 and patient tolerated it. Diet advancement deferred to surgery.
� Diarrhea likely due to diet advancement and bowels recovering from abdominal surgery
Urinary frequency
Symptoms started 05/24/2025.
UA 05/25/2025 with 3+ leukocyte esterase, negative nitrites, 21�25 WBC, 3-5 squamous cells, few bacteria, 4+ occult blood scratch
� Ceftriaxone 1 g IV every 24 hours.
� Pending urine culture and sensitivities.
Mild hyponatremia - monitor for now.
Hypophosphatemia -resolved.
Normal anion gap metabolic acidosis -resolved.
Hypokalemia -resolved.
Acute hypoxic respiratory failure -resolved.
�Had preoperative stridor suspected to be due to aspiration related to bowel obstruction. Given a dose of steroids and racemic epinephrine preoperatively.
�Oxygenation stable now on room air.
�Stridor resolved.
Hx lung cancer -diagnosed and treated in 2021 with right lower lobe lobectomy. Subsequently had left lung nodule treated with radiation.
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
Hx small right upper lobe pulmonary embolism -August 2024. Decision made not to anticoagulate due to hematemesis on IV heparin.
Hx lumbar vertebral compression fracture
Hx cognitive impairment -suspicion of dementia.
Hx stage I ovarian cancer -treated with exploratory lap, LITO/BSO.
DVT proph�Lovenox subcu
DNR
Dispo -SNF when medically stable.
Anticipated Discharge: 24 - 48 hours
Subjective/Interval History
-
Date of Service: May 25, 2025
Patient developed diarrhea overnight. Today breakfast was her first meal with solids. Her BM was dark brown liquid. She reported significant pain at her perineum after her BM and was requesting a cream.
Objective Data
-
Labs:
Laboratory Results
LABS
WBC 9.4 10^3/uL (4.8-10.8) 05/24/25 08:06
RBC 4.12 10^6/uL (4.20-5.40) L 05/24/25 08:06
Hgb 12.2 g/dL (12.0-16.0) 05/24/25 08:06
Hct 36.1 % (37.0-47.0) L 05/24/25 08:06
MCV 87.6 fL (81.0-99.0) 05/24/25 08:06
MCH 29.6 pg (27.0-31.0) 05/24/25 08:06
MCHC 33.8 g/dL (33.0-37.0) 05/24/25 08:06
RDW 13.1 % (11.5-14.5) 05/24/25 08:06
Plt Count 232 10^3/uL (130-400) 05/24/25 08:06
MPV 9.5 fL (7.4-10.4) 05/24/25 08:06
Abs Immat Gran (auto) 0.0 10^3/uL (0-0.05) 05/19/25 03:05
Absolute Neuts (auto) 6.8 10^3/uL (1.4-6.5) H 05/19/25 03:05
Absolute Lymphs (auto) 0.5 10^3/uL (1.2-3.4) L 05/19/25 03:05
Absolute Monos (auto) 0.9 10^3/uL (0.1-0.6) H 05/19/25 03:05
Absolute Eos (auto) 0.0 10^3/uL (0-0.7) 05/19/25 03:05
Absolute Basos (auto) 0.0 10^3/uL (0-0.2) 05/19/25 03:05
Immature Gran % 0.4 % (0-0.5) 05/19/25 03:05
Neutrophils % 83.0 % (42.2-75.2) H 05/19/25 03:05
Lymphocytes % 5.6 % (20.5-51.1) L 05/19/25 03:05
Monocytes % 10.8 % (1.7-9.3) H 05/19/25 03:05
Eosinophils % 0.0 % (0-6) 05/19/25 03:05
Basophils % 0.2 % (0-2) 05/19/25 03:05
Nucleated RBC % 0 % 05/19/25 03:05
PT 15.8 Sec (11.4-14.6) H 05/18/25 20:22
INR 1.24 05/18/25 20:22
APTT 30.2 Sec (23.4-35.0) 05/18/25 20:22
VBG pH 7.30 (7.32-7.43) L 05/18/25 21:43
VBG pCO2 36 mmHg (35-48) 05/18/25 21:43
VBG pO2 207 mmHg (30-50) H 05/18/25 21:43
VBG HCO3 17.7 mmol/L (22-27) L 05/18/25 21:43
VBG O2 Sat (Phi) 100.0 % 05/18/25:43
VBG Base Excess -7.9 mmol/L (-4 to +4) 05/18/25:43
VBG O2 Therapy 05/18/25 21:43
Sodium 134 mmol/L (135-145) L 05/25/25 08:45
Potassium 4.0 mmol/L (3.5-5.1) 05/25/25 08:45
Chloride 103 mmol/L (98-107) 05/25/25 08:45
Carbon Dioxide 23 mmol/L (22-30) 05/25/25 08:45
BUN 15 mg/dl (7-17) 05/25/25 08:45
Creatinine 0.6 mg/dL (0.6-1.0) 05/25/25 08:45
Estimated Creat Clear 61 ml/min 05/25/25 08:45
eGFR > 60.00 05/25/25 08:45
Glucose 128 mg/dl (70-99) H 05/25/25 08:45
Lactic Acid Cancelled 05/20/25 09:16
Calcium 8.7 mg/dl (8.4-10.2) 05/25/25 08:45
Phosphorus 3.8 mg/dl (2.5-4.5) 05/25/25 08:45
Magnesium 2.2 mg/dl (1.6-2.3) 05/25/25 08:45
Total Bilirubin 1.0 mg/dl (0.2-1.3) 05/25/25 08:45
AST 56 U/L (14-36) H 05/25/25 08:45
ALT 41 U/L (0-35) H 05/25/25 08:45
Alkaline Phosphatase 160 U/L (38-126) H 05/25/25 08:45
Total Protein 6.0 g/dl (6.3-8.2) L 05/25/25 08:45
Albumin 3.3 g/dl (3.5-5.0) L 05/25/25 08:45
Prealbumin 7.3 mg/dl (17.6-36.0) L 05/19/25 03:05
Triglycerides 201 mg/dl (10-149) H 05/25/25 08:45
Lipase 130 U/L (23-300) 05/14/25 04:18
Urine Color Yellow 05/25/25 13:22
Urine Clarity Clear (Clear) 05/25/25 13:22
Urine pH 6.0 (5.0-9.0) 05/25/25 13:22
Ur Specific [place] 1.010 (<1.030) 05/25/25 13:22
Urine Ketones Negative (Negative) 05/25/25 13:22
Ur Occult Blood Reflex 4+ (Negative) A 05/25/25 13:22
Urine Nitrite (Reflex) Negative (Negative) 05/25/25 13:22
Urine Bilirubin Negative (Negative) 05/25/25 13:22
Urine Urobilinogen Negative (Neg - 1+) 05/25/25 13:22
Leukocyte Esterase Rfl 3+ (Negative) A 05/25/25 13:22
Urine RBC 0-2 /HPF (0-2) 05/25/25 13:22
Urine WBC (Reflex) 21-25 /HPF (0-5) A 05/25/25 13:22
Ur Squamous Epith Cells 3-5 /LPF (Few) 05/25/25 13:22
Ur Urothelial Cells 3-5 /LPF (FEW) 05/14/25 10:22
Amorphous Crystals Seen 05/14/25 10:22
Urine Bacteria (Reflex) Few (Negative) A 05/25/25 13:22
Urine Glucose Negative (Negative) 05/25/25 13:22
Urine Albumin (Reflex) 1+ (Neg - Trace) A 05/25/25 13:22
POC Glucose 126 mg/dl (70-99) H 05/25/25 17:02
Blood Type AB POS 05/18/25 07:09
Antibody Screen Negative (Negative) 05/18/25 07:09
Intake /Output/Weight
05/23/25 05/24/25 05/25/25 05/26/25
06:59 06:59 06:59 06:59
Intake Total 240 / 240 1160 / 1160 480 / 480
Output Total 580 / 580
Balance 240 / 240 1160 / 1160 -100 / -100
Intake /Output/Weight
05/23/25 05/24/25 05/25/25 05/26/25
06:59 06:59 06:59 06:59
Intake Total 240 / 240 1160 / 1160 480 / 480
Output Total 580 / 580
Balance 240 / 240 1160 / 1160 -100 / -100
Vital Signs:
Vital Signs
Temp Pulse Resp BP Pulse Ox
97.5 F 89 18 112/73 99
05/24/25 23:28 05/24/25 23:28 05/24/25 23:28 05/24/25 23:28 05/24/25 23:28
I&O
05/24/25 05/25/25 05/26/25
06:59 06:59 06:59
Intake Total 1160 / 1160 480 / 480
Output Total 580 / 580
Balance 1160 / 1160 -100 / -100
Review of Systems
-
History Source: Patient
All other systems: Reviewed and negative
Physical Exam
-
General: Well Developed, Well Nourished, Appears in Distress ([place] like she was not going to be able to stop herself from having a BM when I arrived), Pain (Pain at perineum after BM) and Conversant
HEENT: Normocephalic, Atraumatic and Other (For age, powder like discoloration on cheeks and lips); Negative Oxygen
Respiratory: Clear to Auscultation and Non Labored Respirations; Negative Accessory Resp Muscle Use
Cardiac: Regular Rhythm and S1/S2; Negative Murmur, Rub or Gallop
GI: Soft, Nondistended, Normal Bowel Sounds, Tender (Tender in the setting of recent open abdominal surgery with heavy bandages) and Other (Skin around anus erythematous)
Rectal: Other (Liquid brown stool)
Skin: Warm and Rash (Erythema at gluteal fold)
Neuro: Awake, Alert, Nonfocal/Grossly Intact and Central Nerve's Intact
Psych: Anxious (Regarding having a bowel movement soon that she can control)
[2025-05-25 09:28] LABS: ALT (SGPT) 41 U/L (0-35); AST (SGOT) 56 U/L (14-36); Albumin 3.3 g/dl (3.5-5.0); Alkaline Phosphatase 160 U/L (38-126); Blood Urea Nitrogen 15 mg/dl (7-17); Calcium 8.7 mg/dl (8.4-10.2); Carbon Dioxide 23 mmol/L (22-30); Chloride 103 mmol/L (98-107); Estimated Creatinine Clearance 61 ml/min; Glucose 128 mg/dl (70-99); Magnesium 2.2 mg/dl (1.6-2.3); Potassium 4.0 mmol/L (3.5-5.1); Sodium 134 mmol/L (135-145); Total Protein 6.0 g/dl (6.3-8.2); Triglycerides 201 mg/dl (10-149); eGFR > 60.00
[2025-05-25] MEDS: PROTONIX 40 MG PO (09:42)
[2025-05-25] MEDS: NOVOLOG FLEXPEN-LOW RESISTANCE SC ×3 (09:42→17:05)
[2025-05-25] MEDS: LIDOCAINE 4% PATCH 1 PATCH TOPICAL (09:43)
--- NOTE | 2025-05-25 10:43 | W.PN.GS2 ---
Today's Communication / Plan
-
advance diet
Assessment / Plan
-
84 yo female POD #7 lap to open JERZY/SBR for high grade SBO d/t adhesions
AFVSS
Labs stable
No leukocytosis
Mild hyponatremia present, improved
Off TPN, diet being advanced and well tolerated. Passing flatus and stools
Plan:
Advance to LRD
Local wound care to incision, will pack lower portions of incision between miguelito
Pain control with scheduled tylenol prn narcotics available
OOB/Ambulate. PT/OT following. anticipate rehab on d/c, CM following
Lovenox and scds for vte ppx
Anticipate ready for d/c later today vs more likely tomorrow if tolerating diet. Final dispo as per hospitalist.
Subjective Data
-
Date of Service: May 25, 2025
Pt seen and examined at bedside with Dr. Acvees. DOMINGO to chair. Some incisional soreness. Passing stools and flatus. Denies n/v. Tolertating dietary advancements thus far.
Objective Data
-
Intake and Output
05/24/25 05/25/25 05/26/25
06:59 06:59 06:59
Intake Total 1160 / 1160 480 / 480
Output Total 580 / 580
Balance 1160 / 1160 -100 / -100
Intake:
Oral fluids 240 / 240 480 / 480
IV piggybacks 200 / 200
TPN/PPN 720 / 720
Output:
Urine, Voided 580 / 580
Other:
How many times incontinent 2
MODERATE amount urine
Number of approximated SMALL 4 6
amounts of urine
Number of approximated MODERATE 4 10
amounts of urine
Number of unmeasured liquid
stools
Rectum 4 1
Vital Signs
Temp Pulse Resp BP Pulse Ox
97.6 F 92 18 134/72 98
05/25/25 07:20 05/25/25 07:20 05/25/25 07:20 05/25/25 07:20 05/25/25 07:20
Lab Results
05/24/25 08:06
05/25/25 08:45
Calcium 8.7 mg/dl (8.4-10.2) 05/25/25 08:45
Phosphorus 3.8 mg/dl (2.5-4.5) 05/25/25 08:45
Magnesium 2.2 mg/dl (1.6-2.3) 05/25/25 08:45
Total Bilirubin 1.0 mg/dl (0.2-1.3) 05/25/25 08:45
AST 56 U/L (14-36) H 05/25/25 08:45
ALT 41 U/L (0-35) H 05/25/25 08:45
Alkaline Phosphatase 160 U/L (38-126) H 05/25/25 08:45
Total Protein 6.0 g/dl (6.3-8.2) L 05/25/25 08:45
Albumin 3.3 g/dl (3.5-5.0) L 05/25/25 08:45
Physical Exam
-
NAD AAO x 3
ABD: Soft, non distended, appropriate tender to palpation around her incision
Incision with miugelito and minimal SS drainage between small open areas where skin . No erythema, no purulence.
Patient has a maynard catheter: No
Patient has a central line: Yes (picc)
[2025-05-25 11:05] VITALS: BP 128/70; PULSE 93; O2SAT 99
[2025-05-25 12:08] LABS: Glucose - Point of Care 142 mg/dl (70-99)
[2025-05-25 13:43] LABS: Urine Character Clear (Clear)
[2025-05-25 14:05] LABS: Urine Red Blood Cell 0-2 /HPF (0-2); Urine White Cell 21-25 /HPF (0-5)
[2025-05-25 15:00] VITALS: BP 142/70
--- NOTE | 2025-05-25 16:39 | CM ---
Patient seen at bedside with physicians. Patient close to discharge. No beds at [facility] today and request for referral to [facility]. CM will need to obtain auth as soon as bed confirmed. CM will continue to follow for discharge planning needs.
Plan; SNF[facility] will need auth
[2025-05-25 17:05] LABS: Glucose - Point of Care 126 mg/dl (70-99)
[2025-05-25] MEDS: LOVENOX 40 MG SC (17:05)
[2025-05-25] MEDS: STERILE WATER FOR INJECTION 10 ML IV (18:03)
[2025-05-25] MEDS: ROCEPHIN 1000 MG IV (18:04)
[2025-05-25] MEDS: REMOVE LIDOCAINE PATCH 1 PATCH REMOVE (20:19)
[2025-05-25 21:59] LABS: Glucose - Point of Care 109 mg/dl (70-99)
[2025-05-25 23:22] VITALS: BP 155/81
[2025-05-26] MEDS: TYLENOL 650 MG PO ×5 (00:05→19:28)
[2025-05-26 05:52] LABS: Magnesium 2.0 mg/dl (1.6-2.3)
[2025-05-26 06:00] VITALS: BMI 27.3
[2025-05-26 07:15] VITALS: BP 149/72
[2025-05-26 07:42] LABS: Glucose - Point of Care 116 mg/dl (70-99)
[2025-05-26] MEDS: NOVOLOG FLEXPEN-LOW RESISTANCE SC ×2 (07:47→16:30)
[2025-05-26] MEDS: LIDOCAINE 4% PATCH 1 PATCH TOPICAL (08:13)
[2025-05-26] MEDS: PROTONIX 40 MG PO (08:14)
--- NOTE | 2025-05-26 08:56 | W.PN.HOSP.TC ---
Addendum entered and electronically signed by Krystal Ya MD 05/26/25 21:14:
I saw and evaluated the patient independently. I reviewed the resident�s note and agree with findings and plan as documented by Dr. Ivory.
GENERAL: well developed, well nourished, female in no apparent distress
HEENT: NC/AT
HEART: regular rate and rhythm, +S1, +S2
LUNGS : clear to auscultation bilaterally
ABDOM: soft, nontender, nondistended, + bowel sounds
EXT: no cyanosis, clubbing, or edema
NEUROLOGIC: apparent dementia--grossly intact
Small bowel obstruction -underwent diagnostic laparoscopy, lysis of adhesions and exploratory laparotomy, small bowel resection for small bowel obstruction 05/18. 60 cm of small bowel removed. s/p full course zosyn--s/p TPN with diet
advancement-�Prealbumin noted to be 7.3 low� Diet advanced to low residue 05/25/2025 and patient tolerated it
Urinary frequency--Symptoms started 05/24/2025--UA 05/25/2025 positive, urine culture with gm neg bacilli� Ceftriaxone until final cultures return--if having loose BMs could very well have UTI
Mild hyponatremia - monitor for now.
Hypophosphatemia -resolved.
Normal anion gap metabolic acidosis -resolved.
Hypokalemia -resolved.
Acute hypoxic respiratory failure -resolved-�Had preoperative stridor suspected to be due to aspiration related to bowel obstruction. Given a dose of steroids and racemic epinephrine preoperatively�Oxygenation stable now on room air.
Hx lung cancer -diagnosed and treated in 2021 with right lower lobe lobectomy. Subsequently had left lung nodule treated with radiation.
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
Hx small right upper lobe pulmonary embolism -August 2024. Decision made not to anticoagulate due to hematemesis on IV heparin.
Hx lumbar vertebral compression fracture
Hx cognitive impairment -suspicion of dementia.
Hx stage I ovarian cancer -treated with exploratory lap, LITO/BSO.
DVT proph�Lovenox subcu
code status--DNR
d/c to SNF in AM
Original Note:
Today's Communication/Plan
-
Tolerating low-residue diet. Denied n/v. Diarrhea resolving with more solid BMs.
Continue ceftriaxone for UTI until urine cx identification and sensitivities result.
Planning for discharge tomorrow.
Assessment / Plan
Assessment / Plan
84 yo female with past medical history significant for ovarian cancer status post hysterectomy and oophorectomy, history history of prior TIA, GERD, lung cancer status post right lower lobe lobectomy, prior history of upper GI bleed, CKD stage II,
chronic back pain with muscle spasms, who is POD #7 laparoscopic to open JERZY/SBR for high grade SBO d/t adhesions.
Small bowel obstruction -underwent diagnostic laparoscopy, lysis of adhesions and exploratory laparotomy, small bowel resection for small bowel obstruction 05/18. 60 cm of small bowel removed.
�Completed course of Zosyn.
�Prealbumin noted to be 7.3 low
�TPN 05/23/2022 to 05/24/2025. NG tube removed.
� Diet advanced to low residue 05/25/2025 and patient tolerated it. Diet advancement deferred to surgery.
� Diarrhea 05/25/25 likely due to diet advancement and bowels recovering from abdominal surgery. BMs grew more solid by 05/26/25.
Urinary frequency
Symptoms started 05/24/2025. Nurse reported urination every hour overnight. Patient denies dysuria
UA 05/25/2025 with 3+ leukocyte esterase, negative nitrites, 21�25 WBC, 3-5 squamous cells, few bacteria, 4+ occult blood scratch
� Ceftriaxone 1 g IV every 24 hours. Pending urine cx sensitivities.
� Urine culture: gram negative bacilli
Mild hyponatremia - monitor for now.
Hypophosphatemia -resolved.
Normal anion gap metabolic acidosis -resolved.
Hypokalemia -resolved.
Acute hypoxic respiratory failure -resolved.
�Had preoperative stridor suspected to be due to aspiration related to bowel obstruction. Given a dose of steroids and racemic epinephrine preoperatively.
�Oxygenation stable now on room air.
�Stridor resolved.
Hx lung cancer -diagnosed and treated in 2021 with right lower lobe lobectomy. Subsequently had left lung nodule treated with radiation.
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
Hx small right upper lobe pulmonary embolism -August 2024. Decision made not to anticoagulate due to hematemesis on IV heparin.
Hx lumbar vertebral compression fracture
Hx cognitive impairment -suspicion of dementia.
Hx stage I ovarian cancer -treated with exploratory lap, LITO/BSO.
DVT proph�Lovenox subcu
DNR
Dispo - SNF [facility] available tomorrow
Anticipated Discharge: Within 24 hours
Subjective/Interval History
-
Date of Service: May 26, 2025
No acute events overnight. Patient denies polyuria or dysuria, but nurse received report from overnight nurse that patient needed to go to urinate every hour at least.
Patient endorses bowel movements becoming more solid. Patient denies having more diarrhea/watery stool. Patient denies nausea and vomiting, and endorses tolerating the low residue diet.
Objective Data
-
Labs:
Last Resulted Lab Results
05/26/25 12:29
05/26/25 12:29
Vital Signs:
Vital Signs
Temp Pulse Resp BP Pulse Ox
97.8 F 85 16 149/72 98
05/26/25 07:15 05/26/25 07:15 05/26/25 07:15 05/26/25 07:15 05/26/25 07:15
I&O
05/25/25 05/26/25 05/27/25
06:59 06:59 06:59
Intake Total 480 / 480 480 / 480
Output Total 580 / 580 100 / 100
Balance -100 / -100 380 / 380
Review of Systems
-
All other systems: Reviewed and negative
Physical Exam
-
General: Well Developed, Well Nourished, No Apparent Distress and Comfortable
HEENT: Normocephalic, Atraumatic, Nose Appears Normal and Ears Appear Normal
Respiratory: Clear to Auscultation
GI: Soft, Nontender (Mildly tender due to surgical incision sites), Nondistended, Normal Bowel Sounds and Flat
Musculoskeletal: No Clubbing, No Cyanosis and No Edema
Skin: Warm
Neuro: Awake, Alert, Nonfocal/Grossly Intact and Central Nerve's Intact
Psych: Calm
[2025-05-26] MEDS: TYLENOL PO (09:04)
[2025-05-26 11:44] LABS: Glucose - Point of Care 221 mg/dl (70-99)
[2025-05-26] MEDS: NOVOLOG FLEXPEN-LOW RESISTANCE 2 UNITS SC (12:36)
[2025-05-26 13:02] LABS: ALT (SGPT) 43 U/L (0-35); AST (SGOT) 53 U/L (14-36); Albumin 3.3 g/dl (3.5-5.0); Alkaline Phosphatase 162 U/L (38-126); Blood Urea Nitrogen 13 mg/dl (7-17); Calcium 8.8 mg/dl (8.4-10.2); Carbon Dioxide 26 mmol/L (22-30); Chloride 104 mmol/L (98-107); Estimated Creatinine Clearance 52 ml/min; Glucose 164 mg/dl (70-99); Hematocrit 38.5 % (37.0-47.0); Hemoglobin 12.4 g/dL (12.0-16.0); Mean Corp Hgb Conc. 32.2 g/dL (33.0-37.0); Mean Corpuscular Volume 91.0 fL (81.0-99.0); Nucleated Red Blood Cells % 0 %; Platelet Count 334 10^3/uL (130-400); Potassium 4.0 mmol/L (3.5-5.1); Red Cell Dist. Width 13.4 % (11.5-14.5); Sodium 132 mmol/L (135-145); Total Protein 6.1 g/dl (6.3-8.2); eGFR > 60.00
--- NOTE | 2025-05-26 14:06 | CM ---
Addendum entered by Kelsey Castaneda 05/27/25 12:21:
Correction
[facility] report# [phone]
fax# [phone]
Addendum entered by Christy Jauregui 05/26/25 16:48:
Auth confirmed by Bang [facility] from [facility] [id number] 05/27-05/29. Patient UR nurse is Queta Lim. Please call report to [phone] and per [facility] at SNF patient would be encouraged to come around 11am. CM requested COVID testing and will complete
documentation for transportation via ambulance. CM will review with family IMM information.
Original Note:
Patient with bed available tomorrow at [facility], JULIA started Auth with [facility] #[id number] Pending. Plan for transition tomorrow with auth. Patient will need COVID test prior to transfer tomorrow. CM will continue to follow for discharge
planning needs.
Plan; transfer to SNF; [facility] pending auth approved and COVID testing.
[2025-05-26 15:10] VITALS: BP 147/79
[2025-05-26 15:53] VITALS: BP 147/79; PULSE 96
[2025-05-26 16:26] LABS: Glucose - Point of Care 136 mg/dl (70-99)
[2025-05-26] MEDS: ROCEPHIN 1000 MG IV (16:48)
[2025-05-26] MEDS: STERILE WATER FOR INJECTION 10 ML IV (16:48)
[2025-05-26] MEDS: LOVENOX 40 MG SC (16:49)
[2025-05-26 16:57] LABS: COVID-19 Antigen Negative (Negative)
--- NOTE | 2025-05-26 17:35 | W.PN.GS2 ---
Today's Communication / Plan
-
Anticipate discharge tomorrow
Assessment / Plan
-
84 yo female POD #8 lap to open JERZY/SBR for high grade SBO d/t adhesions
Plan:
Advance to LRD
Local wound care to incision, will pack lower portions of incision between miguleito
Pain control with scheduled tylenol prn narcotics available
OOB/Ambulate. PT/OT following. anticipate rehab on d/c, CM following
Lovenox and scds for vte ppx
Anticipate ready for d/c tomorrow if tolerating diet and pain better controlled. Final dispo as per hospitalist.
Time Spent
Total Time Spent with Patient (in minutes): 20
Subjective Data
-
Date of Service: May 26, 2025
Interval Events:
No acute events overnight. Slept well. Pain present but controlled. Denies Nausea/Vomiting, +bowel function. Tolerating diet.
Objective Data
-
Intake and Output
05/25/25 05/26/25 05/27/25
06:59 06:59 06:59
Intake Total 480 / 480 480 / 480
Output Total 580 / 580 100 / 100
Balance -100 / -100 380 / 380
Intake:
Oral fluids 480 / 480 480 / 480
Output:
Urine, Voided 580 / 580 100 / 100
Other:
How many times incontinent 2
MODERATE amount urine
Number of approximated SMALL 6 15
amounts of urine
Number of approximated MODERATE 10 7
amounts of urine
Number of unmeasured liquid
stools
Rectum 4 1
Vital Signs
Temp Pulse Resp BP Pulse Ox
97.9 F 96 16 147/79 97
05/26/25 15:10 05/26/25 15:10 05/26/25 15:10 05/26/25 15:10 05/26/25 15:10
Lab Results
05/26/25 12:
05/26/25 12:
Calcium 8.8 mg/dl (8.4-10.2) 05/26/25 12:
Phosphorus 3.8 mg/dl (2.5-4.5) 05/25/25 08:45
Magnesium 2.0 mg/dl (1.6-2.3) 05/26/25 05:04
Total Bilirubin 0.8 mg/dl (0.2-1.3) 05/26/25 12:
AST 53 U/L (14-36) H 05/26/25 12:
ALT 43 U/L (0-35) H 05/26/25 12:
Alkaline Phosphatase 162 U/L (38-126) H 05/26/25 12:
Total Protein 6.1 g/dl (6.3-8.2) L 05/26/25 12:
Albumin 3.3 g/dl (3.5-5.0) L 05/26/25 12:
Physical Exam
-
GENERAL/NEURO: Awake, Alert, no distress
CHEST: Unlabored breathing on RA
ABDOMEN: Soft, Non-Tender, Non-Distended, incisions clean dry and open intermittently with miguelito in place.
Patient has a maynard catheter: No
Patient has a central line: No
[2025-05-26] MEDS: REMOVE LIDOCAINE PATCH 1 PATCH REMOVE (19:28)
[2025-05-26 21:33] LABS: Glucose - Point of Care 138 mg/dl (70-99)
[2025-05-26 23:28] VITALS: BP 136/61
[2025-05-27] MEDS: TYLENOL 650 MG PO ×3 (00:26→10:06)
--- NOTE | 2025-05-27 02:24 | DOWNTIME ---
There was a [employer] Downtime on 05/27/2025 from 0100 to 05/27/2025 at 0215. Downtime documentation of patient's care, including medication administrations, has been reconciled in the electronic record per guidelines. Refer to the
patient's paper chart under the miscellaneous tab to see printed paper medication records and downtime forms.
[2025-05-27 06:00] VITALS: BMI 27.5
[2025-05-27 07:15] VITALS: BP 136/74
--- NOTE | 2025-05-27 07:38 | W.PN.HOSP.TC ---
Addendum entered and electronically signed by Krystal Ya MD 05/27/25 15:09:
I saw and evaluated the patient independently. I reviewed the resident�s note and agree with findings and plan as documented by Dr. Ivory.
GENERAL: well developed, well nourished, female in no apparent distress
HEENT: NC/AT
HEART: regular rate and rhythm, +S1, +S2
LUNGS : clear to auscultation bilaterally
ABDOM: soft, nontender, nondistended, + bowel sounds
EXT: no cyanosis, clubbing, or edema
NEUROLOGIC: apparent dementia--grossly intact
Small bowel obstruction--underwent diagnostic laparoscopy, lysis of adhesions and exploratory laparotomy, small bowel resection for small bowel obstruction 05/18-- 60 cm of small bowel removed-- s/p full course zosyn--s/p TPN with diet
advancement-�Prealbumin noted to be 7.3 low� Diet advanced to low residue 05/25/2025 and patient tolerated
Klebsiella pneumoniae UTI--Symptoms started 05/24/2025--ceftriaxone to cephalexin at d/c
Mild hyponatremia - monitor for now.
Hypophosphatemia -resolved.
Normal anion gap metabolic acidosis -resolved.
Hypokalemia -resolved.
Acute hypoxic respiratory failure -resolved-�Had preoperative stridor suspected to be due to aspiration related to bowel obstruction. Given a dose of steroids and racemic epinephrine preoperatively�Oxygenation stable now on room air.
Hx lung cancer -diagnosed and treated in 2021 with right lower lobe lobectomy. Subsequently had left lung nodule treated with radiation.
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
Hx small right upper lobe pulmonary embolism -August 2024. Decision made not to anticoagulate due to hematemesis on IV heparin.
Hx lumbar vertebral compression fracture
Hx cognitive impairment -suspicion of dementia.
Hx stage I ovarian cancer -treated with exploratory lap, LITO/BSO.
DVT proph�Lovenox subcu
code status--DNR
d/c to SNF
Original Note:
Today's Communication/Plan
-
Transitioned Cephalexin 500 mg BID PO 05/27/25, which patient will be discharged on to complete a 7-day course.
Anticipated discharge today to [facility].
Assessment / Plan
Assessment / Plan
84 yo female with past medical history significant for ovarian cancer status post hysterectomy and oophorectomy, history history of prior TIA, GERD, lung cancer status post right lower lobe lobectomy, prior history of upper GI bleed, CKD stage II,
chronic back pain with muscle spasms, who is POD #7 laparoscopic to open JERZY/SBR for high grade SBO d/t adhesions.
Small bowel obstruction -underwent diagnostic laparoscopy, lysis of adhesions and exploratory laparotomy, small bowel resection for small bowel obstruction 05/18. 60 cm of small bowel removed.
�Completed course of Zosyn.
�Prealbumin noted to be 7.3 low
�TPN 05/23/2022 to 05/24/2025. NG tube removed.
� Diet advanced to low residue 05/25/2025 and patient tolerated it.
� Diarrhea 05/25/25 likely due to diet advancement and bowels recovering from abdominal surgery. BMs grew more solid by 05/26/25.
Urinary frequency
Symptoms started 05/24/2025. Nurse reported urination every hour overnight. Patient denies dysuria
UA 05/25/2025 with 3+ leukocyte esterase, negative nitrites, 21�25 WBC, 3-5 squamous cells, few bacteria, 4+ occult blood scratch
� Ceftriaxone 1 g IV every 24 hours 05/25/25-05/26/25. Transitioned Cephalexin 500 mg BID PO 05/27/25, which patient will be discharged on to complete a 7-day course.
� Urine culture: gram negative bacilli, sensitive to cefazolin
Mild hyponatremia - monitor for now.
Hypophosphatemia -resolved.
Normal anion gap metabolic acidosis -resolved.
Hypokalemia -resolved.
Acute hypoxic respiratory failure -resolved.
�Had preoperative stridor suspected to be due to aspiration related to bowel obstruction. Given a dose of steroids and racemic epinephrine preoperatively.
�Oxygenation stable now on room air.
�Stridor resolved.
Hx lung cancer -diagnosed and treated in 2021 with right lower lobe lobectomy. Subsequently had left lung nodule treated with radiation.
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
Hx small right upper lobe pulmonary embolism -August 2024. Decision made not to anticoagulate due to hematemesis on IV heparin.
Hx lumbar vertebral compression fracture
Hx cognitive impairment -suspicion of dementia.
Hx stage I ovarian cancer -treated with exploratory lap, LITO/BSO.
DVT proph�Lovenox subcu
DNR
Dispo - SNF [facility] available tomorrow
Anticipated Discharge: Today
Subjective/Interval History
-
Date of Service: May 27, 2025
No acute events overnight. Endorsed abdominal pain, unchanged from last 2 days, at incision sites. Denied diarrhea and urinary frequency, while nurses endorsed both.
Objective Data
-
Labs:
Laboratory Results
05/27/25 07:10
05/27/25 07:10
PT 15.8 Sec (11.4-14.6) H 05/18/25 20:22
INR 1.24 05/18/25 20:22
APTT 30.2 Sec (23.4-35.0) 05/18/25 20:22
Lactic Acid Cancelled 05/20/25 09:16
Total Bilirubin 0.6 mg/dl (0.2-1.3) 05/27/25 07:10
AST 49 U/L (14-36) H 05/27/25 07:10
ALT 42 U/L (0-35) H 05/27/25 07:10
Alkaline Phosphatase 163 U/L (38-126) H 05/27/25 07:10
Lipase 130 U/L (23-300) 05/14/25 04:18
Vital Signs:
Vital Signs
Temp Pulse Resp BP Pulse Ox
98.4 F 85 16 136/61 97
05/26/25 23:28 05/26/25 23:28 05/26/25 23:28 05/26/25 23:28 05/26/25 23:28
I&O
05/26/25 05/27/25 05/28/25
06:59 06:59 06:59
Intake Total 480 / 480 480 / 480
Output Total 100 / 100
Balance 380 / 380 480 / 480
Review of Systems
-
History Source: Patient
All other systems: Reviewed and negative
Physical Exam
-
General: Well Developed, Well Nourished, No Apparent Distress and Comfortable
HEENT: Normocephalic, Atraumatic, Nose Appears Normal and Ears Appear Normal
Respiratory: Clear to Auscultation
Cardiac: Regular Rhythm and S1/S2
GI: Soft, Nondistended, Normal Bowel Sounds, Tender (mildly tender at incision sites) and Flat
Musculoskeletal: No Clubbing, No Cyanosis and No Edema
Skin: Warm and Dry
Neuro: Awake and Alert
Psych: Calm
[2025-05-27] MEDS: LIDOCAINE 4% PATCH 1 PATCH TOPICAL (07:43)
[2025-05-27] MEDS: PROTONIX 40 MG PO (07:44)
[2025-05-27 08:03] LABS: Glucose - Point of Care 133 mg/dl (70-99)
[2025-05-27] MEDS: NOVOLOG FLEXPEN-LOW RESISTANCE SC (08:04)
[2025-05-27] MEDS: TYLENOL PO (08:04)
[2025-05-27 08:17] LABS: Hematocrit 36.1 % (37.0-47.0); Hemoglobin 11.5 g/dL (12.0-16.0); Mean Corp Hgb Conc. 31.9 g/dL (33.0-37.0); Mean Corpuscular Volume 92.3 fL (81.0-99.0); Nucleated Red Blood Cells % 0 %; Platelet Count 290 10^3/uL (130-400); Red Cell Dist. Width 13.4 % (11.5-14.5)
[2025-05-27 09:13] LABS: ALT (SGPT) 42 U/L (0-35); AST (SGOT) 49 U/L (14-36); Albumin 3.2 g/dl (3.5-5.0); Alkaline Phosphatase 163 U/L (38-126); Blood Urea Nitrogen 12 mg/dl (7-17); Calcium 8.6 mg/dl (8.4-10.2); Carbon Dioxide 23 mmol/L (22-30); Chloride 107 mmol/L (98-107); Estimated Creatinine Clearance 52 ml/min; Glucose 124 mg/dl (70-99); Magnesium 1.9 mg/dl (1.6-2.3); Potassium 3.8 mmol/L (3.5-5.1); Sodium 136 mmol/L (135-145); Total Protein 5.7 g/dl (6.3-8.2); Triglycerides 164 mg/dl (10-149); eGFR > 60.00
[2025-05-27] MEDS: KEFLEX 500 MG PO (09:39)
--- NOTE | 2025-05-27 10:42 | W.DCSUMMARY ---
Addendum entered and electronically signed by Krystal Ya MD 05/27/25 15:11:
Read, reviewed, and agree. See same day progress note for additional details. Time spent coordinating care, DC planning, review of DC plan of care with resident, transition of care, review of records in EMR, med rec, consults, notes, d/w
consultants, nursing, family, and CM = 45 minutes
Original Note:
Discharge Summary
Discharge Data
Date of Admission: 05/14/25
Date of Discharge: 05/27/25
Total time spent discharging patient (in min): 45
-
Pending Results: No
Hospital Course
84 yo female with past medical history significant for ovarian cancer status post hysterectomy and oophorectomy, history history of prior TIA, GERD, lung cancer status post right lower lobe lobectomy, prior history of upper GI bleed, CKD stage II,
chronic back pain with muscle spasms, who underwent laparoscopic to open JERZY/SBR for high grade SBO d/t adhesions.
She was on TPN. She tolerated diet advancement to low-residue, and was instructed to follow up with general surgery in 1 week regarding diet advancement and surgical wound care. She started having diarrhea, which was attributed to post-op bowel
surgery.
She developed urinary frequency and was found to have a UTI with klebsiella pneumoniae, sensitive to cefazolin and other antibiotics. She was started on ceftriaxone IV and transitioned to PO cefalexin 500 mg BID and discharged on that.
Small bowel obstruction -underwent diagnostic laparoscopy, lysis of adhesions and exploratory laparotomy, small bowel resection for small bowel obstruction 05/18. 60 cm of small bowel removed.
�Completed course of Zosyn.
�Prealbumin noted to be 7.3 low
�TPN 05/23/2022 to 05/24/2025. NG tube removed.
� Diet advanced to low residue 05/25/2025 and patient tolerated it.
� Diarrhea 05/25/25 likely due to diet advancement and bowels recovering from abdominal surgery. BMs grew more solid by 05/26/25.
Urinary frequency
Symptoms started 05/24/2025. Nurse reported urination every hour overnight. Patient denies dysuria
UA 05/25/2025 with 3+ leukocyte esterase, negative nitrites, 21�25 WBC, 3-5 squamous cells, few bacteria, 4+ occult blood scratch
� Ceftriaxone 1 g IV every 24 hours 05/25/25-05/26/25. Transitioned Cephalexin 500 mg BID PO 05/27/25, which patient will be discharged on to complete a 7-day course.
� Urine culture: klebsiella pneumoniae, sensitive to cefazolin
Mild hyponatremia - monitor.
Hypophosphatemia -resolved.
Normal anion gap metabolic acidosis -resolved.
Hypokalemia -resolved.
Acute hypoxic respiratory failure -resolved.
�Had preoperative stridor suspected to be due to aspiration related to bowel obstruction. Given a dose of steroids and racemic epinephrine preoperatively.
�Oxygenation stable now on room air.
�Stridor resolved.
DVT proph�Lovenox subcu
DNR
Dispo - SNF [facility]
Discharge Plan
-
Patient Disposition: Assisted/SNF
Discharge Diagnosis/Procedures: Small bowel obstruction status post laparoscopic converted to open laparotomy for lysis of adhesion with small bowel resection, hyponatremia/hypophosphatemia/anion gap metabolic acidosis/hypokalemia, acute hypoxemic
respiratory failure, history of lung cancer, history of right facial Sheriff's palsy, history of small right upper lobe pulmonary embolism, history of lumbar vertebral compression fracture, history of cognitive impairment with dementia, history of
stage I ovarian cancer
Condition: Good
Diet: Low Fiber
Activity: No strenuous activity
Additional Activity: Do not lift over 15lbs for 6 weeks
Driving Restrictions: No driving
Bathing Restrictions: OK to Shower
Wound Care: Apply dry gauze dressing to midline incision. Lightly pack dry gauze between the 2 large opening between miguelito at the base of the incision. change daily and prn. Follow up with your surgeon in one week for staple removal.
Referrals:
Marylu Dasilva MD [Active, Pulmonary Medicine] - in four to six weeks
Luis Aceves MD [Active, Surgical] - in one week
Shreya Murguia MD [Family Provider, Internal Medicine] - in less than 1 week
Additional Discharge Medication Instructions: Please finish your antibiotic course for your urinary tract infection: Keflex 500 twice daily for 5 days more.
Please follow-up with surgeon Dr. Luis Pinto in 1 week.
Please see your primary care doctor Dr. Murguia in less than a week as follow-up for your hospital stay.
Please see computer tape librarian Brown in 4 to 6 weeks.
It was a pleasure to be part of your care team.
Prescriptions:
New
cephalexin 500 mg Capsule
500 mg PO BID 5 Days Qty: 10 0RF
Continued
baclofen 10 mg Tablet
10 mg PO DAILY
lidocaine 4 % Adhesive Patch,Medicated
1 patch TOPICAL DAILYPRN PRN (Reason: lower back pain)
trazodone 50 mg Tablet
50 mg PO HS
Refresh Optive 0.5-0.9 % Drops
1 drp BOTH EYES BID
acetaminophen [Tylenol Extra Strength] 500 mg tablet
1,000 mg PO TIDPRN PRN (Reason: mild pain)
pantoprazole 40 mg tablet,delayed release (DR/EC)
40 mg PO DAILY
Discharge Orders:
Discharge Patient (As Directed); Ordered 05/27/25
Ordered By: Jennifer Ivory
Discharge Date and Time
Print Language: KINYARWANDA
[2025-05-27 11:32] VITALS: BP 134/66
--- NOTE | 2025-05-29 11:33 | OR.RPT ---
Operative Report
Operative Report
Patient Name: Ghislaine Hoover
: 1940
Date of Operation: 05/18/2025
Preoperative Diagnosis: SBO
Postoperative Diagnosis: Same
Procedure(s):
Diagnostic Laparoscopy converted to exploratory laparotomy, lysis of adhesions
Small bowel resection
Surgeon(s):
Dr. Aceves
Bacteriologist Medical(s):
ZULMA Velazco
Anesthesia: General
Estimated Blood Loss: 11 cc
Urine Output: None
Drains/Lines/Implants: None
Specimens:
1. Small Bowel
HPI/Surgical Indications:
This is an 84year old female multiple prior open abdominal surgeries who presents with abdominal pain found to have an adhesive small bowel obstruction which failed to improve despite nonoperative management. Risks/Benefits/Alternatives were
discussed at length, and the patient agreed to proceed with surgery.
Operative Findings: Safe Veress entry in left upper quadrant Optiview with a 5 mm port. Midline and right upper quadrant adhesions noted. Additional 5 mm ports placed in the left lower quadrant and after lysing the adhesions of the right upper
quadrant and additional port there. The patient had a significantly adherence piece of small bowel to the midline that could not be safely taken down using scissors. In addition the small bowel in the right lower quadrant appeared to be densely
adherent to each other so we elected to convert to an open midline laparotomy. During lysis there was a small enterotomy made in the portion of bowel densely adherent to the midline which could not be avoided and was inherent to the nature of the
operation. There was some spillage of intestinal succus but this was quickly controlled and suctioned out. In the right lower quadrant she had multiple loops of bowel that were densely adherent to each other. Though we began slowly doing a lysis
it was clear that this was chronically dilated and scarred bowel so we elected to do a en bloc small bowel resection. Healthy transection points proximal and distal to the diseased bowel were identified and the bowel divided with 2 fires of an 80
ADOLFO purple load. Intervening mesentery was divided using a LigaSure device. Roughly 60 cm of small bowel was removed. We then performed a [id number], functional end-to-end stapled small bowel anastomosis with 2 fires of the 80 ADOLFO purple load.
The transverse staple line was oversewn with 3-0 silk pops. The mesentery was closed with a running 3-0 silk and 2 crotch stitches were placed. The NG tube was confirmed to be in a good position. After assuring hemostasis and irrigating the
abdomen out with over a liter of warm saline, the abdomen was closed using 0 PDS sutures anchored at each apex and run together towards the middle and tied together. The skin was then loosely approximated using skin miguelito as were the 5 mm port
sites. The incision was then covered with a Mepilex dressing.
Procedure Description:
The patient was brought to the Operating Room and placed in the supine position with the arms out. IV antibiotics were infused and Venodyne stockings placed. Following uneventful induction of general endotracheal anesthesia, an orogastric tube
were placed. The abdomen was prepped and draped in the usual sterile fashion. The abdomen was entered using a left subcostal Veress entry and followed by a left upper quadrant Optiview 5 mm port. There were significant midline and right upper
quadrant adhesions from her prior surgeries. An additional 5 mm port was placed in the left lower quadrant. We began by lysing the adhesions in the midline as well as the right upper quadrant. An additional 5 mm port was placed. There was dense
adhesion of small bowel to the midline as well as significant amount of twisted bowel which did not appear amenable to a laparoscopic lysis. Thus we made the decision to convert to an open exploratory laparotomy via her prior midline incision. The
midline was incised away from the midline adhesions and the abdomen was entered safely. We continued our dissection towards the area of tethered bowel however this appeared to be densely adherent and controlled enterotomy was made. This was
inherent to the procedure and could not be avoided. There was some but minimal spillage of bowel contents. Large Ray wound retractor was placed to protect the skin and subcutaneous tissues. The small bowel was controlled proximally and
distally with clamps. This loop of bowel appeared to be tethered to a large section of small bowel which was all scarred and socked in together. We began doing lysis however I was concerned this bowel would not function well even if a complete
lysis was achieved so I elected to do an en bloc resection of the bowel which measured roughly 60 cm in length. We did run her bowel distal and proximal to this all of which appeared normal. Appropriate transection points were identified and the
small bowel was divided with 2 fires of an Endo ADOLFO purple load. The intervening mesentery was divided using a LigaSure device. We then performed a [id number], functional end-to-end stapled small bowel anastomosis with 2 fires of the Endo ADOLFO
purple load. The transverse staple line was oversewn with 3-0 silk pops. The mesentery was closed with a running 3-0 silk suture and 2 crotch stitches were placed. The abdomen was irrigated with warm saline and hemostasis was confirmed. The NG
tube was also palpated to be in good position. The linea alba was then reapproximated using 0 PDS sutures anchored at each apex and run together towards the middle and tied together. The skin was loosely approximated using skin miguelito as were the
5 mm port sites. Incision was then covered with a Mepilex dressing. Counts were correct x 2. Overall, the patient tolerated the procedure well and was taken to the Recovery Room postoperatively in stable condition.
I was the attending physician and performed the procedure with assistance of the PA above. The assistance of ZULMA Velazco was required due to the complexity of the procedure. During the procedure Parul assisted with retraction, resection, and
closure of the wound. I was present for all portions of the case.
Luis Aceves MD
== END 2025-05-27 11:30 | DRG 329 ==
LOC: 4 EAST ACU 07:37
PROVIDERS: Emergency Medicine; Internal Medicine Critical Care Medicine; Nurse Practitioner Primary Care; Physician Assistant; Radiology Diagnostic Radiology; Radiology Vascular & Interventional Radiology; Registered Nurse; Surgery; ADMITTING PHYSICIAN Internal Medicine; ATTENDING PHYSICIAN Internal Medicine; CONSULT PHYSICIAN Surgery; EMERGENCY PHYSICIAN Emergency Medicine; FAMILY PHYSICIAN Internal Medicine Geriatric Medicine; OTHER PHYSICIAN Internal Medicine
PROC: 0D9670Z Drainage of Stomach with Drainage Device, Via Natural or Artificial Opening (ICD-10-PCS; 2025-05-14)
PROC: 0DB80ZZ Excision of Small Intestine, Open Approach (ICD-10-PCS; 2025-05-18)
PROC: 0DN80ZZ Release Small Intestine, Open Approach (ICD-10-PCS; 2025-05-18)
PROC: 02HV33Z Insertion of Infusion Device into Superior Vena Cava, Percutaneous Approach (ICD-10-PCS; 2025-05-19)
PROC: 3E0436Z Introduction of Nutritional Substance into Central Vein, Percutaneous Approach (ICD-10-PCS; 2025-05-20)
DX: K56.50 Intestinal adhesions [bands], unspecified as to partial versus complete obstruction (principal); J96.01 Acute respiratory failure with hypoxia; J90 Pleural effusion, not elsewhere classified; E87.1 Hypo-osmolality and hyponatremia; E87.20 Acidosis, unspecified; N39.0 Urinary tract infection, site not specified; G51.0 Bell's palsy; I95.1 Orthostatic hypotension; E53.8 Deficiency of other specified B group vitamins; K21.9 Gastro-esophageal reflux disease without esophagitis; N18.2 Chronic kidney disease, stage 2 (mild); G89.29 Other chronic pain; E83.51 Hypocalcemia; K44.9 Diaphragmatic hernia without obstruction or gangrene; F03.90 Unspecified dementia, unspecified severity, without behavioral disturbance, psychotic disturbance, mood disturbance, and anxiety; B96.1 Klebsiella pneumoniae [K. pneumoniae] as the cause of diseases classified elsewhere; E83.39 Other disorders of phosphorus metabolism; E87.6 Hypokalemia; Z66 Do not resuscitate; Z85.43 Personal history of malignant neoplasm of ovary; Z85.118 Personal history of other malignant neoplasm of bronchus and lung; Z90.710 Acquired absence of both cervix and uterus; Z90.49 Acquired absence of other specified parts of digestive tract; Z88.1 Allergy status to other antibiotic agents; Z88.5 Allergy status to narcotic agent; Z88.7 Allergy status to serum and vaccine; Z90.722 Acquired absence of ovaries, bilateral; Z87.891 Personal history of nicotine dependence; Z53.31 Laparoscopic surgical procedure converted to open procedure; Z11.52 Encounter for screening for COVID-19; Z92.3 Personal history of irradiation; Z86.711 Personal history of pulmonary embolism; Z86.73 Personal history of transient ischemic attack (TIA), and cerebral infarction without residual deficits
CPT/HCPCS: 43752; 71045; 74018; 74177; 74250; 80048; 80053; 81003; 81015; 82805; 82962; 83690; 83735; 84100; 84134; 84478; 85025; 85027; 85610; 85730; 86850; 86900; 86901; 87077; 87086; 87186; 87811; 88307; 93005; 94002; 94003; 94640; 96361; 96374; 96375; 97116; 97163; 97167; 97530; 99285; Q9967

== ENCOUNTER 2025-06-23 17:41 | Observation (INO) | payer MEDICARE, SELFPAY ==
[2025-06-23] VITALS (8 sets, daily range): BP systolic 98–140; BP diastolic 50–82; PULSE 85–90; BMI 26.1
[2025-06-23 12:10] LABS: Hematocrit 38.2 % (37.0-47.0); Hemoglobin 12.7 g/dL (12.0-16.0); Mean Corp Hgb Conc. 33.2 g/dL (33.0-37.0); Mean Corpuscular Volume 88.2 fL (81.0-99.0); Nucleated Red Blood Cells % 0 %; Platelet Count 418 10^3/uL (130-400); Red Cell Dist. Width 13.6 % (11.5-14.5)
[2025-06-23 12:43] LABS: ALT (SGPT) 19 U/L (0-35); AST (SGOT) 28 U/L (14-36); Albumin 3.6 g/dl (3.5-5.0); Alkaline Phosphatase 105 U/L (38-126); Blood Urea Nitrogen 11 mg/dl (7-17); Calcium 9.3 mg/dl (8.4-10.2); Carbon Dioxide 25 mmol/L (22-30); Chloride 98 mmol/L (98-107); Estimated Creatinine Clearance 53 ml/min; Glucose 123 mg/dl (70-99); Magnesium 1.2 mg/dl (1.6-2.3); Potassium 2.6 mmol/L (3.5-5.1); Sodium 133 mmol/L (135-145); Total Protein 6.7 g/dl (6.3-8.2); eGFR > 60.00
--- NOTE | 2025-06-23 12:51 | ED.GENMED ---
History of Present Illness
<Irais Flower MD, Resident - Last Filed: 06/23/25 14:55>
General
Chief Complaint: Fall
Source: patient and family
Time Seen by Provider: 06/23/25 12:01
History of Present Illness
History of Present Illness:
Patient is an 84-year-old female with past medical history of ovarian cancer s/p hysterectomy and oophorectomy, history of prior TIA, GERD, lung cancer s/p right lower lobe lobectomy prior history of upper GI bleed, recently discharged from
[facility] after laparotomy for bowel obstruction.
She was in her usual state of health, she lives on her own in an apartment and has a visiting nurse that comes daily to change her dressing. This morning, she suddenly felt a sensation of fainting/feeling weak in knees and fell to the ground. She
does not remember feeling warmth,room spinning, chest pain, palpitations or any other issues prior to that. Her visiting nurse came to change dressing but when no one open door she called security and she was found on the floor. She was brought to
the ER by EMS services.She did report excruciating knee pain to the EMS services,but after coming to the ER she felt it was improving,an hour later pain started again.
On review of symptoms she has no other positive findings
Past History
<Irais Flower MD, Resident - Last Filed: 06/23/25 14:55>
Past History
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
ED Past Surgical History: Other (Reviewed and noncontributory)
Social History
Tobacco: Non-smoker
Alcohol: Occasional
Drug: None
Personal:
Living: assisted living
Employment: Retired
Family History
Family History: Other (Reviewed and noncontributory)
Review of Systems
<Irais Flower MD, Resident - Last Filed: 06/23/25 14:55>
Review of Systems
All Other Systems: ROS reviewed and negative except as documented in HPI and ROS
Phy Exam
<Irais Flower MD, Resident - Last Filed: 06/23/25 14:55>
General Physical Exam
General Presentation: well appearing and other (Cervical collar in place)
Cardiovascular Exam
Cardiovascular Exam: regular rate/rhythm and no murmur
Pulmonary Exam
Pulmonary Exam: lungs clear, no respiratory distress, no rales, no rhonchi and no wheezing
Gastrointestinal Exam
Gastrointestinal Exam: normal bowel sounds, non tender and soft
Neurological Exam
Neurological Exam: alert, oriented x3, CN II-XII intact, no motor deficits and no sensory deficits
Musculoskeletal Exam
Musculoskeletal Exam: full ROM and no edema
Skin Exam
Skin Exam: normal color, warm/dry and no rash
Course
<Irais Flower MD, Resident - Last Filed: 06/23/25 14:55>
Orders/Labs/Results
Orders:
Orders
06/23/25 11:50
CT Head W/o Iv Contrast Urgent
Comment:
Reason For Exam: fall
Cervical Spine wo Contrast CT [CT Cervical Spine W/o Iv Contr] Urgent
Comment:
Reason For Exam: fall
06/23/25 11:53
Complete Blood Count/With Diff Urgent
Comprehensive Metabolic Panel Urgent
Creatine Phosphokinase Urgent
Comment: ADD ON
Magnesium Urgent
Comment: ADD ON
06/23/25 12:12
Urinalysis Stat
Date Specimen was Collected: 06/24/25
Time Specimen was Collected: 17:10
06/23/25 12:16
EKG [Electrocardiogram (*1)] Urgent
Reason for Study: Syncope
06/23/25 12:27
Add On- LAB Urgent
Tests Added?: magnesium, CPK
Orthostatic VS- Treatment ONCE
06/23/25 12:58
Potassium Chloride [KCl] 40 meq PO NOW STA
Potassium Chloride [KCl] 40 meq Dextrose 5%/Water 250 ml [D5w] 250 ml IV NOW
06/23/25 12:59
Magnesium Sulfate 2 Gram/50 ml [Magnesium Sulfate] 2 gram in 50 ml IV NOW
06/23/25 13:05
Potassium Chloride [KCl] 40 meq Dextrose 5%/Water 250 ml [D5w] 250 ml IV NOW
06/23/25 14:08
CR Knee - Right 1 Or 2 Views Urgent
Comment:
Reason For Exam: knee pain
06/23/25 14:50
Acetaminophen [Tylenol] 650 mg PO NOW STA
06/23/25 Dinner
Regular
At Your Request: Full Participation
Does patient need a safe tray?: No
06/23/25 15:44
Code Status As Directed
Resuscitation Status: Full Code
Activity As Directed
Activity Level: As Tolerated
Notify MD As Directed
Notify physician if: Bridge Admission orders placed.
Notify attending physician:
-- upon arrival to unit
OR
-- when patient is identified as an ED hold
Vital Signs As Directed
Frequency: Per unit guidelines
O2 Therapy [RESP] Routine
Titrate/Wean O2 to maintain O2 sat greater than (%): 92
06/23/25 15:45
DX Deep Vein Thrombosis Video Routine
06/23/25 17:19
Admit/Transfer Patient As Directed
Co-Sign Provider:
Level of Care: Observation services
Assign to:: Telemetry
Physician / Group: Dr. Nakul Hanson
Diagnosis: Syncope
Reason for Telemetry: Syncope
Date to Stop Telemetry: 06/25/25
Time to Stop Telemetry: 11:00
PRN Pain Medication Management As Directed
May give lesser potent ordered pain med per pt: Yes
preference::
Protocol:: Medication orders for pain may be administered in a
manner that supports deferring to patient preference
when the pt is:
-Requesting an ordered lesser potent pain medication.
Least to most potent pain medications are defined as:
acetaminophen < NSAID < tramadol < opioids (morphine,
oxycodone, hydromorphone).
- Requesting a lesser dose of the same medication IF
ORDERED.
- Requesting a less intrusive route of administration
if both routes are prescribed by the provider (PO <
IV).
06/23/25 17:22
Code Status As Directed
Resuscitation Status: Do not resuscitate
Reached after discussion with pt or family/Healthcare POA: Yes
06/23/25 17:23
DNR Bracelet Application ONCE
06/23/25 18:17
0.9% Sodium Chloride 1000 ml [Nss] 1,000 ml IV 100 mls/hr
Acetaminophen [Tylenol] 1,000 mg PO TIDPRN PRN mild pain
Acetaminophen [Tylenol] 650 mg PO Q4HPRN PRN
Bisacodyl [Dulcolax] 10 mg RECTAL [id number] PRN
Docusate W/Senna [Senokot-S] 1 tablet PO BIDPRN PRN
Enoxaparin Sodium [Lovenox] 40 mg SC QPM
Lidocaine [Lidocaine 4% Patch] 1 patch TOPICAL DAILYPRN PRN lower back pain
Apply Lidocaine patch(s) to:: thoracic spine
Polyethylene Glycol Powder [Miralax] 17 grams PO DAILYPRN PRN
06/23/25 18:17
Activity As Directed
Activity Level: As Tolerated
Orthostatic Vital Signs As Directed
Orthostatic VS Frequency: BID
Vital Signs As Directed
Frequency: Per unit guidelines
Wound Care As Directed
Location of Wound: abdomen
Treatment of Wound: surgical site dressing change
DX Deep Vein Thrombosis Video Routine
06/23/25 19:50
Troponin I Routine
06/23/25 20:00
Carboxymethylcellulose [Refresh Celluvisc Gel] 1 drops BOTH EYES BID
06/23/25 22:00
Trazodone [Desyrel] 50 mg PO HS
06/24/25 06:38
Complete Blood Count/No Diff IN AM
Comprehensive Metabolic Panel IN AM
Magnesium IN AM
TSH IN AM
06/24/25 08:00
Pantoprazole [Protonix] 40 mg PO DAILY
06/25/25 11:00
DC Protocol for Telemetry ONCE
Abnormal Lab Results
06/23/25
11:53
WBC 11.5 H 10^3/uL
(4.8-10.8)
Plt Count 418 H 10^3/uL
(130-400)
Absolute Neuts (auto) 10.0 H 10^3/uL
(1.4-6.5)
Absolute Lymphs (auto) 0.5 L 10^3/uL
(1.2-3.4)
Absolute Monos (auto) 0.9 H 10^3/uL
(0.1-0.6)
Neutrophils % 87.0 H %
(42.2-75.2)
Lymphocytes % 4.1 L %
(20.5-51.1)
Sodium 133 L mmol/L
(135-145)
Potassium 2.6 L* mmol/L
(3.5-5.1)
Glucose 123 H mg/dl
(70-99)
Magnesium 1.2 L mg/dl
(1.6-2.3)
Total Bilirubin 2.0 H mg/dl
(0.2-1.3)
06/23/25 11:53
06/23/25 11:53
Vital Signs
Initial and Last Documented VS:
Initial Vital Signs
Temp Pulse Resp BP Pulse Ox
99.6 F 97 20 98/82 99
06/23/25 11:37 06/23/25 11:37 06/23/25 11:37 06/23/25 11:37 06/23/25 11:37
Last Documented Vital Signs
Temp Pulse Resp BP Pulse Ox
97.8 F 76 17 112/54 95
06/26/25 11:13 06/26/25 11:13 06/26/25 11:13 06/26/25 11:13 06/26/25 11:13
<Nakul Oneil MD - Last Filed: 06/26/25 11:24>
Orders/Labs/Results
Orders:
Orders
06/23/25 11:50
CT Head W/o Iv Contrast Urgent
Comment:
Reason For Exam: fall
Cervical Spine wo Contrast CT [CT Cervical Spine W/o Iv Contr] Urgent
Comment:
Reason For Exam: fall
06/23/25 11:53
Complete Blood Count/With Diff Urgent
Comprehensive Metabolic Panel Urgent
Creatine Phosphokinase Urgent
Comment: ADD ON
Magnesium Urgent
Comment: ADD ON
06/23/25 12:12
Urinalysis Stat
Date Specimen was Collected: 06/24/25
Time Specimen was Collected: 17:10
06/23/25 12:16
EKG [Electrocardiogram (*1)] Urgent
Reason for Study: Syncope
06/23/25 12:27
Add On- LAB Urgent
Tests Added?: magnesium, CPK
Orthostatic VS- Treatment ONCE
06/23/25 12:58
Potassium Chloride [KCl] 40 meq PO NOW STA
Potassium Chloride [KCl] 40 meq Dextrose 5%/Water 250 ml [D5w] 250 ml IV NOW
06/23/25 12:59
Magnesium Sulfate 2 Gram/50 ml [Magnesium Sulfate] 2 gram in 50 ml IV NOW
06/23/25 13:05
Potassium Chloride [KCl] 40 meq Dextrose 5%/Water 250 ml [D5w] 250 ml IV NOW
06/23/25 14:08
CR Knee - Right 1 Or 2 Views Urgent
Comment:
Reason For Exam: knee pain
06/23/25 14:50
Acetaminophen [Tylenol] 650 mg PO NOW STA
06/23/25 Dinner
Regular
At Your Request: Full Participation
Does patient need a safe tray?: No
06/23/25 15:44
Code Status As Directed
Resuscitation Status: Full Code
Activity As Directed
Activity Level: As Tolerated
Notify MD As Directed
Notify physician if: Bridge Admission orders placed.
Notify attending physician:
-- upon arrival to unit
OR
-- when patient is identified as an ED hold
Vital Signs As Directed
Frequency: Per unit guidelines
O2 Therapy [RESP] Routine
Titrate/Wean O2 to maintain O2 sat greater than (%): 92
06/23/25 15:45
DX Deep Vein Thrombosis Video Routine
06/23/25 17:19
Admit/Transfer Patient As Directed
Co-Sign Provider:
Level of Care: Observation services
Assign to:: Telemetry
Physician / Group: Dr. Nakul Hanson
Diagnosis: Syncope
Reason for Telemetry: Syncope
Date to Stop Telemetry: 06/25/25
Time to Stop Telemetry: 11:00
PRN Pain Medication Management As Directed
May give lesser potent ordered pain med per pt: Yes
preference::
Protocol:: Medication orders for pain may be administered in a
manner that supports deferring to patient preference
when the pt is:
-Requesting an ordered lesser potent pain medication.
Least to most potent pain medications are defined as:
acetaminophen < NSAID < tramadol < opioids (morphine,
oxycodone, hydromorphone).
- Requesting a lesser dose of the same medication IF
ORDERED.
- Requesting a less intrusive route of administration
if both routes are prescribed by the provider (PO <
IV).
06/23/25 17:22
Code Status As Directed
Resuscitation Status: Do not resuscitate
Reached after discussion with pt or family/Healthcare POA: Yes
06/23/25 17:23
DNR Bracelet Application ONCE
06/23/25 18:17
0.9% Sodium Chloride 1000 ml [Nss] 1,000 ml IV 100 mls/hr
Acetaminophen [Tylenol] 1,000 mg PO TIDPRN PRN mild pain
Acetaminophen [Tylenol] 650 mg PO Q4HPRN PRN
Bisacodyl [Dulcolax] 10 mg RECTAL [id number] PRN
Docusate W/Senna [Senokot-S] 1 tablet PO BIDPRN PRN
Enoxaparin Sodium [Lovenox] 40 mg SC QPM
Lidocaine [Lidocaine 4% Patch] 1 patch TOPICAL DAILYPRN PRN lower back pain
Apply Lidocaine patch(s) to:: thoracic spine
Polyethylene Glycol Powder [Miralax] 17 grams PO DAILYPRN PRN
06/23/25 18:17
Activity As Directed
Activity Level: As Tolerated
Orthostatic Vital Signs As Directed
Orthostatic VS Frequency: BID
Vital Signs As Directed
Frequency: Per unit guidelines
Wound Care As Directed
Location of Wound: abdomen
Treatment of Wound: surgical site dressing change
DX Deep Vein Thrombosis Video Routine
06/23/25 19:50
Troponin I Routine
06/23/25 20:00
Carboxymethylcellulose [Refresh Celluvisc Gel] 1 drops BOTH EYES BID
06/23/25 22:00
Trazodone [Desyrel] 50 mg PO HS
06/24/25 06:38
Complete Blood Count/No Diff IN AM
Comprehensive Metabolic Panel IN AM
Magnesium IN AM
TSH IN AM
06/24/25 08:00
Pantoprazole [Protonix] 40 mg PO DAILY
06/25/25 11:00
DC Protocol for Telemetry ONCE
Abnormal Lab Results
06/23/25
11:53
WBC 11.5 H 10^3/uL
(4.8-10.8)
Plt Count 418 H 10^3/uL
(130-400)
Absolute Neuts (auto) 10.0 H 10^3/uL
(1.4-6.5)
Absolute Lymphs (auto) 0.5 L 10^3/uL
(1.2-3.4)
Absolute Monos (auto) 0.9 H 10^3/uL
(0.1-0.6)
Neutrophils % 87.0 H %
(42.2-75.2)
Lymphocytes % 4.1 L %
(20.5-51.1)
Sodium 133 L mmol/L
(135-145)
Potassium 2.6 L* mmol/L
(3.5-5.1)
Glucose 123 H mg/dl
(70-99)
Magnesium 1.2 L mg/dl
(1.6-2.3)
Total Bilirubin 2.0 H mg/dl
(0.2-1.3)
06/23/25 11:53
06/23/25 11:53
Vital Signs
Initial and Last Documented VS:
Initial Vital Signs
Temp Pulse Resp BP Pulse Ox
99.6 F 97 20 98/82 99
06/23/25 11:37 06/23/25 11:37 06/23/25 11:37 06/23/25 11:37 06/23/25 11:37
Last Documented Vital Signs
Temp Pulse Resp BP Pulse Ox
97.8 F 76 17 112/54 95
06/26/25 11:13 06/26/25 11:13 06/26/25 11:13 06/26/25 11:13 06/26/25 11:13
<Irais Flower MD, Resident - Last Filed: 06/23/25 14:55>
MDM/Problems Addressed
Differential Diagnosis Includes:
Vasovagal Syncopal episode
orthostatic Hypotension
Hypokalemia and hypomagnesemia
Right knee pain secondary to fall
MDM/Problems Addressed:
Address electrolyte abnormalities-replete
Check orthostatic vitals and rehydrate
Head CT-normal
Neck CT-normal
EKG-No acute changes
Check Xray right knee for any fractues
<Irais Flower MD, Resident - Last Filed: 06/23/25 14:55>
*Pulse Oximetry
SaO2: 99
Oxygen Mode of Delivery: Room air
Patient hypoxic: no
*Critical Care Note
Total Time (30-74mins, 75-104mins- exclusive of procedures): Not Applicable
ED Attending Note
<Irais Flower MD, Resident - Last Filed: 06/23/25 14:55>
-
Portions of this chart may have been created with voice recognition software.� Occasional wrong word or��sound alike� substitutions may have occurred due to the inherent limitations of voice recognition software.
<Nakul Oneil MD - Last Filed: 06/26/25 11:24>
ED Attending Note
Patient seen and examined by attending physician: Yes
ED Attending Note:
Patient with history of dementia, presents to ED after syncopal episode this morning. Patient reports 'fainting' and felt as though she may pass out when she was walking. However, it is unclear if she experienced any additional symptoms, as she
reports having passed out in the kitchen, when she was in fact found next to her bed. Patient's visiting nurse arrived at patient's house and heard patient calling for help. 911 was dispatched at that time. Patient initially complained of back
and knee pain. Denies headache. Denies neck pain. Denies chest pain or palpitations. Denies recent illness. Denies coughing. Denies recent injury. Patient has passed out in the past, secondary to pain, according to family. Patient medical
history is significant for recent small bowel obstruction requiring surgery.
Physical Exam
General: no apparent distress, not acutely ill. afebrile
Head: nc/at. eomi
Neck: supple. normal range of motion
Heart: s1/s2 regular rate and rhythm
Lungs: no acute respiratory distress. clear bilaterally
Abdomen: normal bowel sounds. not tender. no distention
Neuro: alert and oriented x 2. no focal neurological deficits
Skin: no rash
Psychiatric: well kept. interactive and cooperative
Extremities: no edema. no calf tenderness. right knee: diffuse tenderness to palpation without ecchymosis/swelling/erythema
Blood work significant for hyponatremia and hypomagnesemia, raising possibility of potential arrhythmia, as etiology behind patient's syncopal episode. As such, electrolytes will be repleted. Patient will be admitted for further evaluation and
treatment.
Discharge Plan
Departure
Patient Disposition: Admit
Date of Disposition: 06/23/25
Time of Disposition: 15:03
Presentation/result/management discussed w/ accepting MD/DO: Hospitalist
Discharge Problem:
SYNCOPE, Hypokalemia, Hypomagnesemia, Right knee pain, Fall
Interventions
Interventions:
*Risk Screen - Suicide Last Done: 06/23/25 11:50
*General Assessment Last Done: 06/23/25 11:50
*Neglect/Abuse Screening Last Done: 06/23/25 11:50
*ED- Fall Risk Assessment Last Done: 06/23/25 11:50
*ED COVID-19 Vaccine History Last Done: 06/23/25 11:50
*ED Influenza Vaccine History Last Done: 06/23/25 11:50
*Nursing Disposition Last Done: 06/23/25 18:17
ED-Musculoskeletal Assessment Last Done: 06/23/25 13:18
ED- Neurological Assessment Last Done: 06/23/25 13:18
ED-Skin Assessment Last Done: 06/23/25 13:18
Discharge Date and Time
Discharge Date/Time: 06/23/25 18:20
[2025-06-23] MEDS: KCL 40 MEQ PO (13:56)
[2025-06-23] MEDS: MAGNESIUM SULFATE 50 IV (13:56)
[2025-06-23] MEDS: KCL 270 MEQ IV (14:18)
[2025-06-23] MEDS: TYLENOL 650 MG PO (15:37)
--- NOTE | 2025-06-23 17:34 | HPS.HSE ---
Addendum entered and electronically signed by Nakul Hanson MD 06/23/25 22:50:
Attending Addendum-
I performed a history and physical exam of the patient and discussed his management with the resident. I reviewed the resident's note and agree with the documented findings and plan of care CC/HPI- Patient is a poor historian due to dementia. Seen
with son terry present. was found by wound care nurse on ground in bathroom this am. had syncopal event. patient unclear when this happened. states she 'felt it coming on' and that she has passed out multiple times due to pain before. complains if
of 01/13 back pain and right knee pain. recently admitted due to SBO with resection. Full 10 point ROS reviewed and negative except as documented limited due to dementia Exam- vitals reviewed in EMR GEN-NAD heart RRR 10/09 SM @ [facility] lungs no BS RLL no
W/R/R abd incision CDI wick in place for drainage NT ND pos BS LE no edema Neuro AAO x 1-2 Back-TT along t spine
Plan:
# Syncope
- r/o cardiac etiology
- check orthostatic BP
- admit to tele
- EKG personally reviewed shortened QTc no arrhythmia noted
- check echo EEG trop
# Severe Electrolyte Abnormalities
-Hypokalemia-replete
-Hypomagnesemia-replete
# Fall
- cervical spine knee xray-no acute fx
- PT OT eval pain control
# Back Pain
- check x ray, pain control
# H/O SBO
- s/p resection and lysis of adhesions 05/18/25
- cont wound care
# Aoholgpznqfh-rcpqkvgvvrt-pjzw start IVF
# h/o CVA- PT OT, not on asa not on statin
# Depression- cont trazodone
# H/O Lung ca s/p RLL lobectomy, h/o ovarian ca s/p hysterectomy- care per primary
# Dementia- monitor for sundowning and behavioral disturbance
DVT-P- lovenox
CODE- DNR-verified with POA
[facility], would benefit from AL patient doesn't want to go to AL
ACP
Patient unable to consent to discuss, was with MARIBEL son TERRY, time spent explanation of advance directives, changes in health status, patient�s health care wishes if the patient becomes unable to make health decisions, goals of care, code status, and
prognosis- 16 minutes
Time spent coordinating care, review of plan of care with resident, personally reviewed previous records in EMR, med rec, labs, radiology, d/w nursing, family total time documented is exclusive of any additional time listed that was spent in advance
care planning discussion -�75 minutes
Original Note:
Family Physician
-
Family Physician: Shreya Murguia
Chief Complaint
-
syncope
History of Present Illness
Patient is an 84 y/o female with pmh of dementia, ovarian cancer s/p hysterectomy and oophorectomy, lung cancer s/p right lower lobe lobectomy, history of prior TIA, GERD, prior history of upper GI bleed, recently discharged from [facility]
after laparotomy for bowel obstruction presented today to ED with a history of fainting this morning. She has dementia so history was mainly taken by her son Temo (Terry). She had a feeling of fainting before it happened. She states it happening
suddenly. She has a visiting nurse every morning for wound dressing. When she went to visit her this morning she didnt respond to knock on the door. When security opened the door pt was on the floor in the bedroom and complained about having central
back pain and right knee pain. She does not remember how long she stayed on the floor. VN called EMS and brought her to the ED.
Currently she denies a headache, palpitations, lightheadedness, weakness. She rates her back pain 6/10. She does not have urinary incontinance. Normal bms.
She eats one meal a day and drinks 2-3 cups of water normally
Medical History
Past Medical History
Past Medical History: Reports Cancer (ovarian, lung), CVA (TIA), Dementia, GERD and Other (Upper GI Bleeding, bowel obstruction)
Past Surgical History: Reports Appendectomy, Bowel Resection (laparatomy for bowel obstruction), Cholecystectomy and Gynocological (hysterectomy, oopherectomy, lung lobectomy)
Social History
Unable to obtain full social history at this time due to: Dementia
Tobacco: Former Smoker (30pack/year, quit 30 years ago)
Alcohol: Occasional (once in 2 months)
Drug: None
Living: Alone
Employment: Retired
Family History
Family History: CAD and Cancer
Allergies / Home Medications
Allergies reflects when Allergies were last updated in [employer].
Home Medications with original date entered in [employer]
Allergy/Medication List:
Allergies
Allergy/AdvReac Type Severity Reaction Status Date / Time
bacitracin (From Neosporin Allergy Hives Verified 06/23/25 11:37
([id number]))
codeine Allergy hypotensive Verified 06/23/25 11:37
COVID-19 (SARS-CoV-2) Allergy HARVEY'S Verified 06/23/25 11:37
vaccine, ilana PALSY
neomycin (From Neosporin Allergy Hives Verified 06/23/25 11:37
([id number]))
nitrofurantoin (From Allergy Hives Verified 06/23/25 11:37
Macrobid)
polymyxin B (From Neosporin Allergy Hives Verified 06/23/25 11:37
([id number]))
Home Medications
acetaminophen 500 mg tablet (Tylenol Extra Strength) 1,000 mg PO TIDPRN PRN mild pain 05/14/25
carboxymethylcellulose 0.5 %-glycerin 0.9 % eye drops (Refresh Optive) 1 drp BOTH EYES BID Eye Condition 05/14/25
lidocaine 4 % topical patch 1 patch topical DAILY PRN lower back pain 05/14/25
pantoprazole 40 mg tablet,delayed release 40 mg PO DAILY Gastrointestinal Issue 05/14/25
trazodone 50 mg tablet 50 mg PO HS Neurological Condition 05/14/25
Review of Systems
-
Unable to obtain full review of systems at this time due to: Dementia
History Source: Family (son Temo)
Constitutional: Reports No Symptoms
EENT: Reports No Symptoms
Respiratory: Reports No Symptoms
Cardiac: Reports No Symptoms
Abdomen/GI: Reports Abdominal Pain (incision site post surgery)
: Reports No Symptoms
Musculoskeletal: Reports Joint Pain (right knee) and Muscle Pain (back pain)
Skin: Reports No Symptoms
Neurological: Reports No Symptoms (Cognitive decline)
Endocrine: Reports No Symptoms
Hematologic/Lymphatic: Reports No Symptoms
Psych: Reports Calm and Dementia
Physical Exam
Vital Signs
Vital Signs
Temp Pulse Resp BP Pulse Ox
99.6 F 79 17 127/55 96
06/23/25 11:37 06/23/25 17:00 06/23/25 17:00 06/23/25 15:00 06/23/25 17:00
Physical Exam
General: Well Developed, Well Nourished and Pain (back)
HEENT: NormoCephalic
Respiratory: Clear
Cardiac: S1/S2 and Murmur (LLSB)
Breast: Deferred by me
GI: Soft, Non Distended, Normal Bowel Sounds and Tender (incision site)
Rectal: Deferred by Provider
Genito-urinary: Other (Purewick)
Musculoskeletal: No Clubbing, No Cyanosis and No Edema
Skin: Warm and Dry
Neuro: Awake, Alert, Nonfocal/grossly intact and Cranial Nerves Intact
Hematologic/Lymphatic: No Lymphadenopathy
Psych: Calm
Laboratory Results
-
06/23/25 11:53
06/23/25 11:53
Laboratory Results
Total Bilirubin 2.0 mg/dl (0.2-1.3) H 06/23/25 11:53
AST 28 U/L (14-36) 06/23/25 11:53
ALT 19 U/L (0-35) 06/23/25 11:53
Alkaline Phosphatase 105 U/L (38-126) 06/23/25 11:53
Impression/Plan
-
IMPRESSION:
Patient is an 84 y/o female with pmh of dementia, ovarian cancer s/p hysterectomy and oophorectomy, lung cancer s/p right lower lobe lobectomy, history of prior TIA, GERD, prior history of upper GI bleed, recently discharged from [facility]
after laparotomy for bowel obstruction presented today to ED with a history of fainting this morning.
PLAN:
Syncope
-DDx: Cardiogenic vs Vasavagal vs Neurologic
-Admit for observation on telemetry
-Per [place] Rule pt is on low risk for serious outcome requiring admission
-At ED CT scan head- No acute intracranial abnormality identified
-At ED CT scan of neck- No acute fracture or malalignment identified. Lymphadenopathy in the superior mediastinum
-ECG was normal - short QT?
-She has electrolyte abnormality
--K2.6- repleted
--Mg 1.2- replete
-Start IV fluid for dehydration
-Ordered Echo - she has murmur
-Ordered EEG to rule out seizure
-Check orthostatics
ECHO 09/02/2024
-LV ejection fraction is 65-70%
-Thickened calcified aortic valve with adequate leaflet
excursion. No aortic regurgitation is seen
-Mitral annular calcification. Trace mitral
regurgitation is seen.
Back Pain
-Tenderness to palpation on thoracic spine exam
-Ordered thoracic x-ray
-Lidocaine patch QD
-Tylenol prn
Knee Pain
-Xray was ordered at ED- No evidence of acute fracture or dislocation
-pain improved after tylenol
Recent laparatomy for bowel obstruction
-consult wound
GERD
-Continue PPI
Insomnia
-Continue Trazadone
History of ovarian cancer s/p hysterectomy
- 30 years ago
History of lung cancer s/p lobectomy
-received 9 XRT
-last one was 2 years ago
DNR code
Lovenox 40mg
POA Temo(son)
Lives alone at [facility]
[2025-06-23 20:21] LABS: Troponin I < 0.012 ng/ml
[2025-06-23] MEDS: DESYREL 50 MG PO (21:12)
[2025-06-23] MEDS: LOVENOX 40 MG SC (21:12)
[2025-06-23] MEDS: NSS 1000 IV (21:13)
[2025-06-23] MEDS: REFRESH CELLUVISC GEL BOTH EYES (21:13)
[2025-06-24 02:58] VITALS: BP 136/69
[2025-06-24 03:00] VITALS: BMI 26.2
--- NOTE | 2025-06-24 03:19 | DOWNTIME ---
There was a [employer] Client Chest Pain Coordinator Downtime on 06/24/2025 from 0100 to 06/24/2025 at 0255. Downtime documentation of patient's care, including medication administrations, has been reconciled in the electronic record per guidelines. Refer to the
patient's paper chart under the miscellaneous tab to see printed paper medication records and downtime forms.
[2025-06-24 07:26] LABS: ALT (SGPT) 17 U/L (0-35); AST (SGOT) 24 U/L (14-36); Albumin 3.0 g/dl (3.5-5.0); Alkaline Phosphatase 97 U/L (38-126); Blood Urea Nitrogen 8 mg/dl (7-17); Calcium 8.6 mg/dl (8.4-10.2); Carbon Dioxide 23 mmol/L (22-30); Chloride 103 mmol/L (98-107); Estimated Creatinine Clearance 53 ml/min; Glucose 117 mg/dl (70-99); Magnesium 1.9 mg/dl (1.6-2.3); Potassium 3.4 mmol/L (3.5-5.1); Sodium 131 mmol/L (135-145); Total Protein 5.8 g/dl (6.3-8.2); eGFR > 60.00
[2025-06-24 07:30] VITALS: BP 126/65
[2025-06-24 07:55] LABS: Hematocrit 34.2 % (37.0-47.0); Hemoglobin 12.1 g/dL (12.0-16.0); Mean Corp Hgb Conc. 35.4 g/dL (33.0-37.0); Mean Corpuscular Volume 82.4 fL (81.0-99.0); Platelet Count 305 10^3/uL (130-400); Red Cell Dist. Width 13.7 % (11.5-14.5); TSH 2.01 uIU/ml (0.47-4.68)
--- NOTE | 2025-06-24 08:08 | W.PN.HOSP.TC ---
Addendum entered and electronically signed by Nakul Hanson MD 06/24/25 22:41:
Attending Addendum-I saw and evaluated the patient. I reviewed the resident�s note and agree with findings and plan as documented in the resident�s note. Sub: complains of significant lower back pain and right knee pain. difficulty ambulating. Seen
with son present. Deneis fevers chills urinary or fecal incontinence. Full 10 point ROS reviewed and negative except as documented limited due to dementia Exam- vitals reviewed in EMR GEN-NAD heart RRR 3/ SM @ [facility] lungs no BS RLL no W/R/R abd
incision CDI wick in place for drainage NT ND pos BS LE no edema Neuro AAO x 1-2 Back-TT central @ L1 spine
Plan:
# Syncope
- no further episodes
- r/o cardiac etiology
- check orthostatic BP
- continue care in tele
- EKG personally reviewed shortened QTc no arrhythmia noted
- echo 06/24-Compared to a prior transthoracic echocardiogram study from August 2024, There is mild aortic stenosis EF 60-65, EDGAR 2.0
- trop neg
# Severe Electrolyte Abnormalities
-Hypokalemia-improved, replete repeat BMP in am
-Hypomagnesemia-s/p repletition, resolved
# Fall with resulting ambulatory dysfunction
- cervical spine, knee xray-no acute fx
- PT OT eval, pain control
# L1 compression fx
- x ray-Progressed moderate L1 compression fracture. Previously this was mild
-c/s IR, check MRI L Spine
- cont pain control
# H/O SBO
- s/p resection and lysis of adhesions 05/18/25
- cont wound care
# Uuhbogdonnxo-szhgizehkyy-zcwq cont IVF
# h/o CVA- PT OT, not on asa not on statin
# Depression- cont trazodone
# H/O Lung ca s/p RLL lobectomy, h/o ovarian ca s/p hysterectomy- care per primary heme onc
# Dementia- monitor for owning and behavioral disturbance
DVT-P- lovenox
CODE- DNR-verified with POA
Dispo-from [facility] [place], would benefit from AL but patient doesn't want to leave her apt
Time spent coordinating care, review of plan of care with resident, personally reviewed records in EMR, med rec, consults, notes, labs, radiology, d/w nursing and son � 52 mins
Original Note:
Today's Communication/Plan
-
IR consult, ? Kyphoplasty for L1 vertebral fracture
Lumbar MRI w/o contrast
Assessment / Plan
Assessment / Plan
Syncope
-DDx: Cardiogenic vs Vasavagal vs Neurologic
-Admit for observation on telemetry
-Per [place] Rule pt is on low risk for serious outcome requiring admission
-At ED CT scan head- No acute intracranial abnormality identified
-At ED CT scan of neck- No acute fracture or malalignment identified. Lymphadenopathy in the superior mediastinum
-ECG was normal - short QT?
-She has electrolyte abnormality
--K2.6- repleted
--Mg 1.2- replete
-Start IV fluid for dehydration
-Ordered Echo - she has murmur- report pending
-Ordered EEG to rule out seizure- report pending
-Check orthostatics -n/a
-Troponin <0.012
-TSH normal
ECHO 09/02/2024
-LV ejection fraction is 65-70%
-Thickened calcified aortic valve with adequate leaflet
excursion. No aortic regurgitation is seen
-Mitral annular calcification. Trace mitral
regurgitation is seen
Back Pain
-Tenderness to palpation on thoracic spine exam
-Ordered thoracic x-ray
-Lidocaine patch QD
-Tylenol prn
-Oxycodone prn
-Possible Kyphoplasty?
-Consult IR, input appreciated
-- Lumbar MRI w/o contrast was recommended by IR
-PT/OT eval - pending
Thoracic Xray
-Progressed moderate L1 compression fracture. Previously this was mild
-Moderate mid left lung atelectasis versus scarring. Stable
Knee Pain
-Knee Xray was ordered at ED- No evidence of acute fracture or dislocation
-tylenol prn
-oxycodone prn
Recent laparatomy for bowel obstruction
-consult wound
GERD
-Continue PPI
Insomnia
-Continue Trazadone
History of ovarian cancer s/p hysterectomy
- 30 years ago
History of lung cancer s/p lobectomy
-received 9 XRT
-last one was 2 years ago
DNR code
Lovenox 40mg
MARIBEL Plascencia(son)
Lives alone at [facility]
Anticipated Discharge: > 48 hours
Subjective/Interval History
-
Date of Service: June 24, 2025
She can not remember what happened after fall.Asked to her son it is her baseline with dementia. She has a right knee pain 8/10 and a back pain. Her last bm was 3 days ago.
Objective Data
-
Labs:
Laboratory Results
06/24/25
06:38
WBC 9.4
Hgb 12.1
Hct 34.2 L
Plt Count 305 D
Sodium 131 L
Potassium 3.4 L D
Chloride 103
Carbon Dioxide 23
BUN 8
Creatinine 0.5 L
Glucose 117 H
Calcium 8.6
Total Bilirubin 1.4 H
AST 24
ALT 17
Alkaline Phosphatase 97
Vital Signs:
Vital Signs
Temp Pulse Resp BP Pulse Ox
98.3 F 84 16 136/69 99
06/24/25 02:58 06/24/25 02:58 06/24/25 02:58 06/24/25 02:58 06/24/25 02:58
I&O
06/23/25 06/24/25 06/25/25
06:59 06:59 06:59
Intake Total 480 / 480
Balance 480 / 480
Review of Systems
-
History Source: Patient
Constitutional: Reports No Symptoms
EENT: Reports No Symptoms Reported
Respiratory: Reports No Symptoms
Cardiac: Reports No Symptoms
Abdomen/GI: Reports No Symptoms
Breast: Reports No Symptoms
Genitourinary: Reports No Symptoms
Musculoskeletal: Reports Joint Pain (right knee) and Muscle Pain (back pain)
Skin: Reports No Symptoms
Neuro: Reports No Symptoms
Endocrine: Reports No Symptoms
Hematologic / Lymphatic: Reports No Symptoms
Physical Exam
-
General: Well Developed, Well Nourished and No Apparent Distress
HEENT: Normocephalic and Atraumatic
Respiratory: Clear to Auscultation
Cardiac: Regular Rhythm, S1/S2 and Murmur (RUSB, LLSB)
Breast: Deferred by me
GI: Soft, Nontender and Nondistended
Rectal: Deferred by Provider
Genito-urinary: Deferred by me
Musculoskeletal: No Clubbing, No Cyanosis and No Edema
Skin: Warm and Dry
Neuro: Awake and Alert
Hematologic / Lymphatic: No Lymphadenopathy
[2025-06-24] MEDS: KCL 20 MEQ PO ×2 (09:57→21:07)
[2025-06-24] MEDS: PROTONIX 40 MG PO (09:57)
[2025-06-24] MEDS: LIDOCAINE 4% PATCH 1 PATCH TOPICAL (09:58)
[2025-06-24] MEDS: REFRESH CELLUVISC GEL BOTH EYES ×2 (09:58→21:11)
[2025-06-24 11:45] VITALS: BP 115/55
[2025-06-24] MEDS: LIORESAL 10 MG PO (12:17)
[2025-06-24] MEDS: TYLENOL 650 MG PO (12:17)
[2025-06-24] MEDS: ROXICODONE 5 MG PO (12:18)
[2025-06-24] MEDS: NSS IV (13:42)
[2025-06-24] MEDS: NSS 1000 IV (13:43)
[2025-06-24 15:35] VITALS: BP 104/49
--- NOTE | 2025-06-24 16:16 | CM ---
Alert awake oriented patient who lives in independent living [facility]. She is independent in activates of daily living.She does drive short distances .She uses no DME. [facility] letter explained all questions and pt signed copy on chart
NO VN in past .[facility] hx
Pharmacy [facility]
PCP Dr Murguia
PLAN Home with no needs Son Temo will drive her home
[2025-06-24 17:21] LABS: Urine Character Slightly Cloudy (Clear)
[2025-06-24 17:42] LABS: Urine Squamous Cell 0-2 /LPF (Few)
[2025-06-24 17:43] LABS: Urine Red Blood Cell 16-20 /HPF (0-2); Urine Urothelial Cell 0-2 /LPF (FEW)
[2025-06-24] MEDS: LOVENOX 40 MG SC (17:55)
[2025-06-24] MEDS: TYLENOL PO ×3 (17:55→23:40)
[2025-06-24 19:00] VITALS: BP 124/62
[2025-06-24] MEDS: DESYREL 50 MG PO (21:07)
[2025-06-24] MEDS: REMOVE LIDOCAINE PATCH 1 PATCH REMOVE (21:08)
[2025-06-24 23:00] VITALS: BP 118/52
[2025-06-25] VITALS (8 sets, daily range): BP systolic 106–149; BP diastolic 57–76; PULSE 80–95; O2SAT 98
[2025-06-25] MEDS: NSS 1000 IV (01:12)
[2025-06-25] MEDS: TYLENOL PO (05:49)
[2025-06-25 07:01] LABS: Hematocrit 29.8 % (37.0-47.0); Hemoglobin 10.1 g/dL (12.0-16.0); Mean Corp Hgb Conc. 33.9 g/dL (33.0-37.0); Mean Corpuscular Volume 86.1 fL (81.0-99.0); Platelet Count 328 10^3/uL (130-400); Red Cell Dist. Width 13.7 % (11.5-14.5)
--- NOTE | 2025-06-25 07:23 | W.PN.HOSP.TC ---
Addendum entered and electronically signed by Nakul Hanson MD 06/25/25 21:55:
Attending Addendum-I saw and evaluated the patient. I reviewed the resident�s note and agree with findings and plan as documented in the resident�s note. Sub: continues to complain of significant lower back pain. right knee pain controlled.
difficulty ambulating. Denies fevers chills urinary or fecal incontinence. Full 10 point ROS reviewed and negative except as documented limited due to dementia Exam- vitals reviewed in EMR GEN-NAD heart RRR 10/09 SM @ [facility] lungs no BS RLL no W/R/R
abd incision CDI wick in place for drainage NT ND pos BS LE no edema Neuro AAO x 1-2 Back-TT central @ L1 spine
Plan:
# Syncope
- no further episodes
- continue care in tele
- EKG personally reviewed shortened QTc no arrhythmia noted
- echo 06/24-Compared to a prior transthoracic echocardiogram study from August 2024, There is mild aortic stenosis EF 60-65, EDGAR 2.0
- trop neg
# Severe Electrolyte Abnormalities
-Hypokalemia-resolved
-Hypomagnesemia-s/p repletion, resolved
# Fall with resulting ambulatory dysfunction
- cervical spine, knee xray-no acute fx
- PT OT eval, pain control
# chronic L1 compression fx
- x ray-Progressed moderate L1 compression fracture. Previously this was mild
- MRI L Spine-Moderate L1 compression deformity. No acute fractures.
- c/s IR for eval
- cont pain control
# H/O SBO
- s/p resection and lysis of adhesions 05/18/25
- cont wound care
# Znnhoxcadebv-jtemipurute-qpqb, cont IVF repeat BMP in am
# h/o CVA- PT OT, not on asa not on statin
# Depression- cont trazodone
# H/O Lung ca s/p RLL lobectomy, h/o ovarian ca s/p hysterectomy- care per primary heme onc
# Dementia- monitor for sundowning and behavioral disturbance
DVT-P- lovenox
CODE- DNR-verified with POA
[facility] [place] [facility] in am
Time spent coordinating care, review of plan of care with resident, personally reviewed records in EMR, med rec, consults, notes, labs, radiology, d/w nursing � 51 mins
Original Note:
Today's Communication/Plan
-
Replete Mg
PT/OT eval
Follow IR recs
Assessment / Plan
Assessment / Plan
Syncope
-DDx: Cardiogenic vs Vasavagal vs Neurologic
-Admit for observation on telemetry
-Per [place] Rule pt is on low risk for serious outcome requiring admission
-At ED CT scan head- No acute intracranial abnormality identified
-At ED CT scan of neck- No acute fracture or malalignment identified. Lymphadenopathy in the superior mediastinum
-ECG was normal - short QT?
-She has electrolyte abnormality
--K repleted
--Mg replete
-Start IV fluid for dehydration
-Ordered EEG to rule out seizure- report pending
-Check orthostatics -n/a
-Troponin <0.012
-TSH normal
ECHO 09/02/2024
-LV ejection fraction is 65-70%
-Thickened calcified aortic valve with adequate leaflet
excursion. No aortic regurgitation is seen
-Mitral annular calcification. Trace mitral
regurgitation is seen
ECHO 06/24/2025
-Compared to a prior transthoracic echocardiogram study from August 2024, There is mild aortic stenosis.
UTI
- Urinalysis (+) for UTI
- Asymptomatic- no need for Tx
- Urine Cx - pending
Back Pain
-Tenderness to palpation on thoracic spine exam
-Ordered thoracic x-ray
-Lidocaine patch QD
-Tylenol prn
-Oxycodone prn
-Consult IR, input appreciated
-- Lumbar MRI w/o contrast was recommended by IR
-PT/OT eval - pending
Lumbar MRI w/o contrast
-Moderate L1 height loss, similar to 05/14/2025 and progressed from 09/01/2024
-Moderate L1 compression deformity. No acute fractures.
Thoracic Xray
-Progressed moderate L1 compression fracture. Previously this was mild
-Moderate mid left lung atelectasis versus scarring. Stable
Knee Pain
-Knee Xray was ordered at ED- No evidence of acute fracture or dislocation
-tylenol prn
-oxycodone prn
Recent laparatomy for bowel obstruction
-consult wound
Constipation
-Started bowel regimen
GERD
-Continue PPI
Insomnia
-Continue Trazadone
History of ovarian cancer s/p hysterectomy
- 30 years ago
History of lung cancer s/p lobectomy
-received 9 XRT
-last one was 2 years ago
DNR code
Lovenox 40mg
MARIBEL Plascencia(son)
Lives alone at [facility]
Anticipated Discharge: 24 - 48 hours
Subjective/Interval History
-
Date of Service: June 25, 2025
She is comfortable, denies knee pain. Reports her back pain is chronic not too bad. She did not have bm yet. Denies pain with urination, urinary urgency.
Objective Data
-
Labs:
Laboratory Results
06/25/25
06:27
WBC 7.9
Hgb 10.1 L
Hct 29.8 L
Plt Count 328
Sodium Pending
Potassium Pending
Chloride Pending
Carbon Dioxide Pending
BUN Pending
Creatinine Pending
Glucose Pending
Calcium Pending
Vital Signs:
Vital Signs
Temp Pulse Resp BP Pulse Ox
98.2 F 88 16 146/67 96
06/25/25 03:00 06/25/25 03:00 06/25/25 03:00 06/25/25 03:00 06/25/25 03:00
I&O
06/24/25 06/25/25 06/26/25
06:59 06:59 06:59
Intake Total 480 / 480 650 / 650
Balance 480 / 480 650 / 650
Review of Systems
-
History Source: Patient
Constitutional: Reports No Symptoms
EENT: Reports No Symptoms Reported
Respiratory: Reports No Symptoms
Cardiac: Reports No Symptoms
Abdomen/GI: Reports No Symptoms
Breast: Reports No Symptoms
Genitourinary: Reports No Symptoms
Musculoskeletal: Reports Joint Pain (right knee) and Muscle Pain (back pain)
Skin: Reports No Symptoms
Neuro: Reports No Symptoms
Endocrine: Reports No Symptoms
Hematologic / Lymphatic: Reports No Symptoms
Physical Exam
-
General: Well Developed, Well Nourished and No Apparent Distress
HEENT: Normocephalic and Atraumatic
Respiratory: Clear to Auscultation
Cardiac: Regular Rhythm, S1/S2 and Murmur (RUSB, LLSB)
Breast: Deferred by me
GI: Soft, Nontender and Nondistended
Rectal: Deferred by Provider
Genito-urinary: Deferred by me
Musculoskeletal: No Clubbing, No Cyanosis and No Edema
Skin: Warm and Dry
Neuro: Awake and Alert
Hematologic / Lymphatic: No Lymphadenopathy
[2025-06-25 07:24] LABS: Blood Urea Nitrogen 9 mg/dl (7-17); Calcium 7.9 mg/dl (8.4-10.2); Carbon Dioxide 24 mmol/L (22-30); Chloride 108 mmol/L (98-107); Estimated Creatinine Clearance 53 ml/min; Glucose 118 mg/dl (70-99); Potassium 3.6 mmol/L (3.5-5.1); Sodium 134 mmol/L (135-145); eGFR > 60.00
[2025-06-25] MEDS: PROTONIX 40 MG PO (08:32)
[2025-06-25] MEDS: LIORESAL 10 MG PO (08:32)
[2025-06-25] MEDS: REFRESH CELLUVISC GEL 1 DROPS BOTH EYES ×2 (08:32→19:52)
[2025-06-25] MEDS: LIDOCAINE 4% PATCH 1 PATCH TOPICAL (08:32)
[2025-06-25] MEDS: ROXICODONE 5 MG PO (08:33)
[2025-06-25] MEDS: KCL 20 MEQ PO ×2 (08:34→19:53)
[2025-06-25 09:04] LABS: ALT (SGPT) 14 U/L (0-35); AST (SGOT) 20 U/L (14-36); Albumin 2.4 g/dl (3.5-5.0); Alkaline Phosphatase 72 U/L (38-126); Magnesium 1.5 mg/dl (1.6-2.3); Total Protein 5.0 g/dl (6.3-8.2)
[2025-06-25] MEDS: SENOKOT-S 1 TABLET PO ×2 (10:14→19:53)
--- NOTE | 2025-06-25 12:09 | EEG.RPT ---
Electroencephalogram Report
Recording
Date of EE06/24/25
Type of EEG: Routine
Length of EEG recordin minutes
Done with Video Recording: Yes
Patient Status: Inpatient
Recording Conditions: Awake, Drowsy and Asleep
Hyperventilation Performed: No
Photic Stimulation Performed: Yes
Report
LESS THAN 1 HOUR EEG REPORT
LESS THAN 1 HOUR EEG INTERPRETATION:
Likely unremarkable EEG for age
CLINICAL CORRELATION:
Although normative values not been established for a person of this advanced age, the patient�s symmetry of the background suggests that this study was unremarkable.
A normal EEG does not rule out a diagnosis of epilepsy. If clinical suspicion for seizure persists, a prolonged recording may be warranted.
Clinical correlation is advised.
METHODS:
A 21 channel digitized electroencephalogram (EEG) was performed using the 10/20 international system of electrode placement and one-lead of ECG recorded. The [employer] quantitative review system was utilized.
ELECTROENCEPHALOGRAPHER IMPRESSION(S):
Quality of study
Good
Background
There was an unremarkable anterior-posterior voltage gradient of alpha frequency.
With eye opening the background activity changed to a low voltage mixture of frequencies.
There were no significant asymmetries of background activity noted.
Sleep
Drowsiness present
Photic Stimulation
No driving
ECG
Normal sinus rhythm
[2025-06-25] MEDS: MAGNESIUM SULFATE 50 IV (12:21)
--- NOTE | 2025-06-25 12:34 | CM ---
Addendum entered by Melissa Nichols 06/25/25 12:55:
PT rec SNF
spoke with son Temo (Skip) agreeable - options reviewed [facility] SNF preferred
referral placed
updated [facility] liaison at [facility]
PLAN: SNF, pending bed availability, Will need ins auth once bed secured.
Original Note:
Patient seen at bedside
Await PT/OT eval
Patient resides at [facility]
PLAN: Await PT/OT rec, CM to follow for discharge planning needs
[2025-06-25] MEDS: TYLENOL 1000 MG PO ×2 (14:36→23:37)
[2025-06-25] MEDS: ROXICODONE 2.5 MG PO ×2 (14:36→20:07)
[2025-06-25] MEDS: LOVENOX 40 MG SC (17:37)
[2025-06-25] MEDS: REMOVE LIDOCAINE PATCH 1 PATCH REMOVE (19:53)
[2025-06-25] MEDS: DESYREL 50 MG PO (23:36)
[2025-06-26 03:00] VITALS: BP 129/64
--- NOTE | 2025-06-26 07:25 | W.PN.HOSP.TC ---
Addendum entered and electronically signed by Nakul Hanson MD 06/26/25 22:26:
Attending Addendum-I saw and evaluated the patient. I reviewed the resident�s note and agree with findings and plan as documented in the resident�s note. Sub: states her pain in back is much better controlled. patient is extremely poor historian
with poor memory. right knee pain controlled. Denies fevers chills urinary or fecal incontinence. Full 10 point ROS reviewed and negative except as documented limited due to dementia Exam- vitals reviewed in EMR GEN-NAD heart RRR 3/6 SM @ [facility]
lungs no BS RLL no W/R/R abd incision CDI wick in place for drainage NT ND pos BS LE no edema Neuro AAO x 1 Back-TT central @ L1 spine
Plan:
# Syncope
- no further episodes
- continue care in tele
- EKG personally reviewed shortened QTc no arrhythmia noted
- echo 06/24-Compared to a prior transthoracic echocardiogram study from August 2024, There is mild aortic stenosis EF 60-65, EDGAR 2.0
- trop neg
# Severe Electrolyte Abnormalities
-Hypokalemia-resolved
-Hypomagnesemia-s/p repletion, resolved
# Fall with resulting ambulatory dysfunction
- cervical spine, knee xray-no acute fx
- PT OT eval, pain control
# Chronic L1 compression fx
- x ray-Progressed moderate L1 compression fracture. Previously this was mild
- MRI L Spine-Moderate L1 compression deformity. No acute fractures.
- IR inout appreciated- no indication for vertebroplasty but patient and son agreed to steroid injection- patient now denying pain and refusing injection
- cont pain control
# H/O SBO
- s/p resection and lysis of adhesions 05/18/25
- cont wound care
# Vttbarrdhpqd-nfeewrlsdck-qdek, DC IVF repeat BMP in am
# h/o CVA- PT OT, not on asa or statin
# Depression- cont trazodone
# H/O Lung ca s/p RLL lobectomy, h/o ovarian ca s/p hysterectomy- care per primary heme onc
# Dementia- monitor for sundowning and behavioral disturbance
DVTp- lovenox
CODE- DNR-verified with POA
[facility]po[facility] (SNF) - medically stable for DC, awaiting auth, per CM can accept over weekend
Time spent coordinating care, review of plan of care with resident, personally reviewed records in EMR, med rec, consults, notes, labs, radiology, d/w nursing IR POA and CM � 52 mins
Original Note:
Today's Communication/Plan
-
Discharge
Assessment / Plan
Assessment / Plan
Syncope
-DDx: Cardiogenic vs Vasavagal vs Neurologic
-Admit for observation on telemetry
-Per [place] Rule pt is on low risk for serious outcome requiring admission
-At ED CT scan head- No acute intracranial abnormality identified
-At ED CT scan of neck- No acute fracture or malalignment identified. Lymphadenopathy in the superior mediastinum
-ECG was normal - short QT?
-She has electrolyte abnormality
--K repleted
--Mg replete
-Start IV fluid for dehydration
-Ordered EEG to rule out seizure- unremarkakble
-Check orthostatics - negative
-Troponin <0.012
-TSH normal
ECHO 09/02/2024
-LV ejection fraction is 65-70%
-Thickened calcified aortic valve with adequate leaflet
excursion. No aortic regurgitation is seen
-Mitral annular calcification. Trace mitral
regurgitation is seen
ECHO 06/24/2025
-Compared to a prior transthoracic echocardiogram study from August 2024, There is mild aortic stenosis.
Asymptomatic UTI
- Urinalysis (+) for UTI
- Asymptomatic- no need for Tx
- Urine Cx - mixed [place], possible contamination.
Back Pain
-Tenderness to palpation on thoracic spine exam
-Ordered thoracic x-ray
-Lidocaine patch QD
-Tylenol prn
-Oxycodone prn
-Consult IR, input appreciated
-- Lumbar MRI w/o contrast was recommended by IR
-PT/OT eval - SNF
-Ordered Covid test before sending to [facility]
-PT denies pain
Lumbar MRI w/o contrast
-Moderate L1 height loss, similar to 05/14/2025 and progressed from 09/01/2024
-Moderate L1 compression deformity. No acute fractures.
Thoracic Xray
-Progressed moderate L1 compression fracture. Previously this was mild
-Moderate mid left lung atelectasis versus scarring. Stable
Knee Pain
-Knee Xray was ordered at ED- No evidence of acute fracture or dislocation
-tylenol prn
-oxycodone prn
Recent laparatomy for bowel obstruction
-consult wound
Constipation
-Started bowel regimen
GERD
-Continue PPI
Insomnia
-Continue Trazadone
History of ovarian cancer s/p hysterectomy
- 30 years ago
History of lung cancer s/p lobectomy
-received 9 XRT
-last one was 2 years ago
DNR code
Lovenox 40mg
MARIBEL Plascencia(son)
Lives alone at [facility]
Discharge to [facility]
Anticipated Discharge: Today
Subjective/Interval History
-
Date of Service: June 26, 2025
She states feeling good. Denies knee, back pain with pain meds. No bms yet.
Objective Data
-
Labs:
Laboratory Results
06/26/25
07:07
WBC Pending
Hgb Pending
Hct Pending
Plt Count Pending
Sodium Pending
Potassium Pending
Chloride Pending
Carbon Dioxide Pending
BUN Pending
Creatinine Pending
Glucose Pending
Calcium Pending
Vital Signs:
Vital Signs
Temp Pulse Resp BP Pulse Ox
97.2 F 81 16 129/64 97
06/26/25 03:00 06/26/25 03:00 06/26/25 03:00 06/26/25 03:00 06/26/25 03:00
I&O
06/25/25 06/26/25 06/27/25
06:59 06:59 06:59
Intake Total 650 / 650
Balance 650 / 650
Review of Systems
-
History Source: Patient
Constitutional: Reports No Symptoms
EENT: Reports No Symptoms Reported
Respiratory: Reports No Symptoms
Cardiac: Reports No Symptoms
Abdomen/GI: Reports No Symptoms
Breast: Reports No Symptoms
Genitourinary: Reports No Symptoms
Skin: Reports No Symptoms
Neuro: Reports No Symptoms
Endocrine: Reports No Symptoms
Hematologic / Lymphatic: Reports No Symptoms
Physical Exam
-
General: Well Developed, Well Nourished and No Apparent Distress
HEENT: Normocephalic and Atraumatic
Respiratory: Clear to Auscultation
Cardiac: Regular Rhythm, S1/S2 and Murmur (RUSB, LLSB)
Breast: Deferred by me
GI: Soft, Nontender and Nondistended
Rectal: Deferred by Provider
Genito-urinary: Deferred by me
Musculoskeletal: No Clubbing, No Cyanosis and No Edema
Skin: Warm and Dry
Neuro: Awake and Alert
Hematologic / Lymphatic: No Lymphadenopathy
[2025-06-26 07:33] VITALS: BP 119/57
[2025-06-26 08:02] LABS: Hematocrit 32.3 % (37.0-47.0); Hemoglobin 10.5 g/dL (12.0-16.0); Mean Corp Hgb Conc. 32.5 g/dL (33.0-37.0); Mean Corpuscular Volume 90.5 fL (81.0-99.0); Platelet Count 314 10^3/uL (130-400); Red Cell Dist. Width 14.2 % (11.5-14.5)
[2025-06-26] MEDS: REFRESH CELLUVISC GEL 1 DROPS BOTH EYES ×2 (08:23→20:21)
[2025-06-26] MEDS: TYLENOL 1000 MG PO ×3 (08:24→23:01)
[2025-06-26] MEDS: LIORESAL 10 MG PO (08:24)
[2025-06-26] MEDS: KCL 20 MEQ PO ×2 (08:24→20:21)
[2025-06-26] MEDS: PROTONIX 40 MG PO (08:24)
[2025-06-26] MEDS: SENOKOT-S 1 TABLET PO ×2 (08:24→20:21)
[2025-06-26] MEDS: LIDOCAINE 4% PATCH 1 PATCH TOPICAL (08:24)
[2025-06-26 08:37] LABS: Blood Urea Nitrogen 10 mg/dl (7-17); Calcium 8.1 mg/dl (8.4-10.2); Carbon Dioxide 25 mmol/L (22-30); Chloride 105 mmol/L (98-107); Estimated Creatinine Clearance 53 ml/min; Glucose 113 mg/dl (70-99); Magnesium 1.8 mg/dl (1.6-2.3); Potassium 3.8 mmol/L (3.5-5.1); Sodium 131 mmol/L (135-145); eGFR > 60.00
[2025-06-26 09:37] LABS: ALT (SGPT) 14 U/L (0-35); AST (SGOT) 19 U/L (14-36); Albumin 2.5 g/dl (3.5-5.0); Alkaline Phosphatase 82 U/L (38-126); Total Protein 5.1 g/dl (6.3-8.2)
--- NOTE | 2025-06-26 09:57 | CM ---
Addendum entered by Melissa Nichols 06/26/25 13:47:
covid negative
updated [facility]
Call [facility] [phone] tomorrow if auth approved as they can accept over weekend
Addendum entered by Melissa Nichols 06/26/25 12:55:
IMM explained yesterday, In chart
Original Note:
tt from hospitalist stable for discharge to start auth
spoke with Tierra at [facility] - bed available today, she states if auth approved tomorrow to call Amanda [phone]
Covid test needs to be ordered - resident aware
Spoke with son Temo (formerly [facility]) [phone]
[facility] NPI #: [id number]
Dr. Shreya Murguia NPI #: [id number]
CM called [facility] [phone] & spoke with kaleigh Fuchs initiated
Faxed clinicals to [phone]
PENDED Reference #: [id number]
PLAN: [facility] SN[facility], ONCE AUTH APPROVED
REPORT #: [phone]
FAX #: [phone]
Transport forms on chart
[2025-06-26 10:29] LABS: COVID-19 Antigen Negative (Negative)
[2025-06-26 11:13] VITALS: BP 112/54
[2025-06-26 15:32] VITALS: BP 118/59
--- NOTE | 2025-06-26 15:45 | W.PN.UPDATE ---
Update Note
Progress Note Update
Patient reports that she currently has no back pain, and has not had pain for about 2 days. She seems oriented enough to report her degree of pain. I explained that the only purpose of KIM is pain relief, and there is no reason to perform if she
currently has no pain.
--- NOTE | 2025-06-26 16:10 | PTCARENOTE ---
LILIAN RN- patient here for KIM. upon entering holding area, patient states she is unsure if she wants this procedure done. given her periods of confusion and forgetfulness, patient's son Temo jorgensen Skip here to converse with patient. patient voiced
concern that she is not having pain right now and is unsure if she needs this procedure. Dr. Tran and patient's son conversed with patient. patient sat on side of stretcher with minimal assistance. denies pain. patient stated she did not want a
needle in her back. patient's son agreed. procedure canceled.
[2025-06-26 17:02] VITALS: BP 118/59; PULSE 82
[2025-06-26] MEDS: LOVENOX 40 MG SC (17:46)
[2025-06-26] MEDS: REMOVE LIDOCAINE PATCH 1 PATCH REMOVE (20:21)
[2025-06-26] MEDS: DESYREL 50 MG PO (23:01)
[2025-06-26 23:08] VITALS: BP 134/67
[2025-06-27 06:55] LABS: Blood Urea Nitrogen 10 mg/dl (7-17); Calcium 8.1 mg/dl (8.4-10.2); Carbon Dioxide 24 mmol/L (22-30); Chloride 105 mmol/L (98-107); Estimated Creatinine Clearance 53 ml/min; Glucose 101 mg/dl (70-99); Potassium 4.0 mmol/L (3.5-5.1); Sodium 131 mmol/L (135-145); eGFR > 60.00
--- NOTE | 2025-06-27 07:04 | W.PN.HOSP.TC ---
Addendum entered and electronically signed by Krystal Ya MD 06/27/25 18:34:
I saw and evaluated the patient independently. I reviewed and discussed the resident�s note and agree with findings and plan as documented by Dr. Gonsales.
GENERAL: well developed, well nourished, female in no apparent distress
HEENT: NC/AT
HEART: regular rate and rhythm, +S1, +S2
LUNGS : clear to auscultation bilaterally
ABDOM: soft, nontender, nondistended, + bowel sounds
EXT: no cyanosis, clubbing, or edema
NEUROLOGIC: grossly intact
Syncope--likely due to electrolyte abnormalities vs vasovagal--head CT neg, C-spine CT neg--hypokalemia--repleted, hypomagnesemia--repleted--s/p IVF--EEG neg for seizure--orthostatics neg--normal troponin and TSH--ECHO 06/24/2025-Compared to a prior
transthoracic echocardiogram study from August 2024, There is mild aortic stenosis.
Contaminated urine--no UTI Asymptomatic UTI-- Urine Cx - mixed [place]
Back Pain-Tenderness to palpation on thoracic spine exam--lidocaine patch--pain control--PT/OT--no pain so no need for epidural--Lumbar MRI w/o contrast-Moderate L1 height loss, similar to 05/14/2025 and progressed from 09/01/2024-Moderate L1
compression deformity. No acute fractures.
Knee Pain-Knee Xray was ordered at ED- No evidence of acute fracture or dislocation
Recent laparotomy for bowel obstruction-consult wound
Constipation-Started bowel regimen
GERD-Continue PPI
Insomnia-Continue Trazadone
History of ovarian cancer s/p hysterectomy- 30 years ago
History of lung cancer s/p lobectomy-received 9 XRT-last one was 2 years ago
code status--DNR
DVT proph--lovenox
Dispo--Lives alone at [facility]--Discharge to [facility] - waiting for auth. Peer to peer on 06/29
Original Note:
Today's Communication/Plan
-
peer to peer per cm
discharge on sunday
Assessment / Plan
Assessment / Plan
Syncope
-DDx: Cardiogenic vs Vasavagal vs Neurologic
-Admit for observation on telemetry
-Per [place] Rule pt is on low risk for serious outcome requiring admission
-At ED CT scan head- No acute intracranial abnormality identified
-At ED CT scan of neck- No acute fracture or malalignment identified. Lymphadenopathy in the superior mediastinum
-ECG was normal - short QT?
-She has electrolyte abnormality
--K repleted
--Mg replete
-Start IV fluid for dehydration
-Ordered EEG to rule out seizure- unremarkakble
-Check orthostatics - negative
-Troponin <0.012
-TSH normal
ECHO 09/02/2024
-LV ejection fraction is 65-70%
-Thickened calcified aortic valve with adequate leaflet
excursion. No aortic regurgitation is seen
-Mitral annular calcification. Trace mitral
regurgitation is seen
ECHO 06/24/2025
-Compared to a prior transthoracic echocardiogram study from August 2024, There is mild aortic stenosis.
Asymptomatic UTI
- Urinalysis (+) for UTI
- Asymptomatic- no need for Tx
- Urine Cx - mixed [place], possible contamination.
Back Pain
-Tenderness to palpation on thoracic spine exam
-Ordered thoracic x-ray
-Lidocaine patch QD
-Tylenol prn
-Oxycodone prn
-Consult IR, input appreciated
-- Lumbar MRI w/o contrast was recommended by IR
-PT/OT eval - SNF
-Ordered Covid test before sending to SNF
-PT denies pain
Lumbar MRI w/o contrast
-Moderate L1 height loss, similar to 05/14/2025 and progressed from 09/01/2024
-Moderate L1 compression deformity. No acute fractures.
Thoracic Xray
-Progressed moderate L1 compression fracture. Previously this was mild
-Moderate mid left lung atelectasis versus scarring. Stable
Knee Pain
-Knee Xray was ordered at ED- No evidence of acute fracture or dislocation
-tylenol prn
-oxycodone prn
Recent laparatomy for bowel obstruction
-consult wound
Constipation
-Started bowel regimen
GERD
-Continue PPI
Insomnia
-Continue Trazadone
History of ovarian cancer s/p hysterectomy
- 30 years ago
History of lung cancer s/p lobectomy
-received 9 XRT
-last one was 2 years ago
DNR code
Lovenox 40mg
MARIBEL Plascencia(son)
Lives alone at [facility]
Discharge to [facility] - waiting for auth. Peer to peer on 06/29
Anticipated Discharge: > 48 hours
Subjective/Interval History
-
Date of Service: June 27, 2025
Overall feels good. Denies knee, back pain. She has been walking with the support of her walker. She did not have any bms yet. Denies SOB, CP.
Objective Data
-
Labs:
Laboratory Results
06/27/25
05:53
Sodium 131 L
Potassium 4.0
Chloride 105
Carbon Dioxide 24
BUN 10
Creatinine 0.6
Glucose 101 H
Calcium 8.1 L
Vital Signs:
Vital Signs
Temp Pulse Resp BP Pulse Ox
98 F 84 16 134/67 97
06/26/25 23:08 06/26/25 23:08 06/26/25 23:08 06/26/25 23:08 06/26/25 23:08
I&O
06/26/25 06/27/25 06/28/25
06:59 06:59 06:59
Intake Total 480 / 480
Balance 480 / 480
Review of Systems
-
History Source: Patient
Constitutional: Reports No Symptoms
EENT: Reports No Symptoms Reported
Respiratory: Reports No Symptoms
Cardiac: Reports No Symptoms
Abdomen/GI: Reports No Symptoms
Breast: Reports No Symptoms
Genitourinary: Reports No Symptoms
Skin: Reports No Symptoms
Neuro: Reports No Symptoms
Endocrine: Reports No Symptoms
Hematologic / Lymphatic: Reports No Symptoms
Physical Exam
-
General: Well Developed, Well Nourished and No Apparent Distress
HEENT: Normocephalic and Atraumatic
Respiratory: Clear to Auscultation
Cardiac: Regular Rhythm, S1/S2 and Murmur (RUSB, LLSB)
Breast: Deferred by me
GI: Soft, Nontender and Nondistended
Rectal: Deferred by Provider
Genito-urinary: Deferred by me
Musculoskeletal: No Clubbing, No Cyanosis and No Edema
Skin: Warm and Dry
Neuro: Awake and Alert
Hematologic / Lymphatic: No Lymphadenopathy
Psych: Calm
[2025-06-27 08:26] VITALS: BP 143/69
--- NOTE | 2025-06-27 09:02 | CM ---
SNF authorization request reviewed by [facility]; Peer to Peer offered, but must be completed by noon on Sunday by calling [phone], Option 5. Will need to verify patient name, , and Policy Number.
Call placed to pt's son, Temo, to make him aware of need for P2P on Sunday.
Plan: CM to update pt's son, Temo, on Sunday regarding outcome of P2P. Son asked 'what happens if it's still denied'? CM advised that pt could pay privately for SNF, or consider hiring caregivers in pt's apartment with or without home care
services.
[facility] at [facility] updated regarding discharge delay due to P2P pending to be done on Sunday.
Plan: Pt to remain in the hospital awaiting P2P outcome. CM to keep pt and son updated.
[2025-06-27] MEDS: LIDOCAINE 4% PATCH 1 PATCH TOPICAL (09:26)
[2025-06-27] MEDS: REFRESH CELLUVISC GEL 1 DROPS BOTH EYES ×2 (09:26→20:37)
[2025-06-27] MEDS: LIORESAL 10 MG PO (09:27)
[2025-06-27] MEDS: KCL 20 MEQ PO (09:27)
[2025-06-27] MEDS: MIRALAX 17 GRAMS PO (09:27)
[2025-06-27] MEDS: TYLENOL 1000 MG PO ×2 (09:27→16:23)
[2025-06-27] MEDS: SENOKOT-S 1 TABLET PO (09:27)
[2025-06-27] MEDS: PROTONIX 40 MG PO (09:27)
[2025-06-27 16:00] VITALS: BP 120/64
[2025-06-27] MEDS: LOVENOX 40 MG SC (17:19)
[2025-06-27] MEDS: REMOVE LIDOCAINE PATCH 1 PATCH REMOVE (20:38)
[2025-06-27] MEDS: DESYREL 50 MG PO (21:05)
[2025-06-27 23:50] VITALS: BP 144/67
[2025-06-28] MEDS: TYLENOL PO ×2 (00:01→23:13)
--- NOTE | 2025-06-28 07:09 | W.PN.HOSP.TC ---
Addendum entered and electronically signed by Krystal Ya MD 06/28/25 14:19:
I saw and evaluated the patient independently. I reviewed and discussed the resident�s note and agree with findings and plan as documented by Dr. Gonsales.
GENERAL: well developed, well nourished, female in no apparent distress
HEENT: NC/AT
HEART: regular rate and rhythm, +S1, +S2
LUNGS : clear to auscultation bilaterally
ABDOM: soft, nontender, nondistended, + bowel sounds
EXT: no cyanosis, clubbing, or edema
NEUROLOGIC: grossly intact
Syncope--likely due to electrolyte abnormalities vs vasovagal--head CT neg, C-spine CT neg--hypokalemia--repleted, hypomagnesemia--repleted--s/p IVF--EEG neg for seizure--orthostatics neg--normal troponin and TSH--ECHO 06/24/2025-Compared to a prior
transthoracic echocardiogram study from August 2024, There is mild aortic stenosis.
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
Contaminated urine--no UTI Asymptomatic UTI-- Urine Cx - mixed [place]
Back Pain-Tenderness to palpation on thoracic spine exam--lidocaine patch--pain control--PT/OT--no pain so no need for epidural--Lumbar MRI w/o contrast-Moderate L1 height loss, similar to 05/14/2025 and progressed from 09/01/2024-Moderate L1
compression deformity. No acute fractures.
Knee Pain-Knee Xray was ordered at ED- No evidence of acute fracture or dislocation
Recent laparotomy for bowel obstruction-consult wound
Constipation-Started bowel regimen
GERD-Continue PPI
Insomnia-Continue Trazadone
History of ovarian cancer s/p hysterectomy- 30 years ago
History of lung cancer s/p lobectomy-received 9 XRT-last one was 2 years ago
code status--DNR
DVT proph--lovenox
Dispo--Lives alone at [facility]--Discharge to [facility] - waiting for auth. Peer to peer on 06/29
Original Note:
Today's Communication/Plan
-
Mild hyponatremia work up
Assessment / Plan
Assessment / Plan
Syncope
-DDx: Cardiogenic vs Vasavagal vs Neurologic
-Admit for observation on telemetry
-Per [place] Rule pt is on low risk for serious outcome requiring admission
-At ED CT scan head- No acute intracranial abnormality identified
-At ED CT scan of neck- No acute fracture or malalignment identified. Lymphadenopathy in the superior mediastinum
-ECG was normal - short QT?
-She has electrolyte abnormality
--K repleted
--Mg repleted
-Start IV fluid for dehydration
-Ordered EEG to rule out seizure- unremarkakble
-Check orthostatics - negative
-Troponin <0.012
-TSH normal
ECHO 09/02/2024
-LV ejection fraction is 65-70%
-Thickened calcified aortic valve with adequate leaflet
excursion. No aortic regurgitation is seen
-Mitral annular calcification. Trace mitral
regurgitation is seen
ECHO 06/24/2025
-Compared to a prior transthoracic echocardiogram study from August 2024, There is mild aortic stenosis.
Asymptomatic UTI
- Urinalysis (+) for UTI
- Asymptomatic- no need for Tx
- Urine Cx - mixed [place], possible contamination.
Back Pain
-Tenderness to palpation on thoracic spine exam
-Ordered thoracic x-ray
-Lidocaine patch QD
-Tylenol prn
-Oxycodone prn
-Consult IR, input appreciated
-- Lumbar MRI w/o contrast was recommended by IR
-PT/OT eval - SNF
-Ordered Covid test before sending to SNF
-PT denies pain
Lumbar MRI w/o contrast
-Moderate L1 height loss, similar to 05/14/2025 and progressed from 09/01/2024
-Moderate L1 compression deformity. No acute fractures.
Thoracic Xray
-Progressed moderate L1 compression fracture. Previously this was mild
-Moderate mid left lung atelectasis versus scarring. Stable
Mild Hyponatremia
-Na 131
-Check urine Na, serum/urine osmolality
Knee Pain
-Knee Xray was ordered at ED- No evidence of acute fracture or dislocation
-tylenol prn
-oxycodone prn
Recent laparatomy for bowel obstruction
-consult wound
Constipation
-Started bowel regimen
GERD
-Continue PPI
Insomnia
-Continue Trazadone
History of ovarian cancer s/p hysterectomy
- 30 years ago
History of lung cancer s/p lobectomy
-received 9 XRT
-last one was 2 years ago
DNR code
Lovenox 40mg
POAlexi Tamworth(son)
Lives alone at [facility]
Discharge to [facility] - waiting for auth. Peer to peer on 06/29
Anticipated Discharge: Within 24 hours
Subjective/Interval History
-
Date of Service: June 28, 2025
She states feeling good. She denies back pain, neck pain, knee pain. She had bms 2 days ago.
Objective Data
-
Vital Signs:
Vital Signs
Temp Pulse Resp BP Pulse Ox
98.9 F 93 19 144/67 98
06/27/25 23:50 06/27/25 23:50 06/27/25 23:50 06/27/25 23:50 06/27/25 23:50
I&O
06/27/25 06/28/25 06/29/25
06:59 06:59 06:59
Intake Total 480 / 480 1020 / 1020 480 / 480
Balance 480 / 480 1020 / 1020 480 / 480
Review of Systems
-
History Source: Patient
Constitutional: Reports No Symptoms
EENT: Reports No Symptoms Reported
Respiratory: Reports No Symptoms
Cardiac: Reports No Symptoms
Abdomen/GI: Reports No Symptoms
Breast: Reports No Symptoms
Genitourinary: Reports No Symptoms
Skin: Reports No Symptoms
Neuro: Reports No Symptoms
Endocrine: Reports No Symptoms
Hematologic / Lymphatic: Reports No Symptoms
Physical Exam
-
General: Well Developed, Well Nourished and No Apparent Distress
HEENT: Normocephalic and Atraumatic
Respiratory: Clear to Auscultation
Cardiac: Regular Rhythm, S1/S2 and Murmur (RUSB, LLSB)
Breast: Deferred by me
GI: Soft, Nontender and Nondistended
Rectal: Deferred by Provider
Genito-urinary: Deferred by me
Musculoskeletal: No Clubbing, No Cyanosis and No Edema
Skin: Warm and Dry
Neuro: Awake and Alert
Hematologic / Lymphatic: No Lymphadenopathy
Psych: Calm
[2025-06-28 08:00] VITALS: BP 113/57
[2025-06-28] MEDS: LIORESAL 10 MG PO (08:41)
[2025-06-28] MEDS: REFRESH CELLUVISC GEL 1 DROPS BOTH EYES ×2 (08:41→20:25)
[2025-06-28] MEDS: PROTONIX 40 MG PO (08:41)
[2025-06-28] MEDS: TYLENOL 1000 MG PO ×2 (08:41→17:34)
[2025-06-28] MEDS: LIDOCAINE 4% PATCH 1 PATCH TOPICAL (08:42)
[2025-06-28 14:17] VITALS: BP 116/56; PULSE 88
[2025-06-28 15:13] VITALS: BP 124/57
[2025-06-28] MEDS: LOVENOX 40 MG SC (17:34)
[2025-06-28] MEDS: REMOVE LIDOCAINE PATCH 1 PATCH REMOVE (20:25)
[2025-06-28] MEDS: DESYREL 50 MG PO (21:07)
[2025-06-28 23:00] VITALS: BP 110/53
[2025-06-29 07:12] LABS: Blood Urea Nitrogen 9 mg/dl (7-17); Calcium 7.9 mg/dl (8.4-10.2); Carbon Dioxide 24 mmol/L (22-30); Chloride 105 mmol/L (98-107); Estimated Creatinine Clearance 53 ml/min; Glucose 93 mg/dl (70-99); Potassium 3.6 mmol/L (3.5-5.1); Sodium 134 mmol/L (135-145); eGFR > 60.00
[2025-06-29 07:18] VITALS: BP 139/67
[2025-06-29 07:45] LABS: Hematocrit 31.6 % (37.0-47.0); Hemoglobin 10.2 g/dL (12.0-16.0); Mean Corp Hgb Conc. 32.3 g/dL (33.0-37.0); Mean Corpuscular Volume 91.3 fL (81.0-99.0); Platelet Count 391 10^3/uL (130-400); Red Cell Dist. Width 14.2 % (11.5-14.5)
[2025-06-29] MEDS: REFRESH CELLUVISC GEL 1 DROPS BOTH EYES (08:24)
[2025-06-29] MEDS: LIDOCAINE 4% PATCH 1 PATCH TOPICAL (08:24)
[2025-06-29] MEDS: LIORESAL 10 MG PO (08:24)
[2025-06-29] MEDS: TYLENOL 1000 MG PO (08:24)
[2025-06-29] MEDS: PROTONIX 40 MG PO (08:24)
--- NOTE | 2025-06-29 08:40 | CM ---
Addendum entered by Christy Jauregui 06/29/25 13:40:
Liaison confirmed [facility] aware of referral and verbally indicated they would accept .
Addendum entered by Christy Jauregui 06/29/25 10:06:
Per [facility] patient now qualifies as needing VN at home. CM updated patient son who requested VN referral and [facility]. CM left VM for patient liaison at [facility] and requested physician to place referral for VN and call to son with
update. Patient son now accepting of patient returning to her apartment with VN supports. Referral sent to [facility] at [facility]. Patient son stated he could come to milk pickup driver patient at 2pm. CM will continue to follow for discharge planning needs.
Plan; home with VN; pending [facility]
Original Note:
updated [facility] physician about peer to peer and sent requested information. Await peer to peer result.
--- NOTE | 2025-06-29 08:42 | W.PN.HOSP.TC ---
Addendum entered and electronically signed by Deangelo Daly MD 06/29/25 13:03:
Attending�addendum:
I saw and evaluated the patient independently. I reviewed and discussed the resident�s note and agree with findings and plan as documented in the resident�s note.� patient seen and examined at bedside, awake but not fully oriented, denies any chest
pain or shortness of breath, no abdominal pain, no nausea, no vomiting, no diarrhea or constipation.
Physical�exam:
GENERAL : Patient is awake, alert, oriented x3
HEENT: Nonicteric sclerae, PERRLA, EOMI. Oropharynx clear. Moist mucous membranes. Conjunctivae appear well perfused.
CHEST: Chest wall is nontender.
HEART: Regular rate and rhythm without murmurs.
LUNGS: Clear to auscultation bilaterally.
ABDOMEN: Soft, positive bowel sounds, nontender, no organomegaly.
RECTAL: Deferred.
MUSCLES/EXTREMITIES: No abnormal range of motion, no swelling.SKIN: No rash, no excessive bruising, petechiae, or purpura.
NEUROLOGIC: Cranial nerves II-XII intact without motor/sensory deficit.
�
Assessment/plan:
Syncope.
EKG unremarkable.
data visualization developer unremarkable.
Negative orthostatics.
Echo with mild
UTI ruled out.
Back pain.
Seen by physical therapy who is now recommending home PT
CODE STATUS:DNR
DVT prophylaxis: Lovenox
Diet: Regular diet
Disposition: Discharge home today
�
Total time spent on today�s encounter was 51 minutes which included time spent in counseling the patient/family regarding diagnosis and treatment plan as listed above, goals of care, and symptom management. Case was discussed with nursing staff,
specialists, and care coordinators/case management. All labs and imaging personally reviewed by me. Remainder the time spent in detailed review of previous records, lab data, imaging, and other medical provider documentation.
Original Note:
Today's Communication/Plan
-
discharge to [facility]'s choice with [facility]
Assessment / Plan
Assessment / Plan
Syncope
-DDx: Cardiogenic vs Vasavagal vs Neurologic
-Admit for observation on telemetry
-Per [place] Rule pt is on low risk for serious outcome requiring admission
-At ED CT scan head- No acute intracranial abnormality identified
-At ED CT scan of neck- No acute fracture or malalignment identified. Lymphadenopathy in the superior mediastinum
-ECG was normal - short QT?
-She has electrolyte abnormality
--K repleted
--Mg repleted
-Start IV fluid for dehydration
-Ordered EEG to rule out seizure- unremarkable
-Check orthostatics - negative
-Troponin <0.012
-TSH normal
ECHO 09/02/2024
-LV ejection fraction is 65-70%
-Thickened calcified aortic valve with adequate leaflet
excursion. No aortic regurgitation is seen
-Mitral annular calcification. Trace mitral
regurgitation is seen
ECHO 06/24/2025
-Compared to a prior transthoracic echocardiogram study from August 2024, There is mild aortic stenosis.
Asymptomatic UTI
- Urinalysis (+) for UTI
- Asymptomatic- no need for Tx
- Urine Cx - mixed [place], possible contamination.
Back Pain
-Tenderness to palpation on thoracic spine exam
-Ordered thoracic x-ray
-Lidocaine patch QD
-Tylenol prn
-Oxycodone prn
-Consult IR, input appreciated
-- Lumbar MRI w/o contrast was recommended by IR
-PT/OT eval - Home health RN, home PT f/u
-Ordered Covid test before sending to SNF
-PT denies pain
Lumbar MRI w/o contrast
-Moderate L1 height loss, similar to 05/14/2025 and progressed from 09/01/2024
-Moderate L1 compression deformity. No acute fractures.
Thoracic Xray
-Progressed moderate L1 compression fracture. Previously this was mild
-Moderate mid left lung atelectasis versus scarring. Stable
Mild Hyponatremia
-Na 131, serum osm 278 N, urine osm 395 N, urine Na 79N
-today Na 134
Knee Pain
-Knee Xray was ordered at ED- No evidence of acute fracture or dislocation
-tylenol prn
-oxycodone prn
-improved
Recent laparatomy for bowel obstruction
-consult wound
Constipation
-Started bowel regimen
GERD
-Continue PPI
Insomnia
-Continue Trazadone
History of ovarian cancer s/p hysterectomy
- 30 years ago
History of lung cancer s/p lobectomy
-received 9 XRT
-last one was 2 years ago
Dementia
-Discussed with pt's son Temo (Skip) regarding risks of her living alone at [facility] with dementia. He accepts that she gets support from him/ and his cousin.
DNR code
Lovenox 40mg
POA Temo(son)
Discharge- [facility] [place], , home PT
Anticipated Discharge: Today
Subjective/Interval History
-
Date of Service: June 29, 2025
She is comfortable lying in the bed having her breakfast. She denies back pain, knee pain. She denies SOB, CP or palpitations. She feel s ready to go home.
Objective Data
-
Labs:
Laboratory Results
06/29/25
06:27
WBC 8.7
Hgb 10.2 L
Hct 31.6 L
Plt Count 391 D
Sodium 134 L
Potassium 3.6
Chloride 105
Carbon Dioxide 24
BUN 9
Creatinine 0.6
Glucose 93
Calcium 7.9 L
Vital Signs:
Vital Signs
Temp Pulse Resp BP Pulse Ox
98.0 F 89 17 139/67 97
06/29/25 07:18 06/29/25 07:18 06/29/25 07:18 06/29/25 07:18 06/29/25 07:18
I&O
06/28/25 06/29/25 06/30/25
06:59 06:59 06:59
Intake Total 1020 / 1020 1899
Balance 1020 / 1020 1899
Review of Systems
-
History Source: Patient
Constitutional: Reports No Symptoms
EENT: Reports No Symptoms Reported
Respiratory: Reports No Symptoms
Cardiac: Reports No Symptoms
Abdomen/GI: Reports No Symptoms
Breast: Reports No Symptoms
Genitourinary: Reports No Symptoms
Skin: Reports No Symptoms
Neuro: Reports No Symptoms
Endocrine: Reports No Symptoms
Hematologic / Lymphatic: Reports No Symptoms
Physical Exam
-
General: Well Developed, Well Nourished and No Apparent Distress
HEENT: Normocephalic and Atraumatic
Respiratory: Clear to Auscultation
Cardiac: Regular Rhythm, S1/S2 and Murmur (RUSB, LLSB)
Breast: Deferred by me
GI: Soft, Nontender and Nondistended
Rectal: Deferred by Provider
Genito-urinary: Deferred by me
Musculoskeletal: No Clubbing, No Cyanosis and No Edema
Skin: Warm and Dry
Neuro: Awake and Alert
Hematologic / Lymphatic: No Lymphadenopathy
Psych: Calm
[2025-06-29 14:22] VITALS: BP 132/64
--- NOTE | 2025-06-29 14:46 | W.DCSUMMARY ---
Addendum entered and electronically signed by Deangelo Daly MD 06/29/25 17:12:
Attending�addendum:
I saw and evaluated the patient independently. I reviewed and discussed the resident�s note and agree with findings and plan as documented in the resident�s note.� patient seen and examined at bedside, awake but not fully oriented, denies any chest
pain or shortness of breath, no abdominal pain, no nausea, no vomiting, no diarrhea or constipation.
Physical�exam:
GENERAL : Patient is awake, alert, oriented x3
HEENT: Nonicteric sclerae, PERRLA, EOMI. Oropharynx clear. Moist mucous membranes. Conjunctivae appear well perfused.
CHEST: Chest wall is nontender.
HEART: Regular rate and rhythm without murmurs.
LUNGS: Clear to auscultation bilaterally.
ABDOMEN: Soft, positive bowel sounds, nontender, no organomegaly.
RECTAL: Deferred.
MUSCLES/EXTREMITIES: No abnormal range of motion, no swelling.SKIN: No rash, no excessive bruising, petechiae, or purpura.
NEUROLOGIC: Cranial nerves II-XII intact without motor/sensory deficit.
�
Assessment/plan:
Syncope.
EKG unremarkable.
residential monitor unremarkable.
Negative orthostatics.
Echo with mild
UTI ruled out.
Back pain.
Seen by physical therapy who is now recommending home PT
CODE STATUS:DNR
DVT prophylaxis: Lovenox
Diet: Regular diet
Disposition: Discharge home today
�
Total time spent on today's encounter was 40 minutes which included time spent in counseling the patient/family regarding diagnosis and treatment plan as listed above, goals of care, and symptom management. Case was discussed with nursing staff,
specialists, and care coordinators/case management. All labs and imaging personally reviewed by me. Remainder the time spent in detailed review of previous records, lab data, imaging, and other medical provider documentation.
Original Note:
Documented by User: Sanford Gonsales MD, Resident 06/29/25 16:04
Discharge Summary
Discharge Data
Date of Admission: 06/23/25
Date of Discharge: 06/29/25
-
Pending Results: No
Hospital Course
Discharging Physician : Dr. Sanford Gonsales, Dr. Deangelo Daly
Disposition : [facility]
Primary care physician : Shreya Murguia
Principal Discharge diagnosis : Syncope
Chronic Discharge diagnosis : GERD, Insomnia, Hx of ovarian cancer s/p hysterectomy, hx of lung cancer s/ lobectomy, dementia
Hospital Course :
Ms. Hoover is a 84 y/o female with pmh of dementia, ovarian cancer s/p hysterectomy and oophorectomy, lung cancer s/p right lower lobe lobectomy, history of prior TIA, GERD, prior history of upper GI bleed, recently discharged from [facility] after laparotomy for bowel obstruction was admitted to on 06/23/2025. She had hypokalemia, hypomagnesemia at ED. Electrolyte abnormalities were repleted. Echo, ekg, CT scan of head/neck was unremarkable. She is being discharged with
home PT, VN to [facility].
Important imaging findings :
Cervical Spine CT scan 06/23/25
-No acute fracture or malalignment identified. Multilevel overall moderate degenerative changes
-Lymphadenopathy in the superior mediastinum
Thoracic Spine Xray 06/23/2025
-Progressed moderate L1 compression fracture. Previously this was mild.
-Moderate mid left lung atelectasis versus scarring. Stable
Lumbar Spine MRI 06/24/2025
-Moderate L1 compression deformity. No acute fractures.
-Mild multilevel degenerative changes of the lumbar spine
Discharge Plan
-
Patient Disposition: Home with Home Care
Discharge Diagnosis/Procedures: Syncope
Condition: Fair
Diet: As tolerated
Activity: As tolerated
Driving Restrictions: As prior to admission
Bathing Restrictions: None
Other Services: VN and PT
Wound Care: her midline wound should be packed with 1/4 in packing strip and covered with Gauze twice daily.
Instructions: Wound Care (DC), Preventing falls in adults
Referrals:
Luis Aceves MD [Active, Surgical] - in two weeks
Referral Note: Follow up with Dr. Aceves regarding your abdominal wound after surgery in 2 weeks.
Shreya Murguia MD [Family Provider, Internal Medicine]
Prescriptions:
Continued
baclofen 10 mg Tablet
10 mg PO DAILY
lidocaine 4 % Adhesive Patch,Medicated
1 patch TOPICAL DAILYPRN PRN (Reason: lower back pain)
trazodone 50 mg Tablet
50 mg PO HS
Refresh Optive 0.5-0.9 % Drops
1 drp BOTH EYES BID
acetaminophen [Tylenol Extra Strength] 500 mg tablet
1,000 mg PO TIDPRN PRN (Reason: mild pain)
pantoprazole 40 mg tablet,delayed release (DR/EC)
40 mg PO DAILY
Discharge Orders:
Discharge Patient (As Directed); Ordered 06/29/25
Ordered By: Sanford Gonsales
Discharge Date and Time
Discharge Date/Time: 06/29/25 14:57
Print Language: BAHRAINI

Documented by User: Deangelo Daly MD 06/29/25 17:11
Discharge Summary
Discharge Data
Date of Admission: 06/23/25
Date of Discharge: 06/29/25
Discharge Plan
-
Patient Disposition: Home with Home Care
Discharge Diagnosis/Procedures: Syncope
Condition: Fair
Diet: As tolerated
Activity: As tolerated
Driving Restrictions: As prior to admission
Bathing Restrictions: None
Other Services: VN and PT
Wound Care: her midline wound should be packed with 1/4 in packing strip and covered with Gauze twice daily.
Instructions: Wound Care (DC), Preventing falls in adults
Referrals:
Luis Aceves MD [Active, Surgical] - in two weeks
Referral Note: Follow up with Dr. Aceves regarding your abdominal wound after surgery in 2 weeks.
Shreya Murguia MD [Family Provider, Internal Medicine]
Prescriptions:
Continued
baclofen 10 mg Tablet
10 mg PO DAILY
lidocaine 4 % Adhesive Patch,Medicated
1 patch TOPICAL DAILYPRN PRN (Reason: lower back pain)
trazodone 50 mg Tablet
50 mg PO HS
Refresh Optive 0.5-0.9 % Drops
1 drp BOTH EYES BID
acetaminophen [Tylenol Extra Strength] 500 mg tablet
1,000 mg PO TIDPRN PRN (Reason: mild pain)
pantoprazole 40 mg tablet,delayed release (DR/EC)
40 mg PO DAILY
Discharge Orders:
Discharge Patient (As Directed); Ordered 06/29/25
Ordered By: Sanford Gonsales
Discharge Date and Time
Discharge Date/Time: 06/29/25 14:57
Print Language: BAHRAINI
== END 2025-06-29 14:57 | disposition home health service (06) ==
LOC: 3 WEST ACU 17:41
PROVIDERS: ADMITTING PHYSICIAN Family Medicine; ATTENDING PHYSICIAN General Practice; EMERGENCY PHYSICIAN Emergency Medicine; FAMILY PHYSICIAN Internal Medicine Geriatric Medicine
DX: R55 Syncope and collapse (principal); R53.1 Weakness; M54.9 Dorsalgia, unspecified; G89.29 Other chronic pain; K21.9 Gastro-esophageal reflux disease without esophagitis; E87.6 Hypokalemia; E83.42 Hypomagnesemia; M25.561 Pain in right knee; E87.8 Other disorders of electrolyte and fluid balance, not elsewhere classified; F03.918 Unspecified dementia, unspecified severity, with other behavioral disturbance; F03.93 Unspecified dementia, unspecified severity, with mood disturbance; E87.1 Hypo-osmolality and hyponatremia; E86.1 Hypovolemia; R59.1 Generalized enlarged lymph nodes; G47.00 Insomnia, unspecified; M47.812 Spondylosis without myelopathy or radiculopathy, cervical region; M48.56XA Collapsed vertebra, not elsewhere classified, lumbar region, initial encounter for fracture; R26.2 Difficulty in walking, not elsewhere classified; K59.00 Constipation, unspecified; I08.3 Combined rheumatic disorders of mitral, aortic and tricuspid valves; I70.0 Atherosclerosis of aorta; F32.A Depression, unspecified; M47.816 Spondylosis without myelopathy or radiculopathy, lumbar region; W19.XXXA Unspecified fall, initial encounter; Y93.9 Activity, unspecified; Y92.092 Bedroom in other non-institutional residence as the place of occurrence of the external cause; Z60.2 Problems related to living alone; Z66 Do not resuscitate; Z90.721 Acquired absence of ovaries, unilateral; Z90.710 Acquired absence of both cervix and uterus; Z85.118 Personal history of other malignant neoplasm of bronchus and lung; Z85.43 Personal history of malignant neoplasm of ovary; Z86.73 Personal history of transient ischemic attack (TIA), and cerebral infarction without residual deficits; Z90.2 Acquired absence of lung [part of]; Z87.891 Personal history of nicotine dependence; Z80.9 Family history of malignant neoplasm, unspecified; Z82.49 Family history of ischemic heart disease and other diseases of the circulatory system; Z88.1 Allergy status to other antibiotic agents; Z88.3 Allergy status to other anti-infective agents; Z88.5 Allergy status to narcotic agent; Z88.7 Allergy status to serum and vaccine; Z90.49 Acquired absence of other specified parts of digestive tract; Z79.899 Other long term (current) drug therapy; Z11.52 Encounter for screening for COVID-19
CPT/HCPCS: 51798; 70450; 72072; 72125; 72148; 73560; 80048; 80053; 81003; 81015; 82248; 82550; 83735; 83930; 83935; 84300; 84443; 84484; 85025; 85027; 87086; 87811; 93005; 93306; 95813; 96365; 96366; 96375; 97110; 97116; 97163; 97167; 97530; 97535; 99285; G0378

== ENCOUNTER 2025-07-16 23:07 | Inpatient (IN) | payer MEDICARE, SELFPAY ==
[2025-07-16 18:00] VITALS: BP 118/68
--- NOTE | 2025-07-16 18:00 | ED TECH ---
unable to draw labs in triage. stuck x2.
[2025-07-16 19:42] VITALS: BMI 26.0
[2025-07-16] MEDS: NSS 500 IV (19:46)
[2025-07-16 19:52] VITALS: BP 127/51
[2025-07-16 19:58] LABS: Hematocrit 31.5 % (37.0-47.0); Hemoglobin 10.4 g/dL (12.0-16.0); Mean Corp Hgb Conc. 33.0 g/dL (33.0-37.0); Mean Corpuscular Volume 85.6 fL (81.0-99.0); Nucleated Red Blood Cells % 0 %; Platelet Count 411 10^3/uL (130-400); Red Cell Dist. Width 13.5 % (11.5-14.5)
--- NOTE | 2025-07-16 20:14 | ED.GENMED ---
History of Present Illness
General
Chief Complaint: Abdominal Pain
Source: patient
Exam Limitations: none
Time Seen by Provider: 07/16/25 19:35
Nursing documentation reviewed up to this point in time: agreed with
History of Present Illness
History of Present Illness:
Patient with history of recent partial bowel obstruction requiring partial colectomy in May 2025, presents to ED secondary to sudden onset of left-sided abdominal pain with nausea sensation this afternoon, which now has resolved spontaneously.
Per son, patient experienced similar episode 3 days ago, which also resolved on its own. At the time of evaluation ED, patient is without any complaints. Denies fever or chills. Denies vomiting or diarrhea. Patient does report and confirmed by
her son, that she has had poor appetite recently, eating only 1 meal a day. Patient has lost approximately 40 pounds of weight since beginning the year. Patient currently lives independently at [facility].
Past History
Past History
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
ED Past Surgical History: Other (Reviewed and noncontributory)
Social History
Tobacco: Non-smoker
Alcohol: Occasional
Drug: None
Personal:
Living: assisted living
Employment: Retired
Family History
Family History: Other (Reviewed and noncontributory)
Review of Systems
Review of Systems
Allergies reviewed?: Yes
All Other Systems: ROS reviewed and negative except as documented in HPI and ROS
Constitutional: Reports no symptoms; Denies fever
ABD/GI: Reports abdominal pain; Denies vomiting, diarrhea or constipated
Musculoskeletal: Reports no symptoms
Skin: Reports no symptoms
Neurological: Reports no symptoms
Phy Exam
Physical Exam
Physical Exam:
Physical Exam
General: no apparent distress, not acutely ill. afebrile
Head: nc/at. eomi
Neck: supple. normal range of motion.
Heart: s1/s2 regular rate and rhythm
Lungs: no acute respiratory distress. clear bilaterally
Abdomen: normal bowel sounds. not tender. no distention
Neuro: alert and oriented x 3. no focal neurological deficits
Skin: no rash
Psychiatric: well kept. interactive and cooperative
Extremities: no edema. no calf tenderness.
Course
Orders/Labs/Results
Orders:
Orders
07/16/25 19:35
CR Obstruct Series W/pa Chest Urgent
Comment:
Reason For Exam: abd pain w hx SBO
07/16/25 19:40
0.9% Sodium Chloride 500 ml [Nss] 500 ml IV BOLUS
07/16/25 19:45
Complete Blood Count/With Diff Urgent
Comprehensive Metabolic Panel Urgent
Lipase Urgent
07/16/25 20:57
Urinalysis Reflex To Culture Urgent
Date Specimen was Collected: 07/16/25
Time Specimen was Collected: 17:41
Urine Microscopic Reflex Cult Urgent
Urine Culture Urgent
MELIZA Source: U
Specimen Description:
Date Specimen was Collected: 07/16/25
Time Specimen was Collected: 17:41
07/16/25 22:39
Admit/Transfer Patient As Directed
Co-Sign Provider:
Level of Care: Inpatient admission
Assign to:: Medical/Surgical
Physician / Group: Luigi
Diagnosis: Ileus / SBO
Reason for Hospitalization: Ileus / SBO
Expected length of stay greater than two midnights?: Yes
ELOS- Estimated Length of Stay in days: 3
I certify the patient meets the requirements for IP care: Yes
PRN Pain Medication Management As Directed
May give lesser potent ordered pain med per pt: Yes
preference::
Protocol:: Medication orders for pain may be administered in a
manner that supports deferring to patient preference
when the pt is:
- Requesting an ordered lesser potent pain medication.
Least to most potent pain medications are defined
as: acetaminophen < NSAID < tramadol < opioids
(morphine, oxycodone, hydromorphone).
- Requesting a lesser dose of the same medication IF
ORDERED.
- Requesting a less intrusive route of administration
if both routes are prescribed by the provider (PO <
IV).
07/16/25 22:41
Code Status As Directed
Resuscitation Status: Do not resuscitate
Reached after discussion with pt or family/Healthcare POA: Yes
DNR Bracelet Application ONCE
07/16/25 23:00
0.9% Sodium Chloride 500 ml [Nss] 500 ml IV 100 mls/hr
07/17/25 00:25
HYDROmorphone [Dilaudid] 0.5 mg IV Q4HPRN PRN
KCl 20 Meq/0.9%Sodchl 1000 ml [NSS with KCL 20 MEQ] 20 meq in 1,000 ml IV 100 mls/hr
Lidocaine [Lidocaine 4% Patch] 1 patch TOPICAL DAILYPRN PRN lower back pain
Apply Lidocaine patch(s) to:: Low Back
Ondansetron Injectable [Zofran] 4 mg IV Q6HPRN PRN
07/17/25 00:25
Consult Notification Routine
Specialty to Notify: Surgical
SURGICAL CONSULT Routine
Consulting Provider: Luke Phillips
Was physician already notified: No
Reason for consult: Ileus / SBO
Activity As Directed
Activity Level: Ambulate
With Assistance
I/O [Intake/ Output] As Directed
Frequency: Per unit guidelines
Orthostatic Vital Signs As Directed
Orthostatic VS Frequency: BID
Pneumatic Compression Sleeves As Directed
Type: Knee high
Vital Signs As Directed
Frequency: Per unit guidelines
Weight As Directed
Frequency: Daily
Oxygen Therapy [O2 Therapy] [RESP] Routine
Titrate/Wean O2 to maintain O2 sat greater than (%): 94
DX Deep Vein Thrombosis Video Routine
07/17/25 Breakfast
NPO
Allow oral meds: Yes
Allow clear liquids: Sips of Clears
Basic Metabolic Panel IN AM
Complete Blood Count/No Diff IN AM
Magnesium IN AM
07/17/25 08:00
Artificial Tears (Pf) [Refresh Eye Drops (Pf)] 1 drops BOTH EYES BID
Pantoprazole [Protonix IV] 40 mg IV DAILY
07/17/25 22:00
Trazodone [Desyrel] 50 mg PO HS
Abnormal Lab Results
07/16/25 07/16/25
19:45 20:57
RBC 3.68 L 10^6/uL
(4.20-5.40)
Hgb 10.4 L g/dL
(12.0-16.0)
Hct 31.5 L %
(37.0-47.0)
Plt Count 411 H 10^3/uL
(130-400)
Absolute Neuts (auto) 7.0 H 10^3/uL
(1.4-6.5)
Absolute Lymphs (auto) 0.6 L 10^3/uL
(1.2-3.4)
Absolute Monos (auto) 0.7 H 10^3/uL
(0.1-0.6)
Neutrophils % 84.3 H %
(42.2-75.2)
Lymphocytes % 7.3 L %
(20.5-51.1)
Potassium 3.3 L mmol/L
(3.5-5.1)
Glucose 116 H mg/dl
(70-99)
Calcium 7.5 L mg/dl
(8.4-10.2)
Albumin 3.1 L g/dl
(3.5-5.0)
Urine Ketones 2+ A
(Negative)
Ur Occult Blood Reflex 4+ A
(Negative)
Urine Bilirubin 1+ A
(Negative)
Urine Urobilinogen 3+ A
(Neg - 1+)
Leukocyte Esterase Rfl 3+ A
(Negative)
Urine RBC 60-70 A /HPF
(0-2)
Urine WBC (Reflex) 40-50 A /HPF
(0-5)
Urine Bacteria (Reflex) Moderate A
(Negative)
Urine Yeast Few A
(Negative)
Urine Albumin (Reflex) 2+ A
(Neg - Trace)
07/16/25 19:45
07/16/25 19:45
Vital Signs
Initial and Last Documented VS:
Initial Vital Signs
Temp Pulse Resp BP
98.9 F 96 20 118/68
07/16/25 18:00 07/16/25 18:00 07/16/25 18:00 07/16/25 18:00
Last Documented Vital Signs
Temp Pulse Resp BP Pulse Ox
98.5 F 92 18 149/77 97
07/17/25 00:26 07/17/25 00:26 07/17/25 00:26 07/17/25 00:26 07/17/25 00:26
MDM/Problems Addressed
MDM/Problems Addressed:
History, exam, and obstruction series consistent with likely ileus versus early SBO. Patient fortunately remains afebrile, hemodynamically stable, and without recurrent pain during observation. Patient will be started IV fluids and be admitted for
observation tonight. CT abdomen pelvis to be obtained and/or with NG tube, if her symptoms return
*Pulse Oximetry
SaO2: 97
Patient hypoxic: no
*Critical Care Note
Total Time (30-74mins, 75-104mins- exclusive of procedures): Not Applicable
ED Attending Note
-
Portions of this chart may have been created with voice recognition software.� Occasional wrong word or��sound alike� substitutions may have occurred due to the inherent limitations of voice recognition software.
Discharge Plan
Departure
Patient Disposition: Admit
Date of Disposition: 07/16/25
Time of Disposition: 22:26
Admit to: Telemetry
Presentation/result/management discussed w/ accepting MD/DO: Hospitalist
Discharge Problem:
Abdominal pain
Interventions
Interventions:
*Risk Screen - Suicide Last Done: 07/16/25 17:39
*General Assessment Last Done: 07/16/25 17:39
*Neglect/Abuse Screening Last Done: 07/16/25 17:39
*ED COVID-19 Vaccine History Last Done: 07/16/25 19:30
*ED Influenza Vaccine History Last Done: 07/16/25 19:30
[facility] Fall Risk Assessment Tool Last Done: 07/16/25 20:01
DM-Chvkjs-Oogzfjkatp Assessment Last Done: 07/16/25 20:02
[2025-07-16 20:20] LABS: ALT (SGPT) 14 U/L (0-35); AST (SGOT) 30 U/L (14-36); Albumin 3.1 g/dl (3.5-5.0); Alkaline Phosphatase 99 U/L (38-126); Blood Urea Nitrogen 11 mg/dl (7-17); Calcium 7.5 mg/dl (8.4-10.2); Carbon Dioxide 26 mmol/L (22-30); Chloride 99 mmol/L (98-107); Estimated Creatinine Clearance 46 ml/min; Glucose 116 mg/dl (70-99); Lipase 204 U/L (23-300); Potassium 3.3 mmol/L (3.5-5.1); Sodium 135 mmol/L (135-145); Total Protein 6.3 g/dl (6.3-8.2); eGFR > 60.00
[2025-07-16 20:57] VITALS: BP 133/77
[2025-07-16 21:00] VITALS: BP 134/65
[2025-07-16 21:11] LABS: Urine Character Clear (Clear)
[2025-07-16 21:25] LABS: Urine Urothelial Cell 0-2 /LPF (FEW)
[2025-07-16 21:26] LABS: Urine Red Blood Cell 60-70 /HPF (0-2); Urine White Cell 40-50 /HPF (0-5)
[2025-07-16 22:02] VITALS: BP 100/76
--- NOTE | 2025-07-16 22:46 | HPS.HSE ---
Family Physician
-
Family Physician: Shreya Murguia
Chief Complaint
-
Abd Pain
History of Present Illness
Patient is an 84y F with PMH significant for ovarian cancer s/p oophorectomy, mild dementia and recent SBO requiring laparotomy and small bowel resection who presents to ED complaining of abdominal pain. History obtained from patient and family
at the bedside. Family notes that they were with patient at lunch today and she felt well with no complaints. This afternoon, evening she complained of mid-abdominal pain and EMS was called to bring her to the ED for evaluation. Patient states
that pain is centrally located without radiation to the chest or back. She has associated nausea but denies any emesis. She states that her last BM was about two days ago. She does not believe she has had flatus this afternoon / evening.
At present, patient is resting comfortably in the ED and has no complaints - including abdominal pain.
Patient was admitted 05/14 - 05/27 for SBO, ultimately requiring surgery on 05/18 for JERZY and small bowel resection.
Medical History
Past Medical History
Past Medical History: Reports Other
Additional Past Medical History:
Ovarian Cancer
Lung Cancer
TIA
Chronic Back Pain
Mild Dementia
Past Surgical History: Reports Other
Additional Past Surgical History:
LITO / BSO
Right Lower Lobectomy
Cholecystectomy
Laparoscopic converted to Open Laparotomy with JERZY and Partial Small Bowel Resection (60 cm) - 05/18/25
Social History
Tobacco: Former Smoker (Quit smoking 30 years ago.)
Alcohol: Occasional
Family History
Family History: Not pertinent
Allergies / Home Medications
Allergies reflects when Allergies were last updated in [facility].
Home Medications with original date entered in [facility]
Allergy/Medication List:
Allergies
Allergy/AdvReac Type Severity Reaction Status Date / Time
bacitracin (From Neosporin Allergy Hives Verified 06/23/25 11:37
([id number]))
codeine Allergy hypotensive Verified 06/23/25 11:37
COVID-19 (SARS-CoV-2) Allergy HARVEY'S Verified 06/23/25 11:37
vaccine, ilana PALSY
neomycin (From Neosporin Allergy Hives Verified 06/23/25 11:37
([id number]))
nitrofurantoin (From Allergy Hives Verified 06/23/25 11:37
Macrobid)
polymyxin B (From Neosporin Allergy Hives Verified 06/23/25 11:37
([id number]))
Home Medications
baclofen 10 mg tablet 10 mg PO DAILY Neurological Condition 08/30/24
acetaminophen 500 mg tablet (Tylenol Extra Strength) 1,000 mg PO TIDPRN PRN mild pain 05/14/25
carboxymethylcellulose 0.5 %-glycerin 0.9 % eye drops (Refresh Optive) 1 drp BOTH EYES BID Eye Condition 05/14/25
lidocaine 4 % topical patch 1 patch topical DAILYPRN PRN lower back pain 05/14/25
pantoprazole 40 mg tablet,delayed release 40 mg PO DAILY Gastrointestinal Issue 05/14/25
trazodone 50 mg tablet 50 mg PO HS Neurological Condition 05/14/25
Review of Systems
-
History Source: Patient
A 12 point ROS was completed and negative except as noted: Yes
Constitutional: Denies Fever or Chills
Respiratory: Denies Cough or Trouble Breathing
Cardiac: Denies Chest Pain or Palpitations
Abdomen/GI: Reports Abdominal Pain and Nausea; Denies Vomiting, Diarrhea, Bloody Stools or Black Stools
: Denies Dysuria, Frequency or Flank Pain
Musculoskeletal: Denies Joint Pain or Edema
Neurological: Denies Dizzy or Headache
Physical Exam
Vital Signs
Vital Signs
Temp Pulse Resp BP Pulse Ox
98.9 F 80 16 100/76 97
07/16/25 18:00 07/16/25 19:52 07/16/25 19:52 07/16/25 22:02 07/16/25 22:02
Physical Exam
General: Other (84y F in no acute distress.)
HEENT: Moist mucous membranes and PERRLA
Respiratory: Clear; No Wheezes, Rales or Rhonchi
Cardiac: S1/S2, Regular Rhythm and Murmur (II/ AYAAN)
GI: Other (Abdomen is soft. Bowel sounds are significantly diminished. Mild, diffuse tenderness. No rebound / guarding.)
Musculoskeletal: No Clubbing, No Cyanosis and Other (1+ pitting edema b/l ankles.)
Neuro: Awake and Alert
Laboratory Results
-
07/16/25 19:45
07/16/25 19:45
Laboratory Results
Total Bilirubin 1.0 mg/dl (0.2-1.3) 07/16/25 19:45
AST 30 U/L (14-36) 07/16/25 19:45
ALT 14 U/L (0-35) 07/16/25 19:45
Alkaline Phosphatase 99 U/L (38-126) 07/16/25 19:45
Lipase 204 U/L (23-300) 07/16/25 19:45
Impression/Plan
-
A/P: Patient is an 84y F with PMH significant for prior ovarian cancer and lung cancer and recent SBO s/p ex lap and bowel resection who presents to ED complaining of abdominal pain.
Ileus v SBO
s/p Ex Lap with JERZY and small bowel resection (05/18/25)
- Admit for further evaluation and treatment.
- X-rays in the ED shows dilated loops of bowel - with air in proximal colon and no obvious obstruction / transition point.
- Bowel sounds quite diminished on exam - suspect ileus > obstruction.
- Supportive care with NPO, IVFs, antiemetics, etc.
- Surgery evaluation for additional recommendations
- If increased pain, vomiting, etc - would place NGT for decompression and update CT A/P.
Normocytic Anemia
- Chronic / stable since recent surgery.
- No reported bleeding, etc.
- Follow for changes.
GERD
- Continue daily PPI.
Chronic Back Pain
- Continue lidocaine patch.
History of Ovarian Cancer
History of Lung Cancer
- s/p LITO / BSO.
- s/p R lower lobectomy. Now with effusion.
DVT Prophylaxis: SCDs
Code Status: DNR
[2025-07-17 00:26] VITALS: BP 149/77; BMI 25.3
[2025-07-17] MEDS: NSS with KCL 20 MEQ 1000 IV ×3 (01:26→23:59)
[2025-07-17 05:29] VITALS: BMI 25.3
[2025-07-17 07:20] VITALS: BP 140/66
[2025-07-17] MEDS: REFRESH EYE DROPS (PF) BOTH EYES (08:37)
[2025-07-17 09:00] LABS: Hematocrit 27.4 % (37.0-47.0); Hemoglobin 8.9 g/dL (12.0-16.0); Mean Corp Hgb Conc. 32.5 g/dL (33.0-37.0); Mean Corpuscular Volume 86.2 fL (81.0-99.0); Platelet Count 343 10^3/uL (130-400); Red Cell Dist. Width 13.5 % (11.5-14.5)
--- NOTE | 2025-07-17 09:18 | W.PN.HOSP.TC ---
Today's Communication/Plan
-
Await CT scan
Assessment / Plan
Assessment / Plan
Gen-AAOx3, NAD
HEENT-NC, AT, anicteric, clear oral mm
Neck-supple
CV-reg, no M, +S1/S2
Lungs-clear B/L
Abd-soft, mild lower abdominal tenderness, no guarding or rebound
Ext-no edema
Musculoskeletal-no cyanosis, clubbing
Skin-warm and dry
Neuro-grossly non-focal
Psych-calm, cooperative
Ileus versus SBO -abdominal x-ray noted. CT abdomen/pelvis with contrast pending. Continue n.p.o., IV fluids.
General surgery consulted.
History of SBO requiring diagnostic laparoscopy and exploratory laparotomy, lysis of adhesions, 05/18/2025.
Acute on chronic anemia -probably due to hemodilution induced acute anemia. Previous hemoglobins have been in the 10 range, 8.9 this morning. No evidence of bleeding. Monitor for now.
Hypokalemia -repleted, repeat pending. Check magnesium.
Asymptomatic pyuria -urinalysis was sent for no good reason. She denies any UTI symptoms. If urine culture shows bacteria, I would not treat.
History of ovarian cancer
History of lung cancer
History of small right upper lobe PE
History of lumbar vertebral compression fracture
Cognitive impairment, suspected dementia
DNR
Anticipated Discharge: 24 - 48 hours
Subjective/Interval History
-
Date of Service: July 17, 2025
Patient seen and examined. Denies abdominal pain currently, no complaints.
Objective Data
-
Labs:
Laboratory Results
07/17/25
08:12
WBC 5.4
Hgb 8.9 L
Hct 27.4 L
Plt Count 343
Sodium Pending
Potassium Pending
Chloride Pending
Carbon Dioxide Pending
BUN Pending
Creatinine Pending
Glucose Pending
Calcium Pending
Vital Signs:
Vital Signs
Temp Pulse Resp BP Pulse Ox
98.3 F 74 16 140/66 96
07/17/25 07:20 07/17/25 07:20 07/17/25 07:20 07/17/25 07:20 07/17/25 07:20
I&O
07/16/25 07/17/25 07/18/25
06:59 06:59 06:59
Intake Total 500 / 500
Balance 500 / 500
Review of Systems
-
History Source: Patient
All other systems: Reviewed and negative
[2025-07-17] MEDS: PROTONIX IV 40 MG IV (09:23)
[2025-07-17] MEDS: NSS (PRESERVATIVE FREE) 10 ML IV (09:24)
[2025-07-17] MEDS: OMNIPAQUE 50 ML PO (09:24)
[2025-07-17 09:50] LABS: Blood Urea Nitrogen 8 mg/dl (7-17); Calcium 6.9 mg/dl (8.4-10.2); Carbon Dioxide 26 mmol/L (22-30); Chloride 106 mmol/L (98-107); Estimated Creatinine Clearance 53 ml/min; Glucose 79 mg/dl (70-99); Magnesium 0.9 mg/dl (1.6-2.3); Potassium 3.3 mmol/L (3.5-5.1); Sodium 137 mmol/L (135-145); eGFR > 60.00
--- NOTE | 2025-07-17 10:13 | CON.GS ---
Addendum entered and electronically signed by Jesus Alberto Gonzalez MD 07/17/25 11:50:
Patient seen and examined.
Patient is a 84 yo F with a PMH of dementia, GERD, CVA, lung cancer s/p lobectomy, s/p open cholecystectomy, s/p appendectomy, s/p open LITO and BSO, and more recently s/p laparoscopic converted to open lysis of adhesions and SBR on 05/25/2025 by
[facility]. History is somewhat unclear patient and patient's memory/recall. She currently lives in and his choice. Reports of abdominal pain beginning yesterday evening. Per the patient's son she had similar symptoms 3 days prior to her
presentation which spontaneously resolved. Last bowel movement days ago. Unknown last flatus. No nausea or vomiting. She denies any current abdominal pain or discomfort. She denies any current nausea or vomiting.
Gen: NAD
Abd: soft, NT/ND, non-peritoneal, prior incisions well healed
Labs and imaging reviewed
Patient is an 84 yo F p/w reported abdominal discomfort in the setting of decreased bowel function in the setting of a prior SBO requiring operative intervention
Unclear exactly what her current issue is. Based on reports and X-ray imaging it appears as though she may be having a partial small bowel obstruction. Currently she denies any symptoms of abdominal pain, nausea, or vomiting. Options for
management were considered and discussed. Recommend repeat CT scan with oral and IV contrast to better delineate the exact nature of her symptoms and cause presentation. Further recommendations and plan pending these imaging. All questions
answered.
-- CT abdomen/pelvis with PO and IV contrast
-- Further recommendations pending above
Original Note:
Consultation
-
Date/Time Consultation Requested: 07/17/2012
Date/Time Consultation Performed: 07/17/2025
Requesting Provider: Dr. Meyers
Performing Provider: Dr. Gonzalez
Reason for Consultation: SBO
Medical History
-
Chief Complaint: Abdominal pain
History of Present Illness:
Ms. Hoover is an 84-year-old female with a past medical history of ovarian cancer s/p open hysterectomy with oophorectomy, open appendectomy, open cholecystectomy, lung cancer s/p right lower lobe lobectomy, mild dementia, TIA and recent SBO
(May 2025) due to adhesions requiring laparotomy and 60 cm of small bowel resected and anastomosis by Dr. Aceves after failing all conservative management who presents to ED complaining of abdominal pain. Patient lives at [facility] and
she reports abdominal pain starting in the evening of 07/16/2025. Per the patient's son patient had similar symptoms 3 days prior to presentation that resolved on its own. LBM 2 days prior to presentation. Patient reported having nausea but no
emesis and no abdominal pain on presentation. She has been reporting poor appetite and weight loss over the past year due to poor appetite. This morning patient reported she does not know why she is here, denied nausea or vomiting fevers chills
sick contacts and confirmed mild abdominal pain. She reported no passage of gas or stools but is otherwise comfortable. Patient's POA is son David. In the ED patient was AFVSS and abdominal x-ray with findings suggestive of ileus versus partial
small bowel obstruction.
Past Medical History
Past Medical History: Cancer (Ovarian s/p hysterectomy oophorectomy, lung s/p lobectomy), CVA (TIA), GERD and Other (Dementia)
Past Surgical History: Appendectomy, Cholecystectomy and Gynecological (Open TAHBSO)
Social History
Tobacco: Former Smoker
Alcohol: Occasional
Drug: None
Living: Assisted Living ([facility])
Employment: Retired
Family History
Family History: Reviewed & Not Pertinent
Allergies / Home Medications
Allergy/AdvReac Type Severity Reaction Status Date / Time
bacitracin (From Neosporin Allergy Hives Verified 06/23/25 11:37
([id number]))
codeine Allergy hypotensive Verified 06/23/25 11:37
COVID-19 (SARS-CoV-2) Allergy HARVEY'S Verified 06/23/25 11:37
vaccine, ilana PALSY
neomycin (From Neosporin Allergy Hives Verified 06/23/25 11:37
([id number]))
nitrofurantoin (From Allergy Hives Verified 06/23/25 11:37
Macrobid)
polymyxin B (From Neosporin Allergy Hives Verified 06/23/25 11:37
([id number]))
�Medication �Instructions �Recorded �Confirmed �Type
baclofen 10 mg tablet 10 mg PO DAILY Neurological 08/30/24 07/16/25 History
Condition
acetaminophen 500 mg tablet 1,000 mg PO TIDPRN PRN mild pain 05/14/25 07/16/25 History
(Tylenol Extra Strength)
carboxymethylcellulose 0.5 1 drp BOTH EYES BID Eye Condition 05/14/25 07/16/25 History
%-glycerin 0.9 % eye drops
(Refresh Optive)
lidocaine 4 % topical patch 1 patch topical DAILYPRN PRN lower 05/14/25 07/16/25 History
back pain
pantoprazole 40 mg tablet,delayed 40 mg PO DAILY Gastrointestinal 05/14/25 07/16/25 History
release Issue
trazodone 50 mg tablet 50 mg PO HS Neurological Condition 05/14/25 07/16/25 History
Review of Systems
-
All other systems: Negative unless noted
Abdomen/GI: Abdominal Pain, Nausea and Constipated
A 10 point review of systems was completed, and was negative except as per HPI.
Physical Exam
Vital Signs
Temp Pulse Resp BP Pulse Ox
98.3 F 74 16 140/66 96
07/17/25 07:20 07/17/25 07:20 07/17/25 07:20 07/17/25 07:20 07/17/25 07:20
07/16/25 07/17/25 07/18/25
06:59 06:59 06:59
Actual Weight 62.681 kg
Body Mass Index (BMI) 25.3
Lab Results
07/17/25 08:12
07/17/25 08:12
WBC 5.4 10^3/uL (4.8-10.8) 07/17/25 08:12
Hgb 8.9 g/dL (12.0-16.0) L 07/17/25 08:12
Hct 27.4 % (37.0-47.0) L 07/17/25 08:12
Plt Count 343 10^3/uL (130-400) 07/17/25 08:12
Abs Immat Gran (auto) 0.0 10^3/uL (0-0.05) 07/16/25 19:45
Neutrophils % 84.3 % (42.2-75.2) H 07/16/25 19:45
Physical Exam
General: Well Developed, Well Nourished, No Apparent Distress and Comfortable
HEENT: Normocephalic and Anicteric
GI: Soft, Non Distended and Tender (Suprapubic tenderness)
Skin: Warm and Dry
Neuro: Awake and Alert
Assessment / Plan
-
Ms. Hoover is an 84-year-old female with a past medical history of ovarian cancer s/p open hysterectomy with oophorectomy, open appendectomy, open cholecystectomy, lung cancer s/p right lower lobe lobectomy, mild dementia (son is POA) recent SBO
(May 2025) due to adhesions requiring laparotomy and 60 cm of small bowel resected and anastomosis by Dr. Aceves after failing all conservative management who presents to ED complaining of abdominal pain. Abdominal x-ray in the ED concerning
for ileus versus small bowel obstruction
#Abdominal pain
History of SBO
History of bowel resection
Ileus versus SBO on abdominal x-ray
Nausea without emesis
--N.p.o.
--IV fluids
--Antiemetics as needed
--Analgesia as needed
--CT abdomen pelvis with oral contrast
--Consider NG tube pending CT scan/worsening symptoms
[2025-07-17] MEDS: KCL 270 MEQ IV (12:20)
[2025-07-17] MEDS: CALCIUM GLUCONATE 100 IV (12:20)
[2025-07-17] MEDS: MAGNESIUM SULFATE 100 IV (12:20)
[2025-07-17 15:25] VITALS: BP 124/59
[2025-07-17] MEDS: REFRESH EYE DROPS (PF) 1 DROPS BOTH EYES (20:12)
[2025-07-17] MEDS: DESYREL 50 MG PO (22:15)
[2025-07-17 23:28] VITALS: BP 121/57
[2025-07-18 06:00] VITALS: BMI 26.2
[2025-07-18 07:20] VITALS: BP 135/65
[2025-07-18] MEDS: PROTONIX IV 40 MG IV (09:17)
[2025-07-18] MEDS: REFRESH EYE DROPS (PF) 1 DROPS BOTH EYES ×2 (09:17→21:12)
[2025-07-18] MEDS: NSS (PRESERVATIVE FREE) 10 ML IV (09:17)
[2025-07-18] MEDS: NSS with KCL 20 MEQ 1000 IV (09:19)
[2025-07-18 09:48] LABS: Hematocrit 28.0 % (37.0-47.0); Hemoglobin 9.1 g/dL (12.0-16.0); Mean Corp Hgb Conc. 32.5 g/dL (33.0-37.0); Mean Corpuscular Volume 87.0 fL (81.0-99.0); Nucleated Red Blood Cells % 0 %; Platelet Count 327 10^3/uL (130-400); Red Cell Dist. Width 13.7 % (11.5-14.5)
[2025-07-18 10:16] LABS: Blood Urea Nitrogen 3 mg/dl (7-17); Calcium 7.2 mg/dl (8.4-10.2); Carbon Dioxide 21 mmol/L (22-30); Chloride 109 mmol/L (98-107); Estimated Creatinine Clearance 53 ml/min; Glucose 88 mg/dl (70-99); Magnesium 2.0 mg/dl (1.6-2.3); Potassium 4.2 mmol/L (3.5-5.1); Sodium 134 mmol/L (135-145); eGFR > 60.00
--- NOTE | 2025-07-18 10:55 | W.PN.GS2 ---
Today's Communication / Plan
-
clears
Assessment / Plan
-
84 yo female p/w reported abdominal discomfort in the setting of decreased bowel function in the setting of a prior SBO requiring operative intervention
AFVSS
CT of abd/pelvis without bowel obstruction. Right lower lobe pneumonia/empyema noted. Suspect mild ileus secondary to acute pna infection
Tolerating clears, but abdominal pain a little worse today. continues to pass flatus w/o nausea
Plan:
Continue clears, ok to ADAT once abdominal pain improving
Medical management as per primary team, TT sent to hospitalist to discuss pt care
Subjective Data
-
Date of Service: July 18, 2025
Pt seen and examined at bedside with Dr. Aceves. Violeta n/v. Some abdominal pain persists. Passing flatus, no BM as of yet.
Objective Data
-
Intake and Output
07/17/25 07/18/25 07/19/25
06:59 06:59 06:59
Intake Total 500 / 500 1680 / 1680
Output Total 700 / 700
Balance 500 / 500 980 / 980
Intake:
Oral fluids 480 / 480
IV fluids (Total) 500 / 500 1200 / 1200
Output:
Urine, Voided 700 / 700
Other:
Number of approximated SMALL 1 3
amounts of urine
Number of approximated MODERATE 2
amounts of urine
Vital Signs
Temp Pulse Resp BP Pulse Ox
97.5 F 85 16 135/65 95
07/18/25 07:20 07/18/25 07:20 07/18/25 07:20 07/18/25 07:20 07/18/25 07:20
Lab Results
07/18/25 09:00
07/18/25 09:00
Calcium 7.2 mg/dl (8.4-10.2) L 07/18/25 09:00
Magnesium 2.0 mg/dl (1.6-2.3) 07/18/25 09:00
Total Bilirubin 1.0 mg/dl (0.2-1.3) 07/16/25 19:45
AST 30 U/L (14-36) 07/16/25 19:45
ALT 14 U/L (0-35) 07/16/25 19:45
Alkaline Phosphatase 99 U/L (38-126) 07/16/25 19:45
Total Protein 6.3 g/dl (6.3-8.2) 07/16/25 19:45
Albumin 3.1 g/dl (3.5-5.0) L 07/16/25 19:45
Physical Exam
-
NAD
ABD soft, minimal distention, mild generalized tenderness to upper abd
--- NOTE | 2025-07-18 12:39 | W.PN.HOSP.TC ---
Addendum entered and electronically signed by Keaton Franco DO 07/18/25 13:29:
Spoke with patient's [id number] Margy on the phone. She is a physicians assistant professor.
We discussed the CT chest findings. We discussed getting a pulmonary consult although we do not plan to do a big diagnostic workup.
Also discussed goals of care, Margy mentioned that Ghislaine has had a progressive decline physically and mentally especially in light of her cognitive function.
Will consult hospice for initiation of hospice discussions.
Original Note:
Today's Communication/Plan
-
Pulmonary consult
PT/OT
Assessment / Plan
Assessment / Plan
Gen-AAOx3, NAD
HEENT-NC, AT, anicteric, clear oral mm
Neck-supple
CV-reg, no M, +S1/S2
Lungs-clear B/L
Abd-soft, mild lower abdominal tenderness, no guarding or rebound
Ext-no edema
Musculoskeletal-no cyanosis, clubbing
Skin-warm and dry
Neuro-grossly non-focal
Psych-calm, cooperative
Ileus -CT abdomen/pelvis 07/17 does not show bowel obstruction. General surgery feels that she has a mild ileus.
History of SBO requiring diagnostic laparoscopy and exploratory laparotomy, lysis of adhesions, 05/18/2025.
Tolerating clears, advance diet as tolerated.
Right pleural effusion -noted on CT chest, appearing complex in nature. Does have a history of right sided lung cancer. Questionable aseptic chronic inflammatory collection. Clinically doubt empyema.
No signs or symptoms of infection. Not hypoxic. Associated moderate mediastinal lymphadenopathy, small left pleural effusion.
Pulmonary consulted for opinion.
Acute on chronic anemia -probably due to hemodilution induced acute anemia. Previous hemoglobins have been in the 10 range, 9.1 this morning. No evidence of bleeding, monitor for now.
Hypokalemia -repleted, repeat pending. Check magnesium.
Asymptomatic pyuria -urinalysis was sent for no good reason. She denies any UTI symptoms. If urine culture shows bacteria, I would not treat.
History of ovarian cancer
History of right lung cancer -treated with lobectomy, radiation. Has pulmonary nodules, followed by [facility].
History of small right upper lobe PE (Aug 2024) -decision made at the time not to anticoagulate due to high risk of bleeding, small clot burden.
History of lumbar vertebral compression fracture
Cognitive impairment, suspected dementia
DNR
PT/OT
Anticipated Discharge: > 48 hours
Subjective/Interval History
-
Date of Service: July 18, 2025
Patient seen and examined. No complaints.
Objective Data
-
Labs:
Laboratory Results
07/18/25
09:00
WBC 6.0
Hgb 9.1 L
Hct 28.0 L
Plt Count 327
Sodium 134 L
Potassium 4.2 D
Chloride 109 H
Carbon Dioxide 21 L
BUN 3 L
Creatinine 0.5 L
Glucose 88
Calcium 7.2 L
Vital Signs:
Vital Signs
Temp Pulse Resp BP Pulse Ox
97.5 F 85 16 135/65 95
07/18/25 07:20 07/18/25 07:20 07/18/25 07:20 07/18/25 07:20 07/18/25 07:20
I&O
07/17/25 07/18/25 07/19/25
06:59 06:59 06:59
Intake Total 500 / 500 1680 / 1680
Output Total 700 / 700
Balance 500 / 500 980 / 980
Review of Systems
-
Unable to obtain full review of systems at this time due to: Dementia
History Source: Patient
All other systems: Reviewed and negative
[2025-07-18] MEDS: MIRALAX 17 GRAMS PO (13:56)
[2025-07-18 15:00] VITALS: BP 165/76
--- NOTE | 2025-07-18 15:57 | CM ---
CM spoke with SIDNEY/Margy Hoover who is a PA
Pt resides alone at [facility], she has dementia
Pt has a [employer]AMSH[employer] AGENT 3 hours 3 days weekly through [facility]
Pt is independent with ambulation, has a SPC but often will not utilize
STE[employer] AGENT assists with management of her apartment and personal care tasks
She needs coaxing and cueing for eating and drinking
PCP- Shreya Murguia
[facility]- [facility]
Hospice consult placed
Referral to Hospice for info only at this time as they consider [facility]
Son Temo (Skip) is POA and decision maker
Discharge Disposition- anticipate home hospice vs VN pending [facility] discussions
--- NOTE | 2025-07-18 17:25 | CON.PUL ---
Consultation
Consultation Request
Date/Time Consultation Requested: 07/18/2025 - 123
Date/Time Consultation Performed: 07/18/2025 - 1522
Requesting Provider: Dr. Franco
Performing Provider: Dr. Gottlieb
Reason for Consultation: RLL loculated effusion
Medical History
-
Chief Complaint: Abdominal pain
History of Present Illness:
84-year-old female with a past medical history of SBO s/p diagnostic laparoscopy converted to exploratory laparotomy with lysis of adhesions + small bowel resection (May 2025), history of ovarian cancer s/p oophorectomy, dementia, history of
TIA, chronic back pain, history of right lower lobe lung cancer s/p lobectomy (NSCLC to managed through [facility] via Dr. Rivers) + KAYLAN XRT presents with abdominal pain. Patient recently hospitalized from 06/23 - 06/29/2025 due to syncope. Prior to that
was hospitalized from 05/14 - 05/27/2025 after presenting with abdominal pain, found to have an SBO and then underwent an ex lap with lysis of adhesions + small bowel resection. CT abdomen/pelvis imaging showed no acute pathology of the abdomen or
pelvis and there was a moderate right-sided pleural effusion with a thickened enhancing wall concerning for empyema as well as moderate right lower lobe consolidation concerning for pneumonia. CT chest obtained showing a 9.2 cm loculated complex
pleural fluid collection in the inferior right hemithorax surrounded by thick rind pleural thickening. Also a large subpleural airspace consolidation in the right lower lobe. Pulmonary service now consulted for additional
management/recommendations.
PMHx: History of SBO s/p diagnostic laparoscopy converted to exploratory laparotomy with lysis of adhesions + small bowel resection (May 2025), history of ovarian cancer s/p oophorectomy, dementia, history of TIA, chronic back pain, history of
right lower lobe lung cancer s/p lobectomy (NSCLC to managed through [facility] via Dr. Rivers) + KAYLAN XRT
PSHx: He right lower lobe partial lobectomy (approximately 8 years ago at [facility]), LITO/BSO, cholecystectomy, diagnostic laparoscopy converted to exploratory laparotomy with lysis of adhesions + small bowel resection (May 2025)
Past Medical History
Past Medical History: Other (Above as per HPI)
Past Surgical History: Other (Above as per HPI)
Social History
Tobacco: Former Smoker
Alcohol: Occasional
Drug: None
Family History
Family History: Reviewed & Not Pertinent
Allergies / Home Medications
Allergies
Allergy/AdvReac Type Severity Reaction Status Date / Time
bacitracin (From Neosporin Allergy Hives Verified 06/23/25 11:37
([id number]))
codeine Allergy hypotensive Verified 06/23/25 11:37
COVID-19 (SARS-CoV-2) Allergy HARVEY'S Verified 06/23/25 11:37
vaccine, ilana PALSY
neomycin (From Neosporin Allergy Hives Verified 06/23/25 11:37
([id number]))
nitrofurantoin (From Allergy Hives Verified 06/23/25 11:37
Macrobid)
polymyxin B (From Neosporin Allergy Hives Verified 06/23/25 11:37
([id number]))
Home Medications
�Medication �Instructions �Recorded �Confirmed �Last Taken �Type
baclofen 10 mg tablet 10 mg PO DAILY Neurological 08/30/24 07/16/25 Unknown History
Condition
acetaminophen 500 mg tablet 1,000 mg PO TIDPRN PRN mild pain 05/14/25 07/16/25 Unknown History
(Tylenol Extra Strength)
carboxymethylcellulose 0.5 1 drp BOTH EYES BID Eye Condition 05/14/25 07/16/25 Unknown History
%-glycerin 0.9 % eye drops
(Refresh Optive)
lidocaine 4 % topical patch 1 patch topical DAILYPRN PRN lower 05/14/25 07/16/25 Unknown History
back pain
pantoprazole 40 mg tablet,delayed 40 mg PO DAILY Gastrointestinal 05/14/25 07/16/25 Unknown History
release Issue
trazodone 50 mg tablet 50 mg PO HS Neurological Condition 05/14/25 07/16/25 Unknown History
Review of Systems
-
Unable to Obtain full review of systems at this time due to: Dementia
Vitals / Labs / Diagnostic Testing
Vital Signs
Temp Pulse Resp BP Pulse Ox
97.5 F 85 16 135/65 95
07/18/25 07:20 07/18/25 07:20 07/18/25 07:20 07/18/25 07:20 07/18/25 07:20
Lab Data
07/18/25 09:00
07/18/25 09:00
Microbiology
07/16/25 20:57 Urine Urine Culture - Final
Diagnostic Testing:
Physical Exam
-
HEENT: Normocephalic and Anicteric
Cardiovascular: S1/S2 and Peripheral Edema (negative)
Respiratory: Wheeze (negative), Rales (Right base), Rhonchi (negative) and Non-Labored Respirations
GI: Soft, Non Distended, Non Tender and Normal Bowel Sounds
Neurology: Awake, Alert and Tremors (negative)
Skin: Warm and Dry
General: Respiratory Distress (negative), Comfortable, Fever (negative) and Chills (negative)
Assessment
-
Assessment: 84-year-old female with a past medical history of SBO s/p diagnostic laparoscopy converted to exploratory laparotomy with lysis of adhesions + small bowel resection (May 2025), history of ovarian cancer s/p oophorectomy, dementia,
history of TIA, chronic back pain, history of right lower lobe lung cancer s/p lobectomy (NSCLC to managed through [facility] via Dr. Rivers) + KAYLAN XRT presents with abdominal pain. Patient recently hospitalized from 06/23 - 06/29/2025 due to syncope. Prior
to that was hospitalized from 05/14 - 05/27/2025 after presenting with abdominal pain, found to have an SBO and then underwent an ex lap with lysis of adhesions + small bowel resection. CT abdomen/pelvis imaging showed no acute pathology of the
abdomen or pelvis and there was a moderate right-sided pleural effusion with a thickened enhancing wall concerning for empyema as well as moderate right lower lobe consolidation concerning for pneumonia. CT chest obtained showing a 9.2 cm loculated
complex pleural fluid collection in the inferior right hemithorax surrounded by thick rind pleural thickening. Also a large subpleural airspace consolidation in the right lower lobe. Pulmonary service now consulted for additional
management/recommendations.
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
pain, history of right lower lobe lung cancer s/p lobectomy (NSCLC to managed through [facility] via Dr. Rivers) + KAYLAN XRT
Impression:
#History of right lower lobe partial lobectomy with chronic right lower lobe pleural effusion with pleural thickening and subpleural consolidation
#History of right-sided lung cancer s/p right lower lobectomy (performed at [facility] by Dr. Rivers approx 8 years ago)
#Abdominal pain likely due to adynamic ileus
#Chronic back pain
#History of SBO s/p diagnostic laparoscopy converted to exploratory laparotomy with lysis of adhesions + small bowel resection (May 2025)
#Chronic anemia
#Chronic hyponatremia
#Abnormal urinalysis with elevated leukocyte esterase + 40�50 urine WBC
Plan:
- Per the patient's son (David), the patient has had a partial right lower lobectomy approximately 8 years ago and has had fluid in her right lung since that time (pt told it's expected from prior surgery)
- I reviewed prior imaging including CTA chest from 09/01/2024, and the right lower lobe effusion has increased since that time
- Patient currently denies SOB and remains afebrile - -> according to the son, the fluid in her right lung has been watched by the her doctor at [place] for years and it has remained stable
- Given that the amount of fluid has increased since August 30, I recommended that they follow-up with their doctor at [place] which the son is agreeable to
- No need for thoracic intervention at this time
- Patient is nontoxic-appearing with normal WBC and afebrile; monitor off antibiotics while trending WBC and monitoring temperature curve
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
- This left upper lobe ground glass opacity has actually improved since prior CTA chest in August 2024
- She also has history of lymphadenopathy of 4R lymph node which has decreased in size from 21 mm in August 30 to now 19 mm
- Advised to follow-up with mary surgical oncologist at [place] (Dr. Rivers)
- Maintain SpO2 >90-94% with supplemental O2 as needed (currently on room air, saturating 97%)
- Defer management of abdominal pain to primary team + surgery
- Pain control
- prn nebulized bronchodilators - not currently bronchospastic
- Incentive spirometer encouraged q1hr while awake
- Replete electrolytes with K>4, Mg>2
- Trend H/H and transfuse if needed to keep Hb>7g/dL; keep plt>20k, unless there is concern for bleeding then keep plt>50k
- Maintain euglycemia with goal BG >100 and <180
- DVT ppx
Code status: DNR/DNI
No additional recommendations at this time. Pulmonary service will now sign off. Recommend outpatient follow-up with their surgical oncologist, Dr. Rivers, at [facility]. Thank you for allowing us to be involved in the care of this patient. Please
re-consult if there are any additional questions/concerns, or if patient's respiratory status deteriorates.
Data:
CT Chest 07/18/2025:
1. 9.2 cm loculated complex pleural fluid collection in the inferior right hemithorax surrounded by a thick rind of pleural thickening. Diagnostic possibilities are (1) an empyema (if there are signs/symptoms of infection) or (2) an aseptic
chronic inflammatory collection.
2. Large subpleural airspace consolidation in the right lower lobe. Diagnostic possibilities are (1) pneumonia or (2) chronic atelectasis and scarring.
3. Moderate pleural thickening throughout the right hemithorax (including in the lung apex and along the mediastinal pleural surface of the right upper lobe). Diagnostic possibilities are (1) infectious and inflammatory pleural thickening or (2)
pleural malignancy (metastatic disease or mesothelioma).
4. Moderate mediastinal lymphadenopathy.
5. Small left pleural effusion.
6. Moderate scarring in the left upper lobe.
Patient seen and evaluated on 07/18/2025 Total time spent today was 58 minutes for this encounter. Time includes reviewing laboratory test/imaging results, reviewing pertinent medical records, obtaining and reviewing medical history, performing an
appropriate exam, ordering medications, tests and procedures. Time also includes documentation of this encounter, coordinating patient care and communicating with other healthcare professionals. Total time does not include separately billed tests
performed on this date of service.
[2025-07-18] MEDS: DESYREL 50 MG PO (21:13)
--- NOTE | 2025-07-18 23:14 | HOSPNOTE ---
Asked by CM to speak to son regarding hospice care. Spoke to son David. Reviewed hospice care with him. Answered his questions. He will discuss options with patient and his family. He has my phone number if he is interested in pursuing hospice.
Hospice remains available. CM updated.
[2025-07-18 23:55] VITALS: BP 145/72
[2025-07-19 06:00] VITALS: BMI 26.1
[2025-07-19 07:00] VITALS: BP 122/57
[2025-07-19 07:31] LABS: Hematocrit 28.3 % (37.0-47.0); Hemoglobin 9.4 g/dL (12.0-16.0); Mean Corp Hgb Conc. 33.2 g/dL (33.0-37.0); Mean Corpuscular Volume 86.5 fL (81.0-99.0); Nucleated Red Blood Cells % 0 %; Platelet Count 357 10^3/uL (130-400); Red Cell Dist. Width 13.5 % (11.5-14.5)
[2025-07-19 08:03] LABS: Blood Urea Nitrogen 3 mg/dl (7-17); Calcium 7.7 mg/dl (8.4-10.2); Carbon Dioxide 19 mmol/L (22-30); Chloride 105 mmol/L (98-107); Estimated Creatinine Clearance 53 ml/min; Glucose 91 mg/dl (70-99); Magnesium 1.9 mg/dl (1.6-2.3); Sodium 131 mmol/L (135-145); eGFR > 60.00
[2025-07-19 08:08] LABS: Potassium 4.1 mmol/L (3.5-5.1)
--- NOTE | 2025-07-19 08:33 | W.PN.HOSP.TC ---
Addendum entered and electronically signed by Keaton Franco DO 07/19/25 11:43:
Spoke with pulmonary service, no indication for diagnostic workup of pleural effusion. They would leave it alone.
Spoke with patient's son on the phone, medically stable for discharge back to [facility] today. She was cleared by PT/OT. Recommend outpatient follow-up. Son will pick her up this afternoon.
Updated nursing and case management.
Original Note:
Today's Communication/Plan
-
Low residue diet
PT/OT
Pulmonary consult
Assessment / Plan
Assessment / Plan
Gen-AAOx3, NAD
HEENT-NC, AT, anicteric, clear oral mm
Neck-supple
CV-reg, no M, +S1/S2
Lungs-clear B/L
Abd-soft, mild lower abdominal tenderness, no guarding or rebound
Ext-no edema
Musculoskeletal-no cyanosis, clubbing
Skin-warm and dry
Neuro-grossly non-focal
Psych-calm, cooperative
Ileus -CT abdomen/pelvis 07/17 does not show bowel obstruction. General surgery feels that she has a mild ileus.
History of SBO requiring diagnostic laparoscopy and exploratory laparotomy, lysis of adhesions, 05/18/2025.
Diet advanced to low residue by surgical service. Symptoms have improved.
Right pleural effusion -noted on CT chest, appearing complex in nature. Does have a history of right sided lung cancer. Questionable aseptic chronic inflammatory collection. Clinically doubt empyema.
No signs or symptoms of infection. Not hypoxic. Associated moderate mediastinal lymphadenopathy, small left pleural effusion.
Pulmonary consulted for opinion.
Acute on chronic anemia -probably due to hemodilution induced acute anemia. Stable hemoglobin, 9.4. No evidence of bleeding, monitor for now.
Hypokalemia -resolved.
Hypomagnesemia -resolved.
Asymptomatic pyuria -urinalysis was sent for no good reason. She denies any UTI symptoms. Urine culture shows mixed [place]. Likely contamination.
History of ovarian cancer
History of right lung cancer -treated with lobectomy, radiation. Has pulmonary nodules, followed by [facility].
History of small right upper lobe PE (Aug 2024) -decision made at the time not to anticoagulate due to high risk of bleeding, small clot burden.
History of lumbar vertebral compression fracture
Cognitive impairment, suspected dementia
DNR
PT/OT
Dispo -patient lives in [facility]. Family requested hospice consult. Family trying to decide on goals of care.
Anticipated Discharge: Within 24 hours
Subjective/Interval History
-
Date of Service: July 19, 2025
Patient seen and examined. No complaints. Denies abdominal discomfort, nausea, shortness of breath, cough.
Objective Data
-
Labs:
Laboratory Results
07/19/25
06:42
WBC 6.8
Hgb 9.4 L
Hct 28.3 L
Plt Count 357
Sodium 131 L
Potassium 4.1
Chloride 105
Carbon Dioxide 19 L
BUN 3 L
Creatinine 0.6
Glucose 91
Calcium 7.7 L
Vital Signs:
Vital Signs
Temp Pulse Resp BP Pulse Ox
99.3 F 85 18 145/72 96
07/18/25 23:55 07/18/25 23:55 07/18/25 23:55 07/18/25 23:55 07/18/25 23:55
I&O
07/18/25 07/19/25 07/20/25
06:59 06:59 06:59
Intake Total 1680 / 1680 720 / 720
Output Total 700 / 700 1999 / 1999
Balance 980 / 980 -1280 / -1280
Review of Systems
-
History Source: Patient
All other systems: Reviewed and negative
[2025-07-19] MEDS: NSS (PRESERVATIVE FREE) 10 ML IV (09:06)
[2025-07-19] MEDS: PROTONIX IV 40 MG IV (09:06)
[2025-07-19] MEDS: REFRESH EYE DROPS (PF) 1 DROPS BOTH EYES (09:06)
[2025-07-19] MEDS: MIRALAX 17 GRAMS PO (09:06)
--- NOTE | 2025-07-19 10:08 | W.PN.GS2 ---
Today's Communication / Plan
-
Low residue diet
Assessment / Plan
-
84 yo female p/w reported abdominal discomfort in the setting of decreased bowel function in the setting of a prior SBO requiring operative intervention
AFVSS, exam fairly unremarkable, and overall improved compared to yesterday.
Plan:
Advance to low residue diet
General Surgery will sign off, please call with any questions or concerns.
Patient to follow-up with me as an outpatient as needed.
Time Spent
Total Time Spent with Patient (in minutes): 20
Subjective Data
-
Date of Service: July 19, 2025
Interval Events:
No acute events overnight. Slept well. Pain Controlled. Denies Nausea/Vomiting, +bowel function. Tolerating diet.
Objective Data
-
Intake and Output
07/18/25 07/19/25 07/20/25
06:59 06:59 06:59
Intake Total 1680 / 1680 720 / 720
Output Total 700 / 700 2000 / 2000
Balance 980 / 980 -1280 / -1280
Intake:
Oral fluids 480 / 480 720 / 720
IV fluids (Total) 1200 / 1200
Output:
Urine, Voided 700 / 700 2000 / 2000
Other:
Number of approximated SMALL 3
amounts of urine
Number of approximated MODERATE 2 1
amounts of urine
Vital Signs
Temp Pulse Resp BP Pulse Ox
98.3 F 79 18 122/57 95
07/19/25 07:00 07/19/25 07:00 07/19/25 07:00 07/19/25 07:00 07/19/25 07:00
Lab Results
07/19/25 06:42
07/19/25 06:42
Calcium 7.7 mg/dl (8.4-10.2) L 07/19/25 06:42
Magnesium 1.9 mg/dl (1.6-2.3) 07/19/25 06:42
Total Bilirubin 1.0 mg/dl (0.2-1.3) 07/16/25 19:45
AST 30 U/L (14-36) 07/16/25 19:45
ALT 14 U/L (0-35) 07/16/25 19:45
Alkaline Phosphatase 99 U/L (38-126) 07/16/25 19:45
Total Protein 6.3 g/dl (6.3-8.2) 07/16/25 19:45
Albumin 3.1 g/dl (3.5-5.0) L 07/16/25 19:45
Physical Exam
-
GENERAL/NEURO: Awake, Alert, no distress
CHEST: Unlabored breathing on RA
ABDOMEN: Soft, mildly tender in the right lower quadrant, nondistended
Patient has a maynard catheter: No
Patient has a central line: No
[2025-07-19 11:15] VITALS: BP 127/65; PULSE 89; O2SAT 97
[2025-07-19 11:16] VITALS: BP 127/65; PULSE 89; O2SAT 97
--- NOTE | 2025-07-19 11:46 | W.DS.TRANS ---
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
-
Discharge Instructions:
Discharge Diagnosis/Procedures Ileus, right pleural effusion, acute on chronic
anemia, electrolyte abnormalities
Diet Low Residue
Activity As tolerated
Driving Restrictions No driving
Bathing Restrictions None
Instructions:
Stand-Alone Forms:
Changes to Home Medications: No
Discharge Medications:
DC Medications w/original date entered in [employer]
baclofen 10 mg tablet 10 mg PO DAILY Neurological Condition 08/30/24
acetaminophen 500 mg tablet (Tylenol Extra Strength) 1,000 mg PO TIDPRN PRN mild pain 05/14/25
carboxymethylcellulose 0.5 %-glycerin 0.9 % eye drops (Refresh Optive) 1 drp BOTH EYES BID Eye Condition 05/14/25
lidocaine 4 % topical patch 1 patch topical DAILYPRN PRN lower back pain 05/14/25
pantoprazole 40 mg tablet,delayed release 40 mg PO DAILY Gastrointestinal Issue 05/14/25
trazodone 50 mg tablet 50 mg PO HS Neurological Condition 05/14/25
polyethylene glycol 3350 17 gram oral powder packet 17 g PO DAILY #0 ea 07/19/25
Home Medication Changes
Pending Results: No
--- NOTE | 2025-07-19 12:23 | CM ---
CM reviewed pt with attending- ready for dc today
Call with son/Skip to review planning
VN recs for PT/OT
Referral faxed to [facility] per his request along with VN order [phone]
IMM verbally reviewed over phone- copy left bedside
He will arrive shortly to transport pt home
CM attempted to call [facility] for verbal referral- unable to leave
Discharge Disposition- home with [facility] and continued private duty
Fax- [phone]
== END 2025-07-19 13:46 | disposition home health service (06) | DRG 389 ==
LOC: 4 EAST ACU 23:07
PROVIDERS: Emergency Medicine; ADMITTING PHYSICIAN Hospitalist; ATTENDING PHYSICIAN Hospitalist; EMERGENCY PHYSICIAN Emergency Medicine; FAMILY PHYSICIAN Internal Medicine Geriatric Medicine; OTHER PHYSICIAN Internal Medicine Critical Care Medicine; OTHER PHYSICIAN Surgery
DX: K56.0 Paralytic ileus (principal); J90 Pleural effusion, not elsewhere classified; F03.A0 Unspecified dementia, mild, without behavioral disturbance, psychotic disturbance, mood disturbance, and anxiety; G89.29 Other chronic pain; D64.9 Anemia, unspecified; E87.6 Hypokalemia; R82.81 Pyuria; E83.42 Hypomagnesemia; K21.9 Gastro-esophageal reflux disease without esophagitis; M54.9 Dorsalgia, unspecified; Z66 Do not resuscitate; Z60.2 Problems related to living alone; Z85.43 Personal history of malignant neoplasm of ovary; Z90.722 Acquired absence of ovaries, bilateral; Z90.710 Acquired absence of both cervix and uterus; Z90.2 Acquired absence of lung [part of]; Z92.3 Personal history of irradiation; Z90.49 Acquired absence of other specified parts of digestive tract; Z87.891 Personal history of nicotine dependence; Z86.73 Personal history of transient ischemic attack (TIA), and cerebral infarction without residual deficits; Z88.1 Allergy status to other antibiotic agents; Z88.3 Allergy status to other anti-infective agents; Z88.5 Allergy status to narcotic agent; Z88.7 Allergy status to serum and vaccine; Z85.118 Personal history of other malignant neoplasm of bronchus and lung; Z86.711 Personal history of pulmonary embolism
CPT/HCPCS: 71250; 74022; 74177; 80048; 80053; 81003; 81015; 83690; 83735; 85025; 85027; 87086; 97162; 97166; 99284; Q9967